=== PATIENT | female | born 1960 | race Caucasian/White ===

== ENCOUNTER 2017-12-24 15:04 | Observation (INO) ==
[2017-12-24 15:58] LABS: Basophils % 0.4 %; Eosinophils # 0.3 K/mcL (0.0-0.6); Eosinophils % 3.7 %; Hemoglobin 16.5 g/dL (11.5-15.4); Immature Granulocytes % 0.3 % (0-4); Lymphocytes # 3.8 K/mcL (0.6-4.6); Lymphocytes % 53.9 %; Mean Corpuscular HGB Conc 34.4 g/dL (31.6-35.5); Mean Corpuscular Hemoglobin 32.7 pg (28.0-33.3); Mean Corpuscular Volume 95.2 fL (83.0-100.0); Mean Platelet Volume 10.2 fL (9.4-12.4); Monocytes # 0.3 K/mcL (0.0-1.3); Monocytes % 3.9 %; Neutrophils # 2.6 K/mcL (1.6-8.9); Platelet Count 164 K/mcL (140-400); Red Blood Count 5.04 M/mcL (3.82-4.97); Red Cell Distribution Width 14.1 % (11.5-14.5); Segmented Neutrophils % 37.8 %
--- NOTE | 2017-12-24 16:01 | Emergency Department Note ---
Disposition Clinical Impression: Stable angina Disposition: Admitted As Inpatient Condition: Good Referrals: Miles Nicole MD [Primary Care Provider] - Forms: ED Satisfaction Letter Time of Disposition: 19:31 Chest Pain HPI - General Chief Complaint: ED Chest Pain Stated Complaint: chest pain Time Seen by Provider: 12/24/17 15:34 Source: patient Mode of arrival: ambulatory Limitations: no limitations Vital Signs Reviewed: Yes Nursing Notes Reviewed: Yes - History of Present Illness HPI Narrative: Patient presents to the ED the chief complaint of chest pain. Patient reports that she had an episode that lasted 25-30 minutes last night centralized sharp chest discomfort that made her diaphoretic and nauseated. She was also short of breath but has a history of COPD. States that it went away after about 30 minutes and she took a breathing treatment and her breathing got better that she woke up this morning and just felt very tired and weak. She also complains of a rather persistent chest tightness and heaviness at this time. Does have a history of DE about a year ago withstent placement and was seen at the [facility] and told she had an MRI, but she was recovering so there is nothing that they could do. She states this feels exactly the same. She came in today. No abdominal pain, vomiting or diarrhea. No pain or swelling in her legs. No history of PE. Severity scale (1-10): 4 - Related Data Home Medications Medication Instructions Recorded Confirmed Albuterol Neb [Proventil Neb] 2.5 mg IH QID PRN 10/20/15 12/27/16 Aspirin [Adult Low Dose Aspirin EC] 81 mg PO DAILY 10/20/15 12/27/16 Cyclobenzaprine [Flexeril] 10 mg PO HS PRN 10/20/15 12/27/16 Etanercept [Enbrel] 25 mg SQ WE 10/20/15 12/27/16 Fluticasone Propionate Nasal 100 mcg NS BID 10/20/15 12/27/16 [Flonase] Folic Acid 1 mg PO QAM 10/20/15 12/27/16 Furosemide [Lasix] 20 mg PO QAM 10/20/15 12/27/16 Levothyroxine Sodium [Synthroid] 400 mcg PO QAM 10/20/15 12/27/16 Lisinopril [Zestril] 10 mg PO QAM 10/20/15 12/27/16 Loratadine [Claritin] 10 mg PO QAM 10/20/15 12/27/16 Methotrexate [Otrexup] 12.5 mg PO TU 10/20/15 12/27/16 Metoprolol [Lopressor] 25 mg PO DAILY 10/20/15 12/27/16 Pantoprazole Sodium [Protonix] 20 mg PO QAM 10/20/15 12/27/16 Simvastatin [Zocor] 20 mg PO QPM 10/20/15 12/27/16 Sulfasalazine [Azulfidine] 1,500 mg PO BID 10/20/15 12/27/16 Previous Rx's Medication Instructions Recorded Clindamycin [Cleocin] 150 mg PO Q6HR #7 capsule 12/27/16 Ibuprofen [Motrin] 600 mg PO Q8HR #14 tab 12/27/16 OxyCODONE Immed Rel [Roxicodone 5 5 mg PO Q4HR PRN #24 tablet 12/27/16 MG] Allergies Allergy/AdvReac Type Severity Reaction Status Date / Time No Known Allergies Allergy Verified 03/26/16 10:14 Review of Systems: As reviewed in the HPI. All other systems reviewed are negative or normal. 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 Absent: normal lung sounds bilaterally - Cardiovascular Cardiovascular exam: Present: regular rate, normal rhythm, normal heart sounds - Abdominal Exam Abdominal exam: Present: soft, Non-Tender. Absent: tenderness, distention, guarding, rebound, rigidity - Extremities Exam Extremities exam: Present: normal inspection, full ROM. Absent: tenderness, pedal edema - Neurological Exam Neurological exam: Present: alert, oriented X3 - Psychiatric Psychiatric exam: Present: normal affect, normal mood - Skin Skin exam: Present: warm, dry, intact, normal color Course Course Narrative: Patient presenting with her anginal equivalent chest pain. We will workup and admit - Reevaluation(s) Reevaluation #1: Hospitalist is called back. Accepted for admission. Patient remained stable Vital Signs Temperature 98.4 F 12/24/17 15:09 Pulse Rate 87 12/24/17 15:09 Respiratory Rate 18 12/24/17 15:09 Blood Pressure 146/98 12/24/17 15:09 O2 Sat by Pulse Oximetry 94 12/24/17 15:09 Temperature 98.4 F 12/24/17 15:09 Pulse Rate 85 12/24/17 18:19 Respiratory Rate 18 12/24/17 18:23 Blood Pressure 116/98 12/24/17 18:19 O2 Sat by Pulse Oximetry 93 12/24/17 18:23 Oxygen Delivery Oxygen Delivery Room Air Chest Pain - Medical Records Medical records reviewed: Yes I reviewed the patient's medical records. - Lab Data Lab results reviewed: Yes I reviewed the patient's lab results. Result diagrams: 12/24/17 15:08 12/24/17 15:08 Lab Results 12/24/17 12/24/17 12/24/17 Range/Units 15:08 15:08 15:08 WBC 7.0 (4.3-11.1) K/mcL RBC 5.04 H (3.82-4.97) M/mcL Hgb 16.5 H (11.5-15.4) g/dL Hct 48.0 H (35.3-44.9) % MCV 95.2 (83.0-100.0) fL MCH 32.7 (28.0-33.3) pg MCHC 34.4 (31.6-35.5) g/dL RDW 14.1 (11.5-14.5) % Plt Count 164 (140-400) K/mcL MPV 10.2 (9.4-12.4) fL Immature Gran % 0.3 (0-4) % Seg Neutrophils % 37.8 % Lymphocytes % 53.9 % Monocytes % 3.9 % Eosinophils % 3.7 % Basophils % 0.4 % Neutrophils # 2.6 (1.6-8.9) K/mcL Lymphocytes # 3.8 (0.6-4.6) K/mcL Monocytes # 0.3 (0.0-1.3) K/mcL Eosinophils # 0.3 (0.0-0.6) K/mcL Basophils # 0.0 (0.0-0.2) K/mcL D-Dimer (0-500) ng/mLFEU Sodium 133 L (136-145) mEq/L Potassium 4.2 (3.5-5.1) mEq/L Chloride 98 (98-107) mEq/L Carbon Dioxide 28 (23-29) mEq/L BUN 10 (6-20) mg/dL Creatinine 0.74 (0.60-1.20) mg/dL Est GFR ( Amer) > 60 (> 60) Est GFR (Non-Af Amer) > 60 (> 60) BUN/Creatinine Ratio 14 (6-26) Glucose 105 (70-105) mg/dL Calculated Osmolality 275 L (280-300) Lactic Acid (0.5-2.2) mmol/L Calcium 10.3 (8.6-10.3) mg/dL Troponin I < 0.03 (< 0.04) ng/mL B-Natriuretic Peptide 37 (Less than 100) pg/mL 12/24/17 12/24/17 Range/Units 15:41 15:41 WBC (4.3-11.1) K/mcL RBC (3.82-4.97) M/mcL Hgb (11.5-15.4) g/dL Hct (35.3-44.9) % MCV (83.0-100.0) fL MCH (28.0-33.3) pg MCHC (31.6-35.5) g/dL RDW (11.5-14.5) % Plt Count (140-400) K/mcL MPV (9.4-12.4) fL Immature Gran % (0-4) % Seg Neutrophils % % Lymphocytes % % Monocytes % % Eosinophils % % Basophils % % Neutrophils # (1.6-8.9) K/mcL Lymphocytes # (0.6-4.6) K/mcL Monocytes # (0.0-1.3) K/mcL Eosinophils # (0.0-0.6) K/mcL Basophils # (0.0-0.2) K/mcL D-Dimer 729 H (0-500) ng/mLFEU Sodium (136-145) mEq/L Potassium (3.5-5.1) mEq/L Chloride (98-107) mEq/L Carbon Dioxide (23-29) mEq/L BUN (6-20) mg/dL Creatinine (0.60-1.20) mg/dL Est GFR ( Amer) (> 60) Est GFR (Non-Af Amer) (> 60) BUN/Creatinine Ratio (6-26) Glucose (70-105) mg/dL Calculated Osmolality (280-300) Lactic Acid 1.1 (0.5-2.2) mmol/L Calcium (8.6-10.3) mg/dL Troponin I (< 0.04) ng/mL B-Natriuretic Peptide (Less than 100) pg/mL - Radiology Data Radiology results reviewed: Yes I reviewed the patient's radiology results. - EKG Data EKG attestation: Yes I reviewed and interpreted this EKG. EKG results narrative: Sinus rhythm, rate 81, MO interval 205, QRS 88, QTC 373, normal axis, no acute ischemic changes Heart Score - Score History: Highly Suspicious EKG: Non Specific repolarisation Disturbance Age: 45-65 Risk Factors: Equal/Greater than 3 risk factor or history of atherosclerotic disease Troponin: Less than normal limit HEART Score Total: 6
[2017-12-24 16:15] LABS: BUN/Creatinine Ratio 14 (6-26); Blood Urea Nitrogen 10 mg/dL (6-20); Calcium 10.3 mg/dL (8.6-10.3); Carbon Dioxide 28 mEq/L (23-29); Chloride 98 mEq/L (98-107); Glucose 105 mg/dL (70-105); Osmolality,Calculated 275 (280-300); Potassium 4.2 mEq/L (3.5-5.1); Sodium 133 mEq/L (136-145); eGFR For African Americans > 60 (> 60); eGFR For Non-African Americans > 60 (> 60)
[2017-12-24 16:16] LABS: Troponin I < 0.03 ng/mL (< 0.04)
[2017-12-24] MEDS ORDERED: Isovue-370 500 ML INFUS..BTL IV ONE (16:44)
--- NOTE | 2017-12-24 16:46 | Emergency Department Note ---
START Narrative - START START: I examined this patient and my medical decision-making was reviewed with the Resident Physician. I agree with the documented findings, disposition and treatment plan as described except to the extent set forth below. 57-year-old female presents to the emergency room for chest pain and chest pressure. Workup today reveals an elevated d-dimer but a negative troponin. We will do a CTA of the chest to evaluate for any possible pulmonary embolus. She is hemodynamically stable at this time. She has no chest pain at this time. She does have a history of COPD. Some of her breathing treatments of helped with her discomfort. She feels tired and weak and feels something is not right. Her EKG was nondiagnostic.
[2017-12-24] MEDS ORDERED: Ipratropium/Albuterol Neb 3 ML IH ONE (18:20)
[2017-12-24] MEDS ORDERED: Aspirin 325 MG TABLET PO ONE (19:30)
--- NOTE | 2017-12-24 21:13 | Internal Med History&Physical ---
Date of Encounter: 12/24/17 Time of Encounter: 21:11 Internal Medicine - H&P: HPI Chief complaint: chest pain Admitted From: Emergency Dept Plans for Post Hospital Care: Home History of present illness: Ms. King is a 57 year old female Patient with history of COPD, rheumatoid arthritis, hypertension, obesity, CAD patient says she has had 5 cardiac catheter no stent placed, smoking history and high cholesterol patient has chest pain describes a sharp pain last night lasted about 30 minutes associated with with some nausea and diaphoresis resolved but she woke up this morning feeling tired and weak with persistence chest heaviness and decided to come to the emergency room EKG troponin is unremarkable patient be admitted for follow evaluation. Past Med Surg Social Fam HX - Past Medical History Medical history: asthma, COPD, hypertension, myocardial infarction, RA, thyroid disease Psychiatric history: no psych history - Past Surgical History Surgical History: herniorrhaphy - Social History Smoking Status: Current every day smoker Smokeless Tobacco Status: No Alcohol use: none Drug use: marijuana - Family History Father Adopted: No Family Member Ethnicity: Non- Living Status: Hx Family Cardiac Disorders: Yes Internal Medicine - H&P: Meds Albuterol Neb [Proventil Neb] 2.5 mg IH QID PRN 10/20/15 [History] Aspirin [Adult Low Dose Aspirin EC] 81 mg PO DAILY 10/20/15 [History] Cyclobenzaprine [Flexeril] 10 mg PO HS PRN 10/20/15 [History] Etanercept [Enbrel] 25 mg SQ WE 10/20/15 [History] Fluticasone Propionate Nasal [Flonase] 100 mcg NS BID 10/20/15 [History] Folic Acid 1 mg PO QAM 10/20/15 [History] Furosemide [Lasix] 20 mg PO QAM 10/20/15 [History] Levothyroxine Sodium [Synthroid] 400 mcg PO QAM 10/20/15 [History] Lisinopril [Zestril] 10 mg PO QAM 10/20/15 [History] Loratadine [Claritin] 10 mg PO QAM 10/20/15 [History] Methotrexate [Otrexup] 12.5 mg PO TU 10/20/15 [History] Metoprolol [Lopressor] 25 mg PO DAILY 10/20/15 [History] Pantoprazole Sodium [Protonix] 20 mg PO QAM 10/20/15 [History] Simvastatin [Zocor] 20 mg PO QPM 10/20/15 [History] Sulfasalazine [Azulfidine] 1,500 mg PO BID 10/20/15 [History] Clindamycin [Cleocin] 150 mg PO Q6HR #7 capsule 12/27/16 [Rx] Ibuprofen [Motrin] 600 mg PO Q8HR #14 tab 12/27/16 [Rx] OxyCODONE Immed Rel [Roxicodone 5 MG] 5 mg PO Q4HR PRN #24 tablet 12/27/16 [Rx] 3 Allergy/AdvReac Type Severity Reaction Status Date / Time No Known Allergies Allergy Verified 03/26/16 10:14 All Systems PM: A 10-system review of systems was performed and is negative for pertinent findings except as documented above in the HPI. - Constitutional Vitals: Temp Pulse Resp BP Pulse Ox 98.4 F 90 16 111/88 94 12/24/17 15:09 12/24/17 19:36 12/24/17 20:51 12/24/17 20:51 12/24/17 19:36 - Head Head exam: Present: atraumatic, normocephalic - Eye Eye exam: Present: PERRL, conjuntiva pink, sclera anicteric Pupils: Present: PERRL - Neck Neck exam general surgery: Present: supple, trachea midline. Absent: lymphadenopathy - Respiratory Respiratory exam: Present: CTAB. Absent: accessory muscle use, rales, rhonchi, wheezes - Cardiovascular Cardiovascular exam: Present: RRR, +S1, +S2. Absent: diastolic murmur, gallop, rubs, systolic murmur - GI/Abdominal GI/Abdominal exam: Present: normal bowel sounds, soft, no peritoneal signs. Absent: distended, tenderness - Extremities Exam Extremities exam: Present: warm, radial pulses palpable and symmetrical. Absent : calf tenderness, cyanotic, pedal edema - Neurological Exam Neurological exam: Present: CN II-XII intact, oriented X3, no focal deficits. 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 transplanted heart: [place] heart Associated angina: without angina Qualified Code(s): I25.10 - Atherosclerotic heart disease of [place] coronary artery without angina pectoris - Time Spent With Patient Total time spent is greater than 50% in coordination of care (as documented) at patient's floor/unit and/or counseling patient:
[2017-12-24] MEDS ORDERED: traMADol 50 MG TABLET PO PRN (21:17)
[2017-12-24] MEDS ORDERED: Acetaminophen 325 MG TABLET PO PRN (21:17)
[2017-12-24] MEDS ORDERED: Naloxone 0.4 MG/ML INJ IVP PRN (21:17)
[2017-12-24] MEDS ORDERED: *HR* OxyCODONE Immed Rel 5 MG TABLET PO PRN (21:18)
[2017-12-25] MEDS: Albuterol 2.5 MG/3 ML NEBULIZER IH PRN ×5 (01:13→23:33)
[2017-12-25 03:32] LABS: Basophils % 0.3 %; Eosinophils # 0.3 K/mcL (0.0-0.6); Eosinophils % 4.6 %; Hematocrit 42.7 % (35.3-44.9); Immature Granulocytes % 0.2 % (0-4); Lymphocytes # 3.3 K/mcL (0.6-4.6); Lymphocytes % 55.1 %; Mean Corpuscular HGB Conc 34.7 g/dL (31.6-35.5); Mean Corpuscular Hemoglobin 33.1 pg (28.0-33.3); Mean Corpuscular Volume 95.5 fL (83.0-100.0); Mean Platelet Volume 10.1 fL (9.4-12.4); Monocytes # 0.3 K/mcL (0.0-1.3); Monocytes % 4.3 %; Neutrophils # 2.2 K/mcL (1.6-8.9); Platelet Count 144 K/mcL (140-400); Red Blood Count 4.47 M/mcL (3.82-4.97); Segmented Neutrophils % 35.5 %
[2017-12-25 03:41] LABS: Hemoglobin 14.8 g/dL (11.5-15.4)
[2017-12-25 03:43] LABS: Alanine Aminotransferase 21 Units/L (7-52); Albumin 3.9 g/dL (3.5-5.7); Albumin/Globulin Ratio 1.6 (1.1-2.2); Alkaline Phosphatase 58 Units/L (34-104); Aspartate Amino Transferase 22 Units/L (13-39); BUN/Creatinine Ratio 14 (6-26); Bilirubin,Total 0.7 mg/dL (0.3-1.0); Blood Urea Nitrogen 12 mg/dL (6-20); Calcium 9.3 mg/dL (8.6-10.3); Carbon Dioxide 27 mEq/L (23-29); Chloride 99 mEq/L (98-107); Chol/HDL Ratio 4.4 (0-4.9); Cholesterol 177 mg/dL (< 200); Globulin 2.5 g/dL (2.4-3.5); Glucose 103 mg/dL (70-105); HDL Cholesterol 40 mg/dL (40-59); LDL Cholesterol,Calculated 120 mg/dL (0-99); Magnesium 1.8 mg/dL (1.6-2.6); Osmolality,Calculated 270 (280-300); Potassium 4.1 mEq/L (3.5-5.1); Sodium 130 mEq/L (136-145); Total Protein 6.4 g/dL (6.4-8.9); Triglycerides 87 mg/dL (< 150); eGFR For African Americans > 60 (> 60); eGFR For Non-African Americans > 60 (> 60)
[2017-12-25] MEDS ORDERED: Regadenoson 0.4 MG/5 ML SYRINGE IVP ONE (06:01)
--- NOTE | 2017-12-25 14:14 | Gastroenterology Consult Note ---
<Stephanie Carey - Last Filed: 12/25/17 14:10> Date of Encounter: 12/25/17 Time of Encounter: 11:45 - Assessment and plan (1) Chest pain Current Visit: Yes Status: Acute Assessment and plan: Stress test this am showed low risk positiv results. She denies any GERD or abdominal symptoms. Will defer EGD at this time, until cardiac workup is complete. Qualifiers: Chest pain type: precordial pain Qualified Code(s): R07.2 - Precordial pain - Time Spent With Patient Total time spent is greater than 50% in coordination of care (as documented) at patient's floor/unit and/or counseling patient: GI History of Present Illness - Data of Consult Patient: new to practice Consult date: 12/25/17 Requesting Physician: Hernan Duarte MD - Consult Narrative Reason for consult: chest pain History of present illness: Ms. King is a 57 year old female patient with history of COPD, rheumatoid arthritis, hypertension, obesity, CAD patient says she has had 5 cardiac catheter no stent placed, smoking history and high cholesterol. She presents with sharp substernal chest pain that lasted approximately 30 minutes last night. She also had nausea and diarphoresis. Pain resolved she woke up this morning feeling tired and weak with persistence chest heaviness and decided to come to the emergency room EKG troponin is unremarkable. Pt denies any GERD, epigastric pain, abdominal pain, vomiting, diarrhea, constipation, bloody or tarry stools. Colon: 06/17 diverticulosis, 6 mm polyp eGD: [place]'s esophagus no dysplasia NSAIDS: baby asa anticoagulants denies Past Med Surg Social Fam HX - Past Medical History Medical history: asthma, COPD, hypertension, myocardial infarction, RA, thyroid disease Psychiatric history: no psych history - Past Surgical History Surgical History: herniorrhaphy - Social History Smoking Status: Current every day smoker Packs per day: 0.5 Smokeless Tobacco Status: No Alcohol use: none Drug use: marijuana - Family History Mother Hx Family Cardiac Disorders: Yes (Heart disease) Hx Family Endocrine Disorder: Yes (DM) Father Adopted: No Family Member Ethnicity: Non- Living Status: Hx Family Cardiac Disorders: Yes (Heart disease, [place]) Review of Systems: GI: as per [place] GENERAL: denies fever, or chills EYES: denies yellow discoloration ENT: denies pain with swallowing or difficulty swallowing CARDIO: see hpi RESP: No Shortness of breath with exertion : denies change in color of urine NEURO: denies any weakness HEME: Denies any bruising MS: denies joint pain, joint swelling or back pain. DERM: denies rash or itching PSYCH: history of anxiety and depression - Constitutional Vitals: Temp Pulse Resp BP Pulse Ox 98.3 F 59 16 119/76 90 12/25/17 11:11 12/25/17 11:11 12/25/17 13:58 12/25/17 11:11 12/25/17 13:58 Exam: CONSTITUTIONAL:~alert, no acute distress.~HEAD:~normocephalic.~EYES:~no jaundice.~NECK:~no obvious swelling.~HEART:~regular rate and rhythm, no murmurs. ~LUNGS:~bilateral good air entry.~ABDOMEN:~non distended, soft, non tender, no masses palpable, no organomegaly.~RECTAL EXAM:~Deferred.~EXTREMITIES:~no clubbing, cyanosis or edema, obesity.~SKIN:~no stigmata of chronic liver disease.~NEUROLOGIC:~no obvious focal defect.~~~~ Results - Labs CBC & Chem 7: 12/25/17 03:09 12/25/17 03:09 Labs: Last Result Calcium 9.3 mg/dL (8.6-10.3) 12/25/17 03:09 Troponin I < 0.03 ng/mL (< 0.04) 12/25/17 03:09 Triglycerides 87 mg/dL (< 150) 12/25/17 03:09 Entire Visit Hgb 14.8 g/dL (11.5-15.4) D 12/25/17 03:09 Hct 42.7 % (35.3-44.9) 12/25/17 03:09 Total Bilirubin 0.7 mg/dL (0.3-1.0) 12/25/17 03:09 AST 22 Units/L (13-39) 12/25/17 03:09 ALT 21 Units/L (7-52) 12/25/17 03:09 - ABG ABG results: PT/INR, D-dimer D-Dimer 729 ng/mLFEU (0-500) H 12/24/17 15:41 Consult Discharge Plan - Plan Referrals: Miles Nicole MD [Primary Care Provider] - <Ashkan Summers - Last Filed: 12/25/17 18:51> Date of Encounter: 12/25/17 Time of Encounter: 15:00 - Time Spent With Patient Total time spent is greater than 50% in coordination of care (as documented) at patient's floor/unit and/or counseling patient: GI History of Present Illness - Data of Consult Requesting Physician: Hernan Duarte MD - Consult Narrative History of present illness: Ms. King is a 57 year old female - Constitutional Vitals: Temp Pulse Resp BP Pulse Ox 98.9 F 98 16 124/85 92 12/25/17 14:22 12/25/17 14:22 12/25/17 14:22 12/25/17 14:22 12/25/17 14:22 Results - Labs CBC & Chem 7: 12/25/17 03:09 12/25/17 14:28 Labs: Last Result Calcium 9.9 mg/dL (8.6-10.3) 12/25/17 14:28 Troponin I < 0.03 ng/mL (< 0.04) 12/25/17 03:09 Triglycerides 87 mg/dL (< 150) 12/25/17 03:09 Entire Visit Hgb 14.8 g/dL (11.5-15.4) D 12/25/17 03:09 Hct 42.7 % (35.3-44.9) 12/25/17 03:09 Total Bilirubin 0.7 mg/dL (0.3-1.0) 12/25/17 03:09 AST 22 Units/L (13-39) 12/25/17 03:09 ALT 21 Units/L (7-52) 12/25/17 03:09 - ABG ABG results: PT/INR, D-dimer D-Dimer 729 ng/mLFEU (0-500) H 12/24/17 15:41 - Attending Attestation I have personally performed a face to face evaluation on this patient. I have reviewed and agree with the care plan. History and Exam by me shows: Admitted with chest pain. Currently chest pain-free. On examination no epigastric tenderness. Had a stress test done which showed mild abnormality. Pt is being seen by cardiology and and we will wait for their workup. Only EGD if it was found that the stress tests abnormality is not responsible for her chest pain
[2017-12-25 14:57] LABS: BUN/Creatinine Ratio 10 (6-26); Blood Urea Nitrogen 9 mg/dL (6-20); Calcium 9.9 mg/dL (8.6-10.3); Carbon Dioxide 29 mEq/L (23-29); Chloride 100 mEq/L (98-107); Glucose 119 mg/dL (70-105); Osmolality,Calculated 278 (280-300); Potassium 3.6 mEq/L (3.5-5.1); Sodium 134 mEq/L (136-145); eGFR For African Americans > 60 (> 60); eGFR For Non-African Americans > 60 (> 60)
--- NOTE | 2017-12-25 15:49 | Cardiology Consult Note ---
<Trung Alegria - Last Filed: 12/25/17 16:42> Date of Encounter: 12/25/17 Time of Encounter: 15:50 Assessment and Plan (1) Chest pain Current Visit: Yes Status: Acute Per Cardiology: Atypical symptoms that appear epigastric in nature and occurred at rest. Symptoms reproducible today with deep inspiration and palpation. Troponins negative. Non-exercise nuclear stress test showed gated EF 56%, nuclear images showed "small size, mild intensity, reversible apex perfusion defect of equivocal significance, suspect this defect is due to artifact, a small area of ischemia cannot be excluded, clinical correlation recommended, low risk positive study". Undergoing GI eval as well for possible EGD. Reported history of "myocardial infarction and possibly effusion", patient reports events occurred in 2009, however catheterization at [facility] noted in 2011 showed mild CAD with "suspicion of myocarditis": Lesion Findings/Interventions * Left Main Coronary Artery The LMCA is angiographically free of disease. * Left Anterior Descending Coronary Artery There is a 30% stenosis in the Proximal LAD. * Circumflex Coronary Artery There is a 20% stenosis in the Proximal Circumflex. * Right Coronary Artery There is a 20% stenosis in the Proximal RCA. Will attempt to obtain medical records from [facility]. On aspirin, statin, beta sheridan, and SERGIO inhibitor. We will review and discuss with Dr. Jeovany Mercado in decide in the a.m. regarding potential further ischemic evaluation versus monitoring. Patient and currently prefer to proceed with EGD. Qualifiers: Chest pain type: precordial pain Qualified Code(s): R07.2 - Precordial pain (2) Elevated d-dimer Current Visit: Yes Status: Acute Per Cardiology: D-dimer noted to be elevated in the 700s. CT negative for PE. Discussion w patient/family: The assessment and plan as outlined above was discussed with the patient and/or family members who expressed understanding and agreement. All questions were answered. Thank you for involving us in the care of your patient. Please call with any questions. History of Present Illness Consult date: 12/25/17 Requesting physician: Mariana Portillo Consult reason: Abnormal Stress test Chief complaint: CP History of present illness: Ms. King is a 57 year old female who relevant past medical history of nicotine abuse, reported TX, rheumatoid arthritis, asthma, hypothyroidism, hypertension, COPD. Previous records reviewed with no previous cardiac evaluation at [facility]. Cardiology consult for chest pain and abnormal stress test results. Patient reports she awakened in the middle night with midsternal epigastric burning sensation that lasted about 20-30 minutes and subsided on its own accord and she "with back to sleep". She reports next day she awakened and felt "tired and weak all day". Prior to this event denies any chest pain symptoms. Reports questionable history of TX with catheterization reportedly at [facility] 2009-- patient and deny any stenting or bypass surgery. Reports transferred to [facility] at that time with concerns of possible "effusion". Does not follow with cardiology. Has not had cardiac testing since that event. He used to smoke about a half a pack per day, has averaged one pack per day for about 30 years. Reports history of GERD and takes medications at home. She does report history of COPD and utilizes oxygen at night. Denies any active bleeding or blood loss. Reports past history of colonoscopy, however currently being evaluated for possible EGD tomorrow. Past Med Surg Social Fam HX - Past Medical History Attestation: Yes The following information was validated with the patient. Source: patient, old records reviewed Medical history: asthma, COPD, hypertension, myocardial infarction, RA, thyroid disease Psychiatric history: no psych history - Past Surgical History Surgical History: herniorrhaphy - Social History Smoking Status: Current every day smoker Packs per day: 0.5 Smokeless Tobacco Status: No Alcohol use: none Drug use: marijuana - Family History Mother Hx Family Cardiac Disorders: Yes (Heart disease) Hx Family Endocrine Disorder: Yes (DM) Father Adopted: No Family Member Ethnicity: Non- Living Status: Hx Family Cardiac Disorders: Yes (Heart disease, TX) Medications and Allergies Albuterol Neb [Proventil Neb] 2.5 mg IH QID PRN 10/20/15 [History] Aspirin [Adult Low Dose Aspirin EC] 81 mg PO DAILY 10/20/15 [History] Etanercept [Enbrel] 25 mg SQ WE 10/20/15 [History] Folic Acid 1 mg PO QAM 10/20/15 [History] Furosemide [Lasix] 20 mg PO QAM 10/20/15 [History] Levothyroxine Sodium [Synthroid] 400 mcg PO QAM 10/20/15 [History] Lisinopril [Zestril] 10 mg PO QAM 10/20/15 [History] Loratadine [Claritin] 10 mg PO QAM 10/20/15 [History] Methotrexate [Otrexup] 12.5 mg PO TU 10/20/15 [History] Metoprolol [Lopressor] 25 mg PO DAILY 10/20/15 [History] Sulfasalazine [Azulfidine] 1,500 mg PO BID 10/20/15 [History] Dicyclomine [Bentyl] 20 mg PO QID 12/25/17 [History] Ipratropium [place] 1 spr NS QID 12/25/17 [History] Montelukast [Singulair] 10 mg PO DAILY 12/25/17 [History] Omeprazole [PriLOSEC] 20 mg PO DAILY@0730 #30 capsule. 12/26/17 [Rx] 3 Allergy/AdvReac Type Severity Reaction Status Date / Time No Known Allergies Allergy Verified 03/26/16 10:14 All Systems Review: The remainder of the systems were reviewed and are negative - Constitutional Constitutional: weakness - Cardiovascular Cardiovascular: as per HPI, chest pain at rest, dyspnea on exertion Physical Examination Vital Signs, Last 4 Hours Temp Pulse Resp BP Pulse Ox 12/25/17 14:22 98.9 F 98 16 124/85 92 12/25/17 13:58 16 90 General: Conversant, No Apparent Distress HEENT: Atraumatic, Normocephaly, Mucus Membranes Moist Neck: No JVD, Normal carotid pulses Cardiac: Reg Rate and Rhythm, Normal S1 and S2, No Murmur Lungs: Normal Breath Sounds, No Wheeze, Rales, Rhonchi Neuro: Alert and responsive, No focal deficits noted Abdomen: Soft, Non-Tender, Other (obese) Skin: No rashes noted on visualized skin Musculoskeletal: No Chest Wall Tenderness Extremities: No Clubbing, No Cyanosis, No Edema, Normal Pulses Results 12/25/17 03:09 12/25/17 14:28 Lab Results Laboratory Tests 12/24/17 12/24/17 12/24/17 15:08 15:08 15:41 D-Dimer 729 H Creatinine Est GFR (Non-Af Amer) Magnesium Troponin I < 0.03 B-Natriuretic Peptide 37 LDL Cholesterol, Calc 12/24/17 12/25/17 12/25/17 21:48 03:09 03:09 D-Dimer Creatinine 0.87 Est GFR (Non-Af Amer) > 60 Magnesium 1.8 Troponin I < 0.03 < 0.03 B-Natriuretic Peptide LDL Cholesterol, Calc 120 H ITS Impressions Chest X-Ray 12/24/17 15:08 IMPRESSION: 1. No acute process. 2. Findings suggestive of COPD. D/ / Eder Blankenship MD / Eder Blankenship MD Interpreting Provider: Eder Blankenship MD Chest CTA 12/24/17 16:44 IMPRESSION: 1. No pulmonary embolism. 2. Reflux of contrast into the hepatic veins suggesting right heart insufficiency. 3. Mild dilatation of ascending thoracic aorta. 4. Small to moderate size hiatal hernia. 5. Minimal fibrosis is noted in the upper right paramediastinal lung. D/ / Parth Rothman / Parth Rothman Interpreting Provider: Parth Rothman Active Medications Acetaminophen (Tylenol) 650 mg PO Q6HR PRN PRN Reason: Mild Pain/Fever Stop: 06/25/18 21:18 Albuterol Sulfate (Proventil Neb) 2.5 mg IH QID PRN; Protocol PRN Reason: Shortness Of Breath Stop: 06/25/18 21:19 Last Admin: 12/25/17 13:58 Dose: 2.5 mg Aspirin (Aspirin Ec) 81 mg PO DAILY REPLACED BY [facility] Stop: 06/26/18 09:01 Last Admin: 12/25/17 16:33 Dose: 81 mg Cyclobenzaprine HCl (Flexeril) 10 mg PO HS PRN PRN Reason: Muscle Spasm Stop: 06/25/18 21:19 Fluticasone Propionate (Flonase) 100 mcg NS BID [place] PRN Reason: Protocol Stop: 06/26/18 09:01 Last Admin: 12/25/17 15:59 Dose: Not Given Folic Acid (Folic Acid) 1 mg PO QAM REPLACED BY [facility] Stop: 06/26/18 09:01 Last Admin: 12/25/17 16:32 Dose: 1 mg Heparin Sodium (Porcine) (Heparin Lock) 500 unit IV ONCE PRN PRN Reason: Port [place]ush while in RADIOLOGY Stop: 12/26/17 16:45 Levothyroxine Sodium (Synthroid) 400 mcg PO QAM REPLACED BY [facility] Stop: 06/26/18 09:01 Last Admin: 12/25/17 16:33 Dose: 400 mcg Lisinopril (Zestril) 10 mg PO QAM REPLACED BY [facility] PRN Reason: Protocol Stop: 06/26/18 09:01 Last Admin: 12/25/17 16:32 Dose: 10 mg Loratadine (Claritin) 10 mg PO QAM REPLACED BY [facility] PRN Reason: Protocol Stop: 06/26/18 09:01 Last Admin: 12/25/17 16:32 Dose: 10 mg Metoprolol Tartrate (Lopressor) 25 mg PO DAILY REPLACED BY [facility] Stop: 06/26/18 09:01 Last Admin: 12/25/17 16:32 Dose: 25 mg Naloxone HCl (Narcan) 0.4 mg IVP Q2MIN PRN PRN Reason: SEE COMMENTS Stop: 06/25/18 21:18 Omeprazole (Prilosec) 20 mg PO DAILY@0730 REPLACED BY [facility] Stop: 06/26/18 07:31 Last Admin: 12/25/17 05:59 Dose: Not Given Oxycodone HCl (Roxicodone) 5 mg PO Q4HR PRN; Protocol PRN Reason: Severe Pain Stop: 06/25/18 21:19 Simvastatin (Zocor) 20 mg PO QPM REPLACED BY [facility] PRN Reason: Protocol Stop: 06/26/18 18:01 Last Admin: 12/25/17 16:33 Dose: 20 mg Sulfasalazine (Sulfasalazine) 1,500 mg PO BID REPLACED BY [facility] Stop: 06/26/18 09:01 Last Admin: 12/25/17 15:59 Dose: Not Given Tramadol HCl (Ultram) 50 mg PO Q6HR PRN PRN Reason: Moderate Pain Stop: 06/25/18 21:18 [facility] 2012: Impressions: Minimal atherosclerotic coronary artery disease. The left ventricle is normal and has normal contractility EF 60% Diastolic dysfunction of the left ventricle, LVEDP 21mmHg Probable myocarditis. - Imaging and Cardiology Stress Test: report reviewed - EKG Interpretation EKG results cardiology: other (No ECG available for review, will obtain) Consult Discharge Plan - Plan Instructions: Chest Pain (DC) Additional Instructions: [facility] Follow-up appointments: If there is not an appointment listed below, please call your physician and schedule a follow-up appointment. If you have congestive heart failure and your symptoms return, make an appointment with your physician. Medication List: Carry an up to date list of medications you are taking at all time. We have given you an updated medication list including any new medications that you have been prescribed. Please provide that list to your primary provider Symptoms: If your condition changes or you experience any of the following symptoms, notify your physician immediately: Unusual or worsening pain, fever, persistent nausea and vomiting, bleeding, increase in swelling (especially in your legs), sudden weight gain, extreme dizziness, chest pain, increased drainage or redness from a wound or incision. Go to the emergency department if you experience a problem with breathing. Weights: If you have a history of swelling or shortness of breath, weigh yourself daily and notify your physician if you have a weight gain of two or more pounds in one day or 5 or more pounds in a week. If you experience any of the warning signs for stroke: Sudden numbness or weakness of the face, arm or leg; especially on one side of the body, sudden confusion, trouble speaking or understanding, sudden trouble seeing in one or both eyes, sudden trouble walking, dizziness, loss of balance or coordination, sudden sever headache with no cause; Call 911 or go to the emergency room. Stroke is a medical emergency. Some risk factors for stroke: Age, cigarette smoking, diabetes, excessive alcohol consumption, family history , high blood pressure, overweight, physical inactivity, prior stroke, heart attack, diagnosis of carotid artery stenosis or other artery disease. If you smoke, STOP: Smoking or tobacco use significantly increases your risk of heart and lung disease. Your chance of disease greatly increases if you continue to smoke. For more information, call the [place] tobacco quit line for smoking cessation 6 QUIT-NOW ( ) Referrals: [facility] [Provider Group] - 01/20/18 8:00 am (With Trung Alegria CNP ) Miles Nicole MD [Primary Care Provider] - 12/30/17 2:00 pm Ashkan Summers MD [Partnered Physician] - Prescriptions: Omeprazole [PriLOSEC] 20 mg PO DAILY@729 #30 capsule.Jeovany Love - Last Filed: 12/26/17 13:54> Date of Encounter: 12/26/17 - Attending Attestation I have personally performed a face to face evaluation on this patient. I have reviewed and agree with the care plan. History and Exam by me shows: Agree with plan a detailed below, pt. was discharged prior to my evaluation. Assessment and Plan Discussion w patient/family: The assessment and plan as outlined above was discussed with the patient and/or family members who expressed understanding and agreement. All questions were answered. Thank you for involving us in the care of your patient. Please call with any questions. History of Present Illness History of present illness: Ms. King is a 57 year old female All Systems Review: The remainder of the systems were reviewed and are negative Physical Examination Vital Signs, Last 4 Hours Temp Pulse Resp BP Pulse Ox 12/26/17 12:00 68 126/82 12/26/17 11:15 80 16 120/72 12/26/17 11:00 80 120/72 12/26/17 10:54 98.7 F 73 17 110/77 97 12/26/17 10:35 71 14 110/77 12/26/17 10:20 76 16 116/84 12/26/17 10:05 16 116/82 Results 12/26/17 04:43 12/26/17 04:43 Lab Results 12/25/17 12/26/17 12/26/17 14:28 04:43 04:43 WBC 5.4 Hgb 14.7 Hct 43.5 Plt Count 129 L INR 1.1 Sodium 134 L Potassium 3.6 Chloride 100 Carbon Dioxide 29 BUN 9 Creatinine 0.87 Glucose 119 H Calcium 9.9 12/26/17 04:43 WBC Hgb Hct Plt Count INR Sodium 133 L Potassium 4.2 Chloride 102 Carbon Dioxide 25 BUN 10 Creatinine 0.77 Glucose 108 H Calcium 9.4
[2017-12-25] MEDS: sulfaSALAzine 500 MG TABLET PO SCH ×2 (15:59→20:41)
[2017-12-25] MEDS: Fluticasone Propionate Nasal 50 MCG/SPRAY BOTTLE NS SCH ×2 (15:59→20:49)
[2017-12-25] MEDS: Folic Acid 1 MG TABLET PO SCH (16:32)
[2017-12-25] MEDS: Loratadine 10 MG TABLET PO SCH (16:32)
[2017-12-25] MEDS: Aspirin Enteric Coated 81 MG Tablet PO SCH (16:33)
--- NOTE | 2017-12-25 19:46 | Internal Med Progress Note ---
Date of Encounter: 12/25/17 Time of Encounter: 12:00 - Assessment and plan (1) Chest pain Current Visit: Yes Status: Acute Assessment and plan: 1 No chest pain at this time suspect may be GI in nature, according to patient cardiac cath X5 in past with no stent placemnt, she is a smoker and has high cholesterol Troponin are negative Underwent non exercise nuclear stress test which did show gated EF 56%, nuclear images showed "small size, mild intensity, reversible apex perfusion defect of equivocal significance, suspect this defect is due to artifact, a small area of ischemia cannot be excluded, clinical correlation recommended, low risk positive study". Cardiology has been consulted- reviewing records from [facility] and will decide on possible LHC in am. She will be NPO after midnight. GI has been consulted for EGD- will defer EGD until cardiology workup completed. Qualifiers: Chest pain type: precordial pain Qualified Code(s): R07.2 - Precordial pain (2) Elevated d-dimer Current Visit: Yes Status: Acute Assessment and plan: D dimer in the 700-CTA negative for PE (3) CAD (coronary artery disease) Current Visit: No Status: Chronic Assessment and plan: Cont with ASA BB SERGIO and statin Qualifiers: Coronary Disease-Associated Artery/Lesion type: [place] artery [place] vs. 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 GI defering EGD at this time until cardiac workup is complete, patient is aware . No chest pain or SOB voiced at this time - Constitutional Vitals: Temp Pulse Resp BP Pulse Ox 98.9 F 98 20 124/85 90 12/25/17 14:22 12/25/17 14:22 12/25/17 19:21 12/25/17 14:22 12/25/17 19:21 General appearance: Present: A&O X 3 - Head Head exam: Present: atraumatic, normocephalic - Eye Eye exam: Present: PERRL, conjuntiva pink, sclera anicteric Pupils: Present: PERRL - Neck Neck exam general surgery: Present: supple, trachea midline. Absent: lymphadenopathy - Respiratory Respiratory exam: Present: CTAB. Absent: accessory muscle use, rales, rhonchi, wheezes - Cardiovascular Cardiovascular exam: Present: RRR, +S1, +S2. Absent: diastolic murmur, gallop, rubs, systolic murmur - GI/Abdominal GI/Abdominal exam: Present: normal bowel sounds, soft, no peritoneal signs. Absent: distended, tenderness - Extremities Exam Extremities exam: Present: warm, radial pulses palpable and symmetrical. Absent : calf tenderness, cyanotic, pedal edema - Neurological Exam Neurological exam: Present: CN II-XII intact, oriented X3, no focal deficits. Absent: pronater drift, facial droop, speech deficit - Skin Skin exam: Present: dry, intact Internal Medicine: Result - Labs CBC & Chem 7: 12/25/17 03:09 12/25/17 14:28 Labs: Short CBC 12/25/17 Range/Units 03:09 WBC 6.1 (4.3-11.1) K/mcL Hgb 14.8 D (11.5-15.4) g/dL Hct 42.7 (35.3-44.9) % Plt Count 144 (140-400) K/mcL Neutrophils # 2.2 (1.6-8.9) K/mcL BMP 12/25/17 12/25/17 03:09 14:28 Sodium 130 L 134 L Potassium 4.1 3.6 Chloride 99 100 Carbon Dioxide 27 29 BUN 12 9 Creatinine 0.87 0.87 Glucose 103 119 H Calcium 9.3 9.9 Cardiac Enzymes 12/24/17 12/25/17 Range/Units 21:48 03:09 Troponin I < 0.03 < 0.03 (< 0.04) ng/mL Liver Function 12/25/17 Range/Units 03:09 Total Bilirubin 0.7 (0.3-1.0) mg/dL AST 22 (13-39) Units/L ALT 21 (7-52) Units/L Alkaline Phosphatase 58 (34-104) Units/L Albumin 3.9 (3.5-5.7) g/dL - ABG Interpretation ABG results: PT/INR, D-dimer D-Dimer 729 ng/mLFEU (0-500) H 12/24/17 15:41 - Diagnostic Studies Other Images Additional comments: Chest X-Ray 12/24/17 15:08 IMPRESSION: 1. No acute process. 2. Findings suggestive of COPD. D/ / Eder Blankenship MD / Eder Blankenship MD Interpreting Provider: Eder Blankenship MD Chest CTA 12/24/17 16:44 IMPRESSION: 1. No pulmonary embolism. 2. Reflux of contrast into the hepatic veins suggesting right heart insufficiency. 3. Mild dilatation of ascending thoracic aorta. 4. Small to moderate size hiatal hernia. 5. Minimal fibrosis is noted in the upper right paramediastinal lung. D/ / Parth Rothman / Parth Rothman Interpreting Provider: Parth Rothman Consult Discharge Plan - Plan Referrals: Miles Nicole MD [Primary Care Provider] -
[2017-12-26 05:20] LABS: Basophils % 0.4 %; Eosinophils # 0.4 K/mcL (0.0-0.6); Eosinophils % 6.5 %; Hematocrit 43.5 % (35.3-44.9); Hemoglobin 14.7 g/dL (11.5-15.4); Immature Granulocytes % 0.2 % (0-4); Lymphocytes # 2.5 K/mcL (0.6-4.6); Lymphocytes % 46.5 %; Mean Corpuscular HGB Conc 33.8 g/dL (31.6-35.5); Mean Corpuscular Hemoglobin 33.1 pg (28.0-33.3); Mean Platelet Volume 10.6 fL (9.4-12.4); Monocytes # 0.3 K/mcL (0.0-1.3); Monocytes % 5.6 %; Neutrophils # 2.2 K/mcL (1.6-8.9); Platelet Count 129 K/mcL (140-400); Red Blood Count 4.44 M/mcL (3.82-4.97); Segmented Neutrophils % 40.8 %
[2017-12-26 05:31] LABS: INR 1.1; Prothrombin Time 12.2 Seconds (9.4-12.1)
[2017-12-26 05:41] LABS: BUN/Creatinine Ratio 13 (6-26); Blood Urea Nitrogen 10 mg/dL (6-20); Calcium 9.4 mg/dL (8.6-10.3); Carbon Dioxide 25 mEq/L (23-29); Chloride 102 mEq/L (98-107); Glucose 108 mg/dL (70-105); Osmolality,Calculated 276 (280-300); Potassium 4.2 mEq/L (3.5-5.1); Sodium 133 mEq/L (136-145); eGFR For African Americans > 60 (> 60); eGFR For Non-African Americans > 60 (> 60)
[2017-12-26] MEDS: Albuterol 2.5 MG/3 ML NEBULIZER IH PRN (07:26)
[2017-12-26] MEDS ORDERED: *HR* Propofol 200 MG/20 ML VIAL IVP ONE (08:12)
[2017-12-26] MEDS: Fluticasone Propionate Nasal 50 MCG/SPRAY BOTTLE NS SCH (08:12)
[2017-12-26] MEDS ORDERED: *HR* FentaNYL (PF) 100 MCG/2 ML VIAL ONE (08:34)
[2017-12-26] MEDS ORDERED: Ketamine *HR* 500 MG/10 ML MDV ONE (08:36)
--- NOTE | 2017-12-26 08:48 | Cardiology Progress Note ---
Date of Encounter: 12/26/17 Time of Encounter: 08:45 Assessment and Plan (1) Chest pain Current Visit: Yes Status: Acute Per Cardiology: Atypical symptoms that appear epigastric in nature and occurred at rest. Symptoms reproducible with deep inspiration and palpation. Troponins negative x 3. Non-exercise nuclear stress test showed gated EF 56%, nuclear images showed "small size, mild intensity, reversible apex perfusion defect of equivocal significance, suspect this defect is due to artifact, a small area of ischemia cannot be excluded, clinical correlation recommended, low risk positive study". LHC at [facility] noted in 2011 showed mild CAD with "suspicion of myocarditis": Lesion Findings/Interventions * Left Main Coronary Artery The LMCA is angiographically free of disease. * Left Anterior Descending Coronary Artery There is a 30% stenosis in the Proximal LAD. * Circumflex Coronary Artery There is a 20% stenosis in the Proximal Circumflex. * Right Coronary Artery There is a 20% stenosis in the Proximal RCA. Medical records from [facility] received and patient treated for pericarditis November 2009 with echo showing trivial pericardial effusion. Underwent EGD today and diagnosed with Samayoa's esophagus. Patient desires to follow-up in outpatient setting. No catheterization warranted at this time. Follow-up arranged. On aspirin, statin, beta sheridan, and SERGIO inhibitor. Cardiology will sign off. Discussed with primary service, anticipate discharge home today. Discussed and reviewed with Dr. Jeovany Mercado. Qualifiers: Chest pain type: precordial pain Qualified Code(s): R07.2 - Precordial pain (2) Elevated d-dimer Current Visit: Yes Status: Acute Per Cardiology: D-dimer noted to be elevated in the 700s. CT negative for PE. Discussion w patient/family: The assessment and plan as outlined above was discussed with the patient and/or family members who expressed understanding and agreement. All questions were answered. Thank you for involving us in the care of your patient. Please call with any questions. Subjective Principal diagnosis: CP, abnormal stress test Interval history: Patient denies any concerns or complaints overnight. Reports had EGD this morning and was told she has "Samayoa's esophagus ". Denies any further chest pain. Objective Vital Signs, Last 4 Hours Temp Pulse Resp BP Pulse Ox 12/26/17 07:37 97.6 F 74 17 106/66 96 12/26/17 07:26 16 92 General: Conversant, No Apparent Distress HEENT: Atraumatic, Normocephaly, Mucus Membranes Moist Neck: No JVD, Normal carotid pulses Cardiac: Reg Rate and Rhythm, Normal S1 and S2, No Murmur Lungs: Normal Breath Sounds, No Wheeze, Rales, Rhonchi Neuro: Alert and responsive, No focal deficits noted Abdomen: Soft, Non-Tender Skin: No rashes noted on visualized skin Musculoskeletal: No Chest Wall Tenderness, Other (Mid sternal epigastric discomfort remains reproducible with palpation and deep inspiration) Extremities: No Clubbing, No Cyanosis, No Edema, Normal Pulses Results 12/26/17 04:43 12/26/17 04:43 Lab Results Laboratory Tests 12/24/17 12/24/17 12/25/17 15:08 21:48 03:09 INR Creatinine Est GFR (Non-Af Amer) Troponin I < 0.03 < 0.03 < 0.03 LDL Cholesterol, Calc 12/25/17 12/26/17 12/26/17 03:09 04:43 04:43 INR 1.1 Creatinine 0.77 Est GFR (Non-Af Amer) > 60 Troponin I LDL Cholesterol, Calc 120 H ITS Impressions Chest X-Ray 12/24/17 15:08 IMPRESSION: 1. No acute process. 2. Findings suggestive of COPD. D/ / Eder Blankenship MD / Eder Blankenship MD Interpreting Provider: Eder Blankenship MD Chest CTA 12/24/17 16:44 IMPRESSION: 1. No pulmonary embolism. 2. Reflux of contrast into the hepatic veins suggesting right heart insufficiency. 3. Mild dilatation of ascending thoracic aorta. 4. Small to moderate size hiatal hernia. 5. Minimal fibrosis is noted in the upper right paramediastinal lung. D/ / Parth Rothman / Parth Rothman Interpreting Provider: Parth Rothman Active Medications Acetaminophen (Tylenol) 650 mg PO Q6HR PRN PRN Reason: Mild Pain/Fever Stop: 06/25/18 21:18 Albuterol Sulfate (Proventil Neb) 2.5 mg IH QID PRN; Protocol PRN Reason: Shortness Of Breath Stop: 06/25/18 21:19 Last Admin: 12/26/17 07:26 Dose: 2.5 mg Aspirin (Aspirin Ec) 81 mg PO DAILY [facility] Stop: 06/26/18 09:01 Last Admin: 12/25/17 16:33 Dose: 81 mg Cyclobenzaprine HCl (Flexeril) 10 mg PO HS PRN PRN Reason: Muscle Spasm Stop: 06/25/18 21:19 Fluticasone Propionate (Flonase) 100 mcg NS BID [place] PRN Reason: Protocol Stop: 06/26/18 09:01 Last Admin: 12/26/17 08:12 Dose: 100 mcg Folic Acid (Folic Acid) 1 mg PO QAM [facility] Stop: 06/26/18 09:01 Last Admin: 12/25/17 16:32 Dose: 1 mg Heparin Sodium (Porcine) (Heparin Lock) 500 unit IV ONCE PRN PRN Reason: Port Flush while in RADIOLOGY Stop: 12/26/17 16:45 Levothyroxine Sodium (Synthroid) 400 mcg PO QAM [facility] Stop: 06/26/18 09:01 Last Admin: 12/25/17 16:33 Dose: 400 mcg Lisinopril (Zestril) 10 mg PO QAM [place] PRN Reason: Protocol Stop: 06/26/18 09:01 Last Admin: 12/25/17 16:32 Dose: 10 mg Loratadine (Claritin) 10 mg PO QAM [place] PRN Reason: Protocol Stop: 06/26/18 09:01 Last Admin: 12/25/17 16:32 Dose: 10 mg Metoprolol Tartrate (Lopressor) 25 mg PO DAILY [facility] Stop: 10/26/18 09:01 Last Admin: 12/25/17 16:32 Dose: 25 mg Naloxone HCl (Narcan) 0.4 mg IVP Q2MIN PRN PRN Reason: SEE COMMENTS Stop: 06/25/18 21:18 Omeprazole (Prilosec) 20 mg PO DAILY@0730 [facility] Stop: 06/26/18 07:31 Last Admin: 12/26/17 05:40 Dose: 20 mg Oxycodone HCl (Roxicodone) 5 mg PO Q4HR PRN; Protocol PRN Reason: Severe Pain Stop: 06/25/18 21:19 Simvastatin (Zocor) 20 mg PO QPM [place] PRN Reason: Protocol Stop: 06/26/18 18:01 Last Admin: 12/25/17 16:33 Dose: 20 mg Sulfasalazine (Sulfasalazine) 1,500 mg PO BID [facility] Stop: 06/26/18 09:01 Last Admin: 12/25/17 20:41 Dose: 1,500 mg Tramadol HCl (Ultram) 50 mg PO Q6HR PRN PRN Reason: Moderate Pain Stop: 06/25/18 21:18 - Imaging and Cardiology Cardiac cath: report reviewed - EKG Interpretation EKG results cardiology: other (Sinus rhythm on telemetry) Consult Discharge Plan - Plan Instructions: Chest Pain (DC) Additional Instructions: [facility] Follow-up appointments: If there is not an appointment listed below, please call your physician and schedule a follow-up appointment. If you have congestive heart failure and your symptoms return, make an appointment with your physician. Medication List: Carry an up to date list of medications you are taking at all time. We have given you an updated medication list including any new medications that you have been prescribed. Please provide that list to your primary provider Symptoms: If your condition changes or you experience any of the following symptoms, notify your physician immediately: Unusual or worsening pain, fever, persistent nausea and vomiting, bleeding, increase in swelling (especially in your legs), sudden weight gain, extreme dizziness, chest pain, increased drainage or redness from a wound or incision. Go to the emergency department if you experience a problem with breathing. Weights: If you have a history of swelling or shortness of breath, weigh yourself daily and notify your physician if you have a weight gain of two or more pounds in one day or 5 or more pounds in a week. If you experience any of the warning signs for stroke: Sudden numbness or weakness of the face, arm or leg; especially on one side of the body, sudden confusion, trouble speaking or understanding, sudden trouble seeing in one or both eyes, sudden trouble walking, dizziness, loss of balance or coordination, sudden sever headache with no cause; Call 911 or go to the emergency room. Stroke is a medical emergency. Some risk factors for stroke: Age, cigarette smoking, diabetes, excessive alcohol consumption, family history , high blood pressure, overweight, physical inactivity, prior stroke, heart attack, diagnosis of carotid artery stenosis or other artery disease. If you smoke, STOP: Smoking or tobacco use significantly increases your risk of heart and lung disease. Your chance of disease greatly increases if you continue to smoke. For more information, call the [place] tobacco quit line for smoking cessation -NOW ( ) Referrals: Miles Nicole MD [Primary Care Provider] - 12/30/17 2:00 pm Ashkan Summers MD [Partnered Physician] - Prescriptions: Omeprazole [PriLOSEC] 20 mg PO DAILY@729 #30 capsule.
--- NOTE | 2017-12-26 09:06 | Anesthesia Evaluation PreOp ---
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: Denies Any Significant HX Other Medical History: GERD (UNCONTROLLED) Anesthesia History: No Prior Anesthetic Complications, Past Anesthesia Alcohol Use: none Drug use: marijuana Medications and Allergies Albuterol Neb [Proventil Neb] 2.5 mg IH QID PRN 10/20/15 [History] Aspirin [Adult Low Dose Aspirin EC] 81 mg PO DAILY 10/20/15 [History] Etanercept [Enbrel] 25 mg SQ WE 10/20/15 [History] Folic Acid 1 mg PO QAM 10/20/15 [History] Furosemide [Lasix] 20 mg PO QAM 10/20/15 [History] Levothyroxine Sodium [Synthroid] 400 mcg PO QAM 10/20/15 [History] Lisinopril [Zestril] 10 mg PO QAM 10/20/15 [History] Loratadine [Claritin] 10 mg PO QAM 10/20/15 [History] Methotrexate [Otrexup] 12.5 mg PO TU 10/20/15 [History] Metoprolol [Lopressor] 25 mg PO DAILY 10/20/15 [History] Sulfasalazine [Azulfidine] 1,500 mg PO BID 10/20/15 [History] Dicyclomine [Bentyl] 20 mg PO QID 12/25/17 [History] Famotidine [Pepcid] 40 mg PO DAILY 12/25/17 [History] Ipratropium [place] 1 spr NS QID 12/25/17 [History] Montelukast [Singulair] 10 mg PO DAILY 12/25/17 [History] 3 Allergy/AdvReac Type Severity Reaction Status Date / Time No Known Allergies Allergy Verified 03/26/16 10:14 - Meds/Allergy Pre-op Review Medications Reviewed: Yes Allergies Reviewed: Yes Beta Blockers on Current Med List: Yes If Beta Blockers taken, Date/Time (Last Dose taken): 12/25 1630 Anesthesia Results - Labs 12/26/17 04:43 12/26/17 04:43 - Imaging Additional studies: Stress test 12/25/17: Gated EF 56%, nuclear images showed "small size, mild intensity, reversible apex perfusion defect of equivocal significance, suspect this defect is due to artifact, a small area of ischemia cannot be excluded, clinical correlation recommended, low risk positive study Anesthesia Exam O2 Sat Weight 85.5 kg Height 1.57 m BMI 35 Vital Signs/O2 Sat/Glucose, Most Recent Temp Pulse Resp BP Pulse Ox 97.6 F 82 18 129/98 93 12/26/17 08:48 12/26/17 08:48 12/26/17 08:48 12/26/17 08:48 12/26/17 08:48 Blood Glucose* 120 - HEENT Teeth: Edentulous Denture Type: Upper: Complete - GEM CARVER LOC: Oriented - Cardiac Rhythm: Regular - Pulmonary Breath Sounds: bilateral Rhonchi (wheezing despite recent inhaler) Respiratory Effort: Symmetrical Anesthesia Assess/Plan ASA Score: 3 Modified [place] Scale for Level of Consciousness: Cooperative, oriented, and tranquil Anesthetic Plan: MAC Monitoring Plan: Standard Monitors Recovery Plan: Other Anes Supervising Prov Stmt: Patient informed and consented. Risks, benefits, and alternatives discussed. Patient wishes to proceed.
[2017-12-26] MEDS ORDERED: Albuterol 2.5 MG/3 ML NEBULIZER ONE (09:30)
[2017-12-26] MEDS ORDERED: Ipratropium/Albuterol Neb 3 ML ONE (09:34)
[2017-12-26] MEDS ORDERED: Racepinephrine Neb 0.5 ML VIAL IH ONE (09:41)
--- NOTE | 2017-12-26 09:53 | Anesthesia Evaluation Post Op ---
Date of Encounter: 12/26/17 Time of Encounter: 09:51 - Vital Signs Vital Signs: 3 Vital Signs Time 0950 BP 115/76 Pulse 79 Resp 16 O2 Sat 96 - Lungs Lungs: Wheezes (denies any SOB) - Airway Airway: Non-obstructed - Cardiovascular Regular Rate - Mental Status Mental Status: Alert & Oriented, Answers Appropriately - Nausea Vomiting Nausea Vomiting: Not Present - Hydration Hydration: NPO, Has not voided - Discharge PostOp Status: Transfer Patient to floor
[2017-12-26] MEDS: Folic Acid 1 MG TABLET PO SCH (11:08)
[2017-12-26] MEDS: Aspirin Enteric Coated 81 MG Tablet PO SCH (11:08)
[2017-12-26] MEDS: sulfaSALAzine 500 MG TABLET PO SCH (11:08)
[2017-12-26] MEDS: Loratadine 10 MG TABLET PO SCH (11:09)
--- NOTE | 2017-12-26 11:27 | Discharge Summary ---
- NOTES TO OUTPATIENT PROVIDER Notes to Outpatient Provider: EGD Barretts esophagus, Follow up with cardiology as outpatient Orders not resulted at time of discharge: Pending orders 12/24/17 21:21 NM mine perf SPECT multi [NM] Routine 12/26/17 09:47 Surgical Pathology [PTH] Routine Date of Encounter: 12/26/17 Time of Encounter: 11:25 - Discharge Diagnosis (1) Chest pain Priority: Primary Status: Acute Qualifiers: Chest pain type: precordial pain Qualified Code(s): R07.2 - Precordial pain (2) Elevated d-dimer Priority: Primary Status: Acute (3) CAD (coronary artery disease) Priority: Secondary Status: Chronic Qualifiers: Coronary Disease-Associated Artery/Lesion type: [place] artery [place] vs. 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 King is a 57 year old female past medical hx of asthma COPD HTN GA RA thyroid disease CAD with 5 caths no stents current smoker- presented to the ED sharp CP with associated Nausea diaphoresis, felt weak persistent chest heaviness. Troponi negative underwent stress test did show small size, mild intensity, reversible apex perfusion defect of equivocal significance, suspect this defect is due to artifact, a small area of ischemia cannot be excluded, clinical correlation recommended, low risk positive study"LHC at [facility] noted in 2011 showed mild CAD with "suspicion of myocarditis":- cardiology consulted susect more GI in nature than cardiac, GI consulted underwent EGD- Barretts esophagus- placed on prilosec will follow up with GI as out patient as well as with cardiology. Advise to follow up with PCP as well Patient verbalized understanding. She is hemodynamically stable and tolerated EGD procedure without complications She is ready for discharge Discharge discussed with: patient - Time Spent with Patient Total time spent providing and/or coordinating discharge services: - Discharge Medications Prescriptions: Omeprazole [PriLOSEC] 20 mg PO DAILY@0730 #30 capsule.dr Guzman Medications: Albuterol Neb [Proventil Neb] 2.5 mg IH QID PRN 10/20/15 [History] Aspirin [Adult Low Dose Aspirin EC] 81 mg PO DAILY 10/20/15 [History] Etanercept [Enbrel] 25 mg SQ WE 10/20/15 [History] Folic Acid 1 mg PO QAM 10/20/15 [History] Furosemide [Lasix] 20 mg PO QAM 10/20/15 [History] Levothyroxine Sodium [Synthroid] 400 mcg PO QAM 10/20/15 [History] Lisinopril [Zestril] 10 mg PO QAM 10/20/15 [History] Loratadine [Claritin] 10 mg PO QAM 10/20/15 [History] Methotrexate [Otrexup] 12.5 mg PO TU 10/20/15 [History] Metoprolol [Lopressor] 25 mg PO DAILY 10/20/15 [History] Sulfasalazine [Azulfidine] 1,500 mg PO BID 10/20/15 [History] Dicyclomine [Bentyl] 20 mg PO QID 12/25/17 [History] Ipratropium [place] 1 spr NS QID 12/25/17 [History] Montelukast [Singulair] 10 mg PO DAILY 12/25/17 [History] Omeprazole [PriLOSEC] 20 mg PO DAILY@0730 #30 capsule. 12/26/17 [Rx] Allergies/Adverse Reactions: 3 Allergy/AdvReac Type Severity Reaction Status Date / Time No Known Allergies Allergy Verified 03/26/16 10:14 Date of admission: 12/24/17 20:23 Primary care physician: Miles Nicole MD Consults: 12/24/17 21:21 Consult to Gastroenterology [CONS] Routine Consulting Provider: Gastroenterology [facility] Reason for Consult: non cardiac chest pain ? Call Completed: No 12/25/17 14:57 Consult to Cardiology [CONS] Routine Comment: Consulting Provider: Cardiology [facility] Reason for Consult: abnormal stress Time Notified: 14:57 Call Completed: Yes Discharging clinician: Mariana Portillo Anticipated date of discharge: 12/26/17 - Constitutional Vitals: Temp Pulse Resp BP Pulse Ox 98.7 F 80 16 120/72 97 12/26/17 10:54 12/26/17 11:15 12/26/17 11:15 12/26/17 11:15 12/26/17 10:54 General appearance: Present: A&O X 3 - Head Head exam: Present: atraumatic, normocephalic - Eye Eye exam: Present: PERRL, conjuntiva pink, sclera anicteric Pupils: Present: PERRL - Neck Neck exam general surgery: Present: supple, trachea midline. Absent: lymphadenopathy - Respiratory Respiratory exam: Present: CTAB. Absent: accessory muscle use, rales, rhonchi, wheezes - Cardiovascular Cardiovascular exam: Present: RRR, +S1, +S2. Absent: diastolic murmur, gallop, rubs, systolic murmur - GI/Abdominal GI/Abdominal exam: Present: normal bowel sounds, soft, no peritoneal signs. Absent: distended, tenderness - Extremities Exam Extremities exam: Present: warm, radial pulses palpable and symmetrical. Absent : calf tenderness, cyanotic, pedal edema - Neurological Exam Neurological exam: Present: CN II-XII intact, oriented X3, no focal deficits. Absent: pronater drift, facial droop, speech deficit - Skin Skin exam: Present: dry, intact - Patient Status Disposition: Home, Self-Care Condition: Good Overall status at discharge: patient is back to baseline - Discharge Instructions Instructions: Chest Pain (DC) Follow Up With: [facility] [Provider Group] - 01/20/18 8:00 am (With Trung Alegria CNP ) Miles Nicole MD [Primary Care Provider] - 12/30/17 2:00 pm Ashkan Summers MD [Partnered Physician] - Additional Instructions: [facility] Follow-up appointments: If there is not an appointment listed below, please call your physician and schedule a follow-up appointment. If you have congestive heart failure and your symptoms return, make an appointment with your physician. Medication List: Carry an up to date list of medications you are taking at all time. We have given you an updated medication list including any new medications that you have been prescribed. Please provide that list to your primary provider Symptoms: If your condition changes or you experience any of the following symptoms, notify your physician immediately: Unusual or worsening pain, fever, persistent nausea and vomiting, bleeding, increase in swelling (especially in your legs), sudden weight gain, extreme dizziness, chest pain, increased drainage or redness from a wound or incision. Go to the emergency department if you experience a problem with breathing. Weights: If you have a history of swelling or shortness of breath, weigh yourself daily and notify your physician if you have a weight gain of two or more pounds in one day or 5 or more pounds in a week. If you experience any of the warning signs for stroke: Sudden numbness or weakness of the face, arm or leg; especially on one side of the body, sudden confusion, trouble speaking or understanding, sudden trouble seeing in one or both eyes, sudden trouble walking, dizziness, loss of balance or coordination, sudden sever headache with no cause; Call 911 or go to the emergency room. Stroke is a medical emergency. Some risk factors for stroke: Age, cigarette smoking, diabetes, excessive alcohol consumption, family history , high blood pressure, overweight, physical inactivity, prior stroke, heart attack, diagnosis of carotid artery stenosis or other artery disease. If you smoke, STOP: Smoking or tobacco use significantly increases your risk of heart and lung disease. Your chance of disease greatly increases if you continue to smoke. For more information, call the [place] tobacco quit line for smoking cessation QUIT-NOW ( ) - Diet and Activity Activity: resume usual activities as tolerated Diet: advance to your usual diet
[2017-12-26 13:44] VITALS: BP 126/82
--- NOTE | 2017-12-26 19:24 | Electrocardiograph Report ---
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
--- NOTE | 2017-12-27 16:39 | Electrocardiograph Report ---
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
== END 2017-12-26 14:10 | disposition home or self-care (01) ==
LOC: EMEROO 15:04 → 3BNU 15:04
PROVIDERS: ADMIT Internal Medicine Cardiovascular Disease; ATTEND Internal Medicine Cardiovascular Disease
PROC: ENDOEBX (2017-12-26 10:00)

== ENCOUNTER 2019-04-12 12:40 | Inpatient (IN) ==
[2019-04-12] MEDS ORDERED: Ipratropium/Albuterol Neb 3 ML IH ONE (13:11)
[2019-04-12] MEDS ORDERED: Albuterol 2.5 MG/3 ML NEBULIZER IH ONE (13:11)
[2019-04-12] MEDS ORDERED: methylPREDNISolone 125 MG/2 ML VIAL IVP ONE (13:12)
[2019-04-12 13:31] LABS: VBG HCO3 28 mEq/L (21-27); VBG PCO2 46 mmHg (41-51); VBG PO2 110 mmHg (25-50)
--- NOTE | 2019-04-12 13:38 | Emergency Department Note ---
Disposition Clinical Impression: Acute exacerbation of chronic obstructive airways disease, Acute bronchitis with bronchospasm, Shortness of breath, Hypoxia Disposition: Admitted As Inpatient Condition: Fair Referrals: Miles Nicole MD [Primary Care Provider] - Forms: ED Satisfaction Letter Time of Disposition: 14:52 General Adult HPI - General Chief complaint: ED Shortness of Breath/Dyspnea Stated complaint: DEJON,cough Time Seen by Provider: 04/12/19 12:54 Source: patient Mode of arrival: ambulatory Limitations: no limitations, physical limitation Nursing Notes Reviewed: Yes Vital Signs Reviewed: Yes - History of Present Illness HPI Narrative: Patient presented emergency Department chief complaint of shortness of breath. She reports that the last 2 weeks she has had progressively increasing symptoms of a cough and some nausea some diarrhea objective fevers and chills just not feeling very well. She reports over the last 24 hours she had significant worsening of her shortness of breath, with increased cough sputum production wheezing. She does report that she gets very temporary relief and improvement of her breathing with her breathing treatments at home, she reports significant exertional shortness of breath to the point where she could not even walk today. She states that this does remind her of her COPD. She reports generalized diffuse chest discomfort states is just there kind of aches all over, not associated with exertion not specifically with cough. She denies headache neck pain or jaw pain. Subjective chills no documented fever no abdominal pain improving diarrhea no significant urinary changes. She does have joint pains, in different areas but states she has a long-standing history of rheumatoid arthritis and has been significant problems with her medications recently where she came off enbrel, after having had an infection in her hand, and has had difficult time getting started back on her immunologic medications, however she is on sulfasalazine as well as methotrexate. She states that she was supposed to get a prescription for prednisone for her joints but states there was also some problems with the pharmacy with this. She denies any edema of her lower extremities she denies orthopnea she did have paroxysmal nocturnal dyspnea last night. States that she does wear oxygen at night and it did help her.. Pain Scale: 6 - Related Data Home Medications Medication Instructions Recorded Confirmed Albuterol Neb [Proventil Neb] 2.5 mg IH QID PRN 10/20/15 12/25/17 Aspirin [Adult Low Dose Aspirin EC] 81 mg PO DAILY 10/20/15 12/25/17 Etanercept [Enbrel] 25 mg SQ WE 10/20/15 12/25/17 Folic Acid 1 mg PO QAM 10/20/15 12/25/17 Furosemide [Lasix] 20 mg PO QAM 10/20/15 12/25/17 Levothyroxine Sodium [Synthroid] 400 mcg PO QAM 10/20/15 12/25/17 Lisinopril [Zestril] 10 mg PO QAM 10/20/15 12/25/17 Loratadine [Claritin] 10 mg PO QAM 10/20/15 12/25/17 Methotrexate [Otrexup] 12.5 mg PO TU 10/20/15 12/25/17 Metoprolol [Lopressor] 25 mg PO DAILY 10/20/15 12/25/17 Sulfasalazine [Azulfidine] 1,500 mg PO BID 10/20/15 12/25/17 Dicyclomine [Bentyl] 20 mg PO QID 12/25/17 12/25/17 Ipratropium [place] 1 spr NS QID 12/25/17 12/25/17 Montelukast [Singulair] 10 mg PO DAILY 12/25/17 12/25/17 Previous Rx's Medication Instructions Recorded Omeprazole [PriLOSEC] 20 mg PO DAILY@0730 #30 capsule. 12/26/17 Allergies Allergy/AdvReac Type Severity Reaction Status Date / Time No Known Allergies Allergy Verified 03/26/16 10:14 All systems ED: reviewed and negative except as stated. 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 Absent: tenderness, meningismus, lymphadenopathy - Chest Chest inspection: Present: normal inspection, symmetric chest wall rise - Respiratory Respiratory exam: Present: wheezes, prolonged expiratory phase, other (Diffuse coarse wheezes auscultated throughout the lungs, noted tachypnea, no accessory muscle use. No focal adventitious sounds. Patient does appear short of breath, she has conversational dyspnea.). Absent: normal lung sounds bilaterally - Cardiovascular Cardiovascular exam: Present: regular rate, normal rhythm, normal heart sounds (Although difficult to auscultate heart sounds secondary to significant abnormal respiratory sounds.). Absent: bradycardia, tachycardia, systolic murmur - Abdominal Exam Abdominal exam: Present: soft, Non-Tender. Absent: tenderness, distention, organomegaly - Extremities Exam Extremities exam: Present: normal inspection, full ROM, normal capillary refill, other (No unilateral swelling palpable cord Tenderness Homans sign or clinical evidence of DVT). Absent: tenderness, pedal edema - Expanded Lower Extremity Exam Neurovascular/Tendon exam: Present: normal capillary refill. Absent: pulse deficit, motor deficit, sensory deficit - Back Exam Back exam: Present: normal inspection, full ROM. Absent: tenderness, CVA tenderness (R), CVA tenderness (L) - Neurological Exam Neurological exam: Present: alert, oriented X3, CN II-XII intact - Psychiatric Psychiatric exam: Present: normal affect, normal mood - Skin Skin exam: Present: warm, dry, intact, normal color. Absent: rash Course Vital Signs Temperature 98.8 F 04/12/19 12:40 Pulse Rate 93 04/12/19 12:40 Respiratory Rate 18 04/12/19 12:40 Blood Pressure 152/104 04/12/19 12:40 O2 Sat by Pulse Oximetry 93 04/12/19 12:40 Temperature 98.8 F 04/12/19 12:55 Pulse Rate 89 04/12/19 13:57 Respiratory Rate 20 04/12/19 13:57 Blood Pressure 147/92 04/12/19 13:57 O2 Sat by Pulse Oximetry 92 04/12/19 13:57 Oxygen Delivery Oxygen Delivery Room Air Medical Decision Making - [facility] Narrative Medical decision making narrative: Patient had an IV placed, she was given 3 [id number] breathing treatments, IV Solu-Medrol. EKG was normal sinus rhythm with no evidence of acute change from prior EKG as interpreted by myself with no evidence of ST elevations depression T-wave inversion, or acute ischemia or acute change from prior EKG, with normal intervals. Basic laboratory studies and chest x-ray were ordered. VBG was acceptable limits. Chest x-ray as interpreted by radiology demonstrated evidence of bronchitis, diffuse interstitial prominence, no focal area of infiltrate, no CHF. Basic laboratory studies CBC VBG renal panel cardiac enzymes within acceptable limits. Patient reports no significant improvement in her symptoms after the above management, she is resting more comfortably but still has diffuse wheezing throughout her lungs, but no persistent tachypnea, appears in much less respiratory distress however oxygen saturation on repeat examination is fluctuating between 89 and 91% on room air, she was placed on 2 L by nasal cannula and will be admitted to the hospital for further management of acute COPD exacerbation with hypoxia and acute bronchitis. She was given IV Zithromax for bronchitis for its anti-inflammatory properties, as well as coverage of atypical - Lab Data Result diagrams: 04/12/19 13:05 Lab Results 04/12/19 04/12/19 Range/Units 13:05 13:28 VBG pH 7.40 (7.32-7.42) pH Units VBG pCO2 46 (41-51) mmHg VBG pO2 110 H (25-50) mmHg VBG HCO3 28 H (21-27) mEq/L Sodium 133 L (136-145) mEq/L Potassium 4.2 (3.5-5.1) mEq/L Chloride 100 (98-107) mEq/L Carbon Dioxide 27 (23-29) mEq/L BUN 6 L (8-23) mg/dL Creatinine 0.56 L (0.60-1.20) mg/dL Est GFR ( Amer) > 60 (> 60) Est GFR (Non-Af Amer) > 60 (> 60) BUN/Creatinine Ratio 11 (6-26) Glucose 105 (70-105) mg/dL Calculated Osmolality 274 L (280-300) Calcium 9.4 (8.6-10.3) mg/dL Troponin I < 0.03 (< 0.04) ng/mL
[2019-04-12 13:55] LABS: BUN/Creatinine Ratio 11 (6-26); Blood Urea Nitrogen 6 mg/dL (8-23); Calcium 9.4 mg/dL (8.6-10.3); Carbon Dioxide 27 mEq/L (23-29); Chloride 100 mEq/L (98-107); Glucose 105 mg/dL (70-105); Osmolality,Calculated 274 (280-300); Potassium 4.2 mEq/L (3.5-5.1); Sodium 133 mEq/L (136-145); eGFR For African Americans > 60 (> 60); eGFR For Non-African Americans > 60 (> 60)
[2019-04-12 13:56] LABS: Troponin I < 0.03 ng/mL (< 0.04)
[2019-04-12] MEDS ORDERED: Azithromycin 500 MG in D5% in Water 250 ML IVPB ONE (14:13)
[2019-04-12] MEDS ORDERED: Naloxone 0.4 MG/ML INJ IVP PRN (15:08)
[2019-04-12] MEDS ORDERED: Acetaminophen 325 MG TABLET PO PRN (15:08)
--- NOTE | 2019-04-12 15:08 | Internal Med History&Physical ---
Date of Encounter: 04/12/19 Time of Encounter: 15:15 Internal Medicine - H&P: HPI Chief complaint: sob Admitted From: Home Plans for Post Hospital Care: Home History of present illness: Ms. King is a 58 year old female pmhx asthma, COPD, hypertension, myocardial infarction, RA, thyroid disease who presented to ED w sob. She notes sob, progressive over two weeks, qualified as sob with any exertion and now sometimes with conversation. She has had a productive cough with green sputum. She has had similar in past with copde. Improved sxs with neb treatment,, worse with exertion and coughing fits. She denies associated fevers ro chills but admits to malaise and all over body joint soreness w her RA hx. She does not have cp, palpitations, le edema, orthopnea, pnd or presyncope. She admits to wheezing, denies hemoptysis. No abd pain, + nausea but no emesis and some loose brown stools today. Home oxygen is 3L [place]. She is an every day 1ppd smoker but she declines need for patch or gum. She denies immobilization, calf pain or swelling. confirmed full code status Past Med Surg Social Fam HX - Past Medical History Medical history: asthma, COPD, hypertension, myocardial infarction, RA, thyroid disease Additional medical history: barrets esophagus, diverticulitis Psychiatric history: no psych history - Past Surgical History Surgical History: herniorrhaphy Additional surgical history: left shoulder repair - Social History Smoking Status: Current every day smoker Smokeless Tobacco Status: No Alcohol use: none Drug use: marijuana - Family History Mother Hx Family Cardiac Disorders: Yes (Heart disease) Hx Family Endocrine Disorder: Yes (DM) Father Adopted: No Family Member Ethnicity: Non- Living Status: Hx Family Cardiac Disorders: Yes (Heart disease, SD) Internal Medicine - H&P: Meds Albuterol Neb [Proventil Neb] 2.5 mg IH QID PRN 10/20/15 [History] Aspirin [Adult Low Dose Aspirin EC] 81 mg PO DAILY 10/20/15 [History] Etanercept [Enbrel] 25 mg SQ WE 10/20/15 [History] Folic Acid 1 mg PO QAM 10/20/15 [History] Furosemide [Lasix] 20 mg PO QAM 10/20/15 [History] Levothyroxine Sodium [Synthroid] 400 mcg PO QAM 10/20/15 [History] Lisinopril [Zestril] 10 mg PO QAM 10/20/15 [History] Loratadine [Claritin] 10 mg PO QAM 10/20/15 [History] Methotrexate [Otrexup] 12.5 mg PO TU 10/20/15 [History] Metoprolol [Lopressor] 25 mg PO DAILY 10/20/15 [History] Sulfasalazine [Azulfidine] 1,500 mg PO BID 10/20/15 [History] Dicyclomine [Bentyl] 20 mg PO QID 12/25/17 [History] Ipratropium [place] 1 spr NS QID 12/25/17 [History] Montelukast [Singulair] 10 mg PO DAILY 12/25/17 [History] Omeprazole [PriLOSEC] 20 mg PO DAILY@0730 #30 capsule. 12/26/17 [Rx] Allergy/AdvReac Type Severity Reaction Status Date / Time No Known Allergies Allergy Verified 03/26/16 10:14 All Systems PM: A 10-system review of systems was performed and is negative for pertinent findings except as documented above in the HPI. - Constitutional Vitals: Temp Pulse Resp BP Pulse Ox 98.8 F 87 22 130/88 94 04/12/19 12:55 04/12/19 15:05 04/12/19 15:05 04/12/19 15:05 04/12/19 15:05 Exam: General: awake, alert, appears stated age HEENT:EOM intact, pupils equal, round, moist mucus membranes Neck: supple, trachea midline Cardiovascular:regular rate and rhythm, normal S1 & S2, no rubs, murmurs or gallops. No JVD. no lower extremity edema Lungs:diffuse course exp wheezing, no crackles. Normal respiratory effort on o2 nc Abdomen:Soft, non-tender, non-distended, no rigidity, + bowel sounds Neurological: AAOx3, CN grossly intact Skin:Normal color, no rash, no pallor, no jaundice Internal Med - H&P Results - Labs CBC & Chem 7: 04/12/19 13:05 04/12/19 13:05 Labs: BMP 04/12/19 13:05 Sodium 133 L Potassium 4.2 Chloride 100 Carbon Dioxide 27 BUN 6 L Creatinine 0.56 L Glucose 105 Calcium 9.4 Cardiac Enzymes 04/12/19 Range/Units 13:05 Troponin I < 0.03 (< 0.04) ng/mL - ABG Interpretation ABG results: 04/12/19 13:28 VBG pH 7.40 VBG pCO2 46 VBG pO2 110 H VBG HCO3 28 H - Impressions ITS Impressions Chest X-Ray 04/12/19 13:11 IMPRESSION: Congestion and increased interstitial markings bilaterally but no definitive consolidative infiltrates. No evidence of active pleural disease. Cardiomegaly. D/ / 04/12/2019 14:16:55 Pamela Wayne MD / Sydney Weeks Interpreting Provider: Pamela Wayne MD - Assessment and Plan (1) Acute exacerbation of chronic obstructive airways disease Current Visit: Yes Status: Acute (2) Respiratory failure, [id number] Current Visit: No Status: Acute Qualifiers: Respiratory failure complication: hypoxia Qualified Code(s): J96.21 - Acute and chronic respiratory failure with hypoxia - Summary of Assessment and Plan Summary of Assessment and Plan: COPDE with increased O2 requirements and sputum production CXR without consolidation, infiltrate or effusion -cont azithromycin, IV steroid, scheduled and prn nebs -cont home meds Acute on Chronic Resp Failure (home o2 is 3L [place] HS only) 2/2 above EKG NSR non specific STT changes unchanged from prior EKG 12/25/17, trop neg symptoms not consistent with PE -O2 nc and wean as able , treatment as above Chronic Conditions HTN- cont lasix, BB, acei RA- cont sulfasalazine, hold methotrexate for now and monitor for fever/wbc changes overnight; not actively taking enbrel due to hand infection and diffic ult time resuming med, cont to hold Thyroid disease-synthroid Tobacco dependence- cessation counselling, refused nicotine patch/gum vte ppx scds and ambulate full code
[2019-04-12] MEDS ORDERED: Ipratropium Neb 0.5 MG NEBULIZER IH PRN (15:11)
[2019-04-12] MEDS: Ipratropium/Albuterol Neb 3 ML IH SCH ×2 (15:38→21:51)
[2019-04-12 16:06] LABS: Basophils % 0.4 %; Eosinophils % 0.2 %; Hematocrit 40.4 % (35.3-44.9); Hemoglobin 13.2 g/dL (11.5-15.4); Immature Granulocytes % 0.4 % (0-4); Lymphocytes # 1.4 K/mcL (0.6-4.6); Lymphocytes % 27.1 %; Mean Corpuscular HGB Conc 32.7 g/dL (31.6-35.5); Mean Corpuscular Hemoglobin 33.2 pg (28.0-33.3); Mean Corpuscular Volume 101.8 fL (83.0-100.0); Mean Platelet Volume 10.9 fL (9.4-12.4); Monocytes # 0.3 K/mcL (0.0-1.3); Monocytes % 6.6 %; Neutrophils # 3.3 K/mcL (1.6-8.9); Platelet Count 190 K/mcL (140-400); Red Blood Count 3.97 M/mcL (3.82-4.97); Red Cell Distribution Width 12.8 % (11.5-14.5); Segmented Neutrophils % 65.3 %
[2019-04-12] MEDS ORDERED: NON-FORMULARY MEDICATION 1 EACH EACH (Ipratropium Bromide 1 SPR) NS SCH (21:00)
[2019-04-12] MEDS: sulfaSALAzine 500 MG TABLET PO SCH (21:21)
[2019-04-13] MEDS: Ipratropium/Albuterol Neb 3 ML IH SCH ×4 (03:30→21:17)
[2019-04-13 05:46] LABS: Basophils % 0.2 %; Hematocrit 37.6 % (35.3-44.9); Hemoglobin 12.5 g/dL (11.5-15.4); Immature Granulocytes % 0.9 % (0-4); Lymphocytes # 1.4 K/mcL (0.6-4.6); Lymphocytes % 23.4 %; Mean Corpuscular HGB Conc 33.2 g/dL (31.6-35.5); Mean Corpuscular Hemoglobin 33.9 pg (28.0-33.3); Mean Corpuscular Volume 101.9 fL (83.0-100.0); Mean Platelet Volume 11.3 fL (9.4-12.4); Monocytes # 0.4 K/mcL (0.0-1.3); Monocytes % 6.1 %; Platelet Count 147 K/mcL (140-400); Red Blood Count 3.69 M/mcL (3.82-4.97); Red Cell Distribution Width 12.8 % (11.5-14.5); Segmented Neutrophils % 69.4 %; White Blood Count 5.8 K/mcL (4.3-11.1)
[2019-04-13 06:09] LABS: BUN/Creatinine Ratio 15 (6-26); Blood Urea Nitrogen 8 mg/dL (8-23); Calcium 10.1 mg/dL (8.6-10.3); Carbon Dioxide 27 mEq/L (23-29); Chloride 96 mEq/L (98-107); Glucose 116 mg/dL (70-105); Osmolality,Calculated 271 (280-300); Potassium 4.7 mEq/L (3.5-5.1); Sodium 131 mEq/L (136-145); eGFR For African Americans > 60 (> 60); eGFR For Non-African Americans > 60 (> 60)
[2019-04-13 06:18] LABS: Platelet Estimate Normal (Normal)
[2019-04-13] MEDS: Aspirin Enteric Coated 81 MG Tablet PO SCH (08:52)
[2019-04-13] MEDS: Loratadine 10 MG TABLET PO SCH (08:53)
[2019-04-13] MEDS: Furosemide 20 MG TABLET PO SCH (08:53)
[2019-04-13] MEDS: Folic Acid 1 MG TABLET PO SCH (08:54)
[2019-04-13] MEDS: sulfaSALAzine 500 MG TABLET PO SCH ×2 (08:54→22:00)
[2019-04-13] MEDS ORDERED: MethylPREDNISolone 40 MG/ML VIAL IVP SCH (09:00)
[2019-04-13] MEDS ORDERED: Nicotine 2 MG GUM BC PRN (11:16)
[2019-04-13] MEDS: Nicotine 14 MG PATCH.TD24 TD SCH (11:28)
[2019-04-13] MEDS ORDERED: Azithromycin 500 MG in D5% in Water 250 ML IVPB SCH (15:00)
--- NOTE | 2019-04-13 19:00 | Internal Med Progress Note ---
Hospitalist Progress Note - Encounter Date of Encounter: 04/13/19 Time of Encounter: 11:49 - Subjective Interval History: Patient sitting at bedrest on nasal cannula 2 L. Patient reported to being on home oxygen only during sleep as she gets nocturnal hypoxia. Patient otherwise feels mild improvement from yesterday. Patient denies fever, chills, nausea, vomiting, chest pain, dull pain, diarrhea. - Exam Vitals: Temp Pulse Resp BP Pulse Ox 97.6 F 77 18 121/89 93 04/13/19 14:28 04/13/19 14:28 04/13/19 15:35 04/13/19 14:28 04/13/19 15:35 Exam: General: awake, alert, in minimla acute distress HEENT:EOM intact, pupils equal, round, moist mucus membranes Neck: supple, trachea midline Cardiovascular:regular rate and rhythm, normal S1 & S2, no rubs, murmurs or gallops. No JVD. no lower extremity edema Lungs:diffuse course exp wheezing, no crackles. Normal respiratory effort on o2 nc Abdomen:Soft, non-tender, non-distended, no rigidity, + bowel sounds Neurological: AAOx3, CN grossly intact - Assessment and Plan (1) Respiratory failure, [id number] Current Visit: No Status: Acute (2) Acute exacerbation of chronic obstructive airways disease Current Visit: Yes Status: Acute DVT Prophylaxis: Heparin - Summary of Assessment and Plan Summary of Assessment and Plan: Acute hypoxic on Chronic Resp Failure (baseline home o2 is 3L [place] HS only) 2/2 above Improved dyspnea and continues to require o2 despite attempts to wean off continue to monitor Acute COPD with exacebation: increased O2 requirements and sputum production CXR without consolidation, infiltrate or effusion cont azithromycin, IV steroid, scheduled and prn nebs cont home meds macrocytosis taking methotrexate: checking b12 and folate level Hyponatremia: Etiology unclear. Urine lytes pending hyperglycemia: A1c pending. Chronic Conditions HTN- cont lasix, BB, acei RA- cont sulfasalazine, hold methotrexate for now and monitor for fever/wbc changes overnight; not actively taking enbrel due to hand infection and difficult time resuming med, cont to hold Thyroid disease-synthroid Tobacco dependence- cessation counselling, refused nicotine patch/gum vte ppx scds and ambulate full code - Time Spent with Patient Total time spent is greater than 50% in coordination of care (as documented) at patient's floor/unit and/or counseling patient: 25 - 35 minutes Plan of Care Discussed with: patient Internal Medicine: Result - Labs CBC & Chem 7: 04/13/19 05:05 04/13/19 05:05 Labs: Short CBC 04/13/19 Range/Units 05:05 WBC 5.8 (4.3-11.1) K/mcL Hgb 12.5 (11.5-15.4) g/dL Hct 37.6 (35.3-44.9) % Plt Count 147 (140-400) K/mcL Neutrophils # 4.0 (1.6-8.9) K/mcL BMP 04/13/19 05:05 Sodium 131 L Potassium 4.7 Chloride 96 L Carbon Dioxide 27 BUN 8 Creatinine 0.53 L Glucose 116 H Calcium 10.1 Consult Discharge Plan - Plan Referrals: Miles Nicole MD [Primary Care Provider] - ____ (1) Respiratory failure, [id number] Qualifiers: Respiratory failure complication: hypoxia Qualified Code(s): J96.21 - Acute and chronic respiratory failure with hypoxia
[2019-04-13] MEDS: *HR* Heparin 5,000 UNIT/ML VIAL SQ SCH (22:00)
[2019-04-14] MEDS: Ipratropium/Albuterol Neb 3 ML IH SCH ×4 (04:18→21:41)
[2019-04-14 04:54] LABS: Basophils % 0.3 %; Hematocrit 39.2 % (35.3-44.9); Hemoglobin 12.9 g/dL (11.5-15.4); Immature Granulocytes % 0.3 % (0-4); Lymphocytes # 2.4 K/mcL (0.6-4.6); Lymphocytes % 37.5 %; Mean Corpuscular HGB Conc 32.9 g/dL (31.6-35.5); Mean Corpuscular Hemoglobin 33.1 pg (28.0-33.3); Mean Corpuscular Volume 100.5 fL (83.0-100.0); Mean Platelet Volume 10.5 fL (9.4-12.4); Monocytes # 0.5 K/mcL (0.0-1.3); Monocytes % 6.9 %; Neutrophils # 3.6 K/mcL (1.6-8.9); Platelet Count 211 K/mcL (140-400); Red Cell Distribution Width 12.8 % (11.5-14.5); White Blood Count 6.5 K/mcL (4.3-11.1)
[2019-04-14 05:09] LABS: Alanine Aminotransferase 15 Units/L (7-52); Albumin 3.5 g/dL (3.5-5.7); Albumin/Globulin Ratio 1.1 (1.1-2.2); Alkaline Phosphatase 81 Units/L (34-104); Aspartate Amino Transferase 16 Units/L (13-39); BUN/Creatinine Ratio 26 (6-26); Bilirubin,Total 0.4 mg/dL (0.3-1.0); Blood Urea Nitrogen 15 mg/dL (8-23); Calcium 9.6 mg/dL (8.6-10.3); Carbon Dioxide 27 mEq/L (23-29); Chloride 94 mEq/L (98-107); Globulin 3.3 g/dL (2.4-3.5); Glucose 109 mg/dL (70-105); Osmolality,Calculated 265 (280-300); Potassium 4.3 mEq/L (3.5-5.1); Sodium 127 mEq/L (136-145); Total Protein 6.8 g/dL (6.4-8.9); eGFR For African Americans > 60 (> 60); eGFR For Non-African Americans > 60 (> 60)
[2019-04-14] MEDS: *HR* Heparin 5,000 UNIT/ML VIAL SQ SCH ×3 (05:26→21:04)
[2019-04-14] MEDS: Nicotine 14 MG PATCH.TD24 TD SCH (08:41)
[2019-04-14] MEDS: Furosemide 20 MG TABLET PO SCH (08:42)
[2019-04-14] MEDS: predniSONE 20 MG TABLET PO SCH (08:42)
[2019-04-14] MEDS: Folic Acid 1 MG TABLET PO SCH (08:42)
[2019-04-14] MEDS: Aspirin Enteric Coated 81 MG Tablet PO SCH (08:42)
[2019-04-14] MEDS: Loratadine 10 MG TABLET PO SCH (08:42)
[2019-04-14] MEDS: sulfaSALAzine 500 MG TABLET PO SCH ×2 (08:42→21:04)
[2019-04-14 08:45] LABS: Estimated Average Glucose 123 mg/dl
[2019-04-14] MEDS ORDERED: Azithromycin 250 MG TABLET PO SCH (15:00)
--- NOTE | 2019-04-14 20:22 | Internal Med Progress Note ---
Hospitalist Progress Note - Encounter Date of Encounter: 04/14/19 Time of Encounter: 10:45 - Subjective Interval History: Mrs. King reports some mild improvement in SOB she does endorse a history of home oxygen therapy on 3 L at nighttime and admits to be compliant with her medical regimen including her levothyroxine which she takes half an hour before eating in the morning but does admit to chronic caffeine intake shortly afterwards. GEN: Denies fever, chills or malaise HEENT: Denies headache blurriness, or dysphagia RESP: admits to SOB and productive cough CV: Denies chest pain or palpitations GI: Denies Nausea, vomiting, diarrhea or constipation Reviewed current in hospital medications with modifications see orders Reviewed Routine labs - Exam Vitals: Temp Pulse Resp BP Pulse Ox 99.0 F 77 18 131/83 93 04/14/19 19:15 04/14/19 19:15 04/14/19 19:15 04/14/19 19:15 04/14/19 19:15 Exam: GEN: NAD, A&O x 3, Pleasant and conversant SKIN: [place] warm acyanotic not jaundice, multiple skin excoriations noted across upper extremities and face Neck: Thyroid is palpable. Bilateral thyroid nodule is appreciated HEART: RRR, no murmurs LUNGS: CTA no wheeze or crackles, overall non labored ABDOMEN; Soft, non tender or distended, BS x 4 normactive EXT: No LE edema, Pedal pulses 1+, radial pulses 2+ PSYCH: Mood and affect is appropriate - Assessment and Plan (1) Respiratory failure, [id number] Current Visit: Yes Status: Acute Assessment and Plan: Not back at baseline although requiring 3 L during the day which is not baseline for the patient she only uses 3 L at bedtime, secondary to COPD exacerbation, may require temporary daytime oxygen use (2) Acute exacerbation of chronic obstructive airways disease Current Visit: Yes Status: Acute Assessment and Plan: Improving with transition to oral azithromycin, due to prednisone and DuoNeb treatment (3) Acute hyponatremia Current Visit: Yes Status: Acute Assessment and Plan: place on fluid restriction, trend sodium 131-127-129. Anticipate improvement as oral intake improves (4) Hypothyroidism Current Visit: Yes Status: Acute Assessment and Plan: High-dose levothyroxine 400 g we will check free T3, TSH still elevated with normal free T4. Initial suspicion for thyroid nodule on exam was not evident on ultrasound of the thyroid gland. Although patient's takes her levothyroxine on an empty stomach she does drink her coffee shortly afterwards difficult to concern for possible poor absorption from the coffee intake discussed with patient regarding within an hour after taking her levothyroxine was switched to taking levothyroxine someway between bedtime and upon awakening in the morning DVT Prophylaxis: Subcutaneous Heparin - Time Spent with Patient Total time spent is greater than 50% in coordination of care (as documented) at patient's floor/unit and/or counseling patient: Internal Medicine: Result - Labs CBC & Chem 7: 04/14/19 04:11 04/14/19 09:20 Labs: Short CBC 04/14/19 Range/Units 04:11 WBC 6.5 (4.3-11.1) K/mcL Hgb 12.9 (11.5-15.4) g/dL Hct 39.2 (35.3-44.9) % Plt Count 211 (140-400) K/mcL Neutrophils # 3.6 (1.6-8.9) K/mcL BMP 04/14/19 04/14/19 04:11 09:20 Sodium 127 L 129 L Potassium 4.3 Chloride 94 L Carbon Dioxide 27 BUN 15 Creatinine 0.57 L Glucose 109 H Calcium 9.6 Liver Function 04/14/19 Range/Units 04:11 Total Bilirubin 0.4 (0.3-1.0) mg/dL AST 16 (13-39) Units/L ALT 15 (7-52) Units/L Alkaline Phosphatase 81 (34-104) Units/L Albumin 3.5 (3.5-5.7) g/dL - Impressions Impressions Thyroid Ultrasound 04/14/19 13:30 IMPRESSION: Heterogeneous thyroid gland without evidence of focal thyroid nodule. No further follow-up is required D/ / Elie Tyler MD / Elie Tyler MD Interpreting Provider: Elie Tyler MD Consult Discharge Plan - Plan Referrals: Miles Nicole MD [Primary Care Provider] - (1) Respiratory failure, [id number] Qualifiers: Respiratory failure complication: hypoxia Qualified Code(s): J96.21 - Acute and chronic respiratory failure with hypoxia
[2019-04-15] MEDS: Ipratropium/Albuterol Neb 3 ML IH SCH ×4 (03:30→22:17)
[2019-04-15 05:31] LABS: Basophils % 0.2 %; Hematocrit 37.3 % (35.3-44.9); Hemoglobin 12.3 g/dL (11.5-15.4); Immature Granulocytes % 0.7 % (0-4); Lymphocytes # 2.2 K/mcL (0.6-4.6); Lymphocytes % 37.2 %; Mean Corpuscular Hemoglobin 32.9 pg (28.0-33.3); Mean Corpuscular Volume 99.7 fL (83.0-100.0); Mean Platelet Volume 10.4 fL (9.4-12.4); Monocytes # 0.4 K/mcL (0.0-1.3); Monocytes % 6.7 %; Neutrophils # 3.3 K/mcL (1.6-8.9); Platelet Count 181 K/mcL (140-400); Red Blood Count 3.74 M/mcL (3.82-4.97); Red Cell Distribution Width 12.9 % (11.5-14.5); Segmented Neutrophils % 55.2 %
[2019-04-15] MEDS: *HR* Heparin 5,000 UNIT/ML VIAL SQ SCH ×3 (06:15→20:15)
[2019-04-15 06:49] LABS: Alanine Aminotransferase 12 Units/L (7-52); Albumin 3.3 g/dL (3.5-5.7); Albumin/Globulin Ratio 1.1 (1.1-2.2); Alkaline Phosphatase 68 Units/L (34-104); Aspartate Amino Transferase 15 Units/L (13-39); BUN/Creatinine Ratio 22 (6-26); Bilirubin,Total 0.4 mg/dL (0.3-1.0); Blood Urea Nitrogen 14 mg/dL (8-23); Calcium 9.1 mg/dL (8.6-10.3); Carbon Dioxide 29 mEq/L (23-29); Chloride 92 mEq/L (98-107); Globulin 3.1 g/dL (2.4-3.5); Glucose 103 mg/dL (70-105); Osmolality,Calculated 265 (280-300); Potassium 4.1 mEq/L (3.5-5.1); Sodium 127 mEq/L (136-145); Total Protein 6.4 g/dL (6.4-8.9); eGFR For African Americans > 60 (> 60); eGFR For Non-African Americans > 60 (> 60)
[2019-04-15] MEDS: sulfaSALAzine 500 MG TABLET PO SCH ×2 (09:27→20:15)
[2019-04-15] MEDS: Furosemide 40 MG/4 ML VIAL IVP SCH (09:27)
[2019-04-15] MEDS: Nicotine 14 MG PATCH.TD24 TD SCH (09:27)
[2019-04-15] MEDS: predniSONE 20 MG TABLET PO SCH (09:28)
[2019-04-15] MEDS: Loratadine 10 MG TABLET PO SCH (09:28)
[2019-04-15] MEDS: Aspirin Enteric Coated 81 MG Tablet PO SCH (09:28)
[2019-04-15] MEDS: Folic Acid 1 MG TABLET PO SCH (09:28)
--- NOTE | 2019-04-15 15:08 | Electrocardiograph Report ---
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
--- NOTE | 2019-04-15 15:43 | Internal Med Progress Note ---
Hospitalist Progress Note - Encounter Date of Encounter: 04/15/19 Time of Encounter: 11:25 - Subjective Interval History: Ms King reports feeling better and thinks she is close to baseline. GEN: Denies fever, chills or malaise HEENT: Denies headache blurriness, or dysphagia RESP: Reports improved SOB and coughing spells CV: Denies chest pain or palpitations GI: Denies Nausea, vomiting, diarrhea or constipation Reviewed current in hospital medications with modifications see orders Reviewed Routine labs - Exam Vitals: Temp Pulse Resp BP Pulse Ox 98.4 F 74 16 122/79 92 04/15/19 15:28 04/15/19 15:28 04/15/19 15:28 04/15/19 15:28 04/15/19 15:28 Exam: GEN: NAD, A&O x 3, Pleasant and conversant SKIN: [place] warm acyanotic not jaundice, multiple skin excoriations noted across upper extremities and face HEART: RRR, no murmurs LUNGS: CTA no wheeze or crackles, overall non labored ABDOMEN; Soft, non tender or distended, BS x 4 normactive EXT: No LE edema, Pedal pulses 1+, radial pulses 2+ PSYCH: Mood and affect is appropriate - Assessment and Plan (1) Respiratory failure, [id number] Current Visit: Yes Status: Acute Assessment and Plan: Not back at baseline although requiring 3 L during the day which is not baseline for the patient she only uses 3 L at bedtime, secondary to COPD exacerbation, may require temporary daytime oxygen use, we will perform ambulatory pulse oximetry. She might need daytime oxygen therapy (2) Acute exacerbation of chronic obstructive airways disease Current Visit: Yes Status: Acute Assessment and Plan: Improving transition to oral azithromycin 5 days total, start tapering down prednisone, she will likely need a long prednisone taper upon discharge in the next 24 hours and continue DuoNeb treatment (3) Acute hyponatremia Current Visit: Yes Status: Acute Assessment and Plan: place on fluid restriction, trend sodium [phone] otherwise asymptomatic. We will check urine chemistry to rule out SIADH no obvious drug related courses upon review of her medications, she is euvolemic. Anticipate improvement as oral intake improves (4) Hypothyroidism Current Visit: Yes Status: Acute Assessment and Plan: High-dose levothyroxine 400 g, free T3 was normal TSH still elevated with normal free T4. Initial suspicion for thyroid nodule on exam was not evident on ultrasound of the thyroid gland. Although patient's takes her levothyroxine on an empty stomach she does drink her coffee shortly afterwards difficult to concern for possible poor absorption from the coffee intake discussed with patient regarding within an hour after taking her levothyroxine was switched to taking levothyroxine someway between bedtime and upon awakening in the morning DVT Prophylaxis: Subcutaneous Heparin - Time Spent with Patient Total time spent is greater than 50% in coordination of care (as documented) at patient's floor/unit and/or counseling patient: Internal Medicine: Result - Labs CBC & Chem 7: 04/15/19 05:07 04/15/19 05:07 Labs: Short CBC 04/15/19 Range/Units 05:07 WBC 6.0 (4.3-11.1) K/mcL Hgb 12.3 (11.5-15.4) g/dL Hct 37.3 (35.3-44.9) % Plt Count 181 (140-400) K/mcL Neutrophils # 3.3 (1.6-8.9) K/mcL BMP 04/15/19 05:07 Sodium 127 L Potassium 4.1 Chloride 92 L Carbon Dioxide 29 BUN 14 Creatinine 0.64 Glucose 103 Calcium 9.1 Liver Function 04/15/19 Range/Units 05:07 Total Bilirubin 0.4 (0.3-1.0) mg/dL AST 15 (13-39) Units/L ALT 12 (7-52) Units/L Alkaline Phosphatase 68 (34-104) Units/L Albumin 3.3 L (3.5-5.7) g/dL Consult Discharge Plan - Plan Referrals: Miles Nicole MD [Primary Care Provider] - _ (1) Respiratory failure, [id number] Qualifiers: Respiratory failure complication: hypoxia Qualified Code(s): J96.21 - Acute and chronic respiratory failure with hypoxia
[2019-04-15 20:38] LABS: Potassium,Urine 21.3 mEq/L; Protein/Creatinine Ratio,Urine 0.22 mg/mg (0.00-0.20); Sodium, Urine 37.4 mEq/L
[2019-04-16] MEDS: Ipratropium/Albuterol Neb 3 ML IH SCH ×3 (03:56→15:41)
[2019-04-16 04:34] LABS: Basophils % 0.2 %; Hemoglobin 12.8 g/dL (11.5-15.4); Lymphocytes # 2.3 K/mcL (0.6-4.6); Lymphocytes % 38.3 %; Mean Corpuscular HGB Conc 33.7 g/dL (31.6-35.5); Mean Corpuscular Hemoglobin 33.6 pg (28.0-33.3); Mean Corpuscular Volume 99.7 fL (83.0-100.0); Mean Platelet Volume 10.6 fL (9.4-12.4); Monocytes # 0.4 K/mcL (0.0-1.3); Monocytes % 6.7 %; Neutrophils # 3.2 K/mcL (1.6-8.9); Platelet Count 178 K/mcL (140-400); Red Blood Count 3.81 M/mcL (3.82-4.97); Red Cell Distribution Width 12.6 % (11.5-14.5); Segmented Neutrophils % 53.8 %
[2019-04-16 04:50] LABS: Alanine Aminotransferase 11 Units/L (7-52); Albumin 3.2 g/dL (3.5-5.7); Alkaline Phosphatase 69 Units/L (34-104); Aspartate Amino Transferase 11 Units/L (13-39); BUN/Creatinine Ratio 23 (6-26); Bilirubin,Total 0.4 mg/dL (0.3-1.0); Blood Urea Nitrogen 15 mg/dL (8-23); Carbon Dioxide 30 mEq/L (23-29); Chloride 94 mEq/L (98-107); Globulin 3.1 g/dL (2.4-3.5); Glucose 104 mg/dL (70-105); Osmolality,Calculated 267 (280-300); Potassium 4.1 mEq/L (3.5-5.1); Sodium 128 mEq/L (136-145); Total Protein 6.3 g/dL (6.4-8.9); eGFR For African Americans > 60 (> 60); eGFR For Non-African Americans > 60 (> 60)
[2019-04-16] MEDS: *HR* Heparin 5,000 UNIT/ML VIAL SQ SCH ×2 (05:34→13:22)
[2019-04-16] MEDS ORDERED: Furosemide 40 MG TABLET PO SCH (09:00)
[2019-04-16] MEDS ORDERED: predniSONE 20 MG TABLET PO SCH (09:00)
[2019-04-16] MEDS: sulfaSALAzine 500 MG TABLET PO SCH (09:21)
[2019-04-16] MEDS: Loratadine 10 MG TABLET PO SCH (09:22)
[2019-04-16] MEDS: Folic Acid 1 MG TABLET PO SCH (09:22)
[2019-04-16] MEDS: Aspirin Enteric Coated 81 MG Tablet PO SCH (09:22)
[2019-04-16] MEDS: Nicotine 14 MG PATCH.TD24 TD SCH (09:23)
[2019-04-16] MEDS: Furosemide 40 MG/4 ML VIAL IVP SCH (09:34)
[2019-04-16 14:18] VITALS: BP 108/71
--- NOTE | 2019-04-16 15:36 | Discharge Summary ---
- NOTES TO OUTPATIENT PROVIDER Notes to Outpatient Provider: Post hospital discharge for COPD exacerbation acute on chronic hypoxic respiratory failure, acute on chronic hyponatremia. Suspect malabsorption of her levothyroxine due to her concurrent intake of caffeine half an hour after her levothyroxine dose. She has been instructed to take the levothyroxine with at least an hour so she might need repeat TSH within the next 6-8 weeks he will also need to have her BMP checked within the next week or 2 Date of Encounter: 04/16/19 Time of Encounter: 15:33 - Discharge Diagnosis (1) Respiratory failure, [id number] Priority: Primary Status: Acute Assessment and Plan: Not back at baseline although requiring 3 L during the day which is not baseline for the patient she only uses 3 L at bedtime, secondary to COPD exacerbation, may require temporary daytime oxygen use, we will perform ambulatory pulse oximetry and she met criteria for chronic continuous oxygen therapy, [id number] evaluation was done yesterday Qualifiers: Respiratory failure complication: hypoxia Qualified Code(s): J96.21 - Acute and chronic respiratory failure with hypoxia (2) Acute exacerbation of chronic obstructive airways disease Priority: Primary Status: Acute Assessment and Plan: Improving transition to oral azithromycin 5 days total, start tapering down prednisone, she will likely need a long prednisone taper upon discharge in the next 24 hours and continue DuoNeb treatment (3) Acute hyponatremia Priority: Secondary Status: Acute Assessment and Plan: place on fluid restriction, trend sodium [phone] otherwise asymptomatic. We will check urine chemistry does confirm SIADH, with sodium dumping no obvious drug related courses upon review of her medications, she is euvolemic. Upon review of her prior laboratory records, her hyponatremia dates back to October 2014 with serum sodium ranging from 131-133, at discharge is 129 we will switch her back to regular diet anticipate continue to improve, only other correlation would be her uncontrolled hypothyroidism requiring high doses of levothyroxine which has been addressed see below (4) Hypothyroidism Priority: Secondary Status: Acute Assessment and Plan: High-dose levothyroxine 400 g, free T3 was normal TSH still elevated with normal free T4. Initial suspicion for thyroid nodule on exam was not evident on ultrasound of the thyroid gland. Although patient's takes her levothyroxine on an empty stomach she does drink her coffee shortly afterwards difficult to concern for possible poor absorption from the coffee intake discussed with patient regarding within an hour after taking her levothyroxine was switched to taking levothyroxine someway between bedtime and upon awakening in the morning Qualifiers: Hypothyroidism type: unspecified Qualified Code(s): E03.9 - Hypothyroidism, unspecified Hospital course: Ms. King is a 58 year old female was hospitalized for COPD exacerbation, she was treated with nebulizer treatment as well as is azithromycin. During his hospital stay she was noted to be requiring high dose of levothyroxine upon further discussion it appears the patient takes levothyroxine and only waits half an hour before drinking her usual morning coffee. He has been some publications regarding coffee inhibiting the absorption of levothyroxine this co uld be placed here with the patient workup with TSH free T3 and T4 were unyielding, with exception of her TSH is still slightly elevated. She has been instructed to wait at least an hour after taking the levothyroxine or is to start taking her levothyroxine sometime between bed time on morning awakening she does admit to at least one episode of nocturia as such she was to take the levothyroxine her then. She was also managed for his stable chronic hyponatremia, which according to her laboratory records dates back to 2014. 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 she has been euvolemic and upon review of her medication list not obvious drug causes as the only correlation will be to her uncontrolled hypothyroidism Discharge discussed with: patient, nurse - Time Spent with Patient Total time spent providing and/or coordinating discharge services: - Discharge Medications Prescriptions: New Ipratropium/Albuterol Neb [Duoneb] 3 ml IH [id number] #100 inhsol Furosemide [Lasix] 40 mg PO DAILY #30 tablet Nicotine Patch [Nicoderm] 14 mg TD DAILY #30 patch.td24 predniSONE [Prednisone] See Taper PO AD #12 tab.ds.pk Continued Metoprolol [Lopressor] 25 mg PO DAILY Lisinopril [Zestril] 10 mg PO QAM Folic Acid 1 mg PO QAM Methotrexate [Otrexup] 12.5 mg PO TU Loratadine [Claritin] 10 mg PO QAM Sulfasalazine [Azulfidine] 1,500 mg PO BID Levothyroxine Sodium [Synthroid] 400 mcg PO QAM Etanercept [Enbrel] 25 mg SQ WE Dicyclomine [Bentyl] 20 mg PO QID Montelukast [Singulair] 10 mg PO DAILY Ipratropium [ATROVENT Inhaler] 1 puff IH QID Aspirin [Lo-Dose Aspirin EC] 81 mg PO DAILY Famotidine [Pepcid] 40 mg PO DAILY Discontinued Albuterol Neb [Proventil Neb] 2.5 mg IH QID PRN PRN Reason: Shortness Of Breath Furosemide [Lasix] 20 mg PO QAM Omeprazole [PriLOSEC] 20 mg PO DAILY@0730 #30 capsule. [place] Medications: Etanercept [Enbrel] 25 mg SQ WE 10/20/15 [History] Folic Acid 1 mg PO QAM 10/20/15 [History] Levothyroxine Sodium [Synthroid] 400 mcg PO QAM 10/20/15 [History] Lisinopril [Zestril] 10 mg PO QAM 10/20/15 [History] Loratadine [Claritin] 10 mg PO QAM 10/20/15 [History] Methotrexate [Otrexup] 12.5 mg PO TU 10/20/15 [History] Metoprolol [Lopressor] 25 mg PO DAILY 10/20/15 [History] Sulfasalazine [Azulfidine] 1,500 mg PO BID 10/20/15 [History] Dicyclomine [Bentyl] 20 mg PO QID 12/25/17 [History] Montelukast [Singulair] 10 mg PO DAILY 12/25/17 [History] Ipratropium [ATROVENT Inhaler] 1 puff IH QID 04/12/19 [History] Aspirin [Lo-Dose Aspirin EC] 81 mg PO DAILY 04/13/19 [History] Famotidine [Pepcid] 40 mg PO DAILY 04/13/19 [History] Furosemide [Lasix] 40 mg PO DAILY #30 tablet 04/16/19 [Rx] Ipratropium/Albuterol Neb [Duoneb] 3 ml IH [id number] #100 inhsol 04/16/19 [Rx] Nicotine Patch [Nicoderm] 14 mg TD DAILY #30 patch.td24 04/16/19 [Rx] predniSONE [Prednisone] See Taper PO AD #12 tab.ds.pk 04/16/19 [Rx] Allergies/Adverse Reactions: Allergy/AdvReac Type Severity Reaction Status Date / Time No Known Allergies Allergy Verified 04/13/19 11:04 Date of admission: 04/15/19 11:31 Primary care physician: Miles Nicole MD Consults: 04/13/19 16:22 Consult to Nurse Navigator [CONS] Routine Comment: COPD Discharging clinician: Raquel Faust Anticipated date of discharge: 04/16/19 - Constitutional Vitals: Temp Pulse Resp BP Pulse Ox 98.3 F 70 16 108/71 95 04/16/19 14:15 04/16/19 14:15 04/16/19 14:15 04/16/19 14:15 04/16/19 14:15 Exam: GEN: NAD, A&O x 3, Pleasant and conversant SKIN: [place] warm acyanotic not jaundice, multiple skin excoriations noted across upper extremities and face appears to be healing HEART: RRR, no murmurs LUNGS: CTA no wheeze or crackles, overall non labored ABDOMEN; Soft, non tender or distended, BS x 4 normactive EXT: No LE edema, Pedal pulses 1+, radial pulses 2+ PSYCH: Mood and affect is appropriate - Patient Status Disposition: Home, Self-Care Condition: Good Functional capacity at discharge: independent ambulation Overall status at discharge: patient is back to baseline - Discharge Instructions Instructions: Chronic Obstructive Pulmonary Disease (DC), Hypothyroidism (DC) Follow Up With: Miles Nicole MD [Primary Care Provider] - 04/23/19 1:30 pm (Follow up as scheduled. ) - Diet and Activity Activity: resume usual activities as tolerated Diet: regular diet
== END 2019-04-16 19:22 | disposition home or self-care (01) | DRG 140 ==
LOC: 3ANU 12:40 → EMEROOARM 12:40 → SUATTDRO 15:51 → 3ANU 17:08
PROVIDERS: ADMIT Internal Medicine; ATTEND Pharmacist

== ENCOUNTER 2019-06-28 12:37 | Observation (INO) ==
[2019-06-28] MEDS ORDERED: Aspirin 81 MG TAB.CHEW PO ONE (12:47)
[2019-06-28] MEDS ORDERED: Nitroglycerin 0.4 MG TAB.SUBL SL PRN (12:47)
[2019-06-28 13:31] LABS: Basophils % 0.2 %; Eosinophils # 0.7 K/mcL (0.0-0.6); Eosinophils % 14.9 %; Hematocrit 44.6 % (35.3-44.9); Hemoglobin 15.6 g/dL (11.5-15.4); Immature Granulocytes % 0.2 % (0-4); Lymphocytes # 1.9 K/mcL (0.6-4.6); Lymphocytes % 39.2 %; Mean Corpuscular Hemoglobin 33.5 pg (28.0-33.3); Mean Corpuscular Volume 95.7 fL (83.0-100.0); Mean Platelet Volume 10.2 fL (9.4-12.4); Monocytes # 0.2 K/mcL (0.0-1.3); Monocytes % 3.2 %; Neutrophils # 2.1 K/mcL (1.6-8.9); Platelet Count 166 K/mcL (140-400); Red Blood Count 4.66 M/mcL (3.82-4.97); Red Cell Distribution Width 12.8 % (11.5-14.5); Segmented Neutrophils % 42.3 %
[2019-06-28 13:44] LABS: INR 1.1
[2019-06-28 13:46] LABS: Activated Partial Thrombo Time 32.3 Seconds (26.0-36.0)
[2019-06-28 13:50] LABS: BUN/Creatinine Ratio 10 (6-26); Blood Urea Nitrogen 9 mg/dL (8-23); Calcium 9.6 mg/dL (8.6-10.3); Carbon Dioxide 28 mEq/L (23-29); Chloride 99 mEq/L (98-107); Glucose 92 mg/dL (70-105); Osmolality,Calculated 272 (280-300); Potassium 4.5 mEq/L (3.5-5.1); Sodium 132 mEq/L (136-145); Troponin I < 0.03 ng/mL (< 0.04); eGFR For African Americans > 60 (> 60); eGFR For Non-African Americans > 60 (> 60)
[2019-06-28] MEDS ORDERED: Ipratropium/Albuterol Neb 3 ML IH ONE (14:06)
[2019-06-28] MEDS ORDERED: Naloxone 0.4 MG/ML INJ IVP PRN (14:56)
[2019-06-28] MEDS ORDERED: Ondansetron 4 MG/2 ML VIAL IVP PRN (15:02)
[2019-06-28] MEDS ORDERED: Loratadine 10 MG TABLET PO PRN (15:03)
[2019-06-28] MEDS ORDERED: Ipratropium/Albuterol Neb 3 ML IH PRN (15:06)
[2019-06-28] MEDS: Ipratropium/Albuterol Neb 3 ML IH SCH ×3 (15:49→23:34)
[2019-06-28] MEDS: *HR* Heparin 5,000 UNIT/ML VIAL SQ SCH (18:46)
[2019-06-28] MEDS: predniSONE 20 MG TABLET PO SCH (18:46)
[2019-06-28] MEDS: sulfaSALAzine 500 MG TABLET PO SCH (20:57)
[2019-06-29 00:54] LABS: BUN/Creatinine Ratio 16 (6-26); Blood Urea Nitrogen 15 mg/dL (8-23); Calcium 9.3 mg/dL (8.6-10.3); Carbon Dioxide 25 mEq/L (23-29); Chloride 96 mEq/L (98-107); Glucose 157 mg/dL (70-105); Osmolality,Calculated 270 (280-300); Potassium 4.8 mEq/L (3.5-5.1); Sodium 128 mEq/L (136-145); eGFR For African Americans > 60 (> 60); eGFR For Non-African Americans 59 (> 60)
[2019-06-29] MEDS: Ipratropium/Albuterol Neb 3 ML IH SCH ×5 (03:59→20:03)
[2019-06-29 05:25] LABS: Adenovirus Not Detected (Not Detect); Coronavirus 229E Not Detected (Not Detect); Coronavirus HKU1 Not Detected (Not Detect); Coronavirus NL63 Not Detected (Not Detect); Coronavirus OC43 Not Detected (Not Detect); Human Metapneumovirus Not Detected (Not Detect); Human Rhinovirus/Enterovirus Not Detected (Not Detect)
[2019-06-29] MEDS: *HR* Heparin 5,000 UNIT/ML VIAL SQ SCH ×2 (05:25→16:58)
[2019-06-29 05:26] LABS: Bordetella Pertussis Not Detected (Not Detect); Chlamydophila pneumoniae Not Detected (Not Detect); Influenza A Subtype 2009 H1 Not Detected (Not Detect); Influenza A Untypeable Not Detected (Not Detect); Influenza B Not Detected (Not Detect); Mycoplasma pneumoniae Not Detected (Not Detect); Parainfluenza Virus 1 Not Detected (Not Detect); Parainfluenza Virus 2 Not Detected (Not Detect); Parainfluenza Virus 3 Not Detected (Not Detect); Parainfluenza Virus 4 Not Detected (Not Detect); Respiratory Syncytial Virus Not Detected (Not Detect)
[2019-06-29] MEDS ORDERED: *HR* Methotrexate 2.5 MG TABLET PO SCH (09:00)
[2019-06-29] MEDS: Famotidine 20 MG TABLET PO SCH (09:06)
[2019-06-29] MEDS: predniSONE 20 MG TABLET PO SCH (09:06)
[2019-06-29] MEDS: sulfaSALAzine 500 MG TABLET PO SCH ×2 (09:06→21:24)
[2019-06-29] MEDS: Folic Acid 1 MG TABLET PO SCH (09:07)
[2019-06-29] MEDS: Azithromycin 250 MG TABLET PO SCH (16:57)
[2019-06-30] MEDS: Ipratropium/Albuterol Neb 3 ML IH SCH ×7 (00:21→23:48)
[2019-06-30 05:13] LABS: Hematocrit 39.8 % (35.3-44.9); Mean Corpuscular HGB Conc 34.9 g/dL (31.6-35.5); Mean Corpuscular Volume 94.5 fL (83.0-100.0); Mean Platelet Volume 10.9 fL (9.4-12.4); Platelet Count 145 K/mcL (140-400); Red Blood Count 4.21 M/mcL (3.82-4.97); Red Cell Distribution Width 12.9 % (11.5-14.5); White Blood Count 6.4 K/mcL (4.3-11.1)
[2019-06-30 05:19] LABS: Hemoglobin 13.9 g/dL (11.5-15.4)
[2019-06-30 05:32] LABS: BUN/Creatinine Ratio 25 (6-26); Blood Urea Nitrogen 21 mg/dL (8-23); Calcium 9.6 mg/dL (8.6-10.3); Carbon Dioxide 25 mEq/L (23-29); Chloride 95 mEq/L (98-107); Glucose 111 mg/dL (70-105); Osmolality,Calculated 268 (280-300); Potassium 4.6 mEq/L (3.5-5.1); Sodium 127 mEq/L (136-145); eGFR For African Americans > 60 (> 60); eGFR For Non-African Americans > 60 (> 60)
[2019-06-30] MEDS: *HR* Heparin 5,000 UNIT/ML VIAL SQ SCH ×2 (06:03→17:06)
[2019-06-30] MEDS: Famotidine 20 MG TABLET PO SCH (09:54)
[2019-06-30] MEDS: sulfaSALAzine 500 MG TABLET PO SCH ×2 (09:54→20:16)
[2019-06-30] MEDS: Folic Acid 1 MG TABLET PO SCH (09:55)
[2019-06-30] MEDS: predniSONE 20 MG TABLET PO SCH (09:55)
[2019-06-30] MEDS ORDERED: GI Cocktail 40 ML EACH PO PRN (12:03)
[2019-06-30] MEDS ORDERED: Acetylcysteine 10% 2 ML INHSOL IH SCH (16:00)
[2019-06-30] MEDS: Azithromycin 250 MG TABLET PO SCH (17:06)
[2019-06-30] MEDS: Acetylcysteine 10% 2 ML INHSOL IH SCH (23:48)
[2019-07-01 03:24] LABS: Hematocrit 40.7 % (35.3-44.9); Hemoglobin 13.6 g/dL (11.5-15.4); Mean Corpuscular HGB Conc 33.4 g/dL (31.6-35.5); Mean Corpuscular Hemoglobin 32.5 pg (28.0-33.3); Mean Corpuscular Volume 97.4 fL (83.0-100.0); Mean Platelet Volume 11.3 fL (9.4-12.4); Platelet Count 157 K/mcL (140-400); Red Blood Count 4.18 M/mcL (3.82-4.97); White Blood Count 5.8 K/mcL (4.3-11.1)
[2019-07-01 03:32] LABS: BUN/Creatinine Ratio 25 (6-26); Blood Urea Nitrogen 23 mg/dL (8-23); Calcium 9.2 mg/dL (8.6-10.3); Carbon Dioxide 26 mEq/L (23-29); Chloride 95 mEq/L (98-107); Glucose 112 mg/dL (70-105); Osmolality,Calculated 268 (280-300); Potassium 4.9 mEq/L (3.5-5.1); Sodium 127 mEq/L (136-145); eGFR For African Americans > 60 (> 60); eGFR For Non-African Americans > 60 (> 60)
[2019-07-01 03:33] LABS: Chol/HDL Ratio 3.4 (0-4.9); Magnesium 1.9 mg/dL (1.6-2.6)
[2019-07-01] MEDS: Ipratropium/Albuterol Neb 3 ML IH SCH ×3 (03:49→11:00)
[2019-07-01] MEDS: *HR* Heparin 5,000 UNIT/ML VIAL SQ SCH (05:52)
[2019-07-01] MEDS ORDERED: Levothyroxine Sodium 100 MCG VIAL IVP SCH ×2 (06:30→09:00)
[2019-07-01] MEDS: Acetylcysteine 10% 2 ML INHSOL IH SCH (07:55)
[2019-07-01] MEDS: sulfaSALAzine 500 MG TABLET PO SCH (08:31)
[2019-07-01] MEDS: Famotidine 20 MG TABLET PO SCH (08:32)
[2019-07-01] MEDS: Folic Acid 1 MG TABLET PO SCH (08:32)
[2019-07-01] MEDS ORDERED: predniSONE 20 MG TABLET PO SCH (09:00)
[2019-07-01] MEDS ORDERED: Acetaminophen 325 MG TABLET PO PRN (10:34)
[2019-07-01 10:35] VITALS: BP 98/74
[2019-07-02] MEDS ORDERED: Azithromycin 250 MG TABLET PO SCH (09:00)
== END 2019-07-01 14:09 | disposition home or self-care (01) ==
LOC: 3BNU 12:37 → EMEROOARM 12:37 → 3BNU 17:53
PROVIDERS: ADMIT Student in an Organized Health Care Education/Training Program; ATTEND Student in an Organized Health Care Education/Training Program

== ENCOUNTER 2019-08-11 10:17 | Inpatient (IN) ==
[2019-08-11] MEDS ORDERED: Aspirin 81 MG TAB.CHEW PO ONE (10:25)
[2019-08-11] MEDS ORDERED: Acetaminophen 325 MG TABLET PO ONE (10:27)
[2019-08-11 11:11] LABS: INR 1.3; Prothrombin Time 14.4 Seconds (9.4-12.1)
[2019-08-11 11:22] LABS: Albumin 3.9 g/dL (3.5-5.7); Albumin/Globulin Ratio 1.3 (1.1-2.2); Bilirubin,Direct 0.5 mg/dL (0.0-0.2); Bilirubin,Indirect 1.1 mg/dL (0.0-1.0); Bilirubin,Total 1.6 mg/dL (0.3-1.0); Total Protein 6.9 g/dL (6.4-8.9)
[2019-08-11 11:28] LABS: BUN/Creatinine Ratio 17 (6-26); Blood Urea Nitrogen 13 mg/dL (8-23); Calcium 9.8 mg/dL (8.6-10.3); Carbon Dioxide 27 mEq/L (23-29); Chloride 95 mEq/L (98-107); Glucose 97 mg/dL (70-105); Osmolality,Calculated 272 (280-300); Potassium 4.3 mEq/L (3.5-5.1); Sodium 131 mEq/L (136-145); Troponin I 0.05 ng/mL (< 0.04); eGFR For African Americans > 60 (> 60); eGFR For Non-African Americans > 60 (> 60)
[2019-08-11 11:41] LABS: Basophils % 0.1 %; Eosinophils # 0.1 K/mcL (0.0-0.6); Eosinophils % 0.9 %; Hematocrit 41.8 % (35.3-44.9); Hemoglobin 14.4 g/dL (11.5-15.4); Immature Granulocytes % 0.3 % (0-4); Lymphocytes # 1.2 K/mcL (0.6-4.6); Lymphocytes % 11.6 %; Mean Corpuscular HGB Conc 34.4 g/dL (31.6-35.5); Mean Corpuscular Hemoglobin 33.2 pg (28.0-33.3); Mean Corpuscular Volume 96.3 fL (83.0-100.0); Mean Platelet Volume 11.1 fL (9.4-12.4); Monocytes # 0.6 K/mcL (0.0-1.3); Monocytes % 6.2 %; Neutrophils # 8.1 K/mcL (1.6-8.9); Platelet Count 145 K/mcL (140-400); Red Blood Count 4.34 M/mcL (3.82-4.97); Segmented Neutrophils % 80.9 %
[2019-08-11] MEDS ORDERED: Ipratropium/Albuterol Neb 3 ML IH ONE ×2 (12:20→14:41)
[2019-08-11] MEDS ORDERED: Ibuprofen 600 MG TABLET PO ONE (13:53)
[2019-08-11] MEDS ORDERED: 0.9 % Sodium Chloride 1,000 ML IV ONE (13:54)
[2019-08-11] MEDS ORDERED: Famotidine 20 MG TABLET PO ONE (14:00)
[2019-08-11] MEDS ORDERED: Piperacillin/Tazobactam 3.375 GM in 0.9 % Sodium Chloride Mini Bag 100 ML IVPB ONE (14:34)
[2019-08-11] MEDS ORDERED: Ondansetron 4 MG/2 ML VIAL IVP PRN (15:38)
[2019-08-11] MEDS ORDERED: Naloxone 0.4 MG/ML INJ IVP PRN (15:38)
[2019-08-11] MEDS ORDERED: *HR* HYDROcodone/Acet 5/325 mg TABLET PO PRN (15:38)
[2019-08-11] MEDS ORDERED: Isovue-370 500 ML BOTTLE IVP ONE (15:43)
[2019-08-11] MEDS: Azithromycin 500 MG in 0.9 % Sodium Chloride 250 ML IVPB SCH (17:39)
[2019-08-11] MEDS: MethylPREDNISolone 40 MG/ML VIAL IVP SCH (17:41)
[2019-08-11] MEDS: Ipratropium/Albuterol Neb 3 ML IH SCH ×3 (18:19→23:52)
[2019-08-11 18:31] LABS: ABG Base Excess -3 mEq/L (-2 to 3); ABG HCO3 20 mEq/L (21-27); ABG Oxygen Saturation 92 % (95-98); ABG PCO2 29 mmHg (35-45); ABG PH 7.44 pH Units (7.32-7.45); ABG PO2 61 mmHg (85-104); ABG TCO2 21 mEq/L (20-26)
[2019-08-11 19:06] LABS: Adenovirus Not Detected (Not Detect); Bordetella Pertussis Not Detected (Not Detect); Chlamydophila pneumoniae Not Detected (Not Detect); Coronavirus 229E Not Detected (Not Detect); Coronavirus HKU1 Not Detected (Not Detect); Coronavirus NL63 Not Detected (Not Detect); Coronavirus OC43 Not Detected (Not Detect); Human Metapneumovirus Not Detected (Not Detect); Human Rhinovirus/Enterovirus DETECTED (Not Detect); Influenza A Subtype 2009 H1 Not Detected (Not Detect); Influenza A Untypeable Not Detected (Not Detect); Influenza B Not Detected (Not Detect); Mycoplasma pneumoniae Not Detected (Not Detect); Parainfluenza Virus 1 Not Detected (Not Detect); Parainfluenza Virus 2 Not Detected (Not Detect); Parainfluenza Virus 3 Not Detected (Not Detect); Parainfluenza Virus 4 Not Detected (Not Detect); Respiratory Syncytial Virus Not Detected (Not Detect)
[2019-08-11] MEDS: Budesonide/Formoterol 160/4.5 1 PUFF INH IH SCH (19:29)
[2019-08-11] MEDS: *HR* Heparin 5,000 UNIT/ML VIAL SQ SCH (20:05)
[2019-08-12 02:16] LABS: Basophils % 0.1 %; Hematocrit 40.2 % (35.3-44.9); Hemoglobin 13.1 g/dL (11.5-15.4); Immature Granulocytes % 0.7 % (0-4); Lymphocytes # 0.4 K/mcL (0.6-4.6); Lymphocytes % 6.6 %; Mean Corpuscular HGB Conc 32.6 g/dL (31.6-35.5); Mean Corpuscular Hemoglobin 32.4 pg (28.0-33.3); Mean Corpuscular Volume 99.5 fL (83.0-100.0); Mean Platelet Volume 11.3 fL (9.4-12.4); Monocytes # 0.1 K/mcL (0.0-1.3); Monocytes % 1.8 %; Neutrophils # 6.1 K/mcL (1.6-8.9); Platelet Count 107 K/mcL (140-400); Red Blood Count 4.04 M/mcL (3.82-4.97); Red Cell Distribution Width 14.2 % (11.5-14.5); Segmented Neutrophils % 90.8 %; White Blood Count 6.7 K/mcL (4.3-11.1)
[2019-08-12 02:44] LABS: BUN/Creatinine Ratio 21 (6-26); Blood Urea Nitrogen 16 mg/dL (8-23); Calcium 8.9 mg/dL (8.6-10.3); Carbon Dioxide 22 mEq/L (23-29); Chloride 101 mEq/L (98-107); Glucose 239 mg/dL (70-105); Magnesium 1.7 mg/dL (1.6-2.6); Osmolality,Calculated 285 (280-300); Sodium 133 mEq/L (136-145); eGFR For African Americans > 60 (> 60); eGFR For Non-African Americans > 60 (> 60)
[2019-08-12] MEDS: *HR* Heparin 5,000 UNIT/ML VIAL SQ SCH ×3 (03:38→22:16)
[2019-08-12] MEDS: Ipratropium/Albuterol Neb 3 ML IH SCH ×6 (03:56→23:04)
[2019-08-12] MEDS: MethylPREDNISolone 40 MG/ML VIAL IVP SCH ×2 (05:41→17:08)
[2019-08-12] MEDS: Budesonide/Formoterol 160/4.5 1 PUFF INH IH SCH ×2 (07:31→19:43)
[2019-08-12] MEDS: cefTRIAXone 1,000 MG in 0.9 % Sodium Chloride Mini Bag 100 ML IVPB SCH (09:09)
[2019-08-12] MEDS ORDERED: Dextrose Gel 15 GM/37.5 ML TUBE PO PRN ×2 (13:46)
[2019-08-12] MEDS ORDERED: *HR* Dextrose 50 % in Water (Syg) 50 ML SYRINGE IVP PRN (13:46)
[2019-08-12] MEDS ORDERED: D5% in Water 1,000 ML IVC PRN (13:46)
[2019-08-12] MEDS ORDERED: Acetaminophen 325 MG TABLET PO PRN (14:34)
[2019-08-12] MEDS: Azithromycin 500 MG in 0.9 % Sodium Chloride 250 ML IVPB SCH (15:52)
[2019-08-12] MEDS: Insulin LISPRO 300 UNITS/3 ML VIAL SQ SCH (17:14)
[2019-08-12] MEDS ORDERED: *HR* LORazepam 2 MG/ML VIAL IVP ONE (22:07)
[2019-08-13] MEDS: *HR* Heparin 5,000 UNIT/ML VIAL SQ SCH ×3 (04:10→21:07)
[2019-08-13] MEDS: Ipratropium/Albuterol Neb 3 ML IH SCH ×6 (04:12→23:29)
[2019-08-13] MEDS: MethylPREDNISolone 40 MG/ML VIAL IVP SCH ×2 (05:24→17:33)
[2019-08-13 05:48] LABS: Basophils % 0.1 %; Hemoglobin 13.3 g/dL (11.5-15.4); Immature Granulocytes % 1.7 % (0-4); Lymphocytes # 0.8 K/mcL (0.6-4.6); Lymphocytes % 6.7 %; Mean Corpuscular HGB Conc 34.1 g/dL (31.6-35.5); Mean Corpuscular Hemoglobin 32.9 pg (28.0-33.3); Mean Corpuscular Volume 96.5 fL (83.0-100.0); Mean Platelet Volume 11.4 fL (9.4-12.4); Monocytes # 0.4 K/mcL (0.0-1.3); Monocytes % 3.3 %; Neutrophils # 9.9 K/mcL (1.6-8.9); Platelet Count 141 K/mcL (140-400); Red Blood Count 4.04 M/mcL (3.82-4.97); Red Cell Distribution Width 14.6 % (11.5-14.5); Segmented Neutrophils % 88.2 %; White Blood Count 11.2 K/mcL (4.3-11.1)
[2019-08-13 06:09] LABS: BUN/Creatinine Ratio 37 (6-26); Blood Urea Nitrogen 29 mg/dL (8-23); Calcium 9.4 mg/dL (8.6-10.3); Carbon Dioxide 24 mEq/L (23-29); Chloride 100 mEq/L (98-107); Glucose 140 mg/dL (70-105); Osmolality,Calculated 284 (280-300); Phosphorous 3.7 mg/dL (2.7-4.5); Potassium 4.7 mEq/L (3.5-5.1); Sodium 133 mEq/L (136-145); eGFR For African Americans > 60 (> 60); eGFR For Non-African Americans > 60 (> 60)
[2019-08-13] MEDS: Budesonide/Formoterol 160/4.5 1 PUFF INH IH SCH ×2 (07:28→20:01)
[2019-08-13] MEDS ORDERED: Nitroglycerin 0.4 MG TAB.SUBL SL PRN (07:52)
[2019-08-13] MEDS: Insulin LISPRO 300 UNITS/3 ML VIAL SQ SCH ×3 (08:23→17:03)
[2019-08-13] MEDS ORDERED: sulfaSALAzine 500 MG TABLET PO SCH (09:00)
[2019-08-13] MEDS: Furosemide 40 MG TABLET PO SCH ×2 (09:48→21:07)
[2019-08-13] MEDS: Folic Acid 1 MG TABLET PO SCH (09:48)
[2019-08-13] MEDS: Metoprolol XL (24 HR) Succ 25 MG TAB.ER.24H PO SCH (09:48)
[2019-08-13] MEDS: cefTRIAXone 1,000 MG in 0.9 % Sodium Chloride Mini Bag 100 ML IVPB SCH (19:21)
[2019-08-13] MEDS ORDERED: *HR* LORazepam 2 MG/ML VIAL IVP ONE (21:09)
[2019-08-14] MEDS: Ipratropium/Albuterol Neb 3 ML IH SCH ×3 (03:49→12:13)
[2019-08-14] MEDS: *HR* Heparin 5,000 UNIT/ML VIAL SQ SCH (05:19)
[2019-08-14 07:21] VITALS: BP 106/75
[2019-08-14] MEDS: Insulin LISPRO 300 UNITS/3 ML VIAL SQ SCH (07:29)
[2019-08-14] MEDS: Budesonide/Formoterol 160/4.5 1 PUFF INH IH SCH (07:43)
[2019-08-14] MEDS ORDERED: predniSONE 20 MG TABLET PO SCH (09:00)
[2019-08-14] MEDS: Folic Acid 1 MG TABLET PO SCH (09:54)
[2019-08-14] MEDS: Furosemide 40 MG TABLET PO SCH (09:54)
[2019-08-14] MEDS: Metoprolol XL (24 HR) Succ 25 MG TAB.ER.24H PO SCH (09:54)
== END 2019-08-14 12:15 | disposition home or self-care (01) | DRG 140 ==
LOC: 3BNU 10:17 → EMEROOARM 10:17 → SUATTDRO 16:05 → 3BNU 16:31
PROVIDERS: ADMIT Internal Medicine; ATTEND Internal Medicine

== ENCOUNTER 2019-12-22 11:28 | Observation (INO) ==
[2019-12-22] MEDS ORDERED: Nitroglycerin 0.4 MG TAB.SUBL SL PRN ×2 (11:37→18:19)
[2019-12-22 12:01] LABS: Basophils % 0.9 %; Eosinophils % 0.5 %; Hemoglobin 13.1 g/dL (11.5-15.4); Monocytes % 5.9 %
[2019-12-22 12:03] LABS: Hematocrit 40.4 % (35.3-44.9); Immature Granulocytes % 0.5 % (0-4); Immature Platelets 8.7 % (1.1-6.1); Mean Corpuscular HGB Conc 32.4 g/dL (31.6-35.5); Mean Corpuscular Hemoglobin 32.7 pg (28.0-33.3); Mean Corpuscular Volume 100.7 fL (83.0-100.0); Mean Platelet Volume 11.8 fL (9.4-12.4); Monocytes # 0.1 K/mcL (0.0-1.3); Red Blood Count 4.01 M/mcL (3.82-4.97); Segmented Neutrophils % 47.2 %; White Blood Count 2.2 K/mcL (4.3-11.1)
[2019-12-22 12:11] LABS: INR 1.1; Prothrombin Time 12.9 Seconds (9.4-12.1)
[2019-12-22 12:14] LABS: Activated Partial Thrombo Time 29.8 Seconds (26.0-36.0)
[2019-12-22 12:22] LABS: BUN/Creatinine Ratio 9 (6-26); Blood Urea Nitrogen 7 mg/dL (8-23); Calcium 8.9 mg/dL (8.6-10.3); Carbon Dioxide 26 mEq/L (23-29); Chloride 100 mEq/L (98-107); Glucose 124 mg/dL (70-105); Osmolality,Calculated 273 (280-300); Potassium 4.2 mEq/L (3.5-5.1); Sodium 132 mEq/L (136-145); Troponin I < 0.03 ng/mL (< 0.04); eGFR For African Americans > 60 (> 60); eGFR For Non-African Americans > 60 (> 60)
[2019-12-22] MEDS ORDERED: Isovue-370 500 ML BOTTLE IVP ONE ×2 (12:27→17:52)
[2019-12-22 12:46] LABS: Anisocytosis 1+ (Not Present); Platelet Count 69 K/mcL (140-400); Platelet Estimate Decreased (Normal)
[2019-12-22 12:48] LABS: Large Platelets Present (Not Present)
[2019-12-22] MEDS ORDERED: *HR* Enoxaparin 100 MG/ML SYRINGE SQ STA (13:33)
[2019-12-22] MEDS ORDERED: Clindamycin 600 MG/50 ML 600 MG/50 ML IV.SOLN IVPB ONE (13:34)
[2019-12-22] MEDS ORDERED: *HR* Heparin 5,000 UNIT/ML VIAL IVP ONE (13:50)
[2019-12-22] MEDS ORDERED: *HR* Heparin 5,000 UNIT/ML VIAL IVP PRN ×2 (13:50)
[2019-12-22] MEDS ORDERED: Heparin 25,000 UNIT/250 ML D5W 25,000 UNIT/250 ML IV.SOLN IVC SCH (14:00)
[2019-12-22 14:32] LABS: Hemoglobin 12.3 g/dL (11.5-15.4); Mean Corpuscular Volume 101.9 fL (83.0-100.0)
[2019-12-22 14:33] LABS: INR 1.2; Prothrombin Time 13.4 Seconds (9.4-12.1)
[2019-12-22 14:34] LABS: Hematocrit 38.4 % (35.3-44.9); Heparin anti-factor XA UFH < 0.04 IU/mL (0.30-0.70); Mean Corpuscular Hemoglobin 32.6 pg (28.0-33.3); Mean Platelet Volume 11.7 fL (9.4-12.4); Red Blood Count 3.77 M/mcL (3.82-4.97); Red Cell Distribution Width 16.1 % (11.5-14.5); White Blood Count 2.4 K/mcL (4.3-11.1)
[2019-12-22 14:54] LABS: Platelet Count 74 K/mcL (140-400)
[2019-12-22] MEDS ORDERED: Ondansetron ODT 4 MG TAB.RAPDIS SL PRN (17:25)
[2019-12-22] MEDS ORDERED: Naloxone 0.4 MG/ML INJ IVP PRN (17:25)
[2019-12-22] MEDS ORDERED: Azithromycin 500 MG in 0.9 % Sodium Chloride 250 ML IVPB SCH (18:00)
[2019-12-22] MEDS ORDERED: 0.9 % Sodium Chloride 250 ML ONE (18:09)
[2019-12-22] MEDS ORDERED: Ipratropium/Albuterol Neb 3 ML IH ONE (18:20)
[2019-12-22] MEDS ORDERED: Furosemide 40 MG/4 ML VIAL IVP ONE (18:41)
[2019-12-22] MEDS: Ipratropium 1 PUFF INHALER IH SCH ×2 (19:59→21:11)
[2019-12-22] MEDS ORDERED: Furosemide 40 MG TABLET PO SCH (21:00)
[2019-12-22] MEDS ORDERED: Ipratropium/Albuterol Neb 3 ML IH SCH (22:00)
[2019-12-23] MEDS: MethylPREDNISolone 40 MG/ML VIAL IVP SCH ×3 (00:15→14:59)
[2019-12-23] MEDS: Piperacillin/Tazobactam 3.375 GM in 0.9 % Sodium Chloride Mini Bag 100 ML IVPB SCH ×2 (00:16→07:45)
[2019-12-23] MEDS: Ipratropium 1 PUFF INHALER IH SCH ×4 (03:14→20:33)
[2019-12-23 04:16] LABS: Mean Corpuscular Hemoglobin 32.6 pg (28.0-33.3)
[2019-12-23 04:18] LABS: Hemoglobin 12.6 g/dL (11.5-15.4); Immature Platelets 8.5 % (1.1-6.1); Mean Corpuscular HGB Conc 32.3 g/dL (31.6-35.5); Mean Platelet Volume 11.7 fL (9.4-12.4); Red Blood Count 3.86 M/mcL (3.82-4.97); Red Cell Distribution Width 16.1 % (11.5-14.5); White Blood Count 2.5 K/mcL (4.3-11.1)
[2019-12-23 04:29] LABS: Albumin 3.2 g/dL (3.5-5.7); Albumin/Globulin Ratio 0.9 (1.1-2.2); Bilirubin,Direct 0.2 mg/dL (0.0-0.2); Bilirubin,Indirect 0.4 mg/dL (0.0-1.0); Bilirubin,Total 0.6 mg/dL (0.3-1.0); Globulin 3.5 g/dL (2.4-3.5); Total Protein 6.7 g/dL (6.4-8.9)
[2019-12-23 04:34] LABS: BUN/Creatinine Ratio 11 (6-26); Blood Urea Nitrogen 8 mg/dL (8-23); Carbon Dioxide 27 mEq/L (23-29); Chloride 99 mEq/L (98-107); Glucose 101 mg/dL (70-105); Osmolality,Calculated 270 (280-300); Potassium 4.3 mEq/L (3.5-5.1); Sodium 131 mEq/L (136-145); eGFR For African Americans > 60 (> 60); eGFR For Non-African Americans > 60 (> 60)
[2019-12-23] MEDS: Folic Acid 1 MG TABLET PO SCH (07:46)
[2019-12-23] MEDS: Loratadine 10 MG TABLET PO SCH (07:46)
[2019-12-23] MEDS: Famotidine 20 MG TABLET PO SCH (07:46)
[2019-12-23] MEDS ORDERED: Furosemide 40 MG TABLET PO SCH (09:00)
[2019-12-23] MEDS ORDERED: Furosemide 40 MG/4 ML VIAL IVP ONE (14:58)
[2019-12-23] MEDS ORDERED: Acetaminophen 325 MG TABLET PO PRN (15:12)
[2019-12-23] MEDS: Azithromycin 250 MG TABLET PO SCH (18:39)
[2019-12-23] MEDS: Cefdinir 300 MG CAPSULE PO SCH (21:30)
[2019-12-24] MEDS: MethylPREDNISolone 40 MG/ML VIAL IVP SCH ×2 (00:33→09:29)
[2019-12-24 01:40] LABS: BUN/Creatinine Ratio 20 (6-26); Blood Urea Nitrogen 18 mg/dL (8-23); Calcium 9.1 mg/dL (8.6-10.3); Carbon Dioxide 27 mEq/L (23-29); Chloride 96 mEq/L (98-107); Glucose 153 mg/dL (70-105); Osmolality,Calculated 275 (280-300); Potassium 4.5 mEq/L (3.5-5.1); Sodium 130 mEq/L (136-145); eGFR For African Americans > 60 (> 60); eGFR For Non-African Americans > 60 (> 60)
[2019-12-24 01:50] LABS: Hematocrit 37.3 % (35.3-44.9); Hemoglobin 12.1 g/dL (11.5-15.4); Mean Corpuscular HGB Conc 32.4 g/dL (31.6-35.5); Mean Corpuscular Hemoglobin 32.7 pg (28.0-33.3); Mean Corpuscular Volume 100.8 fL (83.0-100.0); Mean Platelet Volume 11.8 fL (9.4-12.4); Platelet Count 126 K/mcL (140-400); Red Cell Distribution Width 16.1 % (11.5-14.5); White Blood Count 5.7 K/mcL (4.3-11.1)
[2019-12-24] MEDS: Ipratropium 1 PUFF INHALER IH SCH ×4 (04:13→20:02)
[2019-12-24] MEDS: Loratadine 10 MG TABLET PO SCH (09:29)
[2019-12-24] MEDS: Folic Acid 1 MG TABLET PO SCH (09:30)
[2019-12-24] MEDS: Famotidine 20 MG TABLET PO SCH (09:30)
[2019-12-24] MEDS: Cefdinir 300 MG CAPSULE PO SCH ×2 (09:30→22:34)
[2019-12-24] MEDS ORDERED: Furosemide 40 MG/4 ML VIAL IVP ONE (11:11)
[2019-12-24] MEDS: predniSONE 20 MG TABLET PO SCH (11:40)
[2019-12-24] MEDS: Azithromycin 250 MG TABLET PO SCH (17:56)
[2019-12-25 01:59] LABS: Hematocrit 37.5 % (35.3-44.9); Mean Corpuscular Hemoglobin 32.5 pg (28.0-33.3); Mean Corpuscular Volume 101.6 fL (83.0-100.0); Mean Platelet Volume 11.8 fL (9.4-12.4); Platelet Count 174 K/mcL (140-400); Red Blood Count 3.69 M/mcL (3.82-4.97); Red Cell Distribution Width 16.6 % (11.5-14.5); White Blood Count 7.4 K/mcL (4.3-11.1)
[2019-12-25 02:18] LABS: BUN/Creatinine Ratio 29 (6-26); Blood Urea Nitrogen 24 mg/dL (8-23); Calcium 9.2 mg/dL (8.6-10.3); Carbon Dioxide 27 mEq/L (23-29); Chloride 97 mEq/L (98-107); Glucose 115 mg/dL (70-105); Osmolality,Calculated 275 (280-300); Potassium 4.3 mEq/L (3.5-5.1); Sodium 130 mEq/L (136-145); eGFR For African Americans > 60 (> 60); eGFR For Non-African Americans > 60 (> 60)
[2019-12-25] MEDS: Ipratropium 1 PUFF INHALER IH SCH ×2 (04:02→07:28)
[2019-12-25 07:15] VITALS: BP 112/83
[2019-12-25] MEDS: predniSONE 20 MG TABLET PO SCH (07:50)
[2019-12-25] MEDS: Loratadine 10 MG TABLET PO SCH (07:50)
[2019-12-25] MEDS: Folic Acid 1 MG TABLET PO SCH (07:50)
[2019-12-25] MEDS: Cefdinir 300 MG CAPSULE PO SCH (07:50)
[2019-12-25] MEDS: Famotidine 20 MG TABLET PO SCH (07:50)
== END 2019-12-25 11:08 | disposition home or self-care (01) ==
LOC: 3BNU 11:28 → EMEROOARM 11:28 → SUATTDRO 15:15 → 3BNU 15:50 → 2NENU 17:12 → 2ANU 12-23 21:11
PROVIDERS: ADMIT Internal Medicine; ATTEND Student in an Organized Health Care Education/Training Program

== ENCOUNTER 2020-02-22 13:18 | Observation (INO) ==
[2020-02-22] MEDS ORDERED: Aspirin 81 MG TAB.CHEW PO ONE (13:25)
[2020-02-22] MEDS ORDERED: methylPREDNISolone 125 MG/2 ML VIAL IVP ONE (13:26)
[2020-02-22] MEDS ORDERED: Ipratropium/Albuterol Neb 3 ML IH ONE (13:26)
[2020-02-22] MEDS ORDERED: Ipratropium/Albuterol Neb 3 ML ONE (13:31)
[2020-02-22 13:54] LABS: Eosinophils % 0.2 %; Hematocrit 46.9 % (35.3-44.9); Hemoglobin 15.9 g/dL (11.5-15.4); Immature Granulocytes % 0.2 % (0-4); Lymphocytes % 45.8 %; Mean Corpuscular HGB Conc 33.9 g/dL (31.6-35.5); Mean Corpuscular Hemoglobin 33.2 pg (28.0-33.3); Mean Corpuscular Volume 97.9 fL (83.0-100.0); Mean Platelet Volume 9.9 fL (9.4-12.4); Monocytes # 0.3 K/mcL (0.0-1.3); Monocytes % 6.8 %; Neutrophils # 2.1 K/mcL (1.6-8.9); Platelet Count 207 K/mcL (140-400); Red Blood Count 4.79 M/mcL (3.82-4.97); Red Cell Distribution Width 13.2 % (11.5-14.5); White Blood Count 4.4 K/mcL (4.3-11.1)
[2020-02-22 13:57] LABS: Prothrombin Time 11.3 Seconds (9.4-12.1)
[2020-02-22] MEDS ORDERED: Isovue-370 500 ML BOTTLE IVP ONE (14:06)
[2020-02-22 14:11] LABS: BUN/Creatinine Ratio 12 (6-26); Blood Urea Nitrogen 8 mg/dL (8-23); Calcium 9.4 mg/dL (8.6-10.3); Carbon Dioxide 25 mEq/L (23-29); Chloride 99 mEq/L (98-107); Glucose 106 mg/dL (70-105); Magnesium 1.7 mg/dL (1.6-2.6); Osmolality,Calculated 267 (280-300); Potassium 4.2 mEq/L (3.5-5.1); Sodium 129 mEq/L (136-145); Troponin I < 0.03 ng/mL (< 0.04); eGFR For African Americans > 60 (> 60); eGFR For Non-African Americans > 60 (> 60)
[2020-02-22] MEDS ORDERED: Azithromycin 500 MG in 0.9 % Sodium Chloride 250 ML IVPB ONE (16:16)
[2020-02-22] MEDS ORDERED: Naloxone 0.4 MG/ML INJ IVP PRN (16:30)
[2020-02-22] MEDS ORDERED: Acetaminophen 325 MG TABLET PO PRN (16:30)
[2020-02-22] MEDS ORDERED: *HR* Promethazine 25 MG/ML VIAL IVP PRN (16:30)
[2020-02-22] MEDS ORDERED: Azithromycin 500 MG in 0.9 % Sodium Chloride 250 ML IVPB SCH (17:00)
[2020-02-22] MEDS ORDERED: Furosemide 40 MG/4 ML VIAL IVP ONE (18:29)
[2020-02-22] MEDS: Ipratropium/Albuterol Neb 3 ML IH SCH ×3 (18:47→23:51)
[2020-02-22] MEDS: Fluticasone Propionate Nasal 50 MCG/SPRAY BOTTLE NS SCH (18:57)
[2020-02-22] MEDS: Loratadine 10 MG TABLET PO SCH (18:57)
[2020-02-23] MEDS: methylPREDNISolone 125 MG/2 ML VIAL IVP SCH ×3 (00:12→18:15)
[2020-02-23] MEDS: Ipratropium/Albuterol Neb 3 ML IH SCH ×6 (03:15→23:55)
[2020-02-23] MEDS: *HR* Enoxaparin 40 MG/0.4 ML SYRINGE SQ SCH (05:04)
[2020-02-23 08:37] LABS: Hematocrit 45.4 % (35.3-44.9); Mean Corpuscular Hemoglobin 32.5 pg (28.0-33.3); Mean Corpuscular Volume 98.3 fL (83.0-100.0); Mean Platelet Volume 10.1 fL (9.4-12.4); Platelet Count 221 K/mcL (140-400); Red Blood Count 4.62 M/mcL (3.82-4.97); Red Cell Distribution Width 12.9 % (11.5-14.5)
[2020-02-23 08:41] LABS: White Blood Count 8.2 K/mcL (4.3-11.1)
[2020-02-23 08:58] LABS: BUN/Creatinine Ratio 15 (6-26); Blood Urea Nitrogen 12 mg/dL (8-23); Calcium 9.3 mg/dL (8.6-10.3); Carbon Dioxide 26 mEq/L (23-29); Chloride 95 mEq/L (98-107); Glucose 178 mg/dL (70-105); Osmolality,Calculated 272 (280-300); Potassium 4.4 mEq/L (3.5-5.1); Sodium 129 mEq/L (136-145); eGFR For African Americans > 60 (> 60); eGFR For Non-African Americans > 60 (> 60)
[2020-02-23] MEDS: Loratadine 10 MG TABLET PO SCH (10:35)
[2020-02-23] MEDS: Fluticasone Propionate Nasal 50 MCG/SPRAY BOTTLE NS SCH (10:35)
[2020-02-23] MEDS: Furosemide 40 MG TABLET PO SCH (16:09)
[2020-02-23] MEDS: sulfaSALAzine 500 MG TABLET PO SCH (20:26)
[2020-02-24] MEDS: Ipratropium/Albuterol Neb 3 ML IH SCH ×3 (03:51→11:17)
[2020-02-24 04:12] LABS: BUN/Creatinine Ratio 33 (6-26); Blood Urea Nitrogen 30 mg/dL (8-23); Calcium 9.8 mg/dL (8.6-10.3); Carbon Dioxide 27 mEq/L (23-29); Chloride 95 mEq/L (98-107); Glucose 148 mg/dL (70-105); Osmolality,Calculated 275 (280-300); Potassium 4.6 mEq/L (3.5-5.1); Sodium 128 mEq/L (136-145); eGFR For African Americans > 60 (> 60); eGFR For Non-African Americans > 60 (> 60)
[2020-02-24] MEDS: *HR* Enoxaparin 40 MG/0.4 ML SYRINGE SQ SCH (05:54)
[2020-02-24] MEDS: methylPREDNISolone 125 MG/2 ML VIAL IVP SCH (05:54)
[2020-02-24] MEDS ORDERED: Azithromycin 250 MG TABLET PO SCH (09:00)
[2020-02-24] MEDS ORDERED: lisinopriL 10 MG TABLET PO SCH (09:00)
[2020-02-24] MEDS ORDERED: predniSONE 20 MG TABLET PO SCH (09:00)
[2020-02-24] MEDS: Fluticasone Propionate Nasal 50 MCG/SPRAY BOTTLE NS SCH (09:27)
[2020-02-24] MEDS: Loratadine 10 MG TABLET PO SCH (09:28)
[2020-02-24] MEDS: sulfaSALAzine 500 MG TABLET PO SCH (09:28)
[2020-02-24] MEDS: Furosemide 40 MG TABLET PO SCH (09:29)
[2020-02-24 10:16] VITALS: BP 109/72
== END 2020-02-24 13:46 | disposition home or self-care (01) ==
LOC: 3ANU 13:18 → EMEROOARM 13:18 → SUATTDRO 17:36 → 3ANU 18:18
PROVIDERS: ADMIT Pharmacist; ATTEND Internal Medicine

== ENCOUNTER 2020-03-21 14:11 | Observation (INO) ==
[2020-03-21 14:48] LABS: Basophils % 0.2 %; Eosinophils % 0.6 %; Hematocrit 44.5 % (35.3-44.9); Hemoglobin 14.9 g/dL (11.5-15.4); Immature Granulocytes % 0.2 % (0-4); Lymphocytes # 2.9 K/mcL (0.6-4.6); Lymphocytes % 43.4 %; Mean Corpuscular HGB Conc 33.5 g/dL (31.6-35.5); Mean Corpuscular Hemoglobin 32.5 pg (28.0-33.3); Mean Corpuscular Volume 97.2 fL (83.0-100.0); Mean Platelet Volume 10.2 fL (9.4-12.4); Monocytes # 0.5 K/mcL (0.0-1.3); Monocytes % 8.1 %; Neutrophils # 3.2 K/mcL (1.6-8.9); Platelet Count 239 K/mcL (140-400); Red Blood Count 4.58 M/mcL (3.82-4.97); Red Cell Distribution Width 12.1 % (11.5-14.5); Segmented Neutrophils % 47.5 %; White Blood Count 6.6 K/mcL (4.3-11.1)
[2020-03-21 15:09] LABS: Alanine Aminotransferase 20 Units/L (7-52); Albumin/Globulin Ratio 1.4 (1.1-2.2); Alkaline Phosphatase 63 Units/L (34-104); Aspartate Amino Transferase 17 Units/L (13-39); BUN/Creatinine Ratio 21 (6-26); Bilirubin,Total 0.4 mg/dL (0.3-1.0); Blood Urea Nitrogen 13 mg/dL (8-23); Carbon Dioxide 31 mEq/L (23-29); Chloride 97 mEq/L (98-107); Globulin 2.9 g/dL (2.4-3.5); Glucose 111 mg/dL (70-105); Osmolality,Calculated 271 (280-300); Potassium 4.1 mEq/L (3.5-5.1); Sodium 130 mEq/L (136-145); Total Protein 6.9 g/dL (6.4-8.9); Troponin I < 0.03 ng/mL (< 0.04); eGFR For African Americans > 60 (> 60); eGFR For Non-African Americans > 60 (> 60)
[2020-03-21] MEDS ORDERED: Ipratropium/Albuterol Neb 3 ML IH ONE (16:55)
[2020-03-21] MEDS ORDERED: Naloxone 0.4 MG/ML INJ IVP PRN (17:43)
[2020-03-21] MEDS ORDERED: Acetaminophen 325 MG TABLET PO PRN (17:43)
[2020-03-21] MEDS ORDERED: Aspirin 325 MG TABLET PO ONE (18:03)
[2020-03-21] MEDS ORDERED: Nitroglycerin 0.4 MG TAB.SUBL SL PRN (18:11)
[2020-03-21] MEDS ORDERED: Pantoprazole 40 MG VIAL IVP SCH (18:45)
[2020-03-21] MEDS ORDERED: Perflutren Lipid Microsphere 1.3 ML in 0.9 % Sodium Chloride 8.7 ML IVP PRN ×2 (18:55→18:56)
[2020-03-21 19:09] LABS: Adenovirus Not Detected (Not Detect); Bordetella Pertussis Not Detected (Not Detect); Chlamydophila pneumoniae Not Detected (Not Detect); Coronavirus 229E Not Detected (Not Detect); Coronavirus HKU1 Not Detected (Not Detect); Coronavirus NL63 Not Detected (Not Detect); Coronavirus OC43 Not Detected (Not Detect); Human Metapneumovirus Not Detected (Not Detect); Human Rhinovirus/Enterovirus Not Detected (Not Detect); Influenza A Subtype 2009 H1 Not Detected (Not Detect); Influenza B Not Detected (Not Detect); Mycoplasma pneumoniae Not Detected (Not Detect); Parainfluenza Virus 1 Not Detected (Not Detect); Parainfluenza Virus 2 Not Detected (Not Detect); Parainfluenza Virus 3 Not Detected (Not Detect); Parainfluenza Virus 4 Not Detected (Not Detect); Respiratory Syncytial Virus Not Detected (Not Detect)
[2020-03-21 19:11] LABS: SARS-CoV-2 Not Detected (Not Detect)
[2020-03-21] MEDS: Azithromycin 250 MG TABLET PO SCH (20:54)
[2020-03-21] MEDS: MethylPREDNISolone 40 MG/ML VIAL IVP SCH (20:54)
[2020-03-21] MEDS: *HR* Heparin 5,000 UNIT/ML VIAL SQ SCH (20:54)
[2020-03-21] MEDS: Ipratropium/Albuterol Neb 3 ML IH SCH (22:27)
[2020-03-22] MEDS: MethylPREDNISolone 40 MG/ML VIAL IVP SCH ×2 (00:08→05:36)
[2020-03-22 03:03] LABS: BUN/Creatinine Ratio 23 (6-26); Blood Urea Nitrogen 17 mg/dL (8-23); Calcium 9.6 mg/dL (8.6-10.3); Carbon Dioxide 25 mEq/L (23-29); Chloride 99 mEq/L (98-107); Chol/HDL Ratio 2.4 (0-4.9); Cholesterol 111 mg/dL (< 200); Glucose 129 mg/dL (70-105); HDL Cholesterol 46 mg/dL (40-59); LDL Cholesterol,Calculated 56 mg/dL (< 100); Osmolality,Calculated 275 (280-300); Potassium 4.7 mEq/L (3.5-5.1); Sodium 131 mEq/L (136-145); Triglycerides 45 mg/dL (< 150); eGFR For African Americans > 60 (> 60); eGFR For Non-African Americans > 60 (> 60)
[2020-03-22 03:05] LABS: Troponin I < 0.03 ng/mL (< 0.04)
[2020-03-22 03:16] LABS: Thyroid Stimulating Hormone 0.142 mcIU/mL (0.340-5.600)
[2020-03-22] MEDS: Ipratropium/Albuterol Neb 3 ML IH SCH ×4 (04:33→22:04)
[2020-03-22] MEDS: *HR* Heparin 5,000 UNIT/ML VIAL SQ SCH ×2 (05:36→17:09)
[2020-03-22] MEDS ORDERED: Regadenoson 0.4 MG/5 ML SYRINGE IVP ONE (06:56)
[2020-03-22] MEDS: Aspirin 81 MG TAB.CHEW PO SCH (09:31)
[2020-03-22] MEDS: Furosemide 40 MG TABLET PO SCH (09:31)
[2020-03-22] MEDS: Fluticasone Propionate Nasal 50 MCG/SPRAY BOTTLE NS SCH (09:32)
[2020-03-22] MEDS: lisinopriL 10 MG TABLET PO SCH (09:32)
[2020-03-22] MEDS ORDERED: predniSONE 20 MG TABLET PO SCH (11:30)
[2020-03-22] MEDS: predniSONE 5 MG TABLET PO SCH (13:33)
[2020-03-22] MEDS ORDERED: Perflutren Lipid Microsphere 1.3 ML in 0.9 % Sodium Chloride 8.7 ML IVP PRN (15:20)
[2020-03-22] MEDS ORDERED: Furosemide 40 MG/4 ML VIAL IVP ONE (15:20)
[2020-03-22] MEDS: Azithromycin 250 MG TABLET PO SCH (17:09)
[2020-03-23] MEDS: Ipratropium/Albuterol Neb 3 ML IH SCH ×5 (03:49→19:30)
[2020-03-23] MEDS: *HR* Heparin 5,000 UNIT/ML VIAL SQ SCH ×2 (04:57→16:09)
[2020-03-23 05:15] LABS: Basophils % 0.3 %; Eosinophils % 0.3 %; Hematocrit 40.8 % (35.3-44.9); Hemoglobin 13.8 g/dL (11.5-15.4); Immature Granulocytes % 0.3 % (0-4); Lymphocytes # 3.1 K/mcL (0.6-4.6); Lymphocytes % 46.7 %; Mean Corpuscular HGB Conc 33.8 g/dL (31.6-35.5); Mean Corpuscular Hemoglobin 33.3 pg (28.0-33.3); Mean Corpuscular Volume 98.3 fL (83.0-100.0); Mean Platelet Volume 9.8 fL (9.4-12.4); Monocytes # 0.5 K/mcL (0.0-1.3); Monocytes % 7.8 %; Neutrophils # 2.9 K/mcL (1.6-8.9); Platelet Count 212 K/mcL (140-400); Red Blood Count 4.15 M/mcL (3.82-4.97); Red Cell Distribution Width 11.9 % (11.5-14.5); Segmented Neutrophils % 44.6 %; White Blood Count 6.6 K/mcL (4.3-11.1)
[2020-03-23 05:38] LABS: BUN/Creatinine Ratio 28 (6-26); Blood Urea Nitrogen 24 mg/dL (8-23); Calcium 9.1 mg/dL (8.6-10.3); Carbon Dioxide 27 mEq/L (23-29); Chloride 93 mEq/L (98-107); Glucose 106 mg/dL (70-105); Osmolality,Calculated 274 (280-300); Potassium 3.9 mEq/L (3.5-5.1); Sodium 130 mEq/L (136-145); eGFR For African Americans > 60 (> 60); eGFR For Non-African Americans > 60 (> 60)
[2020-03-23] MEDS: lisinopriL 10 MG TABLET PO SCH (07:35)
[2020-03-23] MEDS: Aspirin 81 MG TAB.CHEW PO SCH (07:35)
[2020-03-23] MEDS: predniSONE 5 MG TABLET PO SCH (07:35)
[2020-03-23] MEDS: Furosemide 40 MG TABLET PO SCH (07:35)
[2020-03-23] MEDS ORDERED: *HR* Midazolam HCl 2 MG/2 ML VIAL ONE (08:07)
[2020-03-23] MEDS ORDERED: ISOVUE-370 200 ML INFUS..BTL ONE (09:30)
[2020-03-23] MEDS ORDERED: *HR* Heparin 10,000 UNIT/10 ML VIAL ONE (09:30)
[2020-03-23] MEDS ORDERED: 0.9 % Sodium Chloride 2,000 ML ONE (09:30)
[2020-03-23] MEDS ORDERED: Heparin 1,000 UNITS/500 mL 500 ML ONE (09:30)
[2020-03-23] MEDS ORDERED: Nitroglycerin 1,000 MCG/10 ML VIAL IV ONE (09:31)
[2020-03-23] MEDS: Fluticasone Propionate Nasal 50 MCG/SPRAY BOTTLE NS SCH (10:02)
[2020-03-23] MEDS ORDERED: Albuterol 2.5 MG/3 ML NEBULIZER IH PRN ×2 (13:17→17:52)
[2020-03-23 13:31] LABS: ABG Base Excess 3 mEq/L (-2 to 3); ABG HCO3 30 mEq/L (21-27); ABG Oxygen Saturation 90 % (95-98); ABG PCO2 53 mmHg (35-45); ABG PH 7.37 pH Units (7.32-7.45); ABG PO2 63 mmHg (85-104); ABG TCO2 32 mEq/L (20-26); Blood Gas Modality CPAP/PS; Blood Gas Pressure Support 12 cm H2O
[2020-03-23] MEDS ORDERED: methylPREDNISolone 125 MG/2 ML VIAL IVP ONE (15:05)
[2020-03-23] MEDS ORDERED: clonazePAM 0.5 MG TABLET PO PRN (15:14)
[2020-03-23] MEDS: Azithromycin 250 MG TABLET PO SCH (16:09)
[2020-03-23] MEDS ORDERED: Ipratropium/Albuterol Neb 3 ML IH PRN (17:50)
[2020-03-23] MEDS: Budesonide/Formoterol 160/4.5 1 PUFF INH IH SCH (19:30)
[2020-03-24] MEDS: Ipratropium/Albuterol Neb 3 ML IH SCH ×7 (00:07→23:35)
[2020-03-24 02:41] LABS: Basophils % 0.2 %; Hematocrit 41.9 % (35.3-44.9); Hemoglobin 14.3 g/dL (11.5-15.4); Immature Granulocytes % 0.3 % (0-4); Lymphocytes # 0.9 K/mcL (0.6-4.6); Lymphocytes % 15.4 %; Mean Corpuscular HGB Conc 34.1 g/dL (31.6-35.5); Mean Corpuscular Hemoglobin 33.5 pg (28.0-33.3); Mean Corpuscular Volume 98.1 fL (83.0-100.0); Monocytes # 0.2 K/mcL (0.0-1.3); Neutrophils # 4.8 K/mcL (1.6-8.9); Platelet Count 216 K/mcL (140-400); Red Blood Count 4.27 M/mcL (3.82-4.97); Red Cell Distribution Width 11.9 % (11.5-14.5); Segmented Neutrophils % 80.1 %
[2020-03-24 03:04] LABS: BUN/Creatinine Ratio 38 (6-26); Blood Urea Nitrogen 29 mg/dL (8-23); Calcium 9.4 mg/dL (8.6-10.3); Carbon Dioxide 25 mEq/L (23-29); Chloride 97 mEq/L (98-107); Glucose 145 mg/dL (70-105); Osmolality,Calculated 278 (280-300); Potassium 4.9 mEq/L (3.5-5.1); Sodium 130 mEq/L (136-145); eGFR For African Americans > 60 (> 60); eGFR For Non-African Americans > 60 (> 60)
[2020-03-24] MEDS: *HR* Heparin 5,000 UNIT/ML VIAL SQ SCH ×2 (05:24→17:06)
[2020-03-24] MEDS: Budesonide/Formoterol 160/4.5 1 PUFF INH IH SCH ×2 (07:29→19:42)
[2020-03-24] MEDS: lisinopriL 10 MG TABLET PO SCH (07:32)
[2020-03-24] MEDS: Aspirin 81 MG TAB.CHEW PO SCH (07:35)
[2020-03-24] MEDS: Furosemide 40 MG TABLET PO SCH (07:35)
[2020-03-24] MEDS: Fluticasone Propionate Nasal 50 MCG/SPRAY BOTTLE NS SCH (07:36)
[2020-03-24] MEDS: predniSONE 20 MG TABLET PO SCH (07:36)
[2020-03-24 12:28] LABS: Triiodothyronine (T3) Free 3.51 pg/mL (2.50-3.90)
[2020-03-24] MEDS ORDERED: Isovue-370 500 ML BOTTLE IVP ONE (13:05)
[2020-03-24] MEDS ORDERED: Furosemide 20 MG/2 ML VIAL IVP ONE (14:07)
[2020-03-24] MEDS ORDERED: cefTRIAXone 1,000 MG in Water for inj. (sterile) 10 ML IVP ONE (16:17)
[2020-03-24] MEDS: Azithromycin 250 MG TABLET PO SCH (17:06)
[2020-03-25] MEDS: Ipratropium/Albuterol Neb 3 ML IH SCH ×4 (03:42→15:18)
[2020-03-25 03:55] LABS: Basophils % 0.1 %; Eosinophils % 0.3 %; Hemoglobin 13.1 g/dL (11.5-15.4); Immature Granulocytes % 0.3 % (0-4); Lymphocytes # 2.6 K/mcL (0.6-4.6); Lymphocytes % 36.6 %; Mean Corpuscular HGB Conc 33.6 g/dL (31.6-35.5); Mean Corpuscular Hemoglobin 33.2 pg (28.0-33.3); Mean Platelet Volume 10.5 fL (9.4-12.4); Monocytes # 0.5 K/mcL (0.0-1.3); Monocytes % 7.6 %; Neutrophils # 3.9 K/mcL (1.6-8.9); Platelet Count 205 K/mcL (140-400); Red Blood Count 3.94 M/mcL (3.82-4.97); Red Cell Distribution Width 11.9 % (11.5-14.5); Segmented Neutrophils % 55.1 %; White Blood Count 7.1 K/mcL (4.3-11.1)
[2020-03-25 04:11] LABS: BUN/Creatinine Ratio 38 (6-26); Blood Urea Nitrogen 38 mg/dL (8-23); Calcium 9.1 mg/dL (8.6-10.3); Carbon Dioxide 30 mEq/L (23-29); Chloride 95 mEq/L (98-107); Glucose 116 mg/dL (70-105); Osmolality,Calculated 284 (280-300); Potassium 3.9 mEq/L (3.5-5.1); Sodium 132 mEq/L (136-145); eGFR For African Americans > 60 (> 60); eGFR For Non-African Americans 56 (> 60)
[2020-03-25] MEDS: *HR* Heparin 5,000 UNIT/ML VIAL SQ SCH (05:48)
[2020-03-25] MEDS: Budesonide/Formoterol 160/4.5 1 PUFF INH IH SCH (08:00)
[2020-03-25] MEDS: predniSONE 20 MG TABLET PO SCH (08:38)
[2020-03-25] MEDS: Aspirin 81 MG TAB.CHEW PO SCH (08:38)
[2020-03-25] MEDS: Furosemide 40 MG TABLET PO SCH (08:38)
[2020-03-25] MEDS: Fluticasone Propionate Nasal 50 MCG/SPRAY BOTTLE NS SCH (08:38)
[2020-03-25] MEDS: lisinopriL 10 MG TABLET PO SCH (08:39)
[2020-03-25 11:23] VITALS: BP 103/71
[2020-03-25] MEDS: Azithromycin 250 MG TABLET PO SCH (14:48)
== END 2020-03-25 18:20 | disposition home or self-care (01) | DRG 140 ==
LOC: 3BNU 14:11 → EMEROOARM 14:11 → 3BNU 20:00 → SUATTDRO 03-23 16:19
PROVIDERS: ADMIT Internal Medicine; ATTEND Internal Medicine

== ENCOUNTER 2020-06-02 19:23 | Inpatient (IN) ==
[2020-06-02 19:56] LABS: Basophils % 0.6 %; Eosinophils # 0.2 K/mcL (0.0-0.6); Eosinophils % 4.2 %; Hematocrit 39.7 % (35.3-44.9); Hemoglobin 12.7 g/dL (11.5-15.4); Immature Granulocytes % 0.3 % (0-4); Lymphocytes # 1.4 K/mcL (0.6-4.6); Lymphocytes % 39.7 %; Mean Corpuscular Hemoglobin 32.2 pg (28.0-33.3); Mean Corpuscular Volume 100.8 fL (83.0-100.0); Mean Platelet Volume 11.3 fL (9.4-12.4); Monocytes # 0.3 K/mcL (0.0-1.3); Monocytes % 8.8 %; Neutrophils # 1.6 K/mcL (1.6-8.9); Platelet Count 171 K/mcL (140-400); Red Blood Count 3.94 M/mcL (3.82-4.97); Red Cell Distribution Width 12.8 % (11.5-14.5); Segmented Neutrophils % 46.4 %; White Blood Count 3.5 K/mcL (4.3-11.1)
[2020-06-02] MEDS ORDERED: Furosemide 40 MG/4 ML VIAL IVP ONE (20:16)
[2020-06-02 20:20] LABS: BUN/Creatinine Ratio 13 (6-26); Blood Urea Nitrogen 10 mg/dL (8-23); Calcium 9.1 mg/dL (8.6-10.3); Carbon Dioxide 24 mEq/L (23-29); Chloride 105 mEq/L (98-107); Glucose 102 mg/dL (70-105); Osmolality,Calculated 281 (280-300); Potassium 5.2 mEq/L (3.5-5.1); Sodium 136 mEq/L (136-145); Troponin I 0.03 ng/mL (< 0.04); eGFR For African Americans > 60 (> 60); eGFR For Non-African Americans > 60 (> 60)
[2020-06-02] MEDS ORDERED: Naloxone 0.4 MG/ML INJ IVP PRN (23:58)
[2020-06-02] MEDS ORDERED: Acetaminophen 325 MG TABLET PO PRN (23:58)
[2020-06-03] MEDS ORDERED: Albuterol 2.5 MG/3 ML NEBULIZER IH ONE (00:03)
[2020-06-03] MEDS ORDERED: Nitroglycerin 0.4 MG TAB.SUBL SL PRN (00:58)
[2020-06-03 01:16] LABS: Basophils % 0.4 %; Eosinophils % 0.8 %; Hematocrit 40.9 % (35.3-44.9); Hemoglobin 13.2 g/dL (11.5-15.4); Immature Granulocytes % 0.4 % (0-4); Lymphocytes # 0.5 K/mcL (0.6-4.6); Lymphocytes % 21.6 %; Mean Corpuscular HGB Conc 32.3 g/dL (31.6-35.5); Mean Corpuscular Hemoglobin 32.5 pg (28.0-33.3); Mean Corpuscular Volume 100.7 fL (83.0-100.0); Mean Platelet Volume 11.6 fL (9.4-12.4); Monocytes # 0.1 K/mcL (0.0-1.3); Neutrophils # 1.9 K/mcL (1.6-8.9); Platelet Count 164 K/mcL (140-400); Red Blood Count 4.06 M/mcL (3.82-4.97); Red Cell Distribution Width 12.8 % (11.5-14.5); Segmented Neutrophils % 74.8 %; White Blood Count 2.5 K/mcL (4.3-11.1)
[2020-06-03 01:33] LABS: BUN/Creatinine Ratio 15 (6-26); Blood Urea Nitrogen 12 mg/dL (8-23); Calcium 9.5 mg/dL (8.6-10.3); Carbon Dioxide 26 mEq/L (23-29); Chloride 101 mEq/L (98-107); Glucose 203 mg/dL (70-105); Magnesium 1.6 mg/dL (1.6-2.6); Osmolality,Calculated 290 (280-300); Phosphorous 4.5 mg/dL (2.7-4.5); Potassium 4.4 mEq/L (3.5-5.1); Sodium 137 mEq/L (136-145); eGFR For African Americans > 60 (> 60); eGFR For Non-African Americans > 60 (> 60)
[2020-06-03] MEDS: Albuterol 2.5 MG/3 ML NEBULIZER IH SCH ×4 (04:20→22:17)
[2020-06-03] MEDS: *HR* Heparin 5,000 UNIT/ML VIAL SQ SCH ×2 (05:05→18:51)
[2020-06-03] MEDS: Budesonide/Formoterol 160/4.5 1 PUFF INH IH SCH ×2 (10:45→22:18)
[2020-06-03] MEDS: Furosemide 20 MG/2 ML VIAL IVP SCH ×2 (11:19→20:14)
[2020-06-03] MEDS: Aspirin 81 MG TAB.CHEW PO SCH (11:19)
[2020-06-03] MEDS: lisinopriL 10 MG TABLET PO SCH (11:20)
[2020-06-03] MEDS: sulfaSALAzine 500 MG TABLET PO SCH ×2 (11:21→20:14)
[2020-06-03] MEDS: Fluticasone Propionate Nasal 50 MCG/SPRAY BOTTLE NS SCH (11:21)
[2020-06-04 01:19] LABS: Hematocrit 36.9 % (35.3-44.9); Hemoglobin 11.8 g/dL (11.5-15.4); Mean Corpuscular Hemoglobin 31.4 pg (28.0-33.3); Mean Corpuscular Volume 98.1 fL (83.0-100.0); Mean Platelet Volume 11.6 fL (9.4-12.4); Platelet Count 183 K/mcL (140-400); Red Blood Count 3.76 M/mcL (3.82-4.97)
[2020-06-04 01:23] LABS: White Blood Count 5.1 K/mcL (4.3-11.1)
[2020-06-04 01:41] LABS: BUN/Creatinine Ratio 27 (6-26); Blood Urea Nitrogen 25 mg/dL (8-23); Calcium 9.5 mg/dL (8.6-10.3); Carbon Dioxide 28 mEq/L (23-29); Chloride 98 mEq/L (98-107); Glucose 108 mg/dL (70-105); Osmolality,Calculated 283 (280-300); Potassium 3.5 mEq/L (3.5-5.1); Sodium 134 mEq/L (136-145); eGFR For African Americans > 60 (> 60); eGFR For Non-African Americans > 60 (> 60)
[2020-06-04] MEDS: Albuterol 2.5 MG/3 ML NEBULIZER IH SCH ×4 (03:34→21:59)
[2020-06-04] MEDS: *HR* Heparin 5,000 UNIT/ML VIAL SQ SCH ×2 (05:45→18:07)
[2020-06-04] MEDS ORDERED: ETANERCEPT 50 MG SQ SCH (09:00)
[2020-06-04] MEDS: Budesonide/Formoterol 160/4.5 1 PUFF INH IH SCH ×2 (09:42→21:59)
[2020-06-04] MEDS: Furosemide 20 MG/2 ML VIAL IVP SCH ×2 (11:40→22:07)
[2020-06-04] MEDS: sulfaSALAzine 500 MG TABLET PO SCH ×2 (11:40→22:08)
[2020-06-04] MEDS: Aspirin 81 MG TAB.CHEW PO SCH (11:41)
[2020-06-04] MEDS: Fluticasone Propionate Nasal 50 MCG/SPRAY BOTTLE NS SCH (11:41)
[2020-06-04] MEDS: lisinopriL 10 MG TABLET PO SCH (11:41)
[2020-06-05] MEDS: Albuterol 2.5 MG/3 ML NEBULIZER IH SCH ×2 (03:19→11:00)
[2020-06-05] MEDS: *HR* Heparin 5,000 UNIT/ML VIAL SQ SCH (06:16)
[2020-06-05 07:13] LABS: BUN/Creatinine Ratio 26 (6-26); Blood Urea Nitrogen 25 mg/dL (8-23); Calcium 9.7 mg/dL (8.6-10.3); Carbon Dioxide 30 mEq/L (23-29); Chloride 100 mEq/L (98-107); Glucose 111 mg/dL (70-105); Osmolality,Calculated 287 (280-300); Sodium 136 mEq/L (136-145); eGFR For African Americans > 60 (> 60); eGFR For Non-African Americans 60 (> 60)
[2020-06-05 07:40] VITALS: BP 104/68
[2020-06-05] MEDS: Furosemide 20 MG/2 ML VIAL IVP SCH (09:58)
[2020-06-05] MEDS: lisinopriL 10 MG TABLET PO SCH (09:59)
[2020-06-05] MEDS: sulfaSALAzine 500 MG TABLET PO SCH (09:59)
[2020-06-05] MEDS: Aspirin 81 MG TAB.CHEW PO SCH (10:01)
[2020-06-05] MEDS: Fluticasone Propionate Nasal 50 MCG/SPRAY BOTTLE NS SCH (10:01)
[2020-06-05] MEDS: Budesonide/Formoterol 160/4.5 1 PUFF INH IH SCH (11:00)
== END 2020-06-05 11:20 | disposition home or self-care (01) | DRG 194 ==
LOC: 3BNU 19:23 → EMEROOARM 19:23 → 3BNU 22:39
PROVIDERS: ADMIT Family Medicine; ATTEND Family Medicine

== ENCOUNTER 2020-06-22 10:02 | Observation (INO) ==
[2020-06-22] MEDS ORDERED: methylPREDNISolone 125 MG/2 ML VIAL IVP ONE (10:27)
[2020-06-22 10:56] LABS: Basophils % 0.3 %; Immature Granulocytes % 0.3 % (0-4); Mean Corpuscular Hemoglobin 31.3 pg (28.0-33.3)
[2020-06-22 10:57] LABS: Eosinophils # 1.2 K/mcL (0.0-0.6); Eosinophils % 18.8 %; Hematocrit 40.1 % (35.3-44.9); Hemoglobin 12.9 g/dL (11.5-15.4); Immature Platelets 7.1 % (1.1-6.1); Lymphocytes # 1.8 K/mcL (0.6-4.6); Lymphocytes % 28.5 %; Mean Corpuscular HGB Conc 32.2 g/dL (31.6-35.5); Mean Corpuscular Volume 97.3 fL (83.0-100.0); Mean Platelet Volume 11.3 fL (9.4-12.4); Monocytes # 0.2 K/mcL (0.0-1.3); Monocytes % 3.4 %; Platelet Count 125 K/mcL (140-400); Red Blood Count 4.12 M/mcL (3.82-4.97); Red Cell Distribution Width 12.3 % (11.5-14.5); Segmented Neutrophils % 48.7 %; White Blood Count 6.2 K/mcL (4.3-11.1)
[2020-06-22 11:11] LABS: BUN/Creatinine Ratio 21 (6-26); Blood Urea Nitrogen 15 mg/dL (8-23); Calcium 9.3 mg/dL (8.6-10.3); Carbon Dioxide 29 mEq/L (23-29); Chloride 99 mEq/L (98-107); Glucose 107 mg/dL (70-105); Osmolality,Calculated 277 (280-300); Sodium 133 mEq/L (136-145); eGFR For African Americans > 60 (> 60); eGFR For Non-African Americans > 60 (> 60)
[2020-06-22 11:12] LABS: Troponin I < 0.03 ng/mL (< 0.04)
[2020-06-22] MEDS ORDERED: Ondansetron 4 MG/2 ML VIAL IVP PRN (12:45)
[2020-06-22] MEDS ORDERED: Naloxone 0.4 MG/ML INJ IVP PRN (12:45)
[2020-06-22] MEDS ORDERED: Nitroglycerin 0.4 MG TAB.SUBL SL PRN (12:47)
[2020-06-22 14:59] LABS: Adenovirus Not Detected (Not Detect); Bordetella Pertussis Not Detected (Not Detect); Chlamydophila pneumoniae Not Detected (Not Detect); Coronavirus 229E Not Detected (Not Detect); Coronavirus HKU1 Not Detected (Not Detect); Coronavirus NL63 Not Detected (Not Detect); Coronavirus OC43 Not Detected (Not Detect); Human Metapneumovirus Not Detected (Not Detect); Human Rhinovirus/Enterovirus Not Detected (Not Detect); Influenza A Subtype 2009 H1 Not Detected (Not Detect); Influenza B Not Detected (Not Detect); Mycoplasma pneumoniae Not Detected (Not Detect); Parainfluenza Virus 1 Not Detected (Not Detect); Parainfluenza Virus 2 Not Detected (Not Detect); Parainfluenza Virus 3 Not Detected (Not Detect); Parainfluenza Virus 4 Not Detected (Not Detect); Respiratory Syncytial Virus Not Detected (Not Detect); SARS-CoV-2 Not Detected (Not Detect)
[2020-06-22] MEDS ORDERED: Ipratropium/Albuterol Neb 3 ML IH ONE (15:08)
[2020-06-22] MEDS ORDERED: Ipratropium/Albuterol Neb 3 ML ONE (15:10)
[2020-06-22] MEDS ORDERED: *HR* LORazepam 2 MG/ML VIAL IVP PRN (15:15)
[2020-06-22] MEDS ORDERED: Ipratropium/Albuterol Neb 3 ML IH SCH (16:00)
[2020-06-22] MEDS: Levalbuterol Neb 0.63 MG/3 ML IH SCH ×2 (17:16→22:30)
[2020-06-22] MEDS: MethylPREDNISolone 40 MG/ML VIAL IVP SCH (18:09)
[2020-06-22] MEDS: *HR* Heparin 5,000 UNIT/ML VIAL SQ SCH (18:09)
[2020-06-22] MEDS: sulfaSALAzine 500 MG TABLET PO SCH (21:22)
[2020-06-22] MEDS: Budesonide/Formoterol 160/4.5 1 PUFF INH IH SCH (22:30)
[2020-06-23] MEDS: Levalbuterol Neb 0.63 MG/3 ML IH SCH ×4 (03:56→21:49)
[2020-06-23] MEDS: *HR* Heparin 5,000 UNIT/ML VIAL SQ SCH ×2 (05:53→16:55)
[2020-06-23] MEDS: MethylPREDNISolone 40 MG/ML VIAL IVP SCH ×2 (05:53→16:55)
[2020-06-23 07:49] LABS: Basophils % 0.1 %; Eosinophils % 0.3 %; Hematocrit 39.1 % (35.3-44.9); Hemoglobin 13.1 g/dL (11.5-15.4); Immature Granulocytes % 0.2 % (0-4); Lymphocytes # 1.4 K/mcL (0.6-4.6); Lymphocytes % 16.3 %; Mean Corpuscular HGB Conc 33.5 g/dL (31.6-35.5); Mean Corpuscular Hemoglobin 32.4 pg (28.0-33.3); Mean Corpuscular Volume 96.8 fL (83.0-100.0); Mean Platelet Volume 11.2 fL (9.4-12.4); Monocytes # 0.3 K/mcL (0.0-1.3); Monocytes % 2.9 %; Neutrophils # 6.9 K/mcL (1.6-8.9); Platelet Count 143 K/mcL (140-400); Red Blood Count 4.04 M/mcL (3.82-4.97); Red Cell Distribution Width 12.3 % (11.5-14.5); Segmented Neutrophils % 80.2 %; White Blood Count 8.6 K/mcL (4.3-11.1)
[2020-06-23 08:04] LABS: BUN/Creatinine Ratio 26 (6-26); Blood Urea Nitrogen 18 mg/dL (8-23); Calcium 10.1 mg/dL (8.6-10.3); Carbon Dioxide 28 mEq/L (23-29); Chloride 99 mEq/L (98-107); Glucose 136 mg/dL (70-105); Magnesium 1.8 mg/dL (1.6-2.6); Osmolality,Calculated 278 (280-300); Potassium 4.3 mEq/L (3.5-5.1); Sodium 132 mEq/L (136-145); eGFR For African Americans > 60 (> 60); eGFR For Non-African Americans > 60 (> 60)
[2020-06-23] MEDS: Fluticasone Propionate Nasal 50 MCG/SPRAY BOTTLE NS SCH (09:21)
[2020-06-23] MEDS: lisinopriL 10 MG TABLET PO SCH (09:21)
[2020-06-23] MEDS: Loratadine 10 MG TABLET PO SCH (09:21)
[2020-06-23] MEDS: Aspirin 81 MG TAB.CHEW PO SCH (09:21)
[2020-06-23] MEDS: Furosemide 40 MG TABLET PO SCH (09:21)
[2020-06-23] MEDS: Budesonide/Formoterol 160/4.5 1 PUFF INH IH SCH ×2 (10:27→21:49)
[2020-06-23] MEDS: sulfaSALAzine 500 MG TABLET PO SCH ×2 (11:25→21:15)
[2020-06-24] MEDS: Levalbuterol Neb 0.63 MG/3 ML IH SCH ×4 (03:47→22:13)
[2020-06-24] MEDS: MethylPREDNISolone 40 MG/ML VIAL IVP SCH (06:10)
[2020-06-24] MEDS: *HR* Heparin 5,000 UNIT/ML VIAL SQ SCH ×2 (06:10→18:11)
[2020-06-24 07:05] LABS: Basophils % 0.1 %; Eosinophils % 0.5 %; Hematocrit 38.1 % (35.3-44.9); Hemoglobin 12.4 g/dL (11.5-15.4); Immature Granulocytes % 0.4 % (0-4); Lymphocytes # 2.4 K/mcL (0.6-4.6); Lymphocytes % 29.2 %; Mean Corpuscular HGB Conc 32.5 g/dL (31.6-35.5); Mean Corpuscular Hemoglobin 31.8 pg (28.0-33.3); Mean Corpuscular Volume 97.7 fL (83.0-100.0); Mean Platelet Volume 11.8 fL (9.4-12.4); Monocytes # 0.4 K/mcL (0.0-1.3); Monocytes % 4.4 %; Neutrophils # 5.5 K/mcL (1.6-8.9); Platelet Count 156 K/mcL (140-400); Red Cell Distribution Width 12.6 % (11.5-14.5); Segmented Neutrophils % 65.4 %; White Blood Count 8.4 K/mcL (4.3-11.1)
[2020-06-24 07:23] LABS: BUN/Creatinine Ratio 38 (6-26); Blood Urea Nitrogen 29 mg/dL (8-23); Calcium 9.8 mg/dL (8.6-10.3); Carbon Dioxide 28 mEq/L (23-29); Chloride 97 mEq/L (98-107); Glucose 121 mg/dL (70-105); Osmolality,Calculated 279 (280-300); Potassium 4.2 mEq/L (3.5-5.1); Sodium 131 mEq/L (136-145); eGFR For African Americans > 60 (> 60); eGFR For Non-African Americans > 60 (> 60)
[2020-06-24] MEDS: sulfaSALAzine 500 MG TABLET PO SCH ×2 (10:19→20:45)
[2020-06-24] MEDS: Furosemide 40 MG TABLET PO SCH (10:19)
[2020-06-24] MEDS: Aspirin 81 MG TAB.CHEW PO SCH (10:19)
[2020-06-24] MEDS: Loratadine 10 MG TABLET PO SCH (10:19)
[2020-06-24] MEDS: lisinopriL 10 MG TABLET PO SCH (10:19)
[2020-06-24] MEDS: Budesonide/Formoterol 160/4.5 1 PUFF INH IH SCH ×2 (10:28→22:15)
[2020-06-24] MEDS: Fluticasone Propionate Nasal 50 MCG/SPRAY BOTTLE NS SCH (11:27)
[2020-06-24] MEDS: predniSONE 20 MG TABLET PO SCH (14:42)
[2020-06-25] MEDS: Levalbuterol Neb 0.63 MG/3 ML IH SCH ×2 (04:14→09:47)
[2020-06-25 06:02] VITALS: BP 117/81
[2020-06-25] MEDS: *HR* Heparin 5,000 UNIT/ML VIAL SQ SCH (06:02)
[2020-06-25 07:39] LABS: Basophils % 0.1 %; Eosinophils % 0.2 %; Hematocrit 40.6 % (35.3-44.9); Hemoglobin 13.3 g/dL (11.5-15.4); Immature Granulocytes % 0.4 % (0-4); Lymphocytes # 2.9 K/mcL (0.6-4.6); Lymphocytes % 34.8 %; Mean Corpuscular HGB Conc 32.8 g/dL (31.6-35.5); Mean Corpuscular Hemoglobin 32.2 pg (28.0-33.3); Mean Corpuscular Volume 98.3 fL (83.0-100.0); Mean Platelet Volume 11.4 fL (9.4-12.4); Monocytes # 0.4 K/mcL (0.0-1.3); Platelet Count 174 K/mcL (140-400); Red Blood Count 4.13 M/mcL (3.82-4.97); Red Cell Distribution Width 12.6 % (11.5-14.5); Segmented Neutrophils % 59.5 %; White Blood Count 8.4 K/mcL (4.3-11.1)
[2020-06-25 07:59] LABS: BUN/Creatinine Ratio 36 (6-26); Blood Urea Nitrogen 32 mg/dL (8-23); Calcium 9.7 mg/dL (8.6-10.3); Carbon Dioxide 29 mEq/L (23-29); Chloride 98 mEq/L (98-107); Glucose 116 mg/dL (70-105); Osmolality,Calculated 282 (280-300); Sodium 132 mEq/L (136-145); eGFR For African Americans > 60 (> 60); eGFR For Non-African Americans > 60 (> 60)
[2020-06-25] MEDS: Budesonide/Formoterol 160/4.5 1 PUFF INH IH SCH (09:48)
[2020-06-25] MEDS: Aspirin 81 MG TAB.CHEW PO SCH (09:59)
[2020-06-25] MEDS: lisinopriL 10 MG TABLET PO SCH (09:59)
[2020-06-25] MEDS: Loratadine 10 MG TABLET PO SCH (09:59)
[2020-06-25] MEDS: Furosemide 40 MG TABLET PO SCH (09:59)
[2020-06-25] MEDS: predniSONE 20 MG TABLET PO SCH (09:59)
[2020-06-25] MEDS: Fluticasone Propionate Nasal 50 MCG/SPRAY BOTTLE NS SCH (10:00)
[2020-06-25] MEDS: sulfaSALAzine 500 MG TABLET PO SCH (11:12)
== END 2020-06-25 11:24 | disposition home or self-care (01) ==
LOC: EMEROOARM 10:02 → 3ANU 10:02 → SUATTDRO 15:37 → 3ANU 17:05
PROVIDERS: ADMIT Internal Medicine; ATTEND Internal Medicine

== ENCOUNTER 2020-09-24 12:42 | Inpatient (IN) ==
[2020-09-24] MEDS ORDERED: Ipratropium/Albuterol Neb 3 ML IH ONE (12:52)
[2020-09-24] MEDS ORDERED: methylPREDNISolone 125 MG/2 ML VIAL IVP ONE (12:54)
[2020-09-24 13:15] LABS: INR 1.1; Prothrombin Time 12.5 Seconds (9.4-12.1)
[2020-09-24 13:17] LABS: Activated Partial Thrombo Time 27.1 Seconds (26.0-36.0)
[2020-09-24 13:24] LABS: Basophils % 0.2 %; Eosinophils # 0.1 K/mcL (0.0-0.6); Eosinophils % 3.2 %; Hematocrit 40.3 % (35.3-44.9); Hemoglobin 13.2 g/dL (11.5-15.4); Immature Granulocytes % 0.2 % (0-4); Lymphocytes # 1.4 K/mcL (0.6-4.6); Lymphocytes % 33.8 %; Mean Corpuscular HGB Conc 32.8 g/dL (31.6-35.5); Mean Corpuscular Hemoglobin 30.8 pg (28.0-33.3); Mean Corpuscular Volume 94.2 fL (83.0-100.0); Mean Platelet Volume 10.9 fL (9.4-12.4); Monocytes # 0.4 K/mcL (0.0-1.3); Monocytes % 9.5 %; Neutrophils # 2.1 K/mcL (1.6-8.9); Platelet Count 199 K/mcL (140-400); Red Blood Count 4.28 M/mcL (3.82-4.97); Red Cell Distribution Width 13.3 % (11.5-14.5); Segmented Neutrophils % 53.1 %
[2020-09-24 13:28] LABS: Alanine Aminotransferase 18 Units/L (7-52); Albumin 3.5 g/dL (3.5-5.7); Albumin/Globulin Ratio 1.1 (1.1-2.2); Alkaline Phosphatase 50 Units/L (34-104); Aspartate Amino Transferase 20 Units/L (13-39); BUN/Creatinine Ratio 8 (6-26); Bilirubin,Direct 0.2 mg/dL (0.0-0.2); Bilirubin,Indirect 0.4 mg/dL (0.0-1.0); Bilirubin,Total 0.6 mg/dL (0.3-1.0); Blood Urea Nitrogen 5 mg/dL (8-23); C-Reactive Protein < 5 mg/L (Less than 10); Calcium 9.5 mg/dL (8.6-10.3); Carbon Dioxide 28 mEq/L (23-29); Chloride 95 mEq/L (98-107); Globulin 3.1 g/dL (2.4-3.5); Glucose 115 mg/dL (70-105); Lactate Dehydrogenase 157 Units/L (140-271); Magnesium 2.5 mg/dL (1.6-2.6); Osmolality,Calculated 266 (280-300); Phosphorous 3.8 mg/dL (2.7-4.5); Potassium 4.6 mEq/L (3.5-5.1); Sodium 129 mEq/L (136-145); Total Protein 6.6 g/dL (6.4-8.9); Troponin I < 0.03 ng/mL (< 0.04); eGFR For African Americans > 60 (> 60); eGFR For Non-African Americans > 60 (> 60)
[2020-09-24 13:46] LABS: Ferritin 39 ng/mL (10-120)
[2020-09-24 13:57] LABS: Adenovirus Not Detected (Not Detect); Bordetella Pertussis Not Detected (Not Detect); Chlamydophila pneumoniae Not Detected (Not Detect); Coronavirus 229E Not Detected (Not Detect); Coronavirus HKU1 Not Detected (Not Detect); Coronavirus NL63 Not Detected (Not Detect); Coronavirus OC43 Not Detected (Not Detect); Human Metapneumovirus Not Detected (Not Detect); Human Rhinovirus/Enterovirus Not Detected (Not Detect); Influenza A Subtype 2009 H1 Not Detected (Not Detect); Influenza B Not Detected (Not Detect); Mycoplasma pneumoniae Not Detected (Not Detect); Parainfluenza Virus 1 Not Detected (Not Detect); Parainfluenza Virus 2 Not Detected (Not Detect); Parainfluenza Virus 3 Not Detected (Not Detect); Parainfluenza Virus 4 Not Detected (Not Detect); Respiratory Syncytial Virus Not Detected (Not Detect); SARS-CoV-2 Not Detected (Not Detect)
[2020-09-24] MEDS ORDERED: Furosemide 20 MG/2 ML VIAL IVP ONE (14:20)
[2020-09-24] MEDS ORDERED: Nitroglycerin 0.4 MG TAB.SUBL SL PRN (15:10)
[2020-09-24] MEDS ORDERED: ETANERCEPT 50 MG SQ SCH (15:15)
[2020-09-24] MEDS ORDERED: Naloxone 0.4 MG/ML INJ IVP PRN (15:17)
[2020-09-24] MEDS ORDERED: Acetaminophen 325 MG TABLET PO PRN (15:17)
[2020-09-24] MEDS ORDERED: Ondansetron 4 MG/2 ML VIAL IVP PRN (15:17)
[2020-09-24] MEDS ORDERED: Azithromycin 500 MG in 0.9 % Sodium Chloride 250 ML IVPB SCH (16:00)
[2020-09-24] MEDS: Albuterol 2.5 MG/3 ML NEBULIZER IH SCH ×3 (16:23→23:19)
[2020-09-24] MEDS: *HR* Heparin 5,000 UNIT/ML VIAL SQ SCH (17:28)
[2020-09-24] MEDS: sulfaSALAzine 500 MG TABLET PO SCH (21:10)
[2020-09-25 03:03] LABS: Hematocrit 34.7 % (35.3-44.9); Immature Granulocytes % 0.2 % (0-4); Lymphocytes # 1.1 K/mcL (0.6-4.6); Lymphocytes % 23.7 %; Mean Corpuscular HGB Conc 33.1 g/dL (31.6-35.5); Mean Corpuscular Volume 93.5 fL (83.0-100.0); Monocytes # 0.3 K/mcL (0.0-1.3); Monocytes % 6.9 %; Neutrophils # 3.1 K/mcL (1.6-8.9); Platelet Count 164 K/mcL (140-400); Red Blood Count 3.71 M/mcL (3.82-4.97); Red Cell Distribution Width 13.2 % (11.5-14.5); Segmented Neutrophils % 69.2 %; White Blood Count 4.5 K/mcL (4.3-11.1)
[2020-09-25 03:06] LABS: Hemoglobin 11.5 g/dL (11.5-15.4)
[2020-09-25 03:25] LABS: BUN/Creatinine Ratio 17 (6-26); Blood Urea Nitrogen 10 mg/dL (8-23); Calcium 9.3 mg/dL (8.6-10.3); Carbon Dioxide 28 mEq/L (23-29); Chloride 93 mEq/L (98-107); Glucose 125 mg/dL (70-105); Osmolality,Calculated 263 (280-300); Potassium 4.5 mEq/L (3.5-5.1); Sodium 126 mEq/L (136-145); eGFR For African Americans > 60 (> 60); eGFR For Non-African Americans > 60 (> 60)
[2020-09-25] MEDS: Albuterol 2.5 MG/3 ML NEBULIZER IH SCH ×2 (03:39→07:31)
[2020-09-25] MEDS: *HR* Heparin 5,000 UNIT/ML VIAL SQ SCH ×2 (05:52→17:11)
[2020-09-25] MEDS ORDERED: Ipratropium/Albuterol Neb 3 ML IH PRN (08:44)
[2020-09-25] MEDS ORDERED: MethylPREDNISolone 40 MG/ML VIAL IVP SCH (08:45)
[2020-09-25] MEDS ORDERED: predniSONE 20 MG TABLET PO SCH (09:00)
[2020-09-25] MEDS: sulfaSALAzine 500 MG TABLET PO SCH ×2 (09:51→19:34)
[2020-09-25] MEDS: Aspirin 81 MG TAB.CHEW PO SCH (09:52)
[2020-09-25] MEDS: lisinopriL 10 MG TABLET PO SCH (09:52)
[2020-09-25] MEDS: Furosemide 40 MG TABLET PO SCH (09:52)
[2020-09-25] MEDS: Ipratropium/Albuterol Neb 3 ML IH SCH ×5 (10:32→23:04)
[2020-09-25] MEDS: Fluticasone Propionate Nasal 50 MCG/SPRAY BOTTLE NS SCH (11:01)
[2020-09-25] MEDS: MethylPREDNISolone 40 MG/ML VIAL IVP SCH (17:12)
[2020-09-26] MEDS: Ipratropium/Albuterol Neb 3 ML IH SCH ×6 (03:54→23:28)
[2020-09-26] MEDS: MethylPREDNISolone 40 MG/ML VIAL IVP SCH ×3 (06:08→23:32)
[2020-09-26] MEDS: *HR* Heparin 5,000 UNIT/ML VIAL SQ SCH ×2 (06:11→16:30)
[2020-09-26] MEDS: Fluticasone Propionate Nasal 50 MCG/SPRAY BOTTLE NS SCH (08:13)
[2020-09-26] MEDS: Furosemide 40 MG TABLET PO SCH (08:14)
[2020-09-26] MEDS: Aspirin 81 MG TAB.CHEW PO SCH (08:14)
[2020-09-26 08:24] LABS: Hematocrit 37.1 % (35.3-44.9); Hemoglobin 12.1 g/dL (11.5-15.4); Mean Corpuscular HGB Conc 32.6 g/dL (31.6-35.5); Mean Corpuscular Hemoglobin 30.9 pg (28.0-33.3); Mean Corpuscular Volume 94.6 fL (83.0-100.0); Mean Platelet Volume 10.8 fL (9.4-12.4); Platelet Count 196 K/mcL (140-400); Red Blood Count 3.92 M/mcL (3.82-4.97); Red Cell Distribution Width 13.5 % (11.5-14.5); White Blood Count 5.8 K/mcL (4.3-11.1)
[2020-09-26 08:47] LABS: BUN/Creatinine Ratio 31 (6-26); Blood Urea Nitrogen 22 mg/dL (8-23); Calcium 9.6 mg/dL (8.6-10.3); Carbon Dioxide 28 mEq/L (23-29); Chloride 96 mEq/L (98-107); Glucose 116 mg/dL (70-105); Osmolality,Calculated 274 (280-300); Potassium 4.1 mEq/L (3.5-5.1); Sodium 130 mEq/L (136-145); eGFR For African Americans > 60 (> 60); eGFR For Non-African Americans > 60 (> 60)
[2020-09-26 08:55] LABS: Troponin I < 0.03 ng/mL (< 0.04)
[2020-09-26] MEDS: sulfaSALAzine 500 MG TABLET PO SCH ×2 (10:14→20:10)
[2020-09-26] MEDS: lisinopriL 10 MG TABLET PO SCH (10:14)
[2020-09-26] MEDS ORDERED: methylPREDNISolone 125 MG/2 ML VIAL IVP ONE (10:44)
[2020-09-26] MEDS: *HR* LORazepam 0.5 MG TABLET PO PRN ×2 (12:01→20:09)
[2020-09-26] MEDS: Azithromycin 250 MG TABLET PO SCH (17:31)
[2020-09-26] MEDS ORDERED: Isovue-370 500 ML BOTTLE IVP ONE (18:11)
[2020-09-27] MEDS: Ipratropium/Albuterol Neb 3 ML IH SCH ×5 (03:43→19:55)
[2020-09-27] MEDS: *HR* Heparin 5,000 UNIT/ML VIAL SQ SCH ×2 (05:29→17:07)
[2020-09-27 06:15] LABS: Hematocrit 33.9 % (35.3-44.9); Hemoglobin 11.1 g/dL (11.5-15.4); Mean Corpuscular HGB Conc 32.7 g/dL (31.6-35.5); Mean Corpuscular Hemoglobin 30.7 pg (28.0-33.3); Mean Corpuscular Volume 93.6 fL (83.0-100.0); Mean Platelet Volume 11.3 fL (9.4-12.4); Platelet Count 192 K/mcL (140-400); Red Blood Count 3.62 M/mcL (3.82-4.97); Red Cell Distribution Width 13.6 % (11.5-14.5); White Blood Count 5.9 K/mcL (4.3-11.1)
[2020-09-27 06:42] LABS: BUN/Creatinine Ratio 32 (6-26); Blood Urea Nitrogen 23 mg/dL (8-23); Calcium 9.4 mg/dL (8.6-10.3); Carbon Dioxide 27 mEq/L (23-29); Chloride 97 mEq/L (98-107); Glucose 135 mg/dL (70-105); Magnesium 1.8 mg/dL (1.6-2.6); Osmolality,Calculated 278 (280-300); Phosphorous 4.1 mg/dL (2.7-4.5); Potassium 4.3 mEq/L (3.5-5.1); Sodium 131 mEq/L (136-145); eGFR For African Americans > 60 (> 60); eGFR For Non-African Americans > 60 (> 60)
[2020-09-27] MEDS: MethylPREDNISolone 40 MG/ML VIAL IVP SCH ×3 (08:03→23:05)
[2020-09-27] MEDS: Fluticasone Propionate Nasal 50 MCG/SPRAY BOTTLE NS SCH (08:04)
[2020-09-27] MEDS: Aspirin 81 MG TAB.CHEW PO SCH (08:04)
[2020-09-27] MEDS: sulfaSALAzine 500 MG TABLET PO SCH ×2 (08:04→20:20)
[2020-09-27] MEDS: lisinopriL 10 MG TABLET PO SCH (08:05)
[2020-09-27] MEDS: Furosemide 40 MG TABLET PO SCH (08:05)
[2020-09-27] MEDS: Budesonide/Formoterol 160/4.5 1 PUFF INH IH SCH ×2 (11:38→19:55)
[2020-09-27] MEDS: *HR* LORazepam 0.5 MG TABLET PO PRN (13:31)
[2020-09-27] MEDS: Azithromycin 250 MG TABLET PO SCH (17:08)
[2020-09-28] MEDS: Ipratropium/Albuterol Neb 3 ML IH SCH ×7 (00:06→23:44)
[2020-09-28 01:25] LABS: Hematocrit 36.7 % (35.3-44.9); Hemoglobin 11.4 g/dL (11.5-15.4); Mean Corpuscular HGB Conc 31.1 g/dL (31.6-35.5); Mean Corpuscular Hemoglobin 29.8 pg (28.0-33.3); Mean Corpuscular Volume 96.1 fL (83.0-100.0); Platelet Count 195 K/mcL (140-400); Red Blood Count 3.82 M/mcL (3.82-4.97); Red Cell Distribution Width 13.8 % (11.5-14.5); White Blood Count 4.9 K/mcL (4.3-11.1)
[2020-09-28 01:47] LABS: BUN/Creatinine Ratio 33 (6-26); Blood Urea Nitrogen 29 mg/dL (8-23); Calcium 9.2 mg/dL (8.6-10.3); Carbon Dioxide 29 mEq/L (23-29); Chloride 97 mEq/L (98-107); Glucose 147 mg/dL (70-105); Magnesium 1.9 mg/dL (1.6-2.6); Osmolality,Calculated 283 (280-300); Phosphorous 4.4 mg/dL (2.7-4.5); Potassium 4.8 mEq/L (3.5-5.1); Sodium 132 mEq/L (136-145); eGFR For African Americans > 60 (> 60); eGFR For Non-African Americans > 60 (> 60)
[2020-09-28] MEDS: *HR* Heparin 5,000 UNIT/ML VIAL SQ SCH ×2 (05:09→17:11)
[2020-09-28] MEDS: Budesonide/Formoterol 160/4.5 1 PUFF INH IH SCH ×2 (07:37→19:47)
[2020-09-28] MEDS: Aspirin 81 MG TAB.CHEW PO SCH (09:02)
[2020-09-28] MEDS: Furosemide 40 MG TABLET PO SCH (09:02)
[2020-09-28] MEDS: lisinopriL 10 MG TABLET PO SCH (09:03)
[2020-09-28] MEDS: MethylPREDNISolone 40 MG/ML VIAL IVP SCH ×2 (09:03→17:10)
[2020-09-28] MEDS: Fluticasone Propionate Nasal 50 MCG/SPRAY BOTTLE NS SCH (09:03)
[2020-09-28] MEDS: sulfaSALAzine 500 MG TABLET PO SCH ×2 (09:04→19:46)
[2020-09-28] MEDS: *HR* LORazepam 0.5 MG TABLET PO PRN (10:59)
[2020-09-28] MEDS: Azithromycin 250 MG TABLET PO SCH (17:11)
[2020-09-29] MEDS: MethylPREDNISolone 40 MG/ML VIAL IVP SCH (01:56)
[2020-09-29] MEDS: Ipratropium/Albuterol Neb 3 ML IH SCH ×3 (03:50→11:09)
[2020-09-29] MEDS: *HR* Heparin 5,000 UNIT/ML VIAL SQ SCH (05:07)
[2020-09-29 05:20] LABS: Hematocrit 36.1 % (35.3-44.9); Hemoglobin 11.6 g/dL (11.5-15.4); Mean Corpuscular HGB Conc 32.1 g/dL (31.6-35.5); Mean Corpuscular Hemoglobin 30.6 pg (28.0-33.3); Mean Corpuscular Volume 95.3 fL (83.0-100.0); Mean Platelet Volume 10.6 fL (9.4-12.4); Platelet Count 186 K/mcL (140-400); Red Blood Count 3.79 M/mcL (3.82-4.97); Red Cell Distribution Width 13.9 % (11.5-14.5); White Blood Count 4.8 K/mcL (4.3-11.1)
[2020-09-29 05:40] LABS: BUN/Creatinine Ratio 35 (6-26); Blood Urea Nitrogen 28 mg/dL (8-23); Calcium 9.3 mg/dL (8.6-10.3); Carbon Dioxide 27 mEq/L (23-29); Chloride 99 mEq/L (98-107); Glucose 128 mg/dL (70-105); Magnesium 1.8 mg/dL (1.6-2.6); Osmolality,Calculated 281 (280-300); Phosphorous 4.1 mg/dL (2.7-4.5); Potassium 4.4 mEq/L (3.5-5.1); Sodium 132 mEq/L (136-145); eGFR For African Americans > 60 (> 60); eGFR For Non-African Americans > 60 (> 60)
[2020-09-29 07:18] VITALS: BP 116/79
[2020-09-29] MEDS: Aspirin 81 MG TAB.CHEW PO SCH (09:51)
[2020-09-29] MEDS: Fluticasone Propionate Nasal 50 MCG/SPRAY BOTTLE NS SCH (09:52)
[2020-09-29] MEDS: sulfaSALAzine 500 MG TABLET PO SCH (09:53)
[2020-09-29] MEDS: lisinopriL 10 MG TABLET PO SCH (09:53)
[2020-09-29] MEDS: Furosemide 40 MG TABLET PO SCH (09:53)
[2020-09-29] MEDS: Budesonide/Formoterol 160/4.5 1 PUFF INH IH SCH (10:09)
== END 2020-09-29 12:29 | disposition home or self-care (01) | DRG 140 ==
LOC: 2ANU 12:42 → EMEROOARM 12:42 → SUATTDRO 14:43 → 2ANU 16:11 → SUATTDRO 09-26 20:53
PROVIDERS: ADMIT Internal Medicine; ATTEND Family Medicine

== ENCOUNTER 2020-10-21 12:05 | Inpatient (IN) ==
[2020-10-21] MEDS ORDERED: Ipratropium/Albuterol Neb 3 ML ONE (12:13)
[2020-10-21] MEDS ORDERED: Ipratropium/Albuterol Neb 3 ML IH ONE (12:14)
[2020-10-21] MEDS ORDERED: Azithromycin 250 MG TABLET PO ONE (12:14)
[2020-10-21] MEDS ORDERED: Furosemide 40 MG/4 ML VIAL IVP ONE (12:14)
[2020-10-21] MEDS ORDERED: methylPREDNISolone 125 MG/2 ML VIAL IVP ONE (12:14)
[2020-10-21] MEDS ORDERED: Azithromycin 500 MG in 0.9 % Sodium Chloride 250 ML IVPB ONE (12:19)
[2020-10-21 12:40] LABS: Basophils % 0.2 %; Eosinophils # 0.4 K/mcL (0.0-0.6); Eosinophils % 7.1 %; Hematocrit 38.6 % (35.3-44.9); Hemoglobin 12.6 g/dL (11.5-15.4); Immature Granulocytes % 0.3 % (0-4); Lymphocytes # 1.8 K/mcL (0.6-4.6); Mean Corpuscular HGB Conc 32.6 g/dL (31.6-35.5); Mean Corpuscular Volume 94.8 fL (83.0-100.0); Mean Platelet Volume 11.7 fL (9.4-12.4); Monocytes # 0.3 K/mcL (0.0-1.3); Monocytes % 5.6 %; Neutrophils # 3.5 K/mcL (1.6-8.9); Platelet Count 227 K/mcL (140-400); Red Blood Count 4.07 M/mcL (3.82-4.97); Red Cell Distribution Width 13.2 % (11.5-14.5); Segmented Neutrophils % 57.8 %
[2020-10-21 12:45] LABS: VBG HCO3 27 mEq/L (21-27); VBG PCO2 59 mmHg (41-51); VBG PH 7.26 pH Units (7.32-7.42); VBG PO2 78 mmHg (25-50)
[2020-10-21 13:11] LABS: Alanine Aminotransferase 16 Units/L (7-52); Albumin 3.7 g/dL (3.5-5.7); Albumin/Globulin Ratio 1.1 (1.1-2.2); Alkaline Phosphatase 59 Units/L (34-104); Aspartate Amino Transferase 18 Units/L (13-39); BUN/Creatinine Ratio 14 (6-26); Bilirubin,Direct 0.2 mg/dL (0.0-0.2); Bilirubin,Indirect 0.4 mg/dL (0.0-1.0); Bilirubin,Total 0.6 mg/dL (0.3-1.0); Blood Urea Nitrogen 9 mg/dL (8-23); Calcium 9.6 mg/dL (8.6-10.3); Carbon Dioxide 24 mEq/L (23-29); Chloride 92 mEq/L (98-107); Globulin 3.4 g/dL (2.4-3.5); Glucose 141 mg/dL (70-105); Osmolality,Calculated 259 (280-300); Potassium 4.5 mEq/L (3.5-5.1); Sodium 124 mEq/L (136-145); Total Protein 7.1 g/dL (6.4-8.9); Troponin I < 0.03 ng/mL (< 0.04); eGFR For African Americans > 60 (> 60); eGFR For Non-African Americans > 60 (> 60)
[2020-10-21 13:11] LABS: ABG Base Excess 2 mEq/L (-2 to 3); ABG HCO3 29 mEq/L (21-27); ABG Oxygen Saturation 100 % (95-98); ABG PCO2 51 mmHg (35-45); ABG PH 7.36 pH Units (7.32-7.45); ABG PO2 283 mmHg (85-104); ABG TCO2 30 mEq/L (20-26)
[2020-10-21] MEDS ORDERED: Piperacillin/Tazobactam 3.375 GM in 0.9 % Sodium Chloride Mini Bag 100 ML IVPB ONE (13:23)
[2020-10-21] MEDS ORDERED: Vancomycin 1,500 MG/265 ML IV.SOLN IVPB ONE (13:23)
[2020-10-21 14:17] LABS: Adenovirus Not Detected (Not Detect); Bordetella Pertussis Not Detected (Not Detect); Chlamydophila pneumoniae Not Detected (Not Detect); Coronavirus 229E Not Detected (Not Detect); Coronavirus HKU1 Not Detected (Not Detect); Coronavirus NL63 Not Detected (Not Detect); Coronavirus OC43 Not Detected (Not Detect); Human Metapneumovirus Not Detected (Not Detect); Human Rhinovirus/Enterovirus Not Detected (Not Detect); Influenza A Subtype 2009 H1 Not Detected (Not Detect); Influenza B Not Detected (Not Detect); Mycoplasma pneumoniae Not Detected (Not Detect); Parainfluenza Virus 1 Not Detected (Not Detect); Parainfluenza Virus 2 Not Detected (Not Detect); Parainfluenza Virus 3 Not Detected (Not Detect); Parainfluenza Virus 4 Not Detected (Not Detect); Respiratory Syncytial Virus Not Detected (Not Detect); SARS-CoV-2 Not Detected (Not Detect)
[2020-10-21] MEDS ORDERED: Ondansetron 4 MG/2 ML VIAL IVP PRN (15:22)
[2020-10-21] MEDS ORDERED: Acetaminophen 325 MG TABLET PO PRN (15:22)
[2020-10-21] MEDS ORDERED: *HR* LORazepam 0.5 MG TABLET PO PRN (15:33)
[2020-10-21 16:35] LABS: Thyroid Stimulating Hormone 0.029 mcIU/mL (0.340-5.600)
[2020-10-21] MEDS: levoFLOXacin 750 MG TABLET PO SCH (16:42)
[2020-10-21] MEDS: Furosemide 40 MG/4 ML VIAL IVP SCH (16:42)
[2020-10-21] MEDS: Ipratropium/Albuterol Neb 3 ML IH SCH ×2 (17:19→20:40)
[2020-10-22] MEDS: Budesonide/Formoterol 160/4.5 1 PUFF INH IH SCH ×3 (00:19→20:15)
[2020-10-22] MEDS: Ipratropium/Albuterol Neb 3 ML IH SCH ×7 (00:21→23:27)
[2020-10-22 02:02] LABS: Hematocrit 30.9 % (35.3-44.9); Mean Corpuscular HGB Conc 33.3 g/dL (31.6-35.5); Mean Corpuscular Hemoglobin 30.8 pg (28.0-33.3); Mean Corpuscular Volume 92.5 fL (83.0-100.0); Platelet Count 163 K/mcL (140-400); Red Blood Count 3.34 M/mcL (3.82-4.97); Red Cell Distribution Width 13.2 % (11.5-14.5); White Blood Count 5.8 K/mcL (4.3-11.1)
[2020-10-22 02:09] LABS: Hemoglobin 10.3 g/dL (11.5-15.4)
[2020-10-22 02:24] LABS: BUN/Creatinine Ratio 20 (6-26); Blood Urea Nitrogen 14 mg/dL (8-23); Calcium 9.2 mg/dL (8.6-10.3); Carbon Dioxide 26 mEq/L (23-29); Chloride 93 mEq/L (98-107); Glucose 131 mg/dL (70-105); Magnesium 1.7 mg/dL (1.6-2.6); Osmolality,Calculated 262 (280-300); Phosphorous 3.1 mg/dL (2.7-4.5); Potassium 4.8 mEq/L (3.5-5.1); Sodium 125 mEq/L (136-145); eGFR For African Americans > 60 (> 60); eGFR For Non-African Americans > 60 (> 60)
[2020-10-22] MEDS: *HR* Enoxaparin 40 MG/0.4 ML SYRINGE SQ SCH (05:44)
[2020-10-22] MEDS: levoFLOXacin 750 MG TABLET PO SCH (07:22)
[2020-10-22] MEDS: predniSONE 20 MG TABLET PO SCH (07:22)
[2020-10-22] MEDS: Aspirin 81 MG TAB.CHEW PO SCH (07:22)
[2020-10-22] MEDS: Furosemide 40 MG/4 ML VIAL IVP SCH ×3 (07:22→16:37)
[2020-10-22] MEDS ORDERED: Furosemide 20 MG/2 ML VIAL IVP ONE (08:26)
[2020-10-22] MEDS ORDERED: GI Cocktail 40 ML EACH PO ONE (11:03)
[2020-10-22] MEDS: sulfaSALAzine 500 MG TABLET PO SCH (20:08)
[2020-10-22] MEDS ORDERED: *HR* HYDROcodone/Acet 5/325 mg TABLET PO ONE (22:34)
[2020-10-23 02:15] LABS: BUN/Creatinine Ratio 26 (6-26); Blood Urea Nitrogen 22 mg/dL (8-23); Calcium 9.3 mg/dL (8.6-10.3); Carbon Dioxide 30 mEq/L (23-29); Chloride 93 mEq/L (98-107); Glucose 118 mg/dL (70-105); Magnesium 1.8 mg/dL (1.6-2.6); Osmolality,Calculated 274 (280-300); Potassium 3.9 mEq/L (3.5-5.1); Sodium 130 mEq/L (136-145); eGFR For African Americans > 60 (> 60); eGFR For Non-African Americans > 60 (> 60)
[2020-10-23] MEDS: Ipratropium/Albuterol Neb 3 ML IH SCH ×6 (03:32→23:21)
[2020-10-23] MEDS: *HR* Enoxaparin 40 MG/0.4 ML SYRINGE SQ SCH (05:42)
[2020-10-23] MEDS ORDERED: Furosemide 40 MG/4 ML VIAL IVP ONE (07:29)
[2020-10-23] MEDS: levoFLOXacin 750 MG TABLET PO SCH (08:54)
[2020-10-23] MEDS: Aspirin 81 MG TAB.CHEW PO SCH (08:55)
[2020-10-23] MEDS: sulfaSALAzine 500 MG TABLET PO SCH ×2 (08:55→16:20)
[2020-10-23] MEDS: predniSONE 20 MG TABLET PO SCH (08:55)
[2020-10-23] MEDS: Budesonide/Formoterol 160/4.5 1 PUFF INH IH SCH ×2 (11:19→19:28)
[2020-10-23] MEDS: Furosemide 40 MG TABLET PO SCH (16:20)
[2020-10-24 02:16] LABS: BUN/Creatinine Ratio 37 (6-26); Blood Urea Nitrogen 28 mg/dL (8-23); Calcium 9.3 mg/dL (8.6-10.3); Carbon Dioxide 30 mEq/L (23-29); Chloride 95 mEq/L (98-107); Glucose 139 mg/dL (70-105); Osmolality,Calculated 282 (280-300); Potassium 3.9 mEq/L (3.5-5.1); Sodium 132 mEq/L (136-145); eGFR For African Americans > 60 (> 60); eGFR For Non-African Americans > 60 (> 60)
[2020-10-24] MEDS: Ipratropium/Albuterol Neb 3 ML IH SCH ×2 (03:33→07:20)
[2020-10-24] MEDS: *HR* Enoxaparin 40 MG/0.4 ML SYRINGE SQ SCH (05:40)
[2020-10-24] MEDS: Budesonide/Formoterol 160/4.5 1 PUFF INH IH SCH (07:20)
[2020-10-24] MEDS: sulfaSALAzine 500 MG TABLET PO SCH (07:59)
[2020-10-24] MEDS: Furosemide 40 MG TABLET PO SCH (08:01)
[2020-10-24] MEDS: levoFLOXacin 750 MG TABLET PO SCH (08:01)
[2020-10-24] MEDS: Aspirin 81 MG TAB.CHEW PO SCH (08:01)
[2020-10-24] MEDS: predniSONE 20 MG TABLET PO SCH (08:01)
[2020-10-24 08:40] VITALS: BP 114/78
== END 2020-10-24 10:31 | disposition home or self-care (01) | DRG 194 ==
LOC: EMEROOARM 12:05 → 2ANU 12:05 → SUATTDRO 15:50 → 2ANU 16:25
PROVIDERS: ADMIT Internal Medicine; ATTEND Internal Medicine

== ENCOUNTER 2020-12-06 09:42 | Observation (INO) ==
[2020-12-06] MEDS ORDERED: Isovue-370 500 ML BOTTLE IVP ONE ×2 (09:53→10:53)
[2020-12-06] MEDS ORDERED: Ipratropium/Albuterol Neb 3 ML IH ONE (09:55)
[2020-12-06 10:25] LABS: Basophils % 0.2 %; Eosinophils # 0.4 K/mcL (0.0-0.6); Eosinophils % 8.6 %; Hematocrit 36.9 % (35.3-44.9); Hemoglobin 12.4 g/dL (11.5-15.4); Lymphocytes # 1.1 K/mcL (0.6-4.6); Lymphocytes % 25.4 %; Mean Corpuscular HGB Conc 33.6 g/dL (31.6-35.5); Mean Corpuscular Hemoglobin 29.7 pg (28.0-33.3); Mean Corpuscular Volume 88.5 fL (83.0-100.0); Mean Platelet Volume 11.7 fL (9.4-12.4); Monocytes # 0.3 K/mcL (0.0-1.3); Monocytes % 7.2 %; Neutrophils # 2.5 K/mcL (1.6-8.9); Platelet Count 143 K/mcL (140-400); Red Blood Count 4.17 M/mcL (3.82-4.97); Red Cell Distribution Width 13.5 % (11.5-14.5); Segmented Neutrophils % 58.6 %; White Blood Count 4.2 K/mcL (4.3-11.1)
[2020-12-06 10:48] LABS: Alanine Aminotransferase 13 Units/L (7-52); Albumin 3.5 g/dL (3.5-5.7); Albumin/Globulin Ratio 1.2 (1.1-2.2); Alkaline Phosphatase 53 Units/L (34-104); Aspartate Amino Transferase 16 Units/L (13-39); BUN/Creatinine Ratio 10 (6-26); Bilirubin,Direct 0.3 mg/dL (0.0-0.2); Bilirubin,Indirect 0.5 mg/dL (0.0-1.0); Bilirubin,Total 0.8 mg/dL (0.3-1.0); Blood Urea Nitrogen 6 mg/dL (8-23); Calcium 9.5 mg/dL (8.6-10.3); Carbon Dioxide 26 mEq/L (23-29); Chloride 96 mEq/L (98-107); Glucose 117 mg/dL (70-105); Lipase 6 Units/L (11-82); Osmolality,Calculated 267 (280-300); Potassium 4.2 mEq/L (3.5-5.1); Sodium 129 mEq/L (136-145); Total Protein 6.5 g/dL (6.4-8.9); Troponin I < 0.03 ng/mL (< 0.04); eGFR For African Americans > 60 (> 60); eGFR For Non-African Americans > 60 (> 60)
[2020-12-06] MEDS ORDERED: predniSONE 20 MG TABLET PO ONE (11:59)
[2020-12-06] MEDS ORDERED: Aspirin 81 MG TAB.CHEW PO STA (11:59)
[2020-12-06] MEDS ORDERED: Naloxone 0.4 MG/ML INJ IVP PRN (12:48)
[2020-12-06] MEDS ORDERED: 0.9 % Sodium Chloride 1,000 ML IVC SCH (13:00)
[2020-12-06] MEDS ORDERED: Budesonide/Formoterol 160/4.5 1 PUFF INH IH PRN (13:49)
[2020-12-06] MEDS ORDERED: GI Cocktail 40 ML EACH PO ONE (13:50)
[2020-12-06 14:00] LABS: ABG Base Excess 2 mEq/L (-2 to 3); ABG HCO3 28 mEq/L (21-27); ABG Oxygen Saturation 95 % (95-98); ABG PCO2 48 mmHg (35-45); ABG PH 7.38 pH Units (7.32-7.45); ABG PO2 75 mmHg (85-104); ABG TCO2 30 mEq/L (20-26)
[2020-12-06] MEDS: Ipratropium/Albuterol Neb 3 ML IH SCH ×2 (16:26→20:10)
[2020-12-06 17:46] LABS: Bilirubin,Urine Negative (Negative); Blood,Urine Trace (Negative); Clarity,Urine Clear (Clear); Color,Urine Light-Orange (Yellow); Glucose,Urine (UA) Normal (Normal); Ketones,Urine Negative (Negative); Leukocyte Esterase,Urine Negative (Negative); Nitrite,Urine Negative (Negative); PH,Urine 6.5 pH Units (5.0-8.0); Protein,Urine Trace mg/dL (Neg-Trace); RBC,Urine 0-3 per hpf (0-3); Specific Gravity,Urine > 1.030 (1.010-1.025); Squamous Epithelial Cell,Urine Few per hpf (None-Few); Urobilinogen,Urine Normal (Normal); WBC,Urine 0-3 per hpf (0-3)
[2020-12-06] MEDS: *HR* Heparin 5,000 UNIT/ML VIAL SQ SCH (18:29)
[2020-12-06 18:45] LABS: Adenovirus Not Detected (Not Detect); Bordetella Pertussis Not Detected (Not Detect); Chlamydophila pneumoniae Not Detected (Not Detect); Coronavirus 229E Not Detected (Not Detect); Coronavirus HKU1 Not Detected (Not Detect); Coronavirus NL63 Not Detected (Not Detect); Coronavirus OC43 Not Detected (Not Detect); Human Metapneumovirus Not Detected (Not Detect); Human Rhinovirus/Enterovirus Not Detected (Not Detect); Influenza A Subtype 2009 H1 Not Detected (Not Detect); Influenza B Not Detected (Not Detect); Mycoplasma pneumoniae Not Detected (Not Detect); Parainfluenza Virus 1 Not Detected (Not Detect); Parainfluenza Virus 2 Not Detected (Not Detect); Parainfluenza Virus 3 Not Detected (Not Detect); Parainfluenza Virus 4 Not Detected (Not Detect); Respiratory Syncytial Virus Not Detected (Not Detect)
[2020-12-06] MEDS ORDERED: Acetaminophen 325 MG TABLET PO ONE (19:44)
[2020-12-06] MEDS: Doxycycline 100 MG CAPSULE PO SCH (21:00)
[2020-12-06] MEDS: sulfaSALAzine 500 MG TABLET PO SCH (21:01)
[2020-12-07] MEDS: Ipratropium/Albuterol Neb 3 ML IH SCH ×7 (00:29→23:24)
[2020-12-07] MEDS: *HR* Heparin 5,000 UNIT/ML VIAL SQ SCH ×2 (05:26→18:14)
[2020-12-07] MEDS ORDERED: Albuterol 2.5 MG/3 ML NEBULIZER IH PRN (07:25)
[2020-12-07 07:26] LABS: Estimated Average Glucose 123 mg/dl; Hemoglobin A1C 5.9 %
[2020-12-07] MEDS ORDERED: predniSONE 20 MG TABLET PO SCH (09:00)
[2020-12-07 10:05] LABS: BUN/Creatinine Ratio 29 (6-26); Blood Urea Nitrogen 18 mg/dL (8-23); Calcium 9.4 mg/dL (8.6-10.3); Carbon Dioxide 28 mEq/L (23-29); Chloride 97 mEq/L (98-107); Chol/HDL Ratio 3.6 (0-4.9); Cholesterol 124 mg/dL (< 200); Glucose 93 mg/dL (70-105); HDL Cholesterol 34 mg/dL (40-59); LDL Cholesterol,Calculated 78 mg/dL (< 100); Magnesium 1.8 mg/dL (1.6-2.6); Osmolality,Calculated 272 (280-300); Phosphorous 3.6 mg/dL (2.7-4.5); Potassium 4.6 mEq/L (3.5-5.1); Sodium 130 mEq/L (136-145); Triglycerides 60 mg/dL (< 150); eGFR For African Americans > 60 (> 60); eGFR For Non-African Americans > 60 (> 60)
[2020-12-07] MEDS: Pantoprazole 40 MG VIAL IVP SCH ×2 (12:32→19:49)
[2020-12-07] MEDS: sulfaSALAzine 500 MG TABLET PO SCH ×2 (12:32→19:50)
[2020-12-07] MEDS: MethylPREDNISolone 40 MG/ML VIAL IVP SCH ×3 (12:32→23:45)
[2020-12-07] MEDS: Doxycycline 100 MG CAPSULE PO SCH ×2 (12:33→19:50)
[2020-12-07] MEDS: Loratadine 10 MG TABLET PO SCH (12:33)
[2020-12-07] MEDS: Bumetanide 1 MG TABLET PO SCH ×2 (12:33→19:50)
[2020-12-07] MEDS: Famotidine 20 MG TABLET PO SCH (12:33)
[2020-12-07] MEDS: lisinopriL 10 MG TABLET PO SCH (12:33)
[2020-12-07] MEDS: Aspirin 81 MG TAB.CHEW PO SCH (12:33)
[2020-12-07] MEDS ORDERED: GI Cocktail 40 ML EACH PO ONE (16:53)
[2020-12-07] MEDS ORDERED: Acetaminophen 325 MG TABLET PO PRN (18:27)
[2020-12-08] MEDS: Ipratropium/Albuterol Neb 3 ML IH SCH ×6 (04:06→23:04)
[2020-12-08] MEDS: *HR* Heparin 5,000 UNIT/ML VIAL SQ SCH ×2 (05:44→17:23)
[2020-12-08] MEDS: Aspirin 81 MG TAB.CHEW PO SCH (08:41)
[2020-12-08] MEDS: Doxycycline 100 MG CAPSULE PO SCH ×2 (08:41→20:53)
[2020-12-08] MEDS: sulfaSALAzine 500 MG TABLET PO SCH ×2 (08:41→20:53)
[2020-12-08] MEDS: Famotidine 20 MG TABLET PO SCH (08:41)
[2020-12-08] MEDS: Loratadine 10 MG TABLET PO SCH (08:41)
[2020-12-08] MEDS: Bumetanide 1 MG TABLET PO SCH ×2 (08:41→20:54)
[2020-12-08] MEDS: MethylPREDNISolone 40 MG/ML VIAL IVP SCH ×3 (08:42→23:57)
[2020-12-08] MEDS: Pantoprazole 40 MG VIAL IVP SCH ×2 (08:42→20:54)
[2020-12-08] MEDS: lisinopriL 10 MG TABLET PO SCH (08:42)
[2020-12-08] MEDS ORDERED: Lidocaine -MPF 2% 5 ML VIAL SQ ONE (10:04)
[2020-12-08] MEDS ORDERED: *HR* Propofol 500 MG/50 ML BOTTLE IVP ONE (10:04)
[2020-12-09] MEDS: Ipratropium/Albuterol Neb 3 ML IH SCH ×2 (03:21→07:24)
[2020-12-09] MEDS: *HR* Heparin 5,000 UNIT/ML VIAL SQ SCH (05:20)
[2020-12-09 07:40] VITALS: BP 120/86
[2020-12-09] MEDS: lisinopriL 10 MG TABLET PO SCH (08:25)
[2020-12-09] MEDS: sulfaSALAzine 500 MG TABLET PO SCH (08:25)
[2020-12-09] MEDS: Doxycycline 100 MG CAPSULE PO SCH (08:26)
[2020-12-09] MEDS: Famotidine 20 MG TABLET PO SCH (08:26)
[2020-12-09] MEDS: Bumetanide 1 MG TABLET PO SCH (08:26)
[2020-12-09] MEDS: Loratadine 10 MG TABLET PO SCH (08:26)
[2020-12-09] MEDS: Pantoprazole 40 MG VIAL IVP SCH (08:26)
[2020-12-09] MEDS: MethylPREDNISolone 40 MG/ML VIAL IVP SCH (08:26)
== END 2020-12-09 10:05 | disposition home or self-care (01) ==
LOC: EMEROOARM 09:42 → 3ANU 09:42 → SUATTDRO 12:49 → 3ANU 16:15
PROVIDERS: ADMIT Internal Medicine; ATTEND Internal Medicine
PROC: ENDOEBX (2020-12-08 12:15)

== ENCOUNTER 2021-01-30 09:47 | Observation (INO) ==
[2021-01-30 10:35] LABS: Basophils % 0.2 %; Eosinophils # 0.6 K/mcL (0.0-0.6); Eosinophils % 10.2 %; Hemoglobin 11.4 g/dL (11.5-15.4); Immature Granulocytes % 0.2 % (0-4); Lymphocytes % 16.1 %; Mean Corpuscular HGB Conc 33.5 g/dL (31.6-35.5); Mean Corpuscular Hemoglobin 29.8 pg (28.0-33.3); Mean Corpuscular Volume 88.8 fL (83.0-100.0); Mean Platelet Volume 10.8 fL (9.4-12.4); Monocytes # 0.4 K/mcL (0.0-1.3); Monocytes % 6.9 %; Neutrophils # 4.1 K/mcL (1.6-8.9); Platelet Count 212 K/mcL (140-400); Red Blood Count 3.83 M/mcL (3.82-4.97); Red Cell Distribution Width 14.6 % (11.5-14.5); Segmented Neutrophils % 66.4 %; White Blood Count 6.2 K/mcL (4.3-11.1)
[2021-01-30 10:44] LABS: INR 1.3; Prothrombin Time 14.9 Seconds (9.4-12.1)
[2021-01-30 10:46] LABS: Activated Partial Thrombo Time 28.1 Seconds (26.0-36.0)
[2021-01-30 10:58] LABS: BUN/Creatinine Ratio 9 (6-26); Blood Urea Nitrogen 6 mg/dL (8-23); Calcium 9.4 mg/dL (8.6-10.3); Carbon Dioxide 26 mEq/L (23-29); Chloride 95 mEq/L (98-107); Glucose 124 mg/dL (70-105); Osmolality,Calculated 261 (280-300); Potassium 4.7 mEq/L (3.5-5.1); Sodium 126 mEq/L (136-145); Troponin I < 0.03 ng/mL (< 0.04); eGFR For African Americans > 60 (> 60); eGFR For Non-African Americans > 60 (> 60)
[2021-01-30] MEDS ORDERED: methylPREDNISolone 125 MG/2 ML VIAL IVP ONE (11:41)
[2021-01-30] MEDS ORDERED: Morphine Sulfate 2 MG/ML SYRINGE IVP ONE (11:42)
[2021-01-30] MEDS ORDERED: Ipratropium/Albuterol Neb 3 ML ONE (12:36)
[2021-01-30] MEDS: Ipratropium/Albuterol Neb 3 ML IH ONE ×2 (12:37→13:10)
[2021-01-30 12:46] LABS: C-Reactive Protein 21 mg/L (Less than 10)
[2021-01-30] MEDS ORDERED: Isovue-370 500 ML BOTTLE IVP ONE (13:14)
[2021-01-30 14:50] LABS: Adenovirus Not Detected (Not Detect); Bordetella Pertussis Not Detected (Not Detect); Chlamydophila pneumoniae Not Detected (Not Detect); Coronavirus 229E Not Detected (Not Detect); Coronavirus HKU1 Not Detected (Not Detect); Coronavirus NL63 Not Detected (Not Detect); Coronavirus OC43 Not Detected (Not Detect); Human Metapneumovirus Not Detected (Not Detect); Human Rhinovirus/Enterovirus Not Detected (Not Detect); Influenza A Subtype 2009 H1 Not Detected (Not Detect); Influenza B Not Detected (Not Detect); Mycoplasma pneumoniae Not Detected (Not Detect); Parainfluenza Virus 1 Not Detected (Not Detect); Parainfluenza Virus 2 Not Detected (Not Detect); Parainfluenza Virus 3 Not Detected (Not Detect); Parainfluenza Virus 4 Not Detected (Not Detect); Respiratory Syncytial Virus Not Detected (Not Detect); SARS-CoV-2 Not Detected (Not Detect)
[2021-01-30] MEDS ORDERED: Naloxone 0.4 MG/ML INJ IVP PRN (16:14)
[2021-01-30] MEDS ORDERED: Ketorolac 15 MG/ML VIAL IVP ONE (17:30)
[2021-01-30] MEDS ORDERED: *HR* OxyCODONE/APAP 5/325 TABLET PO PRN (17:31)
[2021-01-30] MEDS: predniSONE 20 MG TABLET PO SCH (18:38)
[2021-01-31] MEDS: Ipratropium/Albuterol Neb 3 ML IH PRN ×5 (03:47→20:01)
[2021-01-31 04:39] LABS: Basophils % 0.1 %; Eosinophils % 0.4 %; Hematocrit 32.9 % (35.3-44.9); Hemoglobin 10.6 g/dL (11.5-15.4); Immature Granulocytes % 0.3 % (0-4); Lymphocytes # 1.3 K/mcL (0.6-4.6); Lymphocytes % 18.2 %; Mean Corpuscular HGB Conc 32.2 g/dL (31.6-35.5); Mean Corpuscular Hemoglobin 28.6 pg (28.0-33.3); Mean Corpuscular Volume 88.7 fL (83.0-100.0); Monocytes # 0.4 K/mcL (0.0-1.3); Monocytes % 5.9 %; Neutrophils # 5.5 K/mcL (1.6-8.9); Platelet Count 222 K/mcL (140-400); Red Blood Count 3.71 M/mcL (3.82-4.97); Red Cell Distribution Width 14.6 % (11.5-14.5); Segmented Neutrophils % 75.1 %; White Blood Count 7.3 K/mcL (4.3-11.1)
[2021-01-31 04:56] LABS: BUN/Creatinine Ratio 18 (6-26); Blood Urea Nitrogen 12 mg/dL (8-23); Calcium 9.4 mg/dL (8.6-10.3); Carbon Dioxide 22 mEq/L (23-29); Chloride 96 mEq/L (98-107); Glucose 105 mg/dL (70-105); Osmolality,Calculated 262 (280-300); Potassium 4.8 mEq/L (3.5-5.1); Sodium 126 mEq/L (136-145); eGFR For African Americans > 60 (> 60); eGFR For Non-African Americans > 60 (> 60)
[2021-01-31] MEDS: predniSONE 20 MG TABLET PO SCH (08:01)
[2021-01-31] MEDS ORDERED: Budesonide/Formoterol 160/4.5 1 PUFF INH IH PRN (16:58)
[2021-01-31] MEDS: lisinopriL 10 MG TABLET PO SCH (20:31)
[2021-01-31] MEDS: Bumetanide 1 MG TABLET PO SCH (20:31)
[2021-01-31] MEDS ORDERED: Famotidine 20 MG TABLET PO SCH (21:00)
[2021-01-31] MEDS: sulfaSALAzine 500 MG TABLET PO SCH (21:02)
[2021-01-31 22:04] LABS: Bilirubin,Urine Negative (Negative); Blood,Urine Negative (Negative); Clarity,Urine Clear (Clear); Color,Urine Light-Yellow (Yellow); Glucose,Urine (UA) Normal (Normal); Ketones,Urine Negative (Negative); Leukocyte Esterase,Urine Negative (Negative); Nitrite,Urine Negative (Negative); PH,Urine 6.5 pH Units (5.0-8.0); Protein,Urine Negative (Neg-Trace); Specific Gravity,Urine 1.011 (1.010-1.025); Urobilinogen,Urine Normal (Normal)
[2021-02-01] MEDS: Ipratropium/Albuterol Neb 3 ML IH PRN ×3 (00:18→10:00)
[2021-02-01 06:57] LABS: Hematocrit 34.3 % (35.3-44.9); Hemoglobin 11.1 g/dL (11.5-15.4); Mean Corpuscular HGB Conc 32.4 g/dL (31.6-35.5); Mean Corpuscular Hemoglobin 28.7 pg (28.0-33.3); Mean Corpuscular Volume 88.6 fL (83.0-100.0); Mean Platelet Volume 10.9 fL (9.4-12.4); Platelet Count 241 K/mcL (140-400); Red Blood Count 3.87 M/mcL (3.82-4.97); Red Cell Distribution Width 14.6 % (11.5-14.5); White Blood Count 5.4 K/mcL (4.3-11.1)
[2021-02-01 07:01] VITALS: BP 105/69
[2021-02-01 07:30] LABS: BUN/Creatinine Ratio 22 (6-26); Blood Urea Nitrogen 15 mg/dL (8-23); Calcium 9.3 mg/dL (8.6-10.3); Carbon Dioxide 27 mEq/L (23-29); Chloride 97 mEq/L (98-107); Glucose 108 mg/dL (70-105); Osmolality,Calculated 275 (280-300); Sodium 132 mEq/L (136-145); eGFR For African Americans > 60 (> 60); eGFR For Non-African Americans > 60 (> 60)
[2021-02-01] MEDS: lisinopriL 10 MG TABLET PO SCH (08:43)
[2021-02-01] MEDS: predniSONE 20 MG TABLET PO SCH (08:43)
[2021-02-01] MEDS: sulfaSALAzine 500 MG TABLET PO SCH (08:43)
[2021-02-01] MEDS: Bumetanide 1 MG TABLET PO SCH (08:43)
[2021-02-01] MEDS ORDERED: Loratadine 10 MG TABLET PO SCH (09:00)
[2021-02-01] MEDS ORDERED: Aspirin 81 MG TAB.CHEW PO SCH (09:00)
[2021-02-03 08:36] LABS: ANA IgG by ELISA NONE DETECTED (None Detected)
== END 2021-02-01 11:12 | disposition home or self-care (01) ==
LOC: 3BNU 09:47 → EMEROOARM 09:47 → SUATTDRO 15:55 → 3BNU 16:47
PROVIDERS: ADMIT Internal Medicine; ATTEND Internal Medicine

== ENCOUNTER 2021-03-03 10:54 | Inpatient (IN) ==
[2021-03-03] MEDS ORDERED: Ipratropium/Albuterol Neb 3 ML IH ONE (11:00)
[2021-03-03] MEDS ORDERED: methylPREDNISolone 125 MG/2 ML VIAL IVP ONE (11:00)
[2021-03-03 11:25] LABS: Basophils % 0.2 %; Eosinophils # 0.4 K/mcL (0.0-0.6); Eosinophils % 8.5 %; Hematocrit 38.3 % (35.3-44.9); Hemoglobin 12.5 g/dL (11.5-15.4); Immature Granulocytes % 0.2 % (0-4); Lymphocytes # 1.5 K/mcL (0.6-4.6); Lymphocytes % 35.3 %; Mean Corpuscular HGB Conc 32.6 g/dL (31.6-35.5); Mean Corpuscular Hemoglobin 29.6 pg (28.0-33.3); Mean Corpuscular Volume 90.8 fL (83.0-100.0); Mean Platelet Volume 10.2 fL (9.4-12.4); Monocytes # 0.3 K/mcL (0.0-1.3); Monocytes % 6.9 %; Neutrophils # 2.1 K/mcL (1.6-8.9); Platelet Count 200 K/mcL (140-400); Red Blood Count 4.22 M/mcL (3.82-4.97); Red Cell Distribution Width 14.6 % (11.5-14.5); Segmented Neutrophils % 48.9 %; White Blood Count 4.2 K/mcL (4.3-11.1)
[2021-03-03 11:43] LABS: BUN/Creatinine Ratio 11 (6-26); Blood Urea Nitrogen 7 mg/dL (8-23); Calcium 9.6 mg/dL (8.6-10.3); Carbon Dioxide 27 mEq/L (23-29); Chloride 97 mEq/L (98-107); Glucose 129 mg/dL (70-105); Osmolality,Calculated 274 (280-300); Potassium 4.9 mEq/L (3.5-5.1); Sodium 132 mEq/L (136-145); Troponin I < 0.03 ng/mL (< 0.04); eGFR For African Americans > 60 (> 60); eGFR For Non-African Americans > 60 (> 60)
[2021-03-03] MEDS ORDERED: Acetaminophen 325 MG TABLET PO PRN (13:03)
[2021-03-03] MEDS: Azithromycin 500 MG in 0.9 % Sodium Chloride 250 ML IVPB SCH (14:35)
[2021-03-03 14:46] LABS: VBG HCO3 24 mEq/L (21-27); VBG PCO2 36 mmHg (41-51); VBG PH 7.43 pH Units (7.32-7.42); VBG PO2 192 mmHg (25-50)
[2021-03-03] MEDS: Furosemide 40 MG/4 ML VIAL IVP SCH (14:47)
[2021-03-03 15:33] LABS: Adenovirus Not Detected (Not Detect); Bordetella Pertussis Not Detected (Not Detect); Chlamydophila pneumoniae Not Detected (Not Detect); Coronavirus 229E Not Detected (Not Detect); Coronavirus HKU1 Not Detected (Not Detect); Coronavirus NL63 Not Detected (Not Detect); Coronavirus OC43 Not Detected (Not Detect); Human Metapneumovirus Not Detected (Not Detect); Human Rhinovirus/Enterovirus Not Detected (Not Detect); Influenza A Subtype 2009 H1 Not Detected (Not Detect); Influenza B Not Detected (Not Detect); Mycoplasma pneumoniae Not Detected (Not Detect); Parainfluenza Virus 1 Not Detected (Not Detect); Parainfluenza Virus 2 Not Detected (Not Detect); Parainfluenza Virus 3 Not Detected (Not Detect); Parainfluenza Virus 4 Not Detected (Not Detect); Respiratory Syncytial Virus Not Detected (Not Detect); SARS-CoV-2 Not Detected (Not Detect)
[2021-03-03] MEDS: Ipratropium/Albuterol Neb 3 ML IH SCH ×3 (15:52→23:08)
[2021-03-03] MEDS: MethylPREDNISolone 40 MG/ML VIAL IVP SCH (16:55)
[2021-03-03] MEDS: Ondansetron ODT 4 MG TAB.RAPDIS SL PRN (19:28)
[2021-03-04] MEDS: Ipratropium/Albuterol Neb 3 ML IH SCH ×6 (03:39→23:10)
[2021-03-04 04:33] LABS: Mean Corpuscular HGB Conc 31.5 g/dL (31.6-35.5); Mean Corpuscular Hemoglobin 28.9 pg (28.0-33.3); Mean Corpuscular Volume 91.9 fL (83.0-100.0); Mean Platelet Volume 11.2 fL (9.4-12.4); Platelet Count 219 K/mcL (140-400); Red Cell Distribution Width 14.6 % (11.5-14.5); White Blood Count 4.3 K/mcL (4.3-11.1)
[2021-03-04 04:36] LABS: Hemoglobin 10.7 g/dL (11.5-15.4)
[2021-03-04 04:41] LABS: BUN/Creatinine Ratio 18 (6-26); Blood Urea Nitrogen 11 mg/dL (8-23); Calcium 9.3 mg/dL (8.6-10.3); Carbon Dioxide 27 mEq/L (23-29); Chloride 96 mEq/L (98-107); Glucose 125 mg/dL (70-105); Osmolality,Calculated 273 (280-300); Potassium 5.2 mEq/L (3.5-5.1); Sodium 131 mEq/L (136-145); eGFR For African Americans > 60 (> 60); eGFR For Non-African Americans > 60 (> 60)
[2021-03-04] MEDS: *HR* Enoxaparin 40 MG/0.4 ML SYRINGE SQ SCH (06:04)
[2021-03-04] MEDS: MethylPREDNISolone 40 MG/ML VIAL IVP SCH ×2 (06:04→18:10)
[2021-03-04] MEDS: Furosemide 40 MG/4 ML VIAL IVP SCH ×2 (09:45→18:10)
[2021-03-04] MEDS: *HR* Acetaminophen w/Cod 300-30 mg 1 TAB TABLET PO SCH ×2 (10:09→18:11)
[2021-03-04 14:45] LABS: BUN/Creatinine Ratio 21 (6-26); Blood Urea Nitrogen 16 mg/dL (8-23); Calcium 9.5 mg/dL (8.6-10.3); Carbon Dioxide 28 mEq/L (23-29); Chloride 95 mEq/L (98-107); Glucose 148 mg/dL (70-105); Osmolality,Calculated 274 (280-300); Potassium 4.8 mEq/L (3.5-5.1); Sodium 130 mEq/L (136-145); eGFR For African Americans > 60 (> 60); eGFR For Non-African Americans > 60 (> 60)
[2021-03-04] MEDS: Azithromycin 500 MG in 0.9 % Sodium Chloride 250 ML IVPB SCH (14:52)
[2021-03-04] MEDS: Ondansetron ODT 4 MG TAB.RAPDIS SL PRN (20:55)
[2021-03-05] MEDS ORDERED: GuaiFENesin Liq 200 MG/10 ML UDC PO PRN (00:04)
[2021-03-05] MEDS: *HR* Acetaminophen w/Cod 300-30 mg 1 TAB TABLET PO SCH ×2 (01:53→06:24)
[2021-03-05 03:02] LABS: Hematocrit 34.4 % (35.3-44.9); Hemoglobin 11.2 g/dL (11.5-15.4); Immature Granulocytes % 0.2 % (0-4); Lymphocytes % 22.6 %; Mean Corpuscular HGB Conc 32.6 g/dL (31.6-35.5); Mean Corpuscular Hemoglobin 29.7 pg (28.0-33.3); Mean Corpuscular Volume 91.2 fL (83.0-100.0); Monocytes # 0.2 K/mcL (0.0-1.3); Monocytes % 4.8 %; Neutrophils # 3.1 K/mcL (1.6-8.9); Platelet Count 226 K/mcL (140-400); Red Blood Count 3.77 M/mcL (3.82-4.97); Red Cell Distribution Width 14.7 % (11.5-14.5); Segmented Neutrophils % 72.4 %; White Blood Count 4.3 K/mcL (4.3-11.1)
[2021-03-05 03:26] LABS: BUN/Creatinine Ratio 26 (6-26); Blood Urea Nitrogen 19 mg/dL (8-23); Calcium 9.2 mg/dL (8.6-10.3); Carbon Dioxide 31 mEq/L (23-29); Chloride 96 mEq/L (98-107); Glucose 134 mg/dL (70-105); Osmolality,Calculated 280 (280-300); Potassium 5.2 mEq/L (3.5-5.1); Sodium 133 mEq/L (136-145); eGFR For African Americans > 60 (> 60); eGFR For Non-African Americans > 60 (> 60)
[2021-03-05 03:40] LABS: Thyroid Stimulating Hormone 0.115 mcIU/mL (0.340-5.600)
[2021-03-05] MEDS: Ipratropium/Albuterol Neb 3 ML IH SCH ×6 (03:44→23:50)
[2021-03-05] MEDS: *HR* Enoxaparin 40 MG/0.4 ML SYRINGE SQ SCH (06:25)
[2021-03-05] MEDS: MethylPREDNISolone 40 MG/ML VIAL IVP SCH ×2 (06:25→18:47)
[2021-03-05] MEDS ORDERED: lisinopriL 10 MG TABLET PO SCH (09:00)
[2021-03-05] MEDS: Loratadine 10 MG TABLET PO SCH (10:34)
[2021-03-05] MEDS: Furosemide 40 MG/4 ML VIAL IVP SCH ×2 (10:34→18:47)
[2021-03-05] MEDS ORDERED: Acetylcysteine 10% 2 ML INHSOL IH ONE (11:08)
[2021-03-05] MEDS: Azithromycin 500 MG in 0.9 % Sodium Chloride 250 ML IVPB SCH (14:49)
[2021-03-05 17:23] LABS: BUN/Creatinine Ratio 27 (6-26); Blood Urea Nitrogen 20 mg/dL (8-23); Calcium 9.2 mg/dL (8.6-10.3); Carbon Dioxide 32 mEq/L (23-29); Chloride 93 mEq/L (98-107); Glucose 109 mg/dL (70-105); Osmolality,Calculated 283 (280-300); Potassium 4.3 mEq/L (3.5-5.1); Sodium 135 mEq/L (136-145); eGFR For African Americans > 60 (> 60); eGFR For Non-African Americans > 60 (> 60)
[2021-03-05] MEDS: *HR* Acetaminophen w/Cod 300-30 mg 1 TAB TABLET PO PRN (20:46)
[2021-03-05] MEDS ORDERED: Acetylcysteine 10% 2 ML INHSOL IH PRN (21:19)
[2021-03-06] MEDS: Ipratropium/Albuterol Neb 3 ML IH SCH ×6 (03:53→23:47)
[2021-03-06] MEDS: *HR* Acetaminophen w/Cod 300-30 mg 1 TAB TABLET PO PRN ×2 (05:55→22:04)
[2021-03-06 05:56] LABS: Basophils % 0.2 %; Hematocrit 34.8 % (35.3-44.9); Hemoglobin 11.2 g/dL (11.5-15.4); Immature Granulocytes % 0.2 % (0-4); Lymphocytes # 1.3 K/mcL (0.6-4.6); Lymphocytes % 25.3 %; Mean Corpuscular HGB Conc 32.2 g/dL (31.6-35.5); Mean Corpuscular Hemoglobin 29.2 pg (28.0-33.3); Mean Corpuscular Volume 90.6 fL (83.0-100.0); Mean Platelet Volume 10.7 fL (9.4-12.4); Monocytes # 0.3 K/mcL (0.0-1.3); Neutrophils # 3.6 K/mcL (1.6-8.9); Platelet Count 266 K/mcL (140-400); Red Blood Count 3.84 M/mcL (3.82-4.97); Red Cell Distribution Width 14.6 % (11.5-14.5); Segmented Neutrophils % 69.3 %; White Blood Count 5.3 K/mcL (4.3-11.1)
[2021-03-06] MEDS: MethylPREDNISolone 40 MG/ML VIAL IVP SCH (05:56)
[2021-03-06] MEDS: *HR* Enoxaparin 40 MG/0.4 ML SYRINGE SQ SCH (05:56)
[2021-03-06 06:17] LABS: BUN/Creatinine Ratio 31 (6-26); Blood Urea Nitrogen 23 mg/dL (8-23); Calcium 9.5 mg/dL (8.6-10.3); Carbon Dioxide 32 mEq/L (23-29); Chloride 95 mEq/L (98-107); Glucose 125 mg/dL (70-105); Osmolality,Calculated 281 (280-300); Potassium 4.3 mEq/L (3.5-5.1); Sodium 133 mEq/L (136-145); eGFR For African Americans > 60 (> 60); eGFR For Non-African Americans > 60 (> 60)
[2021-03-06] MEDS: Furosemide 40 MG/4 ML VIAL IVP SCH ×2 (08:35→16:16)
[2021-03-06] MEDS: Loratadine 10 MG TABLET PO SCH (08:35)
[2021-03-06] MEDS: Azithromycin 250 MG TABLET PO SCH (08:35)
[2021-03-06] MEDS ORDERED: Isovue-370 500 ML BOTTLE IVP ONE (17:31)
[2021-03-06] MEDS: Acetylcysteine 10% 2 ML INHSOL IH SCH (23:47)
[2021-03-07 03:24] LABS: Basophils % 0.2 %; Eosinophils % 0.3 %; Hematocrit 36.9 % (35.3-44.9); Hemoglobin 11.6 g/dL (11.5-15.4); Immature Granulocytes % 0.2 % (0-4); Lymphocytes # 2.5 K/mcL (0.6-4.6); Lymphocytes % 41.9 %; Mean Corpuscular HGB Conc 31.4 g/dL (31.6-35.5); Mean Corpuscular Hemoglobin 28.9 pg (28.0-33.3); Mean Platelet Volume 10.8 fL (9.4-12.4); Monocytes # 0.5 K/mcL (0.0-1.3); Monocytes % 8.1 %; Platelet Count 261 K/mcL (140-400); Red Blood Count 4.01 M/mcL (3.82-4.97); Red Cell Distribution Width 14.7 % (11.5-14.5); Segmented Neutrophils % 49.3 %
[2021-03-07 03:42] LABS: BUN/Creatinine Ratio 32 (6-26); Blood Urea Nitrogen 26 mg/dL (8-23); Calcium 9.1 mg/dL (8.6-10.3); Carbon Dioxide 33 mEq/L (23-29); Chloride 94 mEq/L (98-107); Glucose 112 mg/dL (70-105); Osmolality,Calculated 282 (280-300); Potassium 3.6 mEq/L (3.5-5.1); Sodium 133 mEq/L (136-145); eGFR For African Americans > 60 (> 60); eGFR For Non-African Americans > 60 (> 60)
[2021-03-07] MEDS: Ipratropium/Albuterol Neb 3 ML IH SCH ×6 (03:47→23:07)
[2021-03-07] MEDS: *HR* Enoxaparin 40 MG/0.4 ML SYRINGE SQ SCH (05:43)
[2021-03-07] MEDS: Acetylcysteine 10% 2 ML INHSOL IH SCH (07:23)
[2021-03-07] MEDS: Azithromycin 250 MG TABLET PO SCH (07:38)
[2021-03-07] MEDS: Loratadine 10 MG TABLET PO SCH (07:38)
[2021-03-07] MEDS: Furosemide 40 MG/4 ML VIAL IVP SCH ×2 (07:39→16:52)
[2021-03-07] MEDS: predniSONE 20 MG TABLET PO SCH (07:41)
[2021-03-08] MEDS: Ipratropium/Albuterol Neb 3 ML IH SCH ×3 (03:23→11:21)
[2021-03-08] MEDS: *HR* Enoxaparin 40 MG/0.4 ML SYRINGE SQ SCH (06:12)
[2021-03-08 06:21] LABS: Basophils % 0.2 %; Eosinophils # 0.1 K/mcL (0.0-0.6); Hematocrit 38.5 % (35.3-44.9); Hemoglobin 12.2 g/dL (11.5-15.4); Immature Granulocytes % 0.3 % (0-4); Lymphocytes # 2.4 K/mcL (0.6-4.6); Lymphocytes % 38.7 %; Mean Corpuscular HGB Conc 31.7 g/dL (31.6-35.5); Mean Corpuscular Hemoglobin 28.8 pg (28.0-33.3); Mean Corpuscular Volume 90.8 fL (83.0-100.0); Mean Platelet Volume 10.4 fL (9.4-12.4); Monocytes # 0.6 K/mcL (0.0-1.3); Monocytes % 8.7 %; Neutrophils # 3.2 K/mcL (1.6-8.9); Platelet Count 266 K/mcL (140-400); Red Blood Count 4.24 M/mcL (3.82-4.97); Red Cell Distribution Width 14.5 % (11.5-14.5); Segmented Neutrophils % 51.1 %; White Blood Count 6.3 K/mcL (4.3-11.1)
[2021-03-08 06:43] LABS: BUN/Creatinine Ratio 34 (6-26); Blood Urea Nitrogen 22 mg/dL (8-23); Calcium 9.1 mg/dL (8.6-10.3); Carbon Dioxide 35 mEq/L (23-29); Chloride 94 mEq/L (98-107); Glucose 101 mg/dL (70-105); Osmolality,Calculated 281 (280-300); Potassium 3.5 mEq/L (3.5-5.1); Sodium 134 mEq/L (136-145); eGFR For African Americans > 60 (> 60); eGFR For Non-African Americans > 60 (> 60)
[2021-03-08] MEDS ORDERED: Azithromycin 250 MG TABLET PO SCH (09:00)
[2021-03-08] MEDS: Furosemide 40 MG/4 ML VIAL IVP SCH (10:05)
[2021-03-08] MEDS: Loratadine 10 MG TABLET PO SCH (10:05)
[2021-03-08] MEDS: predniSONE 20 MG TABLET PO SCH (10:06)
[2021-03-08 10:54] VITALS: BP 128/83
== END 2021-03-08 14:25 | disposition home or self-care (01) | DRG 140 ==
LOC: EMEROOARM 10:54 → 2NENU 10:54 → SUATTDRO 13:23 → 2NENU 13:53
PROVIDERS: ADMIT Internal Medicine; ATTEND Student in an Organized Health Care Education/Training Program

== ENCOUNTER 2021-04-22 12:00 | Observation (INO) ==
[2021-04-22] MEDS ORDERED: Ondansetron 4 MG/2 ML VIAL IVP ONE (12:19)
[2021-04-22] MEDS ORDERED: *HR* FentaNYL (PF) 100 MCG/2 ML VIAL IVP ONE (12:19)
[2021-04-22] MEDS ORDERED: 0.9 % Sodium Chloride 1,000 ML IVC ONE (12:19)
[2021-04-22] MEDS ORDERED: Ipratropium/Albuterol Neb 3 ML IH ONE (12:20)
[2021-04-22 12:42] LABS: Hematocrit 39.4 % (35.3-44.9); Hemoglobin 13.3 g/dL (11.5-15.4); Mean Corpuscular HGB Conc 33.8 g/dL (31.6-35.5); Mean Corpuscular Hemoglobin 29.4 pg (28.0-33.3); Mean Corpuscular Volume 87.2 fL (83.0-100.0); Mean Platelet Volume 11.3 fL (9.4-12.4); Platelet Count 168 K/mcL (140-400); Red Blood Count 4.52 M/mcL (3.82-4.97); Red Cell Distribution Width 14.5 % (11.5-14.5)
[2021-04-22 12:59] LABS: Alanine Aminotransferase 20 Units/L (7-52); Albumin 3.1 g/dL (3.5-5.7); Albumin/Globulin Ratio 0.9 (1.1-2.2); Alkaline Phosphatase 56 Units/L (34-104); Aspartate Amino Transferase 34 Units/L (13-39); BUN/Creatinine Ratio 9 (6-26); Bilirubin,Direct 0.2 mg/dL (0.0-0.2); Bilirubin,Indirect 0.4 mg/dL (0.0-1.0); Bilirubin,Total 0.6 mg/dL (0.3-1.0); Blood Urea Nitrogen 5 mg/dL (8-23); Carbon Dioxide 27 mEq/L (23-29); Chloride 93 mEq/L (98-107); Globulin 3.3 g/dL (2.4-3.5); Glucose 93 mg/dL (70-105); INR 1.2; Magnesium 1.4 mg/dL (1.6-2.6); Osmolality,Calculated 261 (280-300); Phosphorous 3.7 mg/dL (2.7-4.5); Potassium 4.3 mEq/L (3.5-5.1); Prothrombin Time 14.1 Seconds (9.4-12.1); Sodium 127 mEq/L (136-145); Total Protein 6.4 g/dL (6.4-8.9); eGFR For African Americans > 60 (> 60); eGFR For Non-African Americans > 60 (> 60)
[2021-04-22 13:01] LABS: Activated Partial Thrombo Time 31.8 Seconds (26.0-36.0)
[2021-04-22 13:08] LABS: Eosinophils # 3.1 K/mcL (0.0-0.6); Lymphocytes # 1.1 K/mcL (0.6-4.6); Neutrophils # 4.9 K/mcL (1.6-8.9)
[2021-04-22 13:10] LABS: Platelet Estimate Normal (Normal)
[2021-04-22 13:11] LABS: C-Reactive Protein 10 mg/L (Less than 10); Troponin I 1.25 ng/mL (< 0.04)
[2021-04-22] MEDS ORDERED: Aspirin 81 MG TAB.CHEW PO STA (13:21)
[2021-04-22 13:44] LABS: Adenovirus Not Detected (Not Detect); Bordetella Pertussis Not Detected (Not Detect); Chlamydophila pneumoniae Not Detected (Not Detect); Coronavirus 229E Not Detected (Not Detect); Coronavirus HKU1 Not Detected (Not Detect); Coronavirus NL63 Not Detected (Not Detect); Coronavirus OC43 Not Detected (Not Detect); Human Metapneumovirus Not Detected (Not Detect); Human Rhinovirus/Enterovirus Not Detected (Not Detect); Influenza A Subtype 2009 H1 Not Detected (Not Detect); Influenza B Not Detected (Not Detect); Mycoplasma pneumoniae Not Detected (Not Detect); Parainfluenza Virus 1 Not Detected (Not Detect); Parainfluenza Virus 2 Not Detected (Not Detect); Parainfluenza Virus 3 Not Detected (Not Detect); Parainfluenza Virus 4 Not Detected (Not Detect); Respiratory Syncytial Virus Not Detected (Not Detect); SARS-CoV-2 Not Detected (Not Detect)
[2021-04-22] MEDS ORDERED: Ondansetron 4 MG/2 ML VIAL IVP PRN (16:01)
[2021-04-22] MEDS ORDERED: *HR* OxyCODONE Immed Rel 5 MG TABLET PO PRN (16:01)
[2021-04-22] MEDS ORDERED: Naloxone 0.4 MG/ML INJ IVP PRN (16:01)
[2021-04-22] MEDS ORDERED: Acetaminophen 325 MG TABLET PO PRN (16:01)
[2021-04-22] MEDS ORDERED: *HR* Heparin 5,000 UNIT/ML VIAL IVP PRN ×2 (16:03)
[2021-04-22] MEDS ORDERED: 0.9 % Sodium Chloride 1,000 ML IVC SCH (16:15)
[2021-04-22] MEDS: Azithromycin 250 MG TABLET PO SCH (17:22)
[2021-04-22] MEDS: Heparin 25,000UNIT/250ML 1/2NS 25,000 UNIT/250 ML IV.SOLN IVC SCH (18:19)
[2021-04-22] MEDS: Albuterol 2.5 MG/3 ML NEBULIZER IH SCH ×2 (20:30→23:44)
[2021-04-22] MEDS: MethylPREDNISolone 40 MG/ML VIAL IVP SCH (21:21)
[2021-04-23 00:55] LABS: Basophils % 0.3 %; Eosinophils % 37.5 %; Hematocrit 39.9 % (35.3-44.9); Hemoglobin 12.8 g/dL (11.5-15.4); Immature Granulocytes % 0.4 % (0-4); Lymphocytes # 0.9 K/mcL (0.6-4.6); Lymphocytes % 11.2 %; Mean Corpuscular HGB Conc 32.1 g/dL (31.6-35.5); Mean Corpuscular Hemoglobin 28.2 pg (28.0-33.3); Mean Corpuscular Volume 87.9 fL (83.0-100.0); Mean Platelet Volume 11.3 fL (9.4-12.4); Monocytes # 0.1 K/mcL (0.0-1.3); Monocytes % 1.6 %; Neutrophils # 3.9 K/mcL (1.6-8.9); Platelet Count 156 K/mcL (140-400); Red Blood Count 4.54 M/mcL (3.82-4.97); Red Cell Distribution Width 14.6 % (11.5-14.5); White Blood Count 7.9 K/mcL (4.3-11.1)
[2021-04-23 01:21] LABS: BUN/Creatinine Ratio 13 (6-26); Blood Urea Nitrogen 7 mg/dL (8-23); Calcium 8.8 mg/dL (8.6-10.3); Carbon Dioxide 24 mEq/L (23-29); Chloride 97 mEq/L (98-107); Glucose 103 mg/dL (70-105); Magnesium 1.4 mg/dL (1.6-2.6); Osmolality,Calculated 262 (280-300); Phosphorous 4.4 mg/dL (2.7-4.5); Potassium 4.9 mEq/L (3.5-5.1); Sodium 127 mEq/L (136-145); eGFR For African Americans > 60 (> 60); eGFR For Non-African Americans > 60 (> 60)
[2021-04-23 01:30] LABS: Thyroid Stimulating Hormone 10.255 mcIU/mL (0.340-5.600)
[2021-04-23 01:32] LABS: Triiodothyronine (T3) Free 2.2 pg/mL (2.50-3.90)
[2021-04-23] MEDS: Albuterol 2.5 MG/3 ML NEBULIZER IH SCH ×6 (03:58→23:09)
[2021-04-23] MEDS: Loratadine 10 MG TABLET PO SCH (08:20)
[2021-04-23] MEDS: MethylPREDNISolone 40 MG/ML VIAL IVP SCH ×2 (08:20→21:32)
[2021-04-23] MEDS: lisinopriL 10 MG TABLET PO SCH (08:20)
[2021-04-23] MEDS: Aspirin Enteric Coated 81 MG Tablet PO SCH (08:20)
[2021-04-23] MEDS: Azithromycin 250 MG TABLET PO SCH (08:20)
[2021-04-23] MEDS ORDERED: Perflutren Lipid Microsphere 1.3 ML in 0.9 % Sodium Chloride 8.7 ML IVP PRN (09:13)
[2021-04-23 10:31] LABS: Bilirubin,Urine Negative (Negative); Blood,Urine Negative (Negative); Clarity,Urine Clear (Clear); Color,Urine Yellow (Yellow); Glucose,Urine (UA) Normal (Normal); Ketones,Urine Negative (Negative); Leukocyte Esterase,Urine Negative (Negative); Mucus,Urine Few per lpf (None-Few); Nitrite,Urine Negative (Negative); Protein,Urine 30 mg/dL (Neg-Trace); RBC,Urine 0-3 per hpf (0-3); Squamous Epithelial Cell,Urine Few per hpf (None-Few); Urobilinogen,Urine Normal (Normal); WBC,Urine 0-3 per hpf (0-3)
[2021-04-23] MEDS: Magnesium Oxide 400 MG TABLET PO SCH ×2 (16:45→18:19)
[2021-04-23] MEDS: Heparin 25,000UNIT/250ML 1/2NS 25,000 UNIT/250 ML IV.SOLN IVC SCH (16:45)
[2021-04-24] MEDS: Albuterol 2.5 MG/3 ML NEBULIZER IH SCH ×6 (03:53→23:18)
[2021-04-24 07:06] LABS: Hematocrit 35.7 % (35.3-44.9); Hemoglobin 11.5 g/dL (11.5-15.4); Mean Corpuscular HGB Conc 32.2 g/dL (31.6-35.5); Mean Corpuscular Hemoglobin 28.3 pg (28.0-33.3); Mean Corpuscular Volume 87.7 fL (83.0-100.0); Mean Platelet Volume 10.7 fL (9.4-12.4); Platelet Count 162 K/mcL (140-400); Red Blood Count 4.07 M/mcL (3.82-4.97); Red Cell Distribution Width 14.7 % (11.5-14.5); White Blood Count 6.2 K/mcL (4.3-11.1)
[2021-04-24 07:50] LABS: BUN/Creatinine Ratio 22 (6-26); Blood Urea Nitrogen 14 mg/dL (8-23); Carbon Dioxide 27 mEq/L (23-29); Chloride 96 mEq/L (98-107); Glucose 128 mg/dL (70-105); Osmolality,Calculated 266 (280-300); Potassium 5.3 mEq/L (3.5-5.1); Sodium 127 mEq/L (136-145); eGFR For African Americans > 60 (> 60); eGFR For Non-African Americans > 60 (> 60)
[2021-04-24] MEDS: Azithromycin 250 MG TABLET PO SCH (08:09)
[2021-04-24] MEDS: Aspirin Enteric Coated 81 MG Tablet PO SCH (08:10)
[2021-04-24] MEDS: lisinopriL 10 MG TABLET PO SCH (08:10)
[2021-04-24] MEDS: Loratadine 10 MG TABLET PO SCH (08:10)
[2021-04-24] MEDS: MethylPREDNISolone 40 MG/ML VIAL IVP SCH ×2 (08:11→21:15)
[2021-04-24] MEDS: *HR* Heparin 5,000 UNIT/ML VIAL SQ SCH (18:00)
[2021-04-24] MEDS: Bumetanide 1 MG TABLET PO SCH (18:24)
[2021-04-24] MEDS: sulfaSALAzine 500 MG TABLET PO SCH (21:15)
[2021-04-25] MEDS: Albuterol 2.5 MG/3 ML NEBULIZER IH SCH ×5 (03:46→20:04)
[2021-04-25] MEDS: *HR* Heparin 5,000 UNIT/ML VIAL SQ SCH ×2 (05:29→17:51)
[2021-04-25 07:51] LABS: Hematocrit 36.3 % (35.3-44.9); Hemoglobin 11.8 g/dL (11.5-15.4); Mean Corpuscular HGB Conc 32.5 g/dL (31.6-35.5); Mean Corpuscular Hemoglobin 28.4 pg (28.0-33.3); Mean Corpuscular Volume 87.3 fL (83.0-100.0); Mean Platelet Volume 11.2 fL (9.4-12.4); Platelet Count 195 K/mcL (140-400); Red Blood Count 4.16 M/mcL (3.82-4.97); White Blood Count 5.6 K/mcL (4.3-11.1)
[2021-04-25 08:00] LABS: BUN/Creatinine Ratio 29 (6-26); Blood Urea Nitrogen 23 mg/dL (8-23); Calcium 9.1 mg/dL (8.6-10.3); Carbon Dioxide 29 mEq/L (23-29); Chloride 95 mEq/L (98-107); Glucose 135 mg/dL (70-105); Magnesium 1.5 mg/dL (1.6-2.6); Osmolality,Calculated 272 (280-300); Potassium 5.4 mEq/L (3.5-5.1); Sodium 128 mEq/L (136-145); eGFR For African Americans > 60 (> 60); eGFR For Non-African Americans > 60 (> 60)
[2021-04-25] MEDS: Azithromycin 250 MG TABLET PO SCH (09:18)
[2021-04-25] MEDS: predniSONE 20 MG TABLET PO SCH (09:18)
[2021-04-25] MEDS: Aspirin Enteric Coated 81 MG Tablet PO SCH (09:18)
[2021-04-25] MEDS: Loratadine 10 MG TABLET PO SCH (09:18)
[2021-04-25] MEDS: Bumetanide 1 MG TABLET PO SCH ×2 (09:18→16:45)
[2021-04-25] MEDS: sulfaSALAzine 500 MG TABLET PO SCH ×2 (09:18→19:27)
[2021-04-26] MEDS: Albuterol 2.5 MG/3 ML NEBULIZER IH SCH ×4 (00:42→11:12)
[2021-04-26] MEDS: *HR* Heparin 5,000 UNIT/ML VIAL SQ SCH (05:37)
[2021-04-26] MEDS: Bumetanide 1 MG TABLET PO SCH (08:07)
[2021-04-26] MEDS: predniSONE 20 MG TABLET PO SCH (08:07)
[2021-04-26] MEDS: Azithromycin 250 MG TABLET PO SCH (08:07)
[2021-04-26] MEDS: Loratadine 10 MG TABLET PO SCH (08:07)
[2021-04-26] MEDS: Aspirin Enteric Coated 81 MG Tablet PO SCH (08:07)
[2021-04-26] MEDS: sulfaSALAzine 500 MG TABLET PO SCH (08:07)
[2021-04-26 10:27] VITALS: BP 111/77; PULSE 86; TEMP 98.7
[2021-04-26 11:18] LABS: BUN/Creatinine Ratio 33 (6-26); Blood Urea Nitrogen 26 mg/dL (8-23); Calcium 8.9 mg/dL (8.6-10.3); Carbon Dioxide 33 mEq/L (23-29); Chloride 89 mEq/L (98-107); Glucose 166 mg/dL (70-105); Osmolality,Calculated 277 (280-300); Potassium 3.7 mEq/L (3.5-5.1); Sodium 129 mEq/L (136-145); eGFR For African Americans > 60 (> 60); eGFR For Non-African Americans > 60 (> 60)
[2021-04-26 11:27] VITALS: O2SAT 94
== END 2021-04-26 14:25 | disposition home or self-care (01) ==
LOC: 3ANU 12:00 → EMEROOARM 12:00 → SUATTDRO 15:39 → 3ANU 16:44
PROVIDERS: ADMIT General Practice; ATTEND Internal Medicine

== ENCOUNTER 2021-05-24 18:00 | Observation (INO) ==
[2021-05-24] MEDS ORDERED: methylPREDNISolone 125 MG/2 ML VIAL IVP ONE (18:12)
[2021-05-24] MEDS ORDERED: cefTRIAXone 1,000 MG in Water for inj. (sterile) 10 ML IVP ONE (18:12)
[2021-05-24] MEDS ORDERED: Azithromycin 500 MG in 0.9 % Sodium Chloride 250 ML IVPB ONE (18:12)
[2021-05-24] MEDS ORDERED: Ipratropium/Albuterol Neb 3 ML IH ONE (18:13)
[2021-05-24 18:47] LABS: Basophils % 0.5 %; Eosinophils # 0.5 K/mcL (0.0-0.6); Eosinophils % 11.2 %; Hemoglobin 11.9 g/dL (11.5-15.4); Lymphocytes # 1.5 K/mcL (0.6-4.6); Lymphocytes % 37.4 %; Mean Corpuscular HGB Conc 33.1 g/dL (31.6-35.5); Mean Corpuscular Hemoglobin 29.8 pg (28.0-33.3); Mean Corpuscular Volume 90.2 fL (83.0-100.0); Mean Platelet Volume 11.4 fL (9.4-12.4); Monocytes # 0.3 K/mcL (0.0-1.3); Monocytes % 7.6 %; Neutrophils # 1.8 K/mcL (1.6-8.9); Platelet Count 192 K/mcL (140-400); Red Blood Count 3.99 M/mcL (3.82-4.97); Red Cell Distribution Width 17.1 % (11.5-14.5); Segmented Neutrophils % 43.3 %; White Blood Count 4.1 K/mcL (4.3-11.1)
[2021-05-24 19:31] LABS: Alanine Aminotransferase 14 Units/L (7-52); Albumin 3.5 g/dL (3.5-5.7); Albumin/Globulin Ratio 1.1 (1.1-2.2); Alkaline Phosphatase 66 Units/L (34-104); Aspartate Amino Transferase 17 Units/L (13-39); BUN/Creatinine Ratio 9 (6-26); Bilirubin,Direct 0.1 mg/dL (0.0-0.2); Bilirubin,Indirect 0.4 mg/dL (0.0-1.0); Bilirubin,Total 0.5 mg/dL (0.3-1.0); Blood Urea Nitrogen 7 mg/dL (8-23); Calcium 9.2 mg/dL (8.6-10.3); Carbon Dioxide 31 mEq/L (23-29); Chloride 99 mEq/L (98-107); Globulin 3.1 g/dL (2.4-3.5); Glucose 87 mg/dL (70-105); Osmolality,Calculated 277 (280-300); Sodium 135 mEq/L (136-145); Total Protein 6.6 g/dL (6.4-8.9); Troponin I 0.03 ng/mL (< 0.04); eGFR For African Americans > 60 (> 60); eGFR For Non-African Americans > 60 (> 60)
[2021-05-24 21:07] LABS: Adenovirus Not Detected (Not Detect); Bordetella Pertussis Not Detected (Not Detect); Chlamydophila pneumoniae Not Detected (Not Detect); Coronavirus 229E Not Detected (Not Detect); Coronavirus HKU1 Not Detected (Not Detect); Coronavirus NL63 Not Detected (Not Detect); Coronavirus OC43 Not Detected (Not Detect); Human Metapneumovirus Not Detected (Not Detect); Human Rhinovirus/Enterovirus Not Detected (Not Detect); Influenza A Subtype 2009 H1 Not Detected (Not Detect); Influenza B Not Detected (Not Detect); Mycoplasma pneumoniae Not Detected (Not Detect); Parainfluenza Virus 1 Not Detected (Not Detect); Parainfluenza Virus 2 Not Detected (Not Detect); Parainfluenza Virus 3 Not Detected (Not Detect); Parainfluenza Virus 4 Not Detected (Not Detect); Respiratory Syncytial Virus Not Detected (Not Detect); SARS-CoV-2 Not Detected (Not Detect)
[2021-05-25] MEDS ORDERED: Naloxone 0.4 MG/ML INJ IVP PRN (03:04)
[2021-05-25] MEDS ORDERED: Melatonin 3 MG TABLET PO PRN (03:04)
[2021-05-25] MEDS ORDERED: Ondansetron 4 MG/2 ML VIAL IVP PRN (03:04)
[2021-05-25] MEDS ORDERED: Acetaminophen 325 MG TABLET PO PRN (03:04)
[2021-05-25] MEDS: Ipratropium/Albuterol Neb 3 ML IH SCH ×6 (04:31→23:17)
[2021-05-25] MEDS: Azithromycin 500 MG in 0.9 % Sodium Chloride 250 ML IVPB SCH (04:43)
[2021-05-25] MEDS: *HR* Heparin 5,000 UNIT/ML VIAL SQ SCH ×3 (04:44→20:07)
[2021-05-25 05:56] LABS: Hematocrit 34.9 % (35.3-44.9); Mean Corpuscular HGB Conc 31.5 g/dL (31.6-35.5); Mean Corpuscular Hemoglobin 28.6 pg (28.0-33.3); Mean Corpuscular Volume 90.9 fL (83.0-100.0); Mean Platelet Volume 11.6 fL (9.4-12.4); Platelet Count 198 K/mcL (140-400); Red Blood Count 3.84 M/mcL (3.82-4.97); Red Cell Distribution Width 17.2 % (11.5-14.5)
[2021-05-25] MEDS ORDERED: MethylPREDNISolone 40 MG/ML VIAL IVP SCH (06:00)
[2021-05-25 07:08] LABS: BUN/Creatinine Ratio 15 (6-26); Blood Urea Nitrogen 9 mg/dL (8-23); Calcium 8.9 mg/dL (8.6-10.3); Carbon Dioxide 23 mEq/L (23-29); Chloride 100 mEq/L (98-107); Glucose 134 mg/dL (70-105); Osmolality,Calculated 275 (280-300); Potassium 4.4 mEq/L (3.5-5.1); Sodium 132 mEq/L (136-145); Troponin I < 0.03 ng/mL (< 0.04); eGFR For African Americans > 60 (> 60); eGFR For Non-African Americans > 60 (> 60)
[2021-05-25] MEDS: sulfaSALAzine 500 MG TABLET PO SCH ×2 (08:26→20:06)
[2021-05-25] MEDS: lisinopriL 10 MG TABLET PO SCH (08:27)
[2021-05-25] MEDS: Aspirin Enteric Coated 81 MG Tablet PO SCH (08:27)
[2021-05-25] MEDS: Bumetanide 1 MG TABLET PO SCH ×2 (08:27→20:06)
[2021-05-25] MEDS: Loratadine 10 MG TABLET PO SCH (11:48)
[2021-05-25] MEDS ORDERED: Furosemide 20 MG/2 ML VIAL IVP ONE (12:59)
[2021-05-25] MEDS: MethylPREDNISolone 40 MG/ML VIAL IVP SCH ×2 (15:06→20:07)
[2021-05-26 01:53] LABS: Hematocrit 33.6 % (35.3-44.9); Hemoglobin 10.7 g/dL (11.5-15.4); Immature Granulocytes % 0.2 % (0-4); Lymphocytes # 0.5 K/mcL (0.6-4.6); Lymphocytes % 12.4 %; Mean Corpuscular HGB Conc 31.8 g/dL (31.6-35.5); Mean Corpuscular Hemoglobin 28.8 pg (28.0-33.3); Mean Corpuscular Volume 90.3 fL (83.0-100.0); Mean Platelet Volume 11.7 fL (9.4-12.4); Monocytes # 0.1 K/mcL (0.0-1.3); Monocytes % 2.6 %; Neutrophils # 3.6 K/mcL (1.6-8.9); Platelet Count 210 K/mcL (140-400); Red Blood Count 3.72 M/mcL (3.82-4.97); Red Cell Distribution Width 17.2 % (11.5-14.5); Segmented Neutrophils % 84.8 %; White Blood Count 4.3 K/mcL (4.3-11.1)
[2021-05-26 02:01] LABS: BUN/Creatinine Ratio 30 (6-26); Blood Urea Nitrogen 21 mg/dL (8-23); Carbon Dioxide 27 mEq/L (23-29); Chloride 97 mEq/L (98-107); Glucose 161 mg/dL (70-105); Magnesium 1.6 mg/dL (1.6-2.6); Osmolality,Calculated 278 (280-300); Phosphorous 4.1 mg/dL (2.7-4.5); Potassium 4.4 mEq/L (3.5-5.1); Sodium 131 mEq/L (136-145); eGFR For African Americans > 60 (> 60); eGFR For Non-African Americans > 60 (> 60)
[2021-05-26] MEDS: Ipratropium/Albuterol Neb 3 ML IH SCH ×6 (04:34→23:43)
[2021-05-26] MEDS: Azithromycin 500 MG in 0.9 % Sodium Chloride 250 ML IVPB SCH (04:41)
[2021-05-26] MEDS: *HR* Heparin 5,000 UNIT/ML VIAL SQ SCH ×3 (04:41→21:08)
[2021-05-26] MEDS: sulfaSALAzine 500 MG TABLET PO SCH ×2 (08:50→21:07)
[2021-05-26] MEDS: Bumetanide 1 MG TABLET PO SCH ×2 (08:50→21:07)
[2021-05-26] MEDS: MethylPREDNISolone 40 MG/ML VIAL IVP SCH ×2 (08:50→18:28)
[2021-05-26] MEDS: Loratadine 10 MG TABLET PO SCH (08:51)
[2021-05-26] MEDS: Aspirin Enteric Coated 81 MG Tablet PO SCH (08:51)
[2021-05-26] MEDS: lisinopriL 10 MG TABLET PO SCH (08:55)
[2021-05-26] MEDS: Budesonide/Formoterol 160/4.5 1 PUFF INH IH SCH ×2 (10:58→20:07)
[2021-05-27] MEDS: Ipratropium/Albuterol Neb 3 ML IH SCH ×6 (03:30→23:31)
[2021-05-27] MEDS: Azithromycin 500 MG in 0.9 % Sodium Chloride 250 ML IVPB SCH (05:07)
[2021-05-27] MEDS: MethylPREDNISolone 40 MG/ML VIAL IVP SCH ×3 (05:08→17:34)
[2021-05-27] MEDS: *HR* Heparin 5,000 UNIT/ML VIAL SQ SCH ×3 (05:08→20:51)
[2021-05-27] MEDS: Loratadine 10 MG TABLET PO SCH (07:37)
[2021-05-27] MEDS: Aspirin Enteric Coated 81 MG Tablet PO SCH (07:37)
[2021-05-27] MEDS: Bumetanide 1 MG TABLET PO SCH ×2 (07:38→20:50)
[2021-05-27] MEDS: lisinopriL 10 MG TABLET PO SCH (07:38)
[2021-05-27] MEDS: sulfaSALAzine 500 MG TABLET PO SCH ×2 (07:38→20:50)
[2021-05-27] MEDS: Budesonide/Formoterol 160/4.5 1 PUFF INH IH SCH ×2 (07:49→20:17)
[2021-05-27] MEDS ORDERED: Acetylcysteine 10% 2 ML INHSOL IH SCH (12:30)
[2021-05-27] MEDS: Acetylcysteine 10% 2 ML INHSOL IH SCH ×2 (15:33→23:31)
[2021-05-27 16:57] LABS: Basophils % 0.2 %; Hematocrit 34.6 % (35.3-44.9); Hemoglobin 11.2 g/dL (11.5-15.4); Immature Granulocytes % 0.2 % (0-4); Lymphocytes # 0.9 K/mcL (0.6-4.6); Mean Corpuscular HGB Conc 32.4 g/dL (31.6-35.5); Mean Corpuscular Hemoglobin 29.2 pg (28.0-33.3); Mean Corpuscular Volume 90.1 fL (83.0-100.0); Mean Platelet Volume 11.4 fL (9.4-12.4); Monocytes # 0.3 K/mcL (0.0-1.3); Monocytes % 6.7 %; Neutrophils # 3.7 K/mcL (1.6-8.9); Platelet Count 268 K/mcL (140-400); Red Blood Count 3.84 M/mcL (3.82-4.97); Red Cell Distribution Width 17.2 % (11.5-14.5); Segmented Neutrophils % 73.9 %
[2021-05-27 17:16] LABS: BUN/Creatinine Ratio 33 (6-26); Blood Urea Nitrogen 31 mg/dL (8-23); Carbon Dioxide 29 mEq/L (23-29); Chloride 93 mEq/L (98-107); Glucose 143 mg/dL (70-105); Magnesium 1.4 mg/dL (1.6-2.6); Osmolality,Calculated 279 (280-300); Phosphorous 3.9 mg/dL (2.7-4.5); Potassium 4.3 mEq/L (3.5-5.1); Sodium 130 mEq/L (136-145); eGFR For African Americans > 60 (> 60); eGFR For Non-African Americans > 60 (> 60)
[2021-05-28] MEDS: MethylPREDNISolone 40 MG/ML VIAL IVP SCH ×3 (00:43→12:23)
[2021-05-28] MEDS: Ipratropium/Albuterol Neb 3 ML IH SCH ×3 (03:16→11:40)
[2021-05-28] MEDS: Azithromycin 500 MG in 0.9 % Sodium Chloride 250 ML IVPB SCH (05:31)
[2021-05-28] MEDS: *HR* Heparin 5,000 UNIT/ML VIAL SQ SCH ×2 (05:32→12:23)
[2021-05-28] MEDS: Budesonide/Formoterol 160/4.5 1 PUFF INH IH SCH (08:03)
[2021-05-28] MEDS: Loratadine 10 MG TABLET PO SCH (08:48)
[2021-05-28] MEDS: lisinopriL 10 MG TABLET PO SCH (08:48)
[2021-05-28] MEDS: Aspirin Enteric Coated 81 MG Tablet PO SCH (08:48)
[2021-05-28] MEDS: sulfaSALAzine 500 MG TABLET PO SCH (08:48)
[2021-05-28] MEDS: Bumetanide 1 MG TABLET PO SCH (08:48)
[2021-05-28 12:03] VITALS: BP 105/71; PULSE 84; TEMP 97.7; O2SAT 98
[2021-05-31] MEDS ORDERED: ETANERCEPT 50 MG/ML SQ SCH (12:00)
== END 2021-05-28 14:02 | disposition home or self-care (01) ==
LOC: EMEROOARM 18:00 → 3BNU 18:00 → SUATTDRO 23:57 → 3BNU 05-25 01:10
PROVIDERS: ADMIT Student in an Organized Health Care Education/Training Program; ATTEND Internal Medicine

== ENCOUNTER 2021-06-24 19:25 | Inpatient (IN) ==
[2021-06-24] MEDS ORDERED: 0.9 % Sodium Chloride 500 ML IVC ONE (20:20)
[2021-06-24] MEDS ORDERED: Aspirin 81 MG TAB.CHEW PO ONE (20:20)
[2021-06-24 20:38] LABS: Basophils % 0.2 %; Eosinophils # 1.1 K/mcL (0.0-0.6); Eosinophils % 23.8 %; Hematocrit 33.2 % (35.3-44.9); Hemoglobin 10.9 g/dL (11.5-15.4); Immature Granulocytes % 0.2 % (0-4); Lymphocytes # 1.4 K/mcL (0.6-4.6); Lymphocytes % 32.2 %; Mean Corpuscular HGB Conc 32.8 g/dL (31.6-35.5); Mean Corpuscular Hemoglobin 28.7 pg (28.0-33.3); Mean Corpuscular Volume 87.4 fL (83.0-100.0); Mean Platelet Volume 10.7 fL (9.4-12.4); Monocytes # 0.3 K/mcL (0.0-1.3); Monocytes % 7.5 %; Neutrophils # 1.6 K/mcL (1.6-8.9); Platelet Count 272 K/mcL (140-400); Red Cell Distribution Width 15.6 % (11.5-14.5); Segmented Neutrophils % 36.1 %; White Blood Count 4.4 K/mcL (4.3-11.1)
[2021-06-24 20:47] LABS: INR 1.3
[2021-06-24 20:49] LABS: Activated Partial Thrombo Time 30.3 Seconds (26.0-36.0)
[2021-06-24 21:02] LABS: ABG Base Excess 4 mEq/L (-2 to 3); ABG HCO3 30 mEq/L (21-27); ABG Oxygen Saturation 86 % (95-98); ABG PCO2 47 mmHg (35-45); ABG PH 7.41 pH Units (7.32-7.45); ABG PO2 52 mmHg (85-104); ABG TCO2 31 mEq/L (20-26)
[2021-06-24 21:06] LABS: Alanine Aminotransferase 11 Units/L (7-52); Albumin 3.2 g/dL (3.5-5.7); Alkaline Phosphatase 55 Units/L (34-104); Aspartate Amino Transferase 18 Units/L (13-39); BUN/Creatinine Ratio 18 (6-26); Bilirubin,Direct 0.1 mg/dL (0.0-0.2); Bilirubin,Indirect 0.3 mg/dL (0.0-1.0); Bilirubin,Total 0.4 mg/dL (0.3-1.0); Blood Urea Nitrogen 10 mg/dL (8-23); Calcium 9.3 mg/dL (8.6-10.3); Carbon Dioxide 30 mEq/L (23-29); Chloride 91 mEq/L (98-107); Globulin 3.1 g/dL (2.4-3.5); Glucose 112 mg/dL (70-105); Lipase 8 Units/L (11-82); Osmolality,Calculated 260 (280-300); Potassium 4.4 mEq/L (3.5-5.1); Sodium 125 mEq/L (136-145); Total Protein 6.3 g/dL (6.4-8.9); eGFR For African Americans > 60 (> 60); eGFR For Non-African Americans > 60 (> 60)
[2021-06-24 21:14] LABS: Platelet Estimate Normal (Normal)
[2021-06-24 21:23] LABS: Troponin I < 0.03 ng/mL (< 0.04)
[2021-06-24 21:48] LABS: Bilirubin,Urine Negative (Negative); Blood,Urine Negative (Negative); Clarity,Urine Clear (Clear); Color,Urine Yellow (Yellow); Glucose,Urine (UA) Normal (Normal); Ketones,Urine Negative (Negative); Leukocyte Esterase,Urine Negative (Negative); Nitrite,Urine Negative (Negative); PH,Urine 6.5 pH Units (5.0-8.0); Protein,Urine Negative (Neg-Trace); Specific Gravity,Urine 1.015 (1.010-1.025); Urobilinogen,Urine Normal (Normal)
[2021-06-24] MEDS ORDERED: Isovue-370 500 ML BOTTLE IVP ONE (22:58)
[2021-06-25] MEDS ORDERED: Furosemide 40 MG/4 ML VIAL IVP ONE (00:29)
[2021-06-25] MEDS ORDERED: Melatonin 3 MG TABLET PO PRN (01:14)
[2021-06-25] MEDS ORDERED: Naloxone 0.4 MG/ML INJ IVP PRN (01:14)
[2021-06-25 01:34] LABS: Influenza A PCR Negative (Negative); Influenza B PCR Negative (Negative); Resp. Syncytial Virus PCR Negative (Negative)
[2021-06-25 01:37] LABS: SARS-CoV-2 by PCR (In House) Negative (Negative)
[2021-06-25] MEDS: MethylPREDNISolone 40 MG/ML VIAL IVP SCH ×3 (02:47→17:24)
[2021-06-25] MEDS: GuaiFENesin Liq 200 MG/10 ML UDC PO PRN (02:51)
[2021-06-25 03:25] LABS: Hematocrit 38.1 % (35.3-44.9); Hemoglobin 12.2 g/dL (11.5-15.4); Mean Corpuscular Hemoglobin 28.2 pg (28.0-33.3); Mean Corpuscular Volume 88.2 fL (83.0-100.0); Mean Platelet Volume 10.7 fL (9.4-12.4); Platelet Count 320 K/mcL (140-400); Red Blood Count 4.32 M/mcL (3.82-4.97); Red Cell Distribution Width 15.8 % (11.5-14.5); White Blood Count 4.5 K/mcL (4.3-11.1)
[2021-06-25 03:43] LABS: BUN/Creatinine Ratio 14 (6-26); Blood Urea Nitrogen 9 mg/dL (8-23); Calcium 9.5 mg/dL (8.6-10.3); Carbon Dioxide 32 mEq/L (23-29); Chloride 90 mEq/L (98-107); Glucose 124 mg/dL (70-105); Osmolality,Calculated 262 (280-300); Potassium 4.4 mEq/L (3.5-5.1); Sodium 126 mEq/L (136-145); eGFR For African Americans > 60 (> 60); eGFR For Non-African Americans > 60 (> 60)
[2021-06-25 03:58] LABS: Adenovirus Not Detected (Not Detect); Bordetella Pertussis Not Detected (Not Detect); Chlamydophila pneumoniae Not Detected (Not Detect); Coronavirus 229E Not Detected (Not Detect); Coronavirus HKU1 Not Detected (Not Detect); Coronavirus NL63 Not Detected (Not Detect); Coronavirus OC43 Not Detected (Not Detect); Human Metapneumovirus Not Detected (Not Detect); Human Rhinovirus/Enterovirus Not Detected (Not Detect); Influenza A Subtype 2009 H1 Not Detected (Not Detect); Influenza B Not Detected (Not Detect); Mycoplasma pneumoniae Not Detected (Not Detect); Parainfluenza Virus 1 Not Detected (Not Detect); Parainfluenza Virus 2 Not Detected (Not Detect); Parainfluenza Virus 3 Not Detected (Not Detect); Parainfluenza Virus 4 Not Detected (Not Detect); Respiratory Syncytial Virus Not Detected (Not Detect); SARS-CoV-2 Not Detected (Not Detect)
[2021-06-25 04:04] LABS: Ferritin 24 ng/mL (10-120); Iron 27 mcg/dL (50-170)
[2021-06-25 04:09] LABS: % Iron Saturation 7 % (15-50); Transferrin 271 mg/dL (203-362)
[2021-06-25] MEDS: *HR* Heparin 5,000 UNIT/ML VIAL SQ SCH ×2 (05:18→17:24)
[2021-06-25] MEDS: Budesonide/Formoterol 160/4.5 1 PUFF INH IH SCH ×2 (07:59→19:51)
[2021-06-25] MEDS: Ipratropium/Albuterol Neb 3 ML IH SCH ×5 (07:59→22:57)
[2021-06-25] MEDS: Sucralfate 1 GM TABLET PO SCH ×3 (12:46→20:52)
[2021-06-25] MEDS ORDERED: Bumetanide 1 MG TABLET PO SCH (17:00)
[2021-06-25] MEDS: Bumetanide 1 MG/4 ML VIAL IVP SCH (17:36)
[2021-06-25] MEDS: sulfaSALAzine 500 MG TABLET PO SCH (20:52)
[2021-06-25] MEDS ORDERED: NON-FORMULARY MEDICATION 1 EACH EACH (Omeprazole [Prilosec] 40 MG Capsule.Dr) PO SCH (21:00)
[2021-06-26 02:21] LABS: BUN/Creatinine Ratio 29 (6-26); Blood Urea Nitrogen 18 mg/dL (8-23); Calcium 9.1 mg/dL (8.6-10.3); Carbon Dioxide 28 mEq/L (23-29); Chloride 90 mEq/L (98-107); Glucose 149 mg/dL (70-105); Magnesium 1.6 mg/dL (1.6-2.6); Osmolality,Calculated 265 (280-300); Potassium 4.8 mEq/L (3.5-5.1); Sodium 125 mEq/L (136-145); eGFR For African Americans > 60 (> 60); eGFR For Non-African Americans > 60 (> 60)
[2021-06-26] MEDS: MethylPREDNISolone 40 MG/ML VIAL IVP SCH ×3 (02:29→18:13)
[2021-06-26] MEDS: Ipratropium/Albuterol Neb 3 ML IH SCH ×6 (04:28→23:17)
[2021-06-26] MEDS: *HR* Heparin 5,000 UNIT/ML VIAL SQ SCH ×2 (05:01→18:14)
[2021-06-26] MEDS: Budesonide/Formoterol 160/4.5 1 PUFF INH IH SCH ×2 (07:58→19:43)
[2021-06-26] MEDS: sulfaSALAzine 500 MG TABLET PO SCH ×2 (09:31→20:42)
[2021-06-26] MEDS: Aspirin Enteric Coated 81 MG Tablet PO SCH (09:31)
[2021-06-26] MEDS: lisinopriL 10 MG TABLET PO SCH (09:31)
[2021-06-26] MEDS: Sucralfate 1 GM TABLET PO SCH ×4 (09:31→20:42)
[2021-06-26] MEDS: Bumetanide 1 MG/4 ML VIAL IVP SCH ×2 (09:32→18:13)
[2021-06-26] MEDS: GuaiFENesin Liq 200 MG/10 ML UDC PO PRN (10:32)
[2021-06-26] MEDS ORDERED: Acetaminophen 325 MG TABLET PO PRN (18:15)
[2021-06-27 02:06] LABS: BUN/Creatinine Ratio 38 (6-26); Blood Urea Nitrogen 28 mg/dL (8-23); Calcium 8.9 mg/dL (8.6-10.3); Carbon Dioxide 31 mEq/L (23-29); Chloride 90 mEq/L (98-107); Glucose 125 mg/dL (70-105); Osmolality,Calculated 271 (280-300); Potassium 4.5 mEq/L (3.5-5.1); Sodium 127 mEq/L (136-145); eGFR For African Americans > 60 (> 60); eGFR For Non-African Americans > 60 (> 60)
[2021-06-27] MEDS: MethylPREDNISolone 40 MG/ML VIAL IVP SCH (02:20)
[2021-06-27] MEDS: Ipratropium/Albuterol Neb 3 ML IH SCH ×6 (03:56→23:37)
[2021-06-27] MEDS: *HR* Heparin 5,000 UNIT/ML VIAL SQ SCH ×2 (05:30→16:44)
[2021-06-27] MEDS: Budesonide/Formoterol 160/4.5 1 PUFF INH IH SCH ×2 (07:45→19:48)
[2021-06-27] MEDS: Aspirin Enteric Coated 81 MG Tablet PO SCH (08:50)
[2021-06-27] MEDS: Sucralfate 1 GM TABLET PO SCH ×4 (08:50→20:55)
[2021-06-27] MEDS: sulfaSALAzine 500 MG TABLET PO SCH ×2 (09:02→20:55)
[2021-06-27] MEDS: Bumetanide 1 MG/4 ML VIAL IVP SCH (09:26)
[2021-06-27] MEDS: lisinopriL 10 MG TABLET PO SCH (09:27)
[2021-06-27] MEDS: Bumetanide 1 MG TABLET PO SCH ×2 (09:54→16:44)
[2021-06-27] MEDS: predniSONE 20 MG TABLET PO SCH (09:54)
[2021-06-27] MEDS: Magnesium Oxide 400 MG TABLET PO SCH (17:09)
[2021-06-28 01:32] LABS: Hematocrit 31.7 % (35.3-44.9); Mean Corpuscular HGB Conc 32.8 g/dL (31.6-35.5); Mean Corpuscular Hemoglobin 29.1 pg (28.0-33.3); Mean Corpuscular Volume 88.5 fL (83.0-100.0); Mean Platelet Volume 10.5 fL (9.4-12.4); Platelet Count 306 K/mcL (140-400); Red Blood Count 3.58 M/mcL (3.82-4.97); Red Cell Distribution Width 15.9 % (11.5-14.5); White Blood Count 6.1 K/mcL (4.3-11.1)
[2021-06-28 01:33] LABS: Hemoglobin 10.4 g/dL (11.5-15.4)
[2021-06-28 01:52] LABS: Calcium 8.5 mg/dL (8.6-10.3); Carbon Dioxide 30 mEq/L (23-29); Chloride 91 mEq/L (98-107); Glucose 105 mg/dL (70-105); Magnesium 1.6 mg/dL (1.6-2.6); Potassium 4.2 mEq/L (3.5-5.1); Sodium 128 mEq/L (136-145); eGFR For African Americans > 60 (> 60); eGFR For Non-African Americans > 60 (> 60)
[2021-06-28] MEDS: Ipratropium/Albuterol Neb 3 ML IH SCH ×6 (04:12→23:29)
[2021-06-28 05:06] LABS: BUN/Creatinine Ratio 44 (6-26); Blood Urea Nitrogen 31 mg/dL (8-23); Osmolality,Calculated 273 (280-300)
[2021-06-28] MEDS: *HR* Heparin 5,000 UNIT/ML VIAL SQ SCH ×2 (06:25→17:56)
[2021-06-28] MEDS: Budesonide/Formoterol 160/4.5 1 PUFF INH IH SCH ×2 (07:26→19:46)
[2021-06-28] MEDS: predniSONE 20 MG TABLET PO SCH (07:57)
[2021-06-28] MEDS: Magnesium Oxide 400 MG TABLET PO SCH (07:58)
[2021-06-28] MEDS: Sucralfate 1 GM TABLET PO SCH ×4 (07:58→20:08)
[2021-06-28] MEDS: Aspirin Enteric Coated 81 MG Tablet PO SCH (07:58)
[2021-06-28] MEDS: Bumetanide 1 MG TABLET PO SCH ×2 (07:58→17:55)
[2021-06-28] MEDS: sulfaSALAzine 500 MG TABLET PO SCH ×2 (07:59→20:08)
[2021-06-28] MEDS: lisinopriL 10 MG TABLET PO SCH (08:10)
[2021-06-28] MEDS: GuaiFENesin Liq 200 MG/10 ML UDC PO PRN (20:08)
[2021-06-29 02:03] LABS: BUN/Creatinine Ratio 41 (6-26); Blood Urea Nitrogen 30 mg/dL (8-23); Calcium 8.5 mg/dL (8.6-10.3); Carbon Dioxide 36 mEq/L (23-29); Chloride 89 mEq/L (98-107); Glucose 108 mg/dL (70-105); Osmolality,Calculated 275 (280-300); Sodium 129 mEq/L (136-145); eGFR For African Americans > 60 (> 60); eGFR For Non-African Americans > 60 (> 60)
[2021-06-29] MEDS: Ipratropium/Albuterol Neb 3 ML IH SCH ×3 (03:39→10:48)
[2021-06-29] MEDS: *HR* Heparin 5,000 UNIT/ML VIAL SQ SCH (05:24)
[2021-06-29] MEDS: Budesonide/Formoterol 160/4.5 1 PUFF INH IH SCH (07:41)
[2021-06-29 08:10] VITALS: BP 110/79; PULSE 119; TEMP 98.7
[2021-06-29] MEDS: sulfaSALAzine 500 MG TABLET PO SCH (08:25)
[2021-06-29] MEDS: Sucralfate 1 GM TABLET PO SCH (08:26)
[2021-06-29] MEDS: Bumetanide 1 MG TABLET PO SCH (08:26)
[2021-06-29] MEDS: predniSONE 20 MG TABLET PO SCH (08:26)
[2021-06-29] MEDS: Aspirin Enteric Coated 81 MG Tablet PO SCH (08:26)
[2021-06-29] MEDS: Magnesium Oxide 400 MG TABLET PO SCH (08:27)
[2021-06-29] MEDS: lisinopriL 10 MG TABLET PO SCH (08:27)
[2021-06-29 10:58] VITALS: O2SAT 96
== END 2021-06-29 17:15 | disposition home or self-care (01) | DRG 140 ==
LOC: 2ANU 19:25 → EMEROOARM 19:25 → SUATTDRO 06-25 01:38 → OBSVTOIN 06-25 01:38 → 2ANU 06-25 02:13
PROVIDERS: ADMIT Internal Medicine; ATTEND Internal Medicine

== ENCOUNTER 2021-07-15 13:28 | Observation (INO) ==
[2021-07-15] MEDS ORDERED: 0.9 % Sodium Chloride 1,000 ML IVC ONE (13:45)
[2021-07-15 14:02] LABS: Basophils % 0.2 %; Eosinophils # 0.5 K/mcL (0.0-0.6); Eosinophils % 9.5 %; Hematocrit 38.1 % (35.3-44.9); Hemoglobin 12.3 g/dL (11.5-15.4); Immature Granulocytes % 0.2 % (0-4); Lymphocytes # 1.7 K/mcL (0.6-4.6); Lymphocytes % 29.2 %; Mean Corpuscular HGB Conc 32.3 g/dL (31.6-35.5); Mean Corpuscular Hemoglobin 27.9 pg (28.0-33.3); Mean Corpuscular Volume 86.4 fL (83.0-100.0); Mean Platelet Volume 10.7 fL (9.4-12.4); Monocytes # 0.4 K/mcL (0.0-1.3); Monocytes % 6.3 %; Neutrophils # 3.1 K/mcL (1.6-8.9); Platelet Count 171 K/mcL (140-400); Red Blood Count 4.41 M/mcL (3.82-4.97); Red Cell Distribution Width 15.8 % (11.5-14.5); Segmented Neutrophils % 54.6 %; White Blood Count 5.7 K/mcL (4.3-11.1)
[2021-07-15 14:07] LABS: INR 1.2; Prothrombin Time 13.3 Seconds (9.4-12.1)
[2021-07-15 14:19] LABS: BUN/Creatinine Ratio 10 (6-26); Blood Urea Nitrogen 6 mg/dL (8-23); Calcium 9.5 mg/dL (8.6-10.3); Carbon Dioxide 26 mEq/L (23-29); Chloride 96 mEq/L (98-107); Glucose 99 mg/dL (70-105); Osmolality,Calculated 266 (280-300); Potassium 4.1 mEq/L (3.5-5.1); Sodium 129 mEq/L (136-145); eGFR For African Americans > 60 (> 60); eGFR For Non-African Americans > 60 (> 60)
[2021-07-15 14:29] LABS: Troponin I 0.05 ng/mL (< 0.04)
[2021-07-15 14:46] LABS: Influenza A PCR Negative (Negative); Influenza B PCR Negative (Negative); Resp. Syncytial Virus PCR Negative (Negative); SARS-CoV-2 by PCR (In House) Negative (Negative)
[2021-07-15] MEDS ORDERED: Aspirin 325 MG TABLET PO ONE (14:51)
[2021-07-15] MEDS ORDERED: Naloxone 0.4 MG/ML INJ IVP PRN (14:53)
[2021-07-15] MEDS ORDERED: Ondansetron 4 MG/2 ML VIAL IVP PRN (14:53)
[2021-07-15] MEDS ORDERED: Albuterol 2.5 MG/3 ML NEBULIZER IH PRN (14:55)
[2021-07-15] MEDS: Bumetanide 1 MG TABLET PO SCH (17:39)
[2021-07-15] MEDS: Sucralfate 1 GM TABLET PO SCH ×2 (17:39→20:50)
[2021-07-15] MEDS: Budesonide/Formoterol 80/4.5 1 PUFF INH IH SCH (20:21)
[2021-07-15] MEDS: sulfaSALAzine 500 MG TABLET PO SCH (20:50)
[2021-07-15] MEDS: *HR* Heparin 5,000 UNIT/ML VIAL SQ SCH (20:51)
[2021-07-15] MEDS: Albuterol 2.5 MG/3 ML NEBULIZER IH SCH (23:27)
[2021-07-16 02:27] LABS: Basophils % 0.2 %; Eosinophils # 0.6 K/mcL (0.0-0.6); Eosinophils % 13.2 %; Hemoglobin 10.6 g/dL (11.5-15.4); Immature Granulocytes % 0.2 % (0-4); Lymphocytes # 1.6 K/mcL (0.6-4.6); Lymphocytes % 39.1 %; Mean Corpuscular HGB Conc 32.1 g/dL (31.6-35.5); Mean Corpuscular Volume 87.1 fL (83.0-100.0); Mean Platelet Volume 11.5 fL (9.4-12.4); Monocytes # 0.3 K/mcL (0.0-1.3); Monocytes % 7.7 %; Neutrophils # 1.7 K/mcL (1.6-8.9); Platelet Count 152 K/mcL (140-400); Red Blood Count 3.79 M/mcL (3.82-4.97); Red Cell Distribution Width 15.8 % (11.5-14.5); Segmented Neutrophils % 39.6 %; White Blood Count 4.2 K/mcL (4.3-11.1)
[2021-07-16 02:40] LABS: BUN/Creatinine Ratio 7 (6-26); Blood Urea Nitrogen 5 mg/dL (8-23); Calcium 8.7 mg/dL (8.6-10.3); Carbon Dioxide 25 mEq/L (23-29); Chloride 99 mEq/L (98-107); Glucose 113 mg/dL (70-105); Magnesium 1.4 mg/dL (1.6-2.6); Osmolality,Calculated 268 (280-300); Potassium 4.2 mEq/L (3.5-5.1); Sodium 130 mEq/L (136-145); eGFR For African Americans > 60 (> 60); eGFR For Non-African Americans > 60 (> 60)
[2021-07-16] MEDS: Albuterol 2.5 MG/3 ML NEBULIZER IH SCH ×6 (03:54→23:29)
[2021-07-16] MEDS: *HR* Heparin 5,000 UNIT/ML VIAL SQ SCH ×3 (04:45→20:03)
[2021-07-16] MEDS: Budesonide/Formoterol 80/4.5 1 PUFF INH IH SCH ×2 (07:19→19:52)
[2021-07-16] MEDS ORDERED: Magnesium Sulfate 1 GM/102 ML PIGGYBACK IVPB ONE (10:29)
[2021-07-16] MEDS ORDERED: Regadenoson 0.4 MG/5 ML SYRINGE IVP ONE (11:18)
[2021-07-16] MEDS: Loratadine 10 MG TABLET PO SCH (13:47)
[2021-07-16] MEDS: Sucralfate 1 GM TABLET PO SCH ×4 (13:47→19:59)
[2021-07-16] MEDS: Aspirin Enteric Coated 81 MG Tablet PO SCH (13:47)
[2021-07-16] MEDS: lisinopriL 10 MG TABLET PO SCH (13:47)
[2021-07-16] MEDS: sulfaSALAzine 500 MG TABLET PO SCH ×2 (13:56→19:59)
[2021-07-16] MEDS: Bumetanide 1 MG TABLET PO SCH ×2 (13:57→16:09)
[2021-07-17] MEDS: Albuterol 2.5 MG/3 ML NEBULIZER IH SCH ×2 (03:18→07:55)
[2021-07-17 05:19] LABS: BUN/Creatinine Ratio 11 (6-26); Blood Urea Nitrogen 8 mg/dL (8-23); Calcium 8.9 mg/dL (8.6-10.3); Carbon Dioxide 29 mEq/L (23-29); Chloride 95 mEq/L (98-107); Glucose 107 mg/dL (70-105); Osmolality,Calculated 265 (280-300); Potassium 3.9 mEq/L (3.5-5.1); Sodium 128 mEq/L (136-145); eGFR For African Americans > 60 (> 60); eGFR For Non-African Americans > 60 (> 60)
[2021-07-17 05:20] LABS: Basophils % 0.2 %; Eosinophils # 0.5 K/mcL (0.0-0.6); Eosinophils % 12.2 %; Hematocrit 31.9 % (35.3-44.9); Immature Granulocytes % 0.2 % (0-4); Lymphocytes # 1.4 K/mcL (0.6-4.6); Lymphocytes % 34.7 %; Mean Corpuscular HGB Conc 31.3 g/dL (31.6-35.5); Mean Corpuscular Hemoglobin 27.2 pg (28.0-33.3); Mean Corpuscular Volume 86.9 fL (83.0-100.0); Mean Platelet Volume 11.6 fL (9.4-12.4); Monocytes # 0.3 K/mcL (0.0-1.3); Monocytes % 7.7 %; Neutrophils # 1.8 K/mcL (1.6-8.9); Platelet Count 137 K/mcL (140-400); Red Blood Count 3.67 M/mcL (3.82-4.97); Red Cell Distribution Width 15.6 % (11.5-14.5)
[2021-07-17] MEDS: *HR* Heparin 5,000 UNIT/ML VIAL SQ SCH (05:26)
[2021-07-17 06:47] VITALS: BP 95/57; PULSE 78; TEMP 98.3
[2021-07-17] MEDS: Budesonide/Formoterol 80/4.5 1 PUFF INH IH SCH (07:55)
[2021-07-17 07:58] VITALS: O2SAT 96
[2021-07-17] MEDS: Loratadine 10 MG TABLET PO SCH (08:01)
[2021-07-17] MEDS: Bumetanide 1 MG TABLET PO SCH (08:01)
[2021-07-17] MEDS: Sucralfate 1 GM TABLET PO SCH (08:01)
[2021-07-17] MEDS: Aspirin Enteric Coated 81 MG Tablet PO SCH (08:01)
[2021-07-17] MEDS: sulfaSALAzine 500 MG TABLET PO SCH (08:01)
[2021-07-17] MEDS: lisinopriL 10 MG TABLET PO SCH (08:04)
== END 2021-07-17 10:36 | disposition home or self-care (01) ==
LOC: 3BNU 13:28 → EMEROOARM 13:28 → SUATTDRO 15:18 → 3BNU 16:04
PROVIDERS: ADMIT Family Medicine; ATTEND Internal Medicine

== ENCOUNTER 2021-07-24 23:08 | Inpatient (IN) ==
[2021-07-24] MEDS ORDERED: 0.9 % Sodium Chloride 500 ML IV ONE (23:36)
[2021-07-24] MEDS ORDERED: Ipratropium/Albuterol Neb 3 ML IH ONE (23:46)
[2021-07-25 00:19] LABS: ABG Base Excess -2 mEq/L (-2 to 3); ABG HCO3 23 mEq/L (21-27); ABG Oxygen Saturation 96 % (95-98); ABG PCO2 38 mmHg (35-45); ABG PH 7.38 pH Units (7.32-7.45); ABG PO2 86 mmHg (85-104); ABG TCO2 24 mEq/L (20-26)
[2021-07-25 00:28] LABS: Basophils % 0.3 %; Eosinophils # 0.2 K/mcL (0.0-0.6); Eosinophils % 6.1 %; Hematocrit 32.2 % (35.3-44.9); Hemoglobin 10.6 g/dL (11.5-15.4); Immature Granulocytes % 0.6 % (0-4); Lymphocytes # 0.9 K/mcL (0.6-4.6); Lymphocytes % 23.6 %; Mean Corpuscular HGB Conc 32.9 g/dL (31.6-35.5); Mean Corpuscular Hemoglobin 28.4 pg (28.0-33.3); Mean Corpuscular Volume 86.3 fL (83.0-100.0); Mean Platelet Volume 11.8 fL (9.4-12.4); Monocytes # 0.3 K/mcL (0.0-1.3); Monocytes % 8.3 %; Neutrophils # 2.2 K/mcL (1.6-8.9); Platelet Count 195 K/mcL (140-400); Red Blood Count 3.73 M/mcL (3.82-4.97); Red Cell Distribution Width 15.2 % (11.5-14.5); Segmented Neutrophils % 61.1 %; White Blood Count 3.6 K/mcL (4.3-11.1)
[2021-07-25 00:38] LABS: Alanine Aminotransferase 17 Units/L (7-52); Albumin 3.3 g/dL (3.5-5.7); Alkaline Phosphatase 58 Units/L (34-104); Aspartate Amino Transferase 18 Units/L (13-39); BUN/Creatinine Ratio 18 (6-26); Bilirubin,Direct 0.2 mg/dL (0.0-0.2); Bilirubin,Indirect 0.4 mg/dL (0.0-1.0); Bilirubin,Total 0.6 mg/dL (0.3-1.0); Blood Urea Nitrogen 9 mg/dL (8-23); Calcium 8.9 mg/dL (8.6-10.3); Carbon Dioxide 25 mEq/L (23-29); Chloride 92 mEq/L (98-107); Globulin 3.2 g/dL (2.4-3.5); Glucose 119 mg/dL (70-105); Osmolality,Calculated 256 (280-300); Potassium 4.7 mEq/L (3.5-5.1); Sodium 123 mEq/L (136-145); Total Protein 6.5 g/dL (6.4-8.9); Troponin I 0.03 ng/mL (< 0.04); eGFR For African Americans > 60 (> 60); eGFR For Non-African Americans > 60 (> 60)
[2021-07-25] MEDS ORDERED: Isovue-370 500 ML BOTTLE IVP ONE (00:39)
[2021-07-25 01:03] LABS: Adenovirus Not Detected (Not Detect); Bordetella Pertussis Not Detected (Not Detect); Chlamydophila pneumoniae Not Detected (Not Detect); Coronavirus 229E Not Detected (Not Detect); Coronavirus HKU1 Not Detected (Not Detect); Coronavirus NL63 Not Detected (Not Detect); Coronavirus OC43 Not Detected (Not Detect); Human Metapneumovirus Not Detected (Not Detect); Human Rhinovirus/Enterovirus Not Detected (Not Detect); Influenza A Subtype 2009 H1 Not Detected (Not Detect); Influenza B Not Detected (Not Detect); Mycoplasma pneumoniae Not Detected (Not Detect); Parainfluenza Virus 1 Not Detected (Not Detect); Parainfluenza Virus 2 Not Detected (Not Detect); Parainfluenza Virus 3 Not Detected (Not Detect); Parainfluenza Virus 4 Not Detected (Not Detect); Respiratory Syncytial Virus Not Detected (Not Detect); SARS-CoV-2 Not Detected (Not Detect)
[2021-07-25] MEDS ORDERED: Acetaminophen 325 MG TABLET PO PRN (02:30)
[2021-07-25] MEDS ORDERED: Naloxone 0.4 MG/ML INJ IVP PRN (02:30)
[2021-07-25] MEDS ORDERED: Ondansetron 4 MG/2 ML VIAL IVP PRN (02:30)
[2021-07-25] MEDS: Azithromycin 500 MG in 0.9 % Sodium Chloride 250 ML IVPB SCH (03:03)
[2021-07-25 03:37] LABS: BUN/Creatinine Ratio 17 (6-26); Blood Urea Nitrogen 9 mg/dL (8-23); Calcium 8.8 mg/dL (8.6-10.3); Carbon Dioxide 25 mEq/L (23-29); Chloride 92 mEq/L (98-107); Glucose 143 mg/dL (70-105); Magnesium 1.6 mg/dL (1.6-2.6); Osmolality,Calculated 257 (280-300); Phosphorous 3.8 mg/dL (2.7-4.5); Potassium 4.7 mEq/L (3.5-5.1); Sodium 123 mEq/L (136-145); eGFR For African Americans > 60 (> 60); eGFR For Non-African Americans > 60 (> 60)
[2021-07-25] MEDS ORDERED: 0.9 % Sodium Chloride 1,000 ML IVC ONE ×2 (04:13→10:57)
[2021-07-25] MEDS: Ipratropium/Albuterol Neb 3 ML IH SCH ×4 (04:13→23:10)
[2021-07-25] MEDS: *HR* Heparin 5,000 UNIT/ML VIAL SQ SCH ×2 (05:08→18:47)
[2021-07-25 06:49] LABS: BUN/Creatinine Ratio 17 (6-26); Blood Urea Nitrogen 9 mg/dL (8-23); Calcium 9.1 mg/dL (8.6-10.3); Carbon Dioxide 23 mEq/L (23-29); Chloride 94 mEq/L (98-107); Glucose 159 mg/dL (70-105); Osmolality,Calculated 260 (280-300); Potassium 4.9 mEq/L (3.5-5.1); Sodium 124 mEq/L (136-145); Troponin I < 0.03 ng/mL (< 0.04); eGFR For African Americans > 60 (> 60); eGFR For Non-African Americans > 60 (> 60)
[2021-07-25 07:01] LABS: Thyroid Stimulating Hormone 0.331 mcIU/mL (0.340-5.600)
[2021-07-25] MEDS: predniSONE 20 MG TABLET PO SCH (09:19)
[2021-07-25 10:46] LABS: BUN/Creatinine Ratio 15 (6-26); Blood Urea Nitrogen 8 mg/dL (8-23); Carbon Dioxide 25 mEq/L (23-29); Chloride 95 mEq/L (98-107); Glucose 150 mg/dL (70-105); Osmolality,Calculated 261 (280-300); Sodium 125 mEq/L (136-145); eGFR For African Americans > 60 (> 60); eGFR For Non-African Americans > 60 (> 60)
[2021-07-25] MEDS: Albuterol 2.5 MG/3 ML NEBULIZER IH PRN ×2 (11:09→19:44)
[2021-07-25 16:51] LABS: BUN/Creatinine Ratio 25 (6-26); Blood Urea Nitrogen 14 mg/dL (8-23); Calcium 8.9 mg/dL (8.6-10.3); Carbon Dioxide 24 mEq/L (23-29); Chloride 93 mEq/L (98-107); Glucose 114 mg/dL (70-105); Osmolality,Calculated 255 (280-300); Potassium 5.5 mEq/L (3.5-5.1); Sodium 122 mEq/L (136-145); eGFR For African Americans > 60 (> 60); eGFR For Non-African Americans > 60 (> 60)
[2021-07-25] MEDS: Benzonatate 100 MG CAPSULE PO PRN (18:47)
[2021-07-25] MEDS: 0.9 % Sodium Chloride 1,000 ML IVC SCH (19:10)
[2021-07-25] MEDS: sulfaSALAzine 500 MG TABLET PO SCH (20:24)
[2021-07-25 20:34] LABS: BUN/Creatinine Ratio 25 (6-26); Blood Urea Nitrogen 16 mg/dL (8-23); Carbon Dioxide 23 mEq/L (23-29); Chloride 94 mEq/L (98-107); Glucose 125 mg/dL (70-105); Osmolality,Calculated 261 (280-300); Potassium 5.1 mEq/L (3.5-5.1); Sodium 124 mEq/L (136-145); eGFR For African Americans > 60 (> 60); eGFR For Non-African Americans > 60 (> 60)
[2021-07-26 00:20] LABS: Bilirubin,Urine Negative (Negative); Blood,Urine Negative (Negative); Clarity,Urine Clear (Clear); Color,Urine Light-Yellow (Yellow); Glucose,Urine (UA) Normal (Normal); Ketones,Urine Negative (Negative); Leukocyte Esterase,Urine Negative (Negative); Nitrite,Urine Negative (Negative); PH,Urine 6.5 pH Units (5.0-8.0); Protein,Urine Negative (Neg-Trace); Specific Gravity,Urine 1.009 (1.010-1.025); Urobilinogen,Urine Normal (Normal)
[2021-07-26 01:31] LABS: BUN/Creatinine Ratio 28 (6-26); Blood Urea Nitrogen 17 mg/dL (8-23); Calcium 9.1 mg/dL (8.6-10.3); Carbon Dioxide 26 mEq/L (23-29); Chloride 94 mEq/L (98-107); Glucose 104 mg/dL (70-105); Osmolality,Calculated 262 (280-300); Potassium 4.7 mEq/L (3.5-5.1); Sodium 125 mEq/L (136-145); eGFR For African Americans > 60 (> 60); eGFR For Non-African Americans > 60 (> 60)
[2021-07-26] MEDS: Azithromycin 500 MG in 0.9 % Sodium Chloride 250 ML IVPB SCH (02:29)
[2021-07-26] MEDS: Ipratropium/Albuterol Neb 3 ML IH SCH ×4 (04:34→15:45)
[2021-07-26 04:56] LABS: Basophils % 0.3 %; Eosinophils # 0.1 K/mcL (0.0-0.6); Eosinophils % 1.7 %; Hematocrit 31.5 % (35.3-44.9); Hemoglobin 9.7 g/dL (11.5-15.4); Immature Granulocytes % 0.3 % (0-4); Lymphocytes # 1.3 K/mcL (0.6-4.6); Mean Corpuscular HGB Conc 30.8 g/dL (31.6-35.5); Mean Corpuscular Volume 87.7 fL (83.0-100.0); Mean Platelet Volume 11.8 fL (9.4-12.4); Monocytes # 0.4 K/mcL (0.0-1.3); Monocytes % 9.7 %; Neutrophils # 1.9 K/mcL (1.6-8.9); Platelet Count 205 K/mcL (140-400); Red Blood Count 3.59 M/mcL (3.82-4.97); Red Cell Distribution Width 15.5 % (11.5-14.5); White Blood Count 3.6 K/mcL (4.3-11.1)
[2021-07-26 05:10] LABS: BUN/Creatinine Ratio 26 (6-26); Blood Urea Nitrogen 16 mg/dL (8-23); Calcium 9.1 mg/dL (8.6-10.3); Carbon Dioxide 24 mEq/L (23-29); Chloride 95 mEq/L (98-107); Glucose 111 mg/dL (70-105); Osmolality,Calculated 264 (280-300); Potassium 4.7 mEq/L (3.5-5.1); Sodium 126 mEq/L (136-145); eGFR For African Americans > 60 (> 60); eGFR For Non-African Americans > 60 (> 60)
[2021-07-26] MEDS: *HR* Heparin 5,000 UNIT/ML VIAL SQ SCH ×2 (05:10→18:16)
[2021-07-26] MEDS: Loratadine 10 MG TABLET PO SCH (10:24)
[2021-07-26] MEDS: Aspirin Enteric Coated 81 MG Tablet PO SCH (10:25)
[2021-07-26] MEDS: Benzonatate 100 MG CAPSULE PO PRN ×2 (10:25→21:40)
[2021-07-26] MEDS: predniSONE 20 MG TABLET PO SCH (10:25)
[2021-07-26] MEDS: lisinopriL 10 MG TABLET PO SCH (10:25)
[2021-07-26] MEDS: Famotidine 20 MG TABLET PO SCH (10:26)
[2021-07-26] MEDS: sulfaSALAzine 500 MG TABLET PO SCH ×2 (10:28→21:33)
[2021-07-26] MEDS ORDERED: Chloraseptic Spray 177 ML BOTTLE MM PRN (10:42)
[2021-07-26] MEDS: MethylPREDNISolone 40 MG/ML VIAL IVP SCH (12:03)
[2021-07-26 12:10] LABS: BUN/Creatinine Ratio 22 (6-26); Blood Urea Nitrogen 13 mg/dL (8-23); Calcium 9.3 mg/dL (8.6-10.3); Carbon Dioxide 26 mEq/L (23-29); Chloride 95 mEq/L (98-107); Glucose 112 mg/dL (70-105); Osmolality,Calculated 263 (280-300); Potassium 4.3 mEq/L (3.5-5.1); Sodium 126 mEq/L (136-145); eGFR For African Americans > 60 (> 60); eGFR For Non-African Americans > 60 (> 60)
[2021-07-26 16:41] LABS: BUN/Creatinine Ratio 18 (6-26); Blood Urea Nitrogen 14 mg/dL (8-23); Calcium 9.2 mg/dL (8.6-10.3); Carbon Dioxide 24 mEq/L (23-29); Chloride 96 mEq/L (98-107); Glucose 131 mg/dL (70-105); Osmolality,Calculated 264 (280-300); Potassium 5.3 mEq/L (3.5-5.1); Sodium 126 mEq/L (136-145); eGFR For African Americans > 60 (> 60); eGFR For Non-African Americans > 60 (> 60)
[2021-07-26] MEDS ORDERED: Calcium Gluconate 1gm/50mL 1 GM/50 ML BAG IVPB ONE (17:21)
[2021-07-26] MEDS ORDERED: *HR* Metoprolol 5 MG/5 ML VIAL IVP ONE (17:46)
[2021-07-26] MEDS: 0.9 % Sodium Chloride 1,000 ML IVC SCH (18:29)
[2021-07-26 20:03] LABS: BUN/Creatinine Ratio 22 (6-26); Blood Urea Nitrogen 16 mg/dL (8-23); Calcium 9.6 mg/dL (8.6-10.3); Carbon Dioxide 22 mEq/L (23-29); Chloride 95 mEq/L (98-107); Glucose 208 mg/dL (70-105); Osmolality,Calculated 267 (280-300); Potassium 5.3 mEq/L (3.5-5.1); Sodium 125 mEq/L (136-145); eGFR For African Americans > 60 (> 60); eGFR For Non-African Americans > 60 (> 60)
[2021-07-26] MEDS: Levalbuterol Neb 0.63 MG/3 ML IH SCH (20:03)
[2021-07-26] MEDS: Melatonin 3 MG TABLET PO PRN (21:40)
[2021-07-27] MEDS: 0.9 % Sodium Chloride 1,000 ML IVC SCH ×2 (00:56→02:45)
[2021-07-27 01:19] LABS: Basophils % 0.3 %; Hematocrit 31.6 % (35.3-44.9); Hemoglobin 10.3 g/dL (11.5-15.4); Immature Granulocytes % 0.3 % (0-4); Lymphocytes % 24.7 %; Mean Corpuscular HGB Conc 32.6 g/dL (31.6-35.5); Mean Corpuscular Hemoglobin 28.5 pg (28.0-33.3); Mean Corpuscular Volume 87.5 fL (83.0-100.0); Mean Platelet Volume 11.4 fL (9.4-12.4); Monocytes # 0.2 K/mcL (0.0-1.3); Monocytes % 6.1 %; Neutrophils # 2.7 K/mcL (1.6-8.9); Platelet Count 268 K/mcL (140-400); Red Blood Count 3.61 M/mcL (3.82-4.97); Red Cell Distribution Width 15.6 % (11.5-14.5); Segmented Neutrophils % 68.6 %
[2021-07-27 01:36] LABS: BUN/Creatinine Ratio 25 (6-26); Blood Urea Nitrogen 15 mg/dL (8-23); Calcium 9.1 mg/dL (8.6-10.3); Carbon Dioxide 26 mEq/L (23-29); Chloride 97 mEq/L (98-107); Glucose 113 mg/dL (70-105); Osmolality,Calculated 268 (280-300); Potassium 5.2 mEq/L (3.5-5.1); Sodium 128 mEq/L (136-145); eGFR For African Americans > 60 (> 60); eGFR For Non-African Americans > 60 (> 60)
[2021-07-27] MEDS: Azithromycin 500 MG in 0.9 % Sodium Chloride 250 ML IVPB SCH (02:45)
[2021-07-27] MEDS: Levalbuterol Neb 0.63 MG/3 ML IH SCH ×2 (03:12→07:45)
[2021-07-27] MEDS: *HR* Heparin 5,000 UNIT/ML VIAL SQ SCH ×2 (05:17→17:07)
[2021-07-27 06:05] LABS: BUN/Creatinine Ratio 25 (6-26); Blood Urea Nitrogen 15 mg/dL (8-23); Calcium 9.1 mg/dL (8.6-10.3); Carbon Dioxide 26 mEq/L (23-29); Chloride 97 mEq/L (98-107); Glucose 105 mg/dL (70-105); Osmolality,Calculated 267 (280-300); Potassium 4.6 mEq/L (3.5-5.1); Sodium 128 mEq/L (136-145); eGFR For African Americans > 60 (> 60); eGFR For Non-African Americans > 60 (> 60)
[2021-07-27] MEDS ORDERED: *HR* LORazepam 2 MG/ML VIAL IVP ONE (08:35)
[2021-07-27] MEDS ORDERED: *HR* Metoprolol 5 MG/5 ML VIAL IVP ONE (08:51)
[2021-07-27 09:01] LABS: ABG Base Excess 0 mEq/L (-2 to 3); ABG HCO3 29 mEq/L (21-27); ABG Oxygen Saturation 94 % (95-98); ABG PCO2 73 mmHg (35-45); ABG PH 7.21 pH Units (7.32-7.45); ABG PO2 87 mmHg (85-104); ABG TCO2 32 mEq/L (20-26); Blood Gas Modality CPAP/PS
[2021-07-27] MEDS: sulfaSALAzine 500 MG TABLET PO SCH ×2 (09:04→19:47)
[2021-07-27] MEDS: Famotidine 20 MG TABLET PO SCH (09:04)
[2021-07-27] MEDS: Aspirin Enteric Coated 81 MG Tablet PO SCH (09:04)
[2021-07-27] MEDS: Loratadine 10 MG TABLET PO SCH (09:04)
[2021-07-27] MEDS: lisinopriL 10 MG TABLET PO SCH (09:05)
[2021-07-27] MEDS: MethylPREDNISolone 40 MG/ML VIAL IVP SCH ×3 (09:06→23:55)
[2021-07-27] MEDS ORDERED: Furosemide 40 MG/4 ML VIAL IVP ONE (09:09)
[2021-07-27 11:26] LABS: ABG Base Excess 2 mEq/L (-2 to 3); ABG HCO3 29 mEq/L (21-27); ABG Oxygen Saturation 97 % (95-98); ABG PCO2 53 mmHg (35-45); ABG PH 7.35 pH Units (7.32-7.45); ABG PO2 92 mmHg (85-104); ABG TCO2 30 mEq/L (20-26)
[2021-07-27] MEDS: Nystatin POWDER 30 GM BOTTLE TP SCH ×2 (17:49→19:47)
[2021-07-27] MEDS: Benzonatate 100 MG CAPSULE PO PRN (19:45)
[2021-07-27] MEDS: Melatonin 3 MG TABLET PO PRN (19:46)
[2021-07-28] MEDS: Azithromycin 500 MG in 0.9 % Sodium Chloride 250 ML IVPB SCH (03:22)
[2021-07-28 03:47] LABS: Hematocrit 31.1 % (35.3-44.9); Hemoglobin 10.2 g/dL (11.5-15.4); Immature Granulocytes % 0.3 % (0-4); Lymphocytes # 0.8 K/mcL (0.6-4.6); Lymphocytes % 25.3 %; Mean Corpuscular HGB Conc 32.8 g/dL (31.6-35.5); Mean Corpuscular Hemoglobin 28.8 pg (28.0-33.3); Mean Corpuscular Volume 87.9 fL (83.0-100.0); Mean Platelet Volume 11.4 fL (9.4-12.4); Monocytes # 0.1 K/mcL (0.0-1.3); Monocytes % 3.7 %; Neutrophils # 2.1 K/mcL (1.6-8.9); Platelet Count 276 K/mcL (140-400); Red Blood Count 3.54 M/mcL (3.82-4.97); Red Cell Distribution Width 15.5 % (11.5-14.5); Segmented Neutrophils % 70.7 %
[2021-07-28 04:04] LABS: BUN/Creatinine Ratio 28 (6-26); Blood Urea Nitrogen 17 mg/dL (8-23); Carbon Dioxide 28 mEq/L (23-29); Chloride 97 mEq/L (98-107); Glucose 138 mg/dL (70-105); Osmolality,Calculated 272 (280-300); Potassium 4.8 mEq/L (3.5-5.1); Sodium 129 mEq/L (136-145); eGFR For African Americans > 60 (> 60); eGFR For Non-African Americans > 60 (> 60)
[2021-07-28] MEDS: *HR* Heparin 5,000 UNIT/ML VIAL SQ SCH ×2 (04:42→16:49)
[2021-07-28] MEDS: lisinopriL 10 MG TABLET PO SCH (08:14)
[2021-07-28] MEDS: Nystatin POWDER 30 GM BOTTLE TP SCH ×2 (08:14→20:05)
[2021-07-28] MEDS: Loratadine 10 MG TABLET PO SCH (08:14)
[2021-07-28] MEDS: Famotidine 20 MG TABLET PO SCH (08:14)
[2021-07-28] MEDS: sulfaSALAzine 500 MG TABLET PO SCH ×2 (08:14→20:03)
[2021-07-28] MEDS: MethylPREDNISolone 40 MG/ML VIAL IVP SCH ×3 (08:14→23:24)
[2021-07-28] MEDS: Aspirin Enteric Coated 81 MG Tablet PO SCH (08:14)
[2021-07-28] MEDS: Ipratropium Neb 0.5 MG NEBULIZER IH PRN ×2 (08:23→16:58)
[2021-07-28] MEDS: Bumetanide 1 MG TABLET PO SCH (17:09)
[2021-07-28] MEDS: Melatonin 3 MG TABLET PO PRN (20:04)
[2021-07-28] MEDS: Benzonatate 100 MG CAPSULE PO PRN (20:04)
[2021-07-29] MEDS: *HR* Heparin 5,000 UNIT/ML VIAL SQ SCH ×2 (04:57→16:48)
[2021-07-29] MEDS: Azithromycin 500 MG in 0.9 % Sodium Chloride 250 ML IVPB SCH (04:57)
[2021-07-29 05:43] LABS: Hematocrit 31.4 % (35.3-44.9); Hemoglobin 9.8 g/dL (11.5-15.4); Immature Granulocytes % 0.3 % (0-4); Lymphocytes # 1.2 K/mcL (0.6-4.6); Lymphocytes % 36.3 %; Mean Corpuscular HGB Conc 31.2 g/dL (31.6-35.5); Mean Corpuscular Hemoglobin 27.3 pg (28.0-33.3); Mean Corpuscular Volume 87.5 fL (83.0-100.0); Mean Platelet Volume 10.8 fL (9.4-12.4); Monocytes # 0.2 K/mcL (0.0-1.3); Monocytes % 5.9 %; Neutrophils # 1.9 K/mcL (1.6-8.9); Platelet Count 275 K/mcL (140-400); Red Blood Count 3.59 M/mcL (3.82-4.97); Red Cell Distribution Width 15.2 % (11.5-14.5); Segmented Neutrophils % 57.5 %; White Blood Count 3.2 K/mcL (4.3-11.1)
[2021-07-29 05:47] LABS: VBG HCO3 28 mEq/L (21-27); VBG PCO2 41 mmHg (41-51); VBG PH 7.44 pH Units (7.32-7.42); VBG PO2 136 mmHg (25-50)
[2021-07-29 06:05] LABS: BUN/Creatinine Ratio 31 (6-26); Blood Urea Nitrogen 20 mg/dL (8-23); Carbon Dioxide 30 mEq/L (23-29); Chloride 95 mEq/L (98-107); Glucose 127 mg/dL (70-105); Osmolality,Calculated 272 (280-300); Potassium 4.5 mEq/L (3.5-5.1); Sodium 129 mEq/L (136-145); eGFR For African Americans > 60 (> 60); eGFR For Non-African Americans > 60 (> 60)
[2021-07-29] MEDS: Famotidine 20 MG TABLET PO SCH (07:35)
[2021-07-29] MEDS: Bumetanide 1 MG TABLET PO SCH ×2 (07:35→16:48)
[2021-07-29] MEDS: lisinopriL 10 MG TABLET PO SCH (07:35)
[2021-07-29] MEDS: Aspirin Enteric Coated 81 MG Tablet PO SCH (07:35)
[2021-07-29] MEDS: Loratadine 10 MG TABLET PO SCH (07:35)
[2021-07-29] MEDS: sulfaSALAzine 500 MG TABLET PO SCH ×2 (07:35→21:06)
[2021-07-29] MEDS: Nystatin POWDER 30 GM BOTTLE TP SCH ×2 (07:36→21:07)
[2021-07-29] MEDS: MethylPREDNISolone 40 MG/ML VIAL IVP SCH ×2 (07:36→21:06)
[2021-07-29] MEDS: Ipratropium Neb 0.5 MG NEBULIZER IH PRN ×2 (07:47→19:48)
[2021-07-29 10:44] LABS: Chol/HDL Ratio 2.5 (0-4.9); Cholesterol 98 mg/dL (< 200); Ferritin 15 ng/mL (10-120); HDL Cholesterol 39 mg/dL (40-59); Iron < 10 mcg/dL (50-170); LDL Cholesterol,Calculated 49 mg/dL (< 100); Thyroid Stimulating Hormone 0.967 mcIU/mL (0.340-5.600); Triglycerides 50 mg/dL (< 150); Triiodothyronine (T3) Total 45 ng/dL (87-178)
[2021-07-29] MEDS ORDERED: Tolvaptan 15 MG TABLET PO ONE (12:14)
[2021-07-29] MEDS: Melatonin 3 MG TABLET PO PRN (21:07)
[2021-07-30 03:29] LABS: BUN/Creatinine Ratio 31 (6-26); Blood Urea Nitrogen 24 mg/dL (8-23); Calcium 8.7 mg/dL (8.6-10.3); Carbon Dioxide 30 mEq/L (23-29); Chloride 95 mEq/L (98-107); Glucose 128 mg/dL (70-105); Osmolality,Calculated 284 (280-300); Potassium 4.5 mEq/L (3.5-5.1); Sodium 134 mEq/L (136-145); eGFR For African Americans > 60 (> 60); eGFR For Non-African Americans > 60 (> 60)
[2021-07-30] MEDS: *HR* Heparin 5,000 UNIT/ML VIAL SQ SCH (05:16)
[2021-07-30] MEDS: Azithromycin 500 MG in 0.9 % Sodium Chloride 250 ML IVPB SCH (05:16)
[2021-07-30 07:54] VITALS: BP 118/83; PULSE 81; TEMP 98.6
[2021-07-30] MEDS: lisinopriL 10 MG TABLET PO SCH (08:41)
[2021-07-30] MEDS: Famotidine 20 MG TABLET PO SCH (08:41)
[2021-07-30] MEDS: Aspirin Enteric Coated 81 MG Tablet PO SCH (08:41)
[2021-07-30] MEDS: Bumetanide 1 MG TABLET PO SCH (08:42)
[2021-07-30] MEDS: MethylPREDNISolone 40 MG/ML VIAL IVP SCH (08:42)
[2021-07-30] MEDS: Nystatin POWDER 30 GM BOTTLE TP SCH (08:42)
[2021-07-30] MEDS: sulfaSALAzine 500 MG TABLET PO SCH (08:42)
[2021-07-30] MEDS: Loratadine 10 MG TABLET PO SCH (08:42)
[2021-07-30] MEDS: Ipratropium Neb 0.5 MG NEBULIZER IH PRN ×2 (09:13→15:15)
[2021-07-30 11:48] VITALS: O2SAT 94
[2021-07-31] MEDS ORDERED: predniSONE 20 MG TABLET PO SCH (09:00)
[2021-07-31 10:28] LABS: Transferrin 253 mg/dL (200-400)
[2021-08-02 03:00] LABS: Alpha 2 Globulin (PEP) 0.67 g/dL (0.48-1.05); Beta Globulin (PEP) 0.77 g/dL (0.48-1.10)
[2021-08-02 12:02] LABS: Immunoglobulin A 368 mg/dL (68-408); Immunoglobulin G 1203 mg/dL (768-1632); Immunoglobulin M 69 mg/dL (35-263)
[2021-08-02 13:04] LABS: IFE Reflexed IFE Done
== END 2021-07-30 16:01 | disposition home or self-care (01) | DRG 140 ==
LOC: 2ANU 23:08 → EMEROOARM 23:08 → SUATTDRO 07-25 01:49 → 2ANU 07-25 02:13
PROVIDERS: ADMIT Internal Medicine; ATTEND Internal Medicine

== ENCOUNTER 2021-08-30 10:49 | Inpatient (IN) ==
[2021-08-30] MEDS ORDERED: ETANERCEPT 50 MG/ML SQ SCH (12:00)
[2021-08-30 13:34] LABS: Hematocrit 35.2 % (35.3-44.9); Hemoglobin 11.1 g/dL (11.5-15.4); Mean Corpuscular HGB Conc 31.5 g/dL (31.6-35.5); Mean Corpuscular Hemoglobin 26.4 pg (28.0-33.3); Mean Corpuscular Volume 83.8 fL (83.0-100.0); Mean Platelet Volume 10.8 fL (9.4-12.4); Platelet Count 323 K/mcL (140-400); Red Cell Distribution Width 16.3 % (11.5-14.5); White Blood Count 4.9 K/mcL (4.3-11.1)
[2021-08-30 13:54] LABS: BUN/Creatinine Ratio 9 (6-26); Blood Urea Nitrogen 5 mg/dL (8-23); Calcium 8.7 mg/dL (8.6-10.3); Carbon Dioxide 24 mEq/L (23-29); Chloride 97 mEq/L (98-107); Glucose 84 mg/dL (70-105); Osmolality,Calculated 260 (280-300); Potassium 4.2 mEq/L (3.5-5.1); Sodium 127 mEq/L (136-145); Troponin I < 0.03 ng/mL (< 0.04); eGFR For African Americans > 60 (> 60); eGFR For Non-African Americans > 60 (> 60)
[2021-08-30 14:51] LABS: Alanine Aminotransferase 13 Units/L (7-52); Albumin 2.8 g/dL (3.5-5.7); Albumin/Globulin Ratio 0.8 (1.1-2.2); Alkaline Phosphatase 51 Units/L (34-104); Aspartate Amino Transferase 26 Units/L (13-39); Bilirubin,Direct 0.1 mg/dL (0.0-0.2); Bilirubin,Indirect 0.4 mg/dL (0.0-1.0); Bilirubin,Total 0.5 mg/dL (0.3-1.0); Globulin 3.4 g/dL (2.4-3.5); Total Protein 6.2 g/dL (6.4-8.9)
[2021-08-30 15:02] LABS: Eosinophils # 0.9 K/mcL (0.0-0.6); Monocytes # 0.3 K/mcL (0.0-1.3); Neutrophils # 2.7 K/mcL (1.6-8.9)
[2021-08-30 15:03] LABS: Platelet Estimate Normal (Normal)
[2021-08-30 15:04] LABS: INR 1.3; Prothrombin Time 14.8 Seconds (9.4-12.1)
[2021-08-30 15:04] LABS: Anisocytosis 1+ (Not Present); Poikilocytosis 1+ (Not Present)
[2021-08-30 15:07] LABS: Activated Partial Thrombo Time 32.7 Seconds (26.0-36.0)
[2021-08-30] MEDS ORDERED: Bumetanide 1 MG/4 ML VIAL IVP ONE (16:39)
[2021-08-30] MEDS ORDERED: Vancomycin 1,250 MG/262.5 ML IV.SOLN IVPB ONE (17:24)
[2021-08-30 17:57] LABS: Troponin I < 0.03 ng/mL (< 0.04)
[2021-08-30] MEDS ORDERED: Ipratropium/Albuterol Neb 3 ML IH ONE (18:23)
[2021-08-30 18:49] LABS: Thyroid Stimulating Hormone 6.855 mcIU/mL (0.340-5.600)
[2021-08-30] MEDS ORDERED: Naloxone 0.4 MG/ML INJ IVP PRN (19:19)
[2021-08-30 19:33] LABS: Influenza A PCR Negative (Negative); Influenza B PCR Negative (Negative); Resp. Syncytial Virus PCR Negative (Negative)
[2021-08-30 19:34] LABS: SARS-CoV-2 by PCR (In House) Negative (Negative)
[2021-08-30 19:40] LABS: C-Reactive Protein 6 mg/L (Less than 10)
[2021-08-30] MEDS: Albuterol 2.5 MG/3 ML NEBULIZER IH SCH ×3 (21:16→23:50)
[2021-08-30] MEDS ORDERED: Albuterol 2.5 MG/3 ML NEBULIZER ONE (22:03)
[2021-08-31] MEDS: Albuterol 2.5 MG/3 ML NEBULIZER IH SCH ×6 (03:47→23:51)
[2021-08-31] MEDS: *HR* Heparin 5,000 UNIT/ML VIAL SQ SCH ×2 (05:35→18:02)
[2021-08-31] MEDS ORDERED: Ampicillin/Sulbactam 1,500 MG in 0.9 % Sodium Chloride Mini Bag 100 ML IVPB SCH (09:00)
[2021-08-31] MEDS: Bumetanide 1 MG/4 ML VIAL IVP SCH ×3 (09:36→19:53)
[2021-08-31] MEDS: Famotidine 20 MG TABLET PO SCH (09:42)
[2021-08-31] MEDS: Aspirin Enteric Coated 81 MG Tablet PO SCH (09:42)
[2021-08-31] MEDS: Loratadine 10 MG TABLET PO SCH (09:42)
[2021-08-31] MEDS ORDERED: Albumin 25% 12.5gm/50mL 12.5 GM/50 ML IV.SOLN IVPB SCH (10:29)
[2021-08-31] MEDS: Albumin 25% 12.5gm/50mL 12.5 GM/50 ML IV.SOLN IVPB SCH ×3 (11:55→23:48)
[2021-08-31] MEDS: cefTRIAXone 1,000 MG in Water for inj. (sterile) 10 ML IVP SCH (12:42)
[2021-08-31] MEDS: Vancomycin 1,250 MG/262.5 ML IV.SOLN IVPB SCH (14:33)
[2021-09-01] MEDS: Vancomycin 1,250 MG/262.5 ML IV.SOLN IVPB SCH ×2 (00:43→15:07)
[2021-09-01] MEDS: Albuterol 2.5 MG/3 ML NEBULIZER IH SCH ×6 (04:34→23:12)
[2021-09-01] MEDS: *HR* Heparin 5,000 UNIT/ML VIAL SQ SCH ×2 (05:13→17:23)
[2021-09-01 07:26] LABS: Basophils % 0.3 %; Eosinophils # 0.9 K/mcL (0.0-0.6); Eosinophils % 23.5 %; Hematocrit 31.7 % (35.3-44.9); Hemoglobin 10.2 g/dL (11.5-15.4); Immature Granulocytes % 0.3 % (0-4); Lymphocytes # 1.1 K/mcL (0.6-4.6); Lymphocytes % 28.9 %; Mean Corpuscular HGB Conc 32.2 g/dL (31.6-35.5); Mean Corpuscular Hemoglobin 26.9 pg (28.0-33.3); Mean Corpuscular Volume 83.6 fL (83.0-100.0); Mean Platelet Volume 10.6 fL (9.4-12.4); Monocytes # 0.2 K/mcL (0.0-1.3); Monocytes % 4.1 %; Neutrophils # 1.6 K/mcL (1.6-8.9); Platelet Count 305 K/mcL (140-400); Red Blood Count 3.79 M/mcL (3.82-4.97); Red Cell Distribution Width 16.1 % (11.5-14.5); Segmented Neutrophils % 42.9 %; White Blood Count 3.7 K/mcL (4.3-11.1)
[2021-09-01 07:43] LABS: BUN/Creatinine Ratio 11 (6-26); Blood Urea Nitrogen 7 mg/dL (8-23); Calcium 8.3 mg/dL (8.6-10.3); Carbon Dioxide 28 mEq/L (23-29); Chloride 96 mEq/L (98-107); Glucose 96 mg/dL (70-105); Magnesium 1.2 mg/dL (1.6-2.6); Osmolality,Calculated 264 (280-300); Potassium 3.8 mEq/L (3.5-5.1); Sodium 128 mEq/L (136-145); eGFR For African Americans > 60 (> 60); eGFR For Non-African Americans > 60 (> 60)
[2021-09-01] MEDS: Ondansetron ODT 4 MG TAB.RAPDIS PO PRN (09:12)
[2021-09-01] MEDS: Bumetanide 1 MG/4 ML VIAL IVP SCH ×2 (09:14→16:06)
[2021-09-01] MEDS: cefTRIAXone 1,000 MG in Water for inj. (sterile) 10 ML IVP SCH (09:17)
[2021-09-01] MEDS: Aspirin Enteric Coated 81 MG Tablet PO SCH (09:24)
[2021-09-01] MEDS: Loratadine 10 MG TABLET PO SCH (09:25)
[2021-09-01] MEDS: Famotidine 20 MG TABLET PO SCH (09:26)
[2021-09-01 10:23] LABS: Anisocytosis 1+ (Not Present); Platelet Estimate Normal (Normal); Poikilocytosis 1+ (Not Present)
[2021-09-01] MEDS: Albumin 25% 12.5gm/50mL 12.5 GM/50 ML IV.SOLN IVPB SCH ×3 (16:09→20:29)
[2021-09-02] MEDS: Albumin 25% 12.5gm/50mL 12.5 GM/50 ML IV.SOLN IVPB SCH ×3 (01:30→17:58)
[2021-09-02] MEDS: Vancomycin 1,250 MG/262.5 ML IV.SOLN IVPB SCH ×2 (02:44→13:19)
[2021-09-02] MEDS: Albuterol 2.5 MG/3 ML NEBULIZER IH SCH ×6 (03:52→23:57)
[2021-09-02] MEDS: *HR* Heparin 5,000 UNIT/ML VIAL SQ SCH ×2 (05:13→17:58)
[2021-09-02 06:27] LABS: Basophils % 0.3 %; Eosinophils # 0.9 K/mcL (0.0-0.6); Eosinophils % 22.4 %; Hematocrit 31.2 % (35.3-44.9); Hemoglobin 9.9 g/dL (11.5-15.4); Immature Granulocytes % 0.3 % (0-4); Lymphocytes % 26.8 %; Mean Corpuscular HGB Conc 31.7 g/dL (31.6-35.5); Mean Corpuscular Hemoglobin 26.6 pg (28.0-33.3); Mean Corpuscular Volume 83.9 fL (83.0-100.0); Mean Platelet Volume 10.9 fL (9.4-12.4); Monocytes # 0.2 K/mcL (0.0-1.3); Monocytes % 3.9 %; Neutrophils # 1.8 K/mcL (1.6-8.9); Platelet Count 281 K/mcL (140-400); Red Blood Count 3.72 M/mcL (3.82-4.97); Red Cell Distribution Width 16.1 % (11.5-14.5); Segmented Neutrophils % 46.3 %; White Blood Count 3.9 K/mcL (4.3-11.1)
[2021-09-02 06:49] LABS: BUN/Creatinine Ratio 13 (6-26); Blood Urea Nitrogen 9 mg/dL (8-23); Calcium 8.6 mg/dL (8.6-10.3); Carbon Dioxide 30 mEq/L (23-29); Chloride 98 mEq/L (98-107); Glucose 102 mg/dL (70-105); Lymphocytes # 1.1 K/mcL (0.6-4.6); Magnesium 1.4 mg/dL (1.6-2.6); Osmolality,Calculated 261 (280-300); Potassium 3.9 mEq/L (3.5-5.1); Sodium 126 mEq/L (136-145); eGFR For African Americans > 60 (> 60); eGFR For Non-African Americans > 60 (> 60)
[2021-09-02 08:00] LABS: Anisocytosis 1+ (Not Present); Platelet Estimate Normal (Normal)
[2021-09-02 08:01] LABS: Hypochromasia Present (Not Present); Poikilocytosis 1+ (Not Present)
[2021-09-02] MEDS: Loratadine 10 MG TABLET PO SCH (09:06)
[2021-09-02] MEDS: Famotidine 20 MG TABLET PO SCH (09:06)
[2021-09-02] MEDS: Aspirin Enteric Coated 81 MG Tablet PO SCH (09:06)
[2021-09-02] MEDS: Bumetanide 1 MG/4 ML VIAL IVP SCH (09:07)
[2021-09-02] MEDS: cefTRIAXone 1,000 MG in Water for inj. (sterile) 10 ML IVP SCH (09:07)
[2021-09-02] MEDS: sulfaSALAzine 500 MG TABLET PO SCH ×2 (11:59→20:25)
[2021-09-02] MEDS: metOLazone 5 MG TABLET PO SCH (11:59)
[2021-09-02] MEDS: Furosemide 40 MG/4 ML VIAL IVP SCH ×2 (11:59→20:34)
[2021-09-03] MEDS: Vancomycin 1,250 MG/262.5 ML IV.SOLN IVPB SCH (00:19)
[2021-09-03] MEDS: Albumin 25% 12.5gm/50mL 12.5 GM/50 ML IV.SOLN IVPB SCH ×3 (01:21→17:24)
[2021-09-03 03:30] LABS: Basophils % 0.5 %; Eosinophils # 1.2 K/mcL (0.0-0.6); Eosinophils % 30.3 %; Hematocrit 31.3 % (35.3-44.9); Immature Granulocytes % 0.5 % (0-4); Lymphocytes % 25.4 %; Mean Corpuscular HGB Conc 31.9 g/dL (31.6-35.5); Mean Corpuscular Hemoglobin 26.4 pg (28.0-33.3); Mean Corpuscular Volume 82.6 fL (83.0-100.0); Mean Platelet Volume 10.8 fL (9.4-12.4); Monocytes # 0.1 K/mcL (0.0-1.3); Monocytes % 3.4 %; Neutrophils # 1.6 K/mcL (1.6-8.9); Platelet Count 291 K/mcL (140-400); Red Blood Count 3.79 M/mcL (3.82-4.97); Red Cell Distribution Width 16.3 % (11.5-14.5); Segmented Neutrophils % 39.9 %; White Blood Count 4.1 K/mcL (4.3-11.1)
[2021-09-03 03:49] LABS: BUN/Creatinine Ratio 14 (6-26); Blood Urea Nitrogen 10 mg/dL (8-23); Calcium 8.7 mg/dL (8.6-10.3); Carbon Dioxide 32 mEq/L (23-29); Chloride 90 mEq/L (98-107); Glucose 101 mg/dL (70-105); Magnesium 1.3 mg/dL (1.6-2.6); Osmolality,Calculated 267 (280-300); Phosphorous 4.4 mg/dL (2.7-4.5); Potassium 3.6 mEq/L (3.5-5.1); Sodium 129 mEq/L (136-145); eGFR For African Americans > 60 (> 60); eGFR For Non-African Americans > 60 (> 60)
[2021-09-03] MEDS: Albuterol 2.5 MG/3 ML NEBULIZER IH SCH ×5 (04:05→19:42)
[2021-09-03] MEDS: *HR* Heparin 5,000 UNIT/ML VIAL SQ SCH ×2 (05:48→17:24)
[2021-09-03] MEDS: Ondansetron ODT 4 MG TAB.RAPDIS PO PRN (07:39)
[2021-09-03] MEDS: Loratadine 10 MG TABLET PO SCH (07:40)
[2021-09-03] MEDS: metOLazone 5 MG TABLET PO SCH (07:40)
[2021-09-03] MEDS: Furosemide 40 MG/4 ML VIAL IVP SCH ×2 (07:40→21:00)
[2021-09-03] MEDS: Famotidine 20 MG TABLET PO SCH (07:41)
[2021-09-03] MEDS: cefTRIAXone 1,000 MG in Water for inj. (sterile) 10 ML IVP SCH (07:41)
[2021-09-03] MEDS: sulfaSALAzine 500 MG TABLET PO SCH ×2 (07:41→21:00)
[2021-09-03] MEDS: Aspirin Enteric Coated 81 MG Tablet PO SCH (07:42)
[2021-09-03] MEDS: Doxycycline 100 MG CAPSULE PO SCH ×2 (10:13→21:00)
[2021-09-03] MEDS ORDERED: Metoclopramide 10 MG/2 ML VIAL IVP ONE (13:25)
[2021-09-03] MEDS: Acetaminophen 325 MG TABLET PO PRN (13:40)
[2021-09-04] MEDS: Albuterol 2.5 MG/3 ML NEBULIZER IH SCH ×7 (00:02→23:57)
[2021-09-04 01:05] LABS: Basophils % 0.2 %; Eosinophils # 1.7 K/mcL (0.0-0.6); Eosinophils % 36.2 %; Hematocrit 32.7 % (35.3-44.9); Hemoglobin 10.4 g/dL (11.5-15.4); Immature Granulocytes % 0.2 % (0-4); Lymphocytes # 1.2 K/mcL (0.6-4.6); Lymphocytes % 26.5 %; Mean Corpuscular HGB Conc 31.8 g/dL (31.6-35.5); Mean Corpuscular Hemoglobin 25.9 pg (28.0-33.3); Mean Corpuscular Volume 81.3 fL (83.0-100.0); Mean Platelet Volume 11.3 fL (9.4-12.4); Monocytes # 0.2 K/mcL (0.0-1.3); Monocytes % 3.9 %; Neutrophils # 1.5 K/mcL (1.6-8.9); Platelet Count 296 K/mcL (140-400); Red Blood Count 4.02 M/mcL (3.82-4.97); White Blood Count 4.6 K/mcL (4.3-11.1)
[2021-09-04 01:21] LABS: BUN/Creatinine Ratio 20 (6-26); Blood Urea Nitrogen 16 mg/dL (8-23); Calcium 9.4 mg/dL (8.6-10.3); Carbon Dioxide 35 mEq/L (23-29); Chloride 87 mEq/L (98-107); Glucose 109 mg/dL (70-105); Magnesium 1.5 mg/dL (1.6-2.6); Osmolality,Calculated 266 (280-300); Phosphorous 4.8 mg/dL (2.7-4.5); Potassium 3.7 mEq/L (3.5-5.1); Sodium 127 mEq/L (136-145); eGFR For African Americans > 60 (> 60); eGFR For Non-African Americans > 60 (> 60)
[2021-09-04] MEDS: Albumin 25% 12.5gm/50mL 12.5 GM/50 ML IV.SOLN IVPB SCH ×2 (02:27→10:06)
[2021-09-04] MEDS: *HR* Heparin 5,000 UNIT/ML VIAL SQ SCH ×2 (05:27→21:40)
[2021-09-04] MEDS: Famotidine 20 MG TABLET PO SCH (09:27)
[2021-09-04] MEDS: Aspirin Enteric Coated 81 MG Tablet PO SCH (09:27)
[2021-09-04] MEDS: sulfaSALAzine 500 MG TABLET PO SCH ×2 (09:27→20:06)
[2021-09-04] MEDS: Doxycycline 100 MG CAPSULE PO SCH ×2 (09:27→20:05)
[2021-09-04] MEDS: Loratadine 10 MG TABLET PO SCH (09:27)
[2021-09-04] MEDS: Furosemide 40 MG/4 ML VIAL IVP SCH (09:47)
[2021-09-04] MEDS ORDERED: Isovue-370 500 ML BOTTLE IVP ONE (09:57)
[2021-09-04] MEDS ORDERED: 0.9 % Sodium Chloride 1,000 ML IVC ONE (09:59)
[2021-09-04 20:03] LABS: Adenovirus Not Detected (Not Detect); Bordetella Pertussis Not Detected (Not Detect); Chlamydophila pneumoniae Not Detected (Not Detect); Coronavirus 229E Not Detected (Not Detect); Coronavirus HKU1 Not Detected (Not Detect); Coronavirus NL63 Not Detected (Not Detect); Coronavirus OC43 Not Detected (Not Detect); Human Metapneumovirus Not Detected (Not Detect); Human Rhinovirus/Enterovirus Not Detected (Not Detect); Influenza A Subtype 2009 H1 Not Detected (Not Detect); Influenza B Not Detected (Not Detect); Mycoplasma pneumoniae Not Detected (Not Detect); Parainfluenza Virus 1 Not Detected (Not Detect); Parainfluenza Virus 2 Not Detected (Not Detect); Parainfluenza Virus 3 Not Detected (Not Detect); Parainfluenza Virus 4 Not Detected (Not Detect); Respiratory Syncytial Virus Not Detected (Not Detect); SARS-CoV-2 Not Detected (Not Detect)
[2021-09-04] MEDS: Melatonin 3 MG TABLET PO PRN (21:46)
[2021-09-04] MEDS: Acetaminophen 325 MG TABLET PO PRN (21:46)
[2021-09-05] MEDS: Albuterol 2.5 MG/3 ML NEBULIZER IH SCH ×5 (04:02→20:19)
[2021-09-05 05:35] LABS: Basophils % 0.2 %; Eosinophils # 2.4 K/mcL (0.0-0.6); Eosinophils % 43.4 %; Hematocrit 31.4 % (35.3-44.9); Hemoglobin 10.1 g/dL (11.5-15.4); Immature Granulocytes % 0.2 % (0-4); Lymphocytes # 1.3 K/mcL (0.6-4.6); Lymphocytes % 22.4 %; Mean Corpuscular HGB Conc 32.2 g/dL (31.6-35.5); Mean Corpuscular Hemoglobin 26.2 pg (28.0-33.3); Mean Corpuscular Volume 81.6 fL (83.0-100.0); Mean Platelet Volume 11.4 fL (9.4-12.4); Monocytes # 0.2 K/mcL (0.0-1.3); Monocytes % 3.2 %; Neutrophils # 1.7 K/mcL (1.6-8.9); Platelet Count 250 K/mcL (140-400); Red Blood Count 3.85 M/mcL (3.82-4.97); Red Cell Distribution Width 16.1 % (11.5-14.5); Segmented Neutrophils % 30.6 %; White Blood Count 5.6 K/mcL (4.3-11.1)
[2021-09-05] MEDS: *HR* Heparin 5,000 UNIT/ML VIAL SQ SCH ×3 (05:36→20:20)
[2021-09-05 05:50] LABS: BUN/Creatinine Ratio 20 (6-26); Blood Urea Nitrogen 14 mg/dL (8-23); Carbon Dioxide 36 mEq/L (23-29); Chloride 89 mEq/L (98-107); Glucose 99 mg/dL (70-105); Magnesium 1.7 mg/dL (1.6-2.6); Osmolality,Calculated 255 (280-300); Phosphorous 3.7 mg/dL (2.7-4.5); Potassium 3.6 mEq/L (3.5-5.1); Sodium 122 mEq/L (136-145); eGFR For African Americans > 60 (> 60); eGFR For Non-African Americans > 60 (> 60)
[2021-09-05] MEDS: sulfaSALAzine 500 MG TABLET PO SCH ×2 (10:20→20:21)
[2021-09-05] MEDS: Aspirin Enteric Coated 81 MG Tablet PO SCH (10:20)
[2021-09-05] MEDS: Famotidine 20 MG TABLET PO SCH (10:21)
[2021-09-05] MEDS: Loratadine 10 MG TABLET PO SCH (10:21)
[2021-09-05] MEDS: Doxycycline 100 MG CAPSULE PO SCH ×2 (10:21→20:21)
[2021-09-05] MEDS: Bumetanide 1 MG TABLET PO SCH (10:23)
[2021-09-06] MEDS: Albuterol 2.5 MG/3 ML NEBULIZER IH SCH ×6 (00:32→20:10)
[2021-09-06] MEDS: *HR* Heparin 5,000 UNIT/ML VIAL SQ SCH ×3 (05:18→20:14)
[2021-09-06 05:55] LABS: Basophils % 0.2 %; Eosinophils # 2.5 K/mcL (0.0-0.6); Eosinophils % 45.5 %; Hematocrit 28.7 % (35.3-44.9); Hemoglobin 9.6 g/dL (11.5-15.4); Immature Granulocytes % 0.4 % (0-4); Lymphocytes # 1.2 K/mcL (0.6-4.6); Mean Corpuscular HGB Conc 33.4 g/dL (31.6-35.5); Mean Corpuscular Hemoglobin 26.8 pg (28.0-33.3); Mean Corpuscular Volume 80.2 fL (83.0-100.0); Mean Platelet Volume 12.1 fL (9.4-12.4); Monocytes # 0.2 K/mcL (0.0-1.3); Monocytes % 3.5 %; Neutrophils # 1.5 K/mcL (1.6-8.9); Platelet Count 204 K/mcL (140-400); Red Blood Count 3.58 M/mcL (3.82-4.97); Red Cell Distribution Width 15.9 % (11.5-14.5); Segmented Neutrophils % 27.4 %; White Blood Count 5.4 K/mcL (4.3-11.1)
[2021-09-06 06:00] LABS: BUN/Creatinine Ratio 20 (6-26); Blood Urea Nitrogen 12 mg/dL (8-23); Calcium 8.9 mg/dL (8.6-10.3); Carbon Dioxide 33 mEq/L (23-29); Chloride 88 mEq/L (98-107); Glucose 97 mg/dL (70-105); Magnesium 1.4 mg/dL (1.6-2.6); Osmolality,Calculated 256 (280-300); Phosphorous 3.9 mg/dL (2.7-4.5); Potassium 3.6 mEq/L (3.5-5.1); Sodium 123 mEq/L (136-145); eGFR For African Americans > 60 (> 60); eGFR For Non-African Americans > 60 (> 60)
[2021-09-06] MEDS ORDERED: 0.9 % Sodium Chloride 1,000 ML IVC SCH (07:45)
[2021-09-06] MEDS: Doxycycline 100 MG CAPSULE PO SCH ×2 (07:54→19:57)
[2021-09-06] MEDS: Loratadine 10 MG TABLET PO SCH (07:54)
[2021-09-06] MEDS: sulfaSALAzine 500 MG TABLET PO SCH ×2 (07:54→19:57)
[2021-09-06] MEDS: Famotidine 20 MG TABLET PO SCH (07:54)
[2021-09-06] MEDS: Aspirin Enteric Coated 81 MG Tablet PO SCH (07:54)
[2021-09-06] MEDS: Bumetanide 1 MG TABLET PO SCH (16:35)
[2021-09-06] MEDS: Melatonin 3 MG TABLET PO PRN (22:36)
[2021-09-07] MEDS: Albuterol 2.5 MG/3 ML NEBULIZER IH SCH ×7 (00:09→23:36)
[2021-09-07] MEDS: *HR* Heparin 5,000 UNIT/ML VIAL SQ SCH ×3 (05:16→20:49)
[2021-09-07] MEDS: Loratadine 10 MG TABLET PO SCH (07:20)
[2021-09-07] MEDS: Bumetanide 1 MG TABLET PO SCH (07:20)
[2021-09-07] MEDS: sulfaSALAzine 500 MG TABLET PO SCH ×2 (07:20→20:50)
[2021-09-07] MEDS: Famotidine 20 MG TABLET PO SCH (07:20)
[2021-09-07] MEDS: Aspirin Enteric Coated 81 MG Tablet PO SCH (07:20)
[2021-09-07] MEDS: Ondansetron ODT 4 MG TAB.RAPDIS PO PRN (07:27)
[2021-09-07 08:07] LABS: Hematocrit 29.5 % (35.3-44.9); Hemoglobin 9.7 g/dL (11.5-15.4); Mean Corpuscular HGB Conc 32.9 g/dL (31.6-35.5); Mean Corpuscular Hemoglobin 26.4 pg (28.0-33.3); Mean Corpuscular Volume 80.2 fL (83.0-100.0); Mean Platelet Volume 11.1 fL (9.4-12.4); Monocytes # 0.2 K/mcL (0.0-1.3); Platelet Count 196 K/mcL (140-400); Red Blood Count 3.68 M/mcL (3.82-4.97); Red Cell Distribution Width 16.1 % (11.5-14.5)
[2021-09-07 08:21] LABS: Iron 26 mcg/dL (50-170)
[2021-09-07 08:34] LABS: Thyroid Stimulating Hormone 8.089 mcIU/mL (0.340-5.600)
[2021-09-07 08:45] LABS: BUN/Creatinine Ratio 18 (6-26); Blood Urea Nitrogen 11 mg/dL (8-23); Calcium 8.9 mg/dL (8.6-10.3); Carbon Dioxide 29 mEq/L (23-29); Chloride 88 mEq/L (98-107); Glucose 87 mg/dL (70-105); Osmolality,Calculated 247 (280-300); Potassium 3.5 mEq/L (3.5-5.1); Sodium 119 mEq/L (136-145); eGFR For African Americans > 60 (> 60); eGFR For Non-African Americans > 60 (> 60)
[2021-09-07 10:54] LABS: Bilirubin,Urine Negative (Negative); Blood,Urine Negative (Negative); Clarity,Urine Clear (Clear); Color,Urine Yellow (Yellow); Glucose,Urine (UA) Normal (Normal); Ketones,Urine Negative (Negative); Leukocyte Esterase,Urine Moderate (Negative); Nitrite,Urine Negative (Negative); PH,Urine 6.5 pH Units (5.0-8.0); Protein,Urine Trace mg/dL (Neg-Trace); Specific Gravity,Urine 1.013 (1.010-1.025); Squamous Epithelial Cell,Urine Moderate per hpf (None-Few); Urobilinogen,Urine Normal (Normal)
[2021-09-07] MEDS ORDERED: 0.9 % Sodium Chloride 1,000 ML IVC SCH (12:45)
[2021-09-07 14:19] LABS: Eosinophils # 2.4 K/mcL (0.0-0.6); Lymphocytes # 1.4 K/mcL (0.6-4.6); Platelet Estimate Normal (Normal)
[2021-09-07 14:20] LABS: Anisocytosis 1+ (Not Present)
[2021-09-07] MEDS: Nitroglycerin 0.4 MG TAB.SUBL SL PRN (15:18)
[2021-09-07 16:11] LABS: Sodium 122 mEq/L (136-145)
[2021-09-07 16:18] LABS: Troponin I < 0.03 ng/mL (< 0.04)
[2021-09-08 01:41] LABS: Basophils % 0.2 %; Eosinophils # 2.7 K/mcL (0.0-0.6); Eosinophils % 49.5 %; Hematocrit 29.1 % (35.3-44.9); Hemoglobin 9.4 g/dL (11.5-15.4); Immature Granulocytes % 0.2 % (0-4); Mean Corpuscular HGB Conc 32.3 g/dL (31.6-35.5); Mean Corpuscular Hemoglobin 26.2 pg (28.0-33.3); Mean Corpuscular Volume 81.1 fL (83.0-100.0); Mean Platelet Volume 11.5 fL (9.4-12.4); Monocytes # 0.2 K/mcL (0.0-1.3); Monocytes % 3.7 %; Neutrophils # 1.5 K/mcL (1.6-8.9); Platelet Count 183 K/mcL (140-400); Red Blood Count 3.59 M/mcL (3.82-4.97); Red Cell Distribution Width 16.1 % (11.5-14.5); Segmented Neutrophils % 28.4 %; White Blood Count 5.4 K/mcL (4.3-11.1)
[2021-09-08 02:00] LABS: BUN/Creatinine Ratio 17 (6-26); Blood Urea Nitrogen 12 mg/dL (8-23); Calcium 8.7 mg/dL (8.6-10.3); Carbon Dioxide 31 mEq/L (23-29); Chloride 89 mEq/L (98-107); Glucose 98 mg/dL (70-105); Osmolality,Calculated 260 (280-300); Potassium 3.6 mEq/L (3.5-5.1); Sodium 125 mEq/L (136-145); eGFR For African Americans > 60 (> 60); eGFR For Non-African Americans > 60 (> 60)
[2021-09-08 02:09] LABS: Platelet Estimate Normal (Normal)
[2021-09-08] MEDS: Albuterol 2.5 MG/3 ML NEBULIZER IH SCH ×6 (03:58→23:25)
[2021-09-08] MEDS: *HR* Heparin 5,000 UNIT/ML VIAL SQ SCH ×3 (05:24→20:29)
[2021-09-08] MEDS: Acetaminophen 325 MG TABLET PO PRN (08:13)
[2021-09-08] MEDS: Loratadine 10 MG TABLET PO SCH (08:14)
[2021-09-08] MEDS: Famotidine 20 MG TABLET PO SCH (08:14)
[2021-09-08] MEDS: Aspirin Enteric Coated 81 MG Tablet PO SCH (08:14)
[2021-09-08] MEDS: sulfaSALAzine 500 MG TABLET PO SCH ×2 (08:14→20:29)
[2021-09-08] MEDS: Nitroglycerin 0.4 MG TAB.SUBL SL PRN (09:26)
[2021-09-08] MEDS ORDERED: ALPRAZolam 0.5 MG TABLET PO ONE (10:20)
[2021-09-08] MEDS ORDERED: *HR* LORazepam 2 MG/ML VIAL IVP ONE (23:23)
[2021-09-09] MEDS: *HR* Heparin 5,000 UNIT/ML VIAL SQ SCH (03:42)
[2021-09-09] MEDS: Albuterol 2.5 MG/3 ML NEBULIZER IH SCH ×3 (03:47→11:58)
[2021-09-09 05:16] LABS: Basophils % 0.2 %; Eosinophils # 2.8 K/mcL (0.0-0.6); Eosinophils % 50.8 %; Hematocrit 30.6 % (35.3-44.9); Hemoglobin 9.8 g/dL (11.5-15.4); Immature Granulocytes % 0.2 % (0-4); Lymphocytes % 18.7 %; Mean Corpuscular Hemoglobin 25.9 pg (28.0-33.3); Mean Platelet Volume 12.3 fL (9.4-12.4); Monocytes # 0.2 K/mcL (0.0-1.3); Monocytes % 3.6 %; Neutrophils # 1.5 K/mcL (1.6-8.9); Platelet Count 169 K/mcL (140-400); Red Blood Count 3.78 M/mcL (3.82-4.97); Red Cell Distribution Width 16.2 % (11.5-14.5); Segmented Neutrophils % 26.5 %; White Blood Count 5.5 K/mcL (4.3-11.1)
[2021-09-09 05:19] LABS: Platelet Estimate Normal (Normal)
[2021-09-09 05:33] LABS: Alanine Aminotransferase 16 Units/L (7-52); Albumin 2.9 g/dL (3.5-5.7); Albumin/Globulin Ratio 0.9 (1.1-2.2); Alkaline Phosphatase 40 Units/L (34-104); Aspartate Amino Transferase 27 Units/L (13-39); BUN/Creatinine Ratio 20 (6-26); Bilirubin,Total 0.5 mg/dL (0.3-1.0); Blood Urea Nitrogen 13 mg/dL (8-23); Calcium 8.7 mg/dL (8.6-10.3); Carbon Dioxide 29 mEq/L (23-29); Chloride 91 mEq/L (98-107); Globulin 3.3 g/dL (2.4-3.5); Glucose 98 mg/dL (70-105); Osmolality,Calculated 264 (280-300); Potassium 3.7 mEq/L (3.5-5.1); Sodium 127 mEq/L (136-145); Total Protein 6.2 g/dL (6.4-8.9); eGFR For African Americans > 60 (> 60); eGFR For Non-African Americans > 60 (> 60)
[2021-09-09 07:13] VITALS: BP 102/78; PULSE 84; TEMP 98.4; O2SAT 96
[2021-09-09] MEDS: Famotidine 20 MG TABLET PO SCH (08:15)
[2021-09-09] MEDS: Aspirin Enteric Coated 81 MG Tablet PO SCH (08:15)
[2021-09-09] MEDS: Loratadine 10 MG TABLET PO SCH (08:15)
[2021-09-09] MEDS: sulfaSALAzine 500 MG TABLET PO SCH (08:16)
[2021-09-10 07:56] LABS: % Iron Saturation 9 % (15-50); Transferrin 214 mg/dL (200-400)
== END 2021-09-09 13:29 | disposition home or self-care (01) | DRG 383 ==
LOC: EMEROOARM 10:49 → 2ANU 10:49 → SUATTDRO 09-02 17:48
PROVIDERS: ADMIT Family Medicine; ATTEND Hospitalist

== ENCOUNTER 2021-09-11 10:56 | Observation (INO) ==
[2021-09-11] MEDS ORDERED: Aspirin 81 MG TAB.CHEW PO ONE (11:15)
[2021-09-11 11:55] LABS: Basophils % 0.4 %; Eosinophils # 0.8 K/mcL (0.0-0.6); Eosinophils % 16.9 %; Hemoglobin 9.8 g/dL (11.5-15.4); Immature Granulocytes % 0.4 % (0-4); Lymphocytes # 1.3 K/mcL (0.6-4.6); Lymphocytes % 27.3 %; Mean Corpuscular HGB Conc 31.6 g/dL (31.6-35.5); Mean Corpuscular Hemoglobin 25.5 pg (28.0-33.3); Mean Corpuscular Volume 80.5 fL (83.0-100.0); Mean Platelet Volume 12.6 fL (9.4-12.4); Monocytes # 0.4 K/mcL (0.0-1.3); Monocytes % 7.4 %; Neutrophils # 2.3 K/mcL (1.6-8.9); Platelet Count 161 K/mcL (140-400); Red Blood Count 3.85 M/mcL (3.82-4.97); Segmented Neutrophils % 47.6 %; White Blood Count 4.7 K/mcL (4.3-11.1)
[2021-09-11 12:02] LABS: INR 2.1; Prothrombin Time 23.1 Seconds (9.4-12.1)
[2021-09-11 13:19] LABS: Blood Urea Nitrogen 20 mg/dL (8-23); Carbon Dioxide 24 mEq/L (23-29); Chloride 91 mEq/L (98-107); Glucose 77 mg/dL (70-105); Osmolality,Calculated 263 (280-300); Potassium 4.6 mEq/L (3.5-5.1); Sodium 126 mEq/L (136-145); Troponin I 0.04 ng/mL (< 0.04)
[2021-09-11] MEDS ORDERED: Acetaminophen 325 MG TABLET PO ONE (13:37)
[2021-09-11] MEDS ORDERED: Ondansetron 4 MG/2 ML VIAL IVP PRN (13:37)
[2021-09-11 13:38] LABS: BUN/Creatinine Ratio 22 (6-26); eGFR For African Americans > 60 (> 60); eGFR For Non-African Americans > 60 (> 60)
[2021-09-11] MEDS ORDERED: Naloxone 0.4 MG/ML INJ IVP PRN (14:05)
[2021-09-11] MEDS ORDERED: *HR* HYDROcodone/Acet 5/325 mg TABLET PO PRN (14:05)
[2021-09-11] MEDS ORDERED: Acetaminophen 325 MG TABLET PO PRN (14:05)
[2021-09-11] MEDS ORDERED: Perflutren Lipid Microsphere 1.3 ML in 0.9 % Sodium Chloride 8.7 ML IVP PRN (14:10)
[2021-09-11] MEDS: Bumetanide 1 MG/4 ML VIAL IVP SCH ×2 (16:52→17:05)
[2021-09-11] MEDS ORDERED: methylPREDNISolone 125 MG/2 ML VIAL IVP ONE (17:17)
[2021-09-11] MEDS ORDERED: Isovue-370 500 ML BOTTLE IVP ONE (17:22)
[2021-09-11] MEDS: Azithromycin 500 MG in 0.9 % Sodium Chloride 250 ML IVPB SCH (17:43)
[2021-09-11] MEDS: cefTRIAXone 1,000 MG in 0.9 % Sodium Chloride Mini Bag 100 ML IVPB SCH (17:43)
[2021-09-11] MEDS: Ipratropium/Albuterol Neb 3 ML IH PRN (17:49)
[2021-09-11] MEDS ORDERED: *HR* Heparin 5,000 UNIT/ML VIAL SQ SCH (18:00)
[2021-09-11 18:06] LABS: Adenovirus Not Detected (Not Detect); Coronavirus 229E Not Detected (Not Detect); Coronavirus HKU1 Not Detected (Not Detect); Coronavirus NL63 Not Detected (Not Detect)
[2021-09-11 18:07] LABS: Bordetella Pertussis Not Detected (Not Detect); Chlamydophila pneumoniae Not Detected (Not Detect); Coronavirus OC43 Not Detected (Not Detect); Human Metapneumovirus Not Detected (Not Detect); Human Rhinovirus/Enterovirus Not Detected (Not Detect); Influenza A Subtype 2009 H1 Not Detected (Not Detect); Influenza B Not Detected (Not Detect); Mycoplasma pneumoniae Not Detected (Not Detect); Parainfluenza Virus 1 Not Detected (Not Detect); Parainfluenza Virus 2 Not Detected (Not Detect); Parainfluenza Virus 3 Not Detected (Not Detect); Parainfluenza Virus 4 Not Detected (Not Detect); Respiratory Syncytial Virus Not Detected (Not Detect); SARS-CoV-2 Not Detected (Not Detect)
[2021-09-11] MEDS ORDERED: *HR* Heparin 5,000 UNIT/ML VIAL IVP PRN ×2 (19:46)
[2021-09-11] MEDS: *HR* LORazepam 1 MG TABLET PO PRN (19:51)
[2021-09-11] MEDS: Heparin 25,000UNIT/250ML 1/2NS 25,000 UNIT/250 ML IV.SOLN IVC SCH (20:35)
[2021-09-11 20:41] LABS: Immature Platelets 14.8 % (1.1-6.1)
[2021-09-11 20:50] LABS: Heparin anti-factor XA UFH < 0.04 IU/mL (0.30-0.70)
[2021-09-11 20:51] LABS: INR 2.3; Prothrombin Time 25.6 Seconds (9.4-12.1)
[2021-09-11 20:53] LABS: Hematocrit 32.1 % (35.3-44.9); Hemoglobin 10.5 g/dL (11.5-15.4); Mean Corpuscular HGB Conc 32.7 g/dL (31.6-35.5); Mean Corpuscular Hemoglobin 26.1 pg (28.0-33.3); Mean Corpuscular Volume 79.7 fL (83.0-100.0); Red Blood Count 4.03 M/mcL (3.82-4.97); Red Cell Distribution Width 17.2 % (11.5-14.5); White Blood Count 5.8 K/mcL (4.3-11.1)
[2021-09-11 21:09] LABS: Activated Partial Thrombo Time 33.1 Seconds (26.0-36.0)
[2021-09-12 02:44] LABS: Basophils % 0.2 %; Eosinophils # 0.1 K/mcL (0.0-0.6); Eosinophils % 1.2 %; Hematocrit 33.2 % (35.3-44.9); Hemoglobin 10.3 g/dL (11.5-15.4); Immature Granulocytes % 1.4 % (0-4); Lymphocytes # 1.1 K/mcL (0.6-4.6); Lymphocytes % 21.3 %; Mean Corpuscular Hemoglobin 25.3 pg (28.0-33.3); Mean Corpuscular Volume 81.6 fL (83.0-100.0); Mean Platelet Volume 12.6 fL (9.4-12.4); Monocytes # 0.2 K/mcL (0.0-1.3); Monocytes % 4.1 %; Neutrophils # 3.7 K/mcL (1.6-8.9); Platelet Count 180 K/mcL (140-400); Red Blood Count 4.07 M/mcL (3.82-4.97); Red Cell Distribution Width 17.5 % (11.5-14.5); Segmented Neutrophils % 71.8 %; White Blood Count 5.2 K/mcL (4.3-11.1)
[2021-09-12] MEDS: Ipratropium/Albuterol Neb 3 ML IH PRN ×2 (03:25→07:38)
[2021-09-12 03:31] LABS: Calcium 8.7 mg/dL (8.6-10.3); Chol/HDL Ratio 3.2 (0-4.9); Magnesium 1.7 mg/dL (1.6-2.6); Potassium 6.2 mEq/L (3.5-5.1); Troponin I 0.03 ng/mL (< 0.04)
[2021-09-12] MEDS: *HR* LORazepam 1 MG TABLET PO PRN (03:57)
[2021-09-12] MEDS: Ondansetron 4 MG/2 ML VIAL IVP PRN (03:59)
[2021-09-12] MEDS: predniSONE 20 MG TABLET PO SCH (07:53)
[2021-09-12] MEDS: Bumetanide 1 MG/4 ML VIAL IVP SCH (07:53)
[2021-09-12] MEDS ORDERED: Perflutren Lipid Microsphere 1.3 ML in 0.9 % Sodium Chloride 8.7 ML IVP PRN (09:38)
[2021-09-12] MEDS: *HR* OxyCODONE Immed Rel 5 MG TABLET PO PRN ×2 (10:10→20:08)
[2021-09-12] MEDS: Ipratropium/Albuterol Neb 3 ML IH SCH ×2 (15:33→20:13)
[2021-09-12 15:37] LABS: Calcium 8.6 mg/dL (8.6-10.3); Potassium 5.5 mEq/L (3.5-5.1)
[2021-09-12] MEDS: Heparin 25,000UNIT/250ML 1/2NS 25,000 UNIT/250 ML IV.SOLN IVC SCH (15:54)
[2021-09-12] MEDS ORDERED: Tolvaptan 15 MG TABLET PO ONE (17:05)
[2021-09-12] MEDS: cefTRIAXone 1,000 MG in 0.9 % Sodium Chloride Mini Bag 100 ML IVPB SCH (17:37)
[2021-09-12] MEDS: Azithromycin 500 MG in 0.9 % Sodium Chloride 250 ML IVPB SCH (18:32)
[2021-09-13] MEDS: Ipratropium/Albuterol Neb 3 ML IH SCH ×4 (03:41→21:08)
[2021-09-13 06:59] LABS: Basophils % 0.2 %; Eosinophils % 0.6 %
[2021-09-13 07:00] LABS: Hematocrit 30.9 % (35.3-44.9); Hemoglobin 9.8 g/dL (11.5-15.4); Immature Granulocytes % 0.8 % (0-4); Immature Platelets 14.5 % (1.1-6.1); Lymphocytes # 1.5 K/mcL (0.6-4.6); Lymphocytes % 24.6 %; Mean Corpuscular HGB Conc 31.7 g/dL (31.6-35.5); Mean Corpuscular Hemoglobin 25.7 pg (28.0-33.3); Mean Corpuscular Volume 81.1 fL (83.0-100.0); Mean Platelet Volume 13.4 fL (9.4-12.4); Monocytes # 0.5 K/mcL (0.0-1.3); Monocytes % 8.2 %; Neutrophils # 4.1 K/mcL (1.6-8.9); Platelet Count 167 K/mcL (140-400); Red Blood Count 3.81 M/mcL (3.82-4.97); Red Cell Distribution Width 17.2 % (11.5-14.5); Segmented Neutrophils % 65.6 %; White Blood Count 6.2 K/mcL (4.3-11.1)
[2021-09-13 07:24] LABS: Albumin 3.1 g/dL (3.5-5.7); Albumin/Globulin Ratio 0.8 (1.1-2.2); Bilirubin,Direct 0.3 mg/dL (0.0-0.2); Bilirubin,Indirect 0.4 mg/dL (0.0-1.0); Bilirubin,Total 0.7 mg/dL (0.3-1.0); Calcium 8.2 mg/dL (8.6-10.3); Globulin 3.8 g/dL (2.4-3.5); Magnesium 1.9 mg/dL (1.6-2.6); Phosphorous 5.6 mg/dL (2.7-4.5); Potassium 4.3 mEq/L (3.5-5.1); Total Protein 6.9 g/dL (6.4-8.9)
[2021-09-13] MEDS ORDERED: Aspirin Enteric Coated 81 MG Tablet PO SCH (09:00)
[2021-09-13] MEDS ORDERED: Loratadine 10 MG TABLET PO SCH (09:00)
[2021-09-13] MEDS ORDERED: Famotidine 20 MG TABLET PO SCH (09:00)
[2021-09-13] MEDS: predniSONE 20 MG TABLET PO SCH (09:19)
[2021-09-13] MEDS: Heparin 25,000UNIT/250ML 1/2NS 25,000 UNIT/250 ML IV.SOLN IVC SCH (12:17)
[2021-09-13] MEDS: Ondansetron 4 MG/2 ML VIAL IVP PRN (12:26)
[2021-09-13] MEDS ORDERED: Isovue-370 500 ML BOTTLE IVP ONE (13:17)
[2021-09-13 13:43] LABS: ABG Base Excess -3 mEq/L (-2 to 3); ABG HCO3 21 mEq/L (21-27); ABG Oxygen Saturation 84 % (95-98); ABG PCO2 34 mmHg (35-45); ABG PH 7.41 pH Units (7.32-7.45); ABG PO2 48 mmHg (85-104); ABG TCO2 22 mEq/L (20-26); Blood Gas VT 450 cc
[2021-09-13] MEDS ORDERED: Perflutren Lipid Microsphere 1.3 ML in 0.9 % Sodium Chloride 8.7 ML IVP PRN (15:50)
[2021-09-13] MEDS: Azithromycin 500 MG in 0.9 % Sodium Chloride 250 ML IVPB SCH (17:50)
[2021-09-13] MEDS: cefTRIAXone 1,000 MG in 0.9 % Sodium Chloride Mini Bag 100 ML IVPB SCH (17:51)
[2021-09-13] MEDS ORDERED: Ondansetron 4 MG/2 ML VIAL IVP ONE (18:27)
[2021-09-13 19:32] LABS: ABG Base Excess -5 mEq/L (-2 to 3); ABG HCO3 19 mEq/L (21-27); ABG Oxygen Saturation 82 % (95-98); ABG PCO2 32 mmHg (35-45); ABG PO2 46 mmHg (85-104); ABG TCO2 20 mEq/L (20-26); Blood Gas Modality AVAPS; Blood Gas VT 450 cc
[2021-09-13 20:38] LABS: Sodium, Urine 10.4 mEq/L
[2021-09-14 00:07] VITALS: TEMP 96.5
[2021-09-14 00:31] VITALS: BP 116/85; PULSE 71; O2SAT 86
== END 2021-09-14 02:30 | disposition short-term general hospital (02) ==
LOC: EMEROOARM 10:56 → 3BNU 10:56 → SUATTDRO 13:41 → 3BNU 14:27 → ICNU 09-13 17:42
PROVIDERS: ADMIT Internal Medicine; ATTEND Internal Medicine

== ENCOUNTER 2021-10-23 13:04 | Inpatient (IN) ==
[2021-10-23] MEDS ORDERED: Aspirin 81 MG TAB.CHEW PO ONE (13:21)
[2021-10-23 13:48] LABS: Basophils % 0.3 %; Eosinophils # 0.1 K/mcL (0.0-0.6); Eosinophils % 1.4 %; Hematocrit 29.2 % (35.3-44.9); Hemoglobin 8.8 g/dL (11.5-15.4); Immature Granulocytes % 0.3 % (0-4); Lymphocytes # 1.1 K/mcL (0.6-4.6); Lymphocytes % 28.9 %; Mean Corpuscular HGB Conc 30.1 g/dL (31.6-35.5); Mean Corpuscular Hemoglobin 23.7 pg (28.0-33.3); Mean Corpuscular Volume 78.5 fL (83.0-100.0); Mean Platelet Volume 11.5 fL (9.4-12.4); Monocytes # 0.3 K/mcL (0.0-1.3); Monocytes % 7.8 %; Neutrophils # 2.3 K/mcL (1.6-8.9); Platelet Count 173 K/mcL (140-400); Red Blood Count 3.72 M/mcL (3.82-4.97); Segmented Neutrophils % 61.3 %; White Blood Count 3.7 K/mcL (4.3-11.1)
[2021-10-23 13:58] LABS: Activated Partial Thrombo Time 34.6 Seconds (26.0-36.0)
[2021-10-23 14:09] LABS: BUN/Creatinine Ratio 17 (6-26); Blood Urea Nitrogen 12 mg/dL (8-23); Carbon Dioxide 24 mEq/L (23-29); Chloride 97 mEq/L (98-107); Glucose 85 mg/dL (70-105); Osmolality,Calculated 265 (280-300); Potassium 3.7 mEq/L (3.5-5.1); Sodium 128 mEq/L (136-145); eGFR For African Americans > 60 (> 60); eGFR For Non-African Americans > 60 (> 60)
[2021-10-23 14:10] LABS: Troponin I < 0.03 ng/mL (< 0.04)
[2021-10-23] MEDS: Nitroglycerin 0.4 MG TAB.SUBL SL SCH ×2 (14:15→15:07)
[2021-10-23] MEDS ORDERED: MOM Conc 10 ML UD.LIQ PO PRN (14:47)
[2021-10-23] MEDS ORDERED: Ondansetron ODT 4 MG TAB.RAPDIS SL PRN (14:47)
[2021-10-23] MEDS ORDERED: Melatonin 3 MG TABLET PO PRN (14:47)
[2021-10-23] MEDS ORDERED: Naloxone 0.4 MG/ML INJ IVP PRN (14:47)
[2021-10-23] MEDS: Ipratropium/Albuterol Neb 3 ML IH SCH ×4 (15:26→23:40)
[2021-10-23] MEDS: predniSONE 20 MG TABLET PO SCH (16:15)
[2021-10-23] MEDS: *HR* Rivaroxaban 10 MG TABLET PO SCH (16:15)
[2021-10-23] MEDS: Bumetanide 1 MG/4 ML VIAL IVP SCH (17:01)
[2021-10-24] MEDS: Ipratropium/Albuterol Neb 3 ML IH SCH ×6 (04:08→23:08)
[2021-10-24 04:48] LABS: Eosinophils % 0.4 %; Hematocrit 27.9 % (35.3-44.9); Hemoglobin 8.6 g/dL (11.5-15.4); Immature Granulocytes % 0.4 % (0-4); Lymphocytes # 0.7 K/mcL (0.6-4.6); Lymphocytes % 27.9 %; Mean Corpuscular HGB Conc 30.8 g/dL (31.6-35.5); Mean Corpuscular Volume 77.9 fL (83.0-100.0); Mean Platelet Volume 11.6 fL (9.4-12.4); Monocytes # 0.1 K/mcL (0.0-1.3); Monocytes % 5.3 %; Neutrophils # 1.8 K/mcL (1.6-8.9); Platelet Count 175 K/mcL (140-400); Red Blood Count 3.58 M/mcL (3.82-4.97); Red Cell Distribution Width 19.2 % (11.5-14.5); White Blood Count 2.7 K/mcL (4.3-11.1)
[2021-10-24 05:06] LABS: Alanine Aminotransferase 16 Units/L (7-52); Albumin 2.6 g/dL (3.5-5.7); Albumin/Globulin Ratio 0.7 (1.1-2.2); Alkaline Phosphatase 70 Units/L (34-104); Aspartate Amino Transferase 21 Units/L (13-39); BUN/Creatinine Ratio 20 (6-26); Bilirubin,Total 0.6 mg/dL (0.3-1.0); Blood Urea Nitrogen 14 mg/dL (8-23); Calcium 8.1 mg/dL (8.6-10.3); Carbon Dioxide 26 mEq/L (23-29); Chloride 99 mEq/L (98-107); Globulin 3.5 g/dL (2.4-3.5); Glucose 129 mg/dL (70-105); Osmolality,Calculated 272 (280-300); Potassium 4.1 mEq/L (3.5-5.1); Sodium 130 mEq/L (136-145); Total Protein 6.1 g/dL (6.4-8.9); eGFR For African Americans > 60 (> 60); eGFR For Non-African Americans > 60 (> 60)
[2021-10-24] MEDS: Tiotropium 10 INH DOSE IH SCH (07:39)
[2021-10-24] MEDS ORDERED: Metoprolol XL (24 HR) Succ 25 MG TAB.ER.24H PO SCH (09:00)
[2021-10-24] MEDS: Bumetanide 1 MG/4 ML VIAL IVP SCH ×2 (09:20→15:53)
[2021-10-24] MEDS: sulfaSALAzine 500 MG TABLET PO SCH ×2 (09:21→20:31)
[2021-10-24] MEDS: Loratadine 10 MG TABLET PO SCH (09:22)
[2021-10-24] MEDS: predniSONE 20 MG TABLET PO SCH (09:22)
[2021-10-24] MEDS: Mirtazapine 15 MG TABLET PO SCH ×2 (09:22→20:31)
[2021-10-24] MEDS: Famotidine 20 MG TABLET PO SCH (09:22)
[2021-10-24] MEDS: Metoprolol XL (24 HR) Succ 25 MG TAB.ER.24H PO SCH (09:22)
[2021-10-24] MEDS: *HR* Rivaroxaban 10 MG TABLET PO SCH (16:31)
[2021-10-25] MEDS: Ipratropium/Albuterol Neb 3 ML IH SCH ×6 (03:48→23:20)
[2021-10-25 04:44] LABS: Eosinophils % 0.7 %; Hematocrit 28.3 % (35.3-44.9); Hemoglobin 8.6 g/dL (11.5-15.4); Immature Granulocytes % 0.5 % (0-4); Lymphocytes # 1.4 K/mcL (0.6-4.6); Lymphocytes % 33.3 %; Mean Corpuscular HGB Conc 30.4 g/dL (31.6-35.5); Mean Corpuscular Hemoglobin 23.8 pg (28.0-33.3); Mean Corpuscular Volume 78.2 fL (83.0-100.0); Mean Platelet Volume 11.4 fL (9.4-12.4); Monocytes # 0.3 K/mcL (0.0-1.3); Monocytes % 7.3 %; Neutrophils # 2.5 K/mcL (1.6-8.9); Platelet Count 195 K/mcL (140-400); Red Blood Count 3.62 M/mcL (3.82-4.97); Red Cell Distribution Width 20.1 % (11.5-14.5); Segmented Neutrophils % 58.2 %
[2021-10-25] MEDS ORDERED: Morphine Sulfate 2 MG/ML SYRINGE IVP ONE (05:00)
[2021-10-25 05:05] LABS: % Iron Saturation 4 % (15-50); BUN/Creatinine Ratio 18 (6-26); Blood Urea Nitrogen 14 mg/dL (8-23); Calcium 8.4 mg/dL (8.6-10.3); Carbon Dioxide 26 mEq/L (23-29); Chloride 100 mEq/L (98-107); Glucose 97 mg/dL (70-105); Iron 11 mcg/dL (50-170); Magnesium 1.5 mg/dL (1.6-2.6); Osmolality,Calculated 276 (280-300); Phosphorous 3.5 mg/dL (2.7-4.5); Potassium 3.5 mEq/L (3.5-5.1); Sodium 133 mEq/L (136-145); Transferrin 214 mg/dL (203-362); eGFR For African Americans > 60 (> 60); eGFR For Non-African Americans > 60 (> 60)
[2021-10-25 05:16] LABS: Troponin I < 0.03 ng/mL (< 0.04)
[2021-10-25 05:22] LABS: Ferritin 19 ng/mL (10-120)
[2021-10-25 05:27] LABS: Folate 8.1 ng/mL (3.0-16.0)
[2021-10-25 06:36] LABS: White Blood Count 4.3 K/mcL (4.3-11.1)
[2021-10-25] MEDS ORDERED: Iron Sucrose Complex 400 MG in 0.9 % Sodium Chloride 250 ML IVPB ONE (07:26)
[2021-10-25] MEDS: Tiotropium 10 INH DOSE IH SCH (07:43)
[2021-10-25] MEDS: Famotidine 20 MG TABLET PO SCH (08:13)
[2021-10-25] MEDS: sulfaSALAzine 500 MG TABLET PO SCH ×2 (08:13→20:07)
[2021-10-25] MEDS: Bumetanide 1 MG TABLET PO SCH ×2 (08:13→16:30)
[2021-10-25] MEDS: Metoprolol XL (24 HR) Succ 25 MG TAB.ER.24H PO SCH (08:13)
[2021-10-25] MEDS: Loratadine 10 MG TABLET PO SCH (08:13)
[2021-10-25] MEDS: predniSONE 20 MG TABLET PO SCH (08:14)
[2021-10-25] MEDS ORDERED: Bumetanide 1 MG/4 ML VIAL IVP ONE (11:08)
[2021-10-25] MEDS: *HR* Rivaroxaban 10 MG TABLET PO SCH (16:30)
[2021-10-25] MEDS: Mirtazapine 15 MG TABLET PO SCH (20:07)
[2021-10-26 00:56] LABS: Basophils % 0.2 %; Eosinophils % 0.2 %; Hematocrit 27.3 % (35.3-44.9); Hemoglobin 8.4 g/dL (11.5-15.4); Immature Granulocytes % 0.7 % (0-4); Lymphocytes # 1.4 K/mcL (0.6-4.6); Lymphocytes % 34.3 %; Mean Corpuscular HGB Conc 30.8 g/dL (31.6-35.5); Mean Corpuscular Hemoglobin 24.3 pg (28.0-33.3); Mean Corpuscular Volume 78.9 fL (83.0-100.0); Mean Platelet Volume 11.8 fL (9.4-12.4); Monocytes # 0.3 K/mcL (0.0-1.3); Monocytes % 6.4 %; Neutrophils # 2.4 K/mcL (1.6-8.9); Platelet Count 210 K/mcL (140-400); Red Blood Count 3.46 M/mcL (3.82-4.97); Red Cell Distribution Width 20.3 % (11.5-14.5); Segmented Neutrophils % 58.2 %; White Blood Count 4.1 K/mcL (4.3-11.1)
[2021-10-26 01:15] LABS: BUN/Creatinine Ratio 18 (6-26); Blood Urea Nitrogen 13 mg/dL (8-23); Calcium 7.9 mg/dL (8.6-10.3); Carbon Dioxide 24 mEq/L (23-29); Chloride 99 mEq/L (98-107); Glucose 123 mg/dL (70-105); Magnesium 1.5 mg/dL (1.6-2.6); Osmolality,Calculated 273 (280-300); Phosphorous 3.3 mg/dL (2.7-4.5); Potassium 3.2 mEq/L (3.5-5.1); Sodium 131 mEq/L (136-145); eGFR For African Americans > 60 (> 60); eGFR For Non-African Americans > 60 (> 60)
[2021-10-26] MEDS: Ipratropium/Albuterol Neb 3 ML IH SCH ×4 (03:50→15:32)
[2021-10-26] MEDS: Tiotropium 10 INH DOSE IH SCH (07:24)
[2021-10-26] MEDS: Bumetanide 1 MG TABLET PO SCH (07:45)
[2021-10-26] MEDS: Metoprolol XL (24 HR) Succ 25 MG TAB.ER.24H PO SCH (07:46)
[2021-10-26] MEDS: Famotidine 20 MG TABLET PO SCH (07:51)
[2021-10-26] MEDS: predniSONE 20 MG TABLET PO SCH (07:51)
[2021-10-26] MEDS: Loratadine 10 MG TABLET PO SCH (07:52)
[2021-10-26] MEDS: sulfaSALAzine 500 MG TABLET PO SCH (07:52)
[2021-10-26] MEDS ORDERED: 0.9 % Sodium Chloride 500 ML IVC ONE (10:25)
[2021-10-26] MEDS ORDERED: Lidocaine Viscous Oral Soln 15 ML SOLUTION MM PRN (10:25)
[2021-10-26] MEDS: *HR* FentaNYL (PF) 100 MCG/2 ML VIAL IVP PRN ×2 (11:00→11:05)
[2021-10-26] MEDS: *HR* Midazolam HCl 5 MG/5 ML VIAL IVP PRN ×2 (11:00→11:05)
[2021-10-26 14:42] VITALS: BP 107/72; PULSE 84; TEMP 98.2
[2021-10-26 15:37] VITALS: O2SAT 96
== END 2021-10-26 16:16 | disposition home or self-care (01) | DRG 140 ==
LOC: EMEROOARM 13:04 → 3BNU 13:04 → SUATTDRO 14:31 → 3BNU 15:25
PROVIDERS: ADMIT Internal Medicine; ATTEND Internal Medicine

== ENCOUNTER 2021-11-16 14:40 | Inpatient (IN) ==
[2021-11-16] MEDS ORDERED: Ipratropium/Albuterol Neb 3 ML IH ONE (15:05)
[2021-11-16 15:33] LABS: Eosinophils # 0.1 K/mcL (0.0-0.6); Eosinophils % 2.4 %; White Blood Count 2.1 K/mcL (4.3-11.1)
[2021-11-16 15:35] LABS: Hematocrit 33.2 % (35.3-44.9); Hemoglobin 10.1 g/dL (11.5-15.4); Immature Platelets 7.4 % (1.1-6.1); Lymphocytes # 0.7 K/mcL (0.6-4.6); Lymphocytes % 33.5 %; Mean Corpuscular HGB Conc 30.4 g/dL (31.6-35.5); Mean Corpuscular Volume 85.3 fL (83.0-100.0); Mean Platelet Volume 11.2 fL (9.4-12.4); Monocytes # 0.1 K/mcL (0.0-1.3); Monocytes % 6.6 %; Neutrophils # 1.2 K/mcL (1.6-8.9); Platelet Count 164 K/mcL (140-400); Red Blood Count 3.89 M/mcL (3.82-4.97); Red Cell Distribution Width 27.8 % (11.5-14.5); Segmented Neutrophils % 57.5 %
[2021-11-16 15:42] LABS: INR 1.8; Prothrombin Time 20.1 Seconds (9.4-12.1)
[2021-11-16 15:54] LABS: Anisocytosis 3+ (Not Present); Hypochromasia Present (Not Present)
[2021-11-16 15:55] LABS: Alanine Aminotransferase 14 Units/L (7-52); Albumin 2.7 g/dL (3.5-5.7); Albumin/Globulin Ratio 0.7 (1.1-2.2); Alkaline Phosphatase 75 Units/L (34-104); Aspartate Amino Transferase 25 Units/L (13-39); BUN/Creatinine Ratio 9 (6-26); Bilirubin,Direct 0.4 mg/dL (0.0-0.2); Bilirubin,Indirect 0.3 mg/dL (0.0-1.0); Bilirubin,Total 0.7 mg/dL (0.3-1.0); Blood Urea Nitrogen 9 mg/dL (8-23); Calcium 8.3 mg/dL (8.6-10.3); Carbon Dioxide 31 mEq/L (23-29); Chloride 99 mEq/L (98-107); Globulin 3.8 g/dL (2.4-3.5); Glucose 96 mg/dL (70-105); Lipase 12 Units/L (11-82); Microcytosis Present (Not Present); Osmolality,Calculated 279 (280-300); Platelet Estimate Normal (Normal); Potassium 3.6 mEq/L (3.5-5.1); Sodium 135 mEq/L (136-145); Target Cells 1+ (Not Present); Total Protein 6.5 g/dL (6.4-8.9); Troponin I < 0.03 ng/mL (< 0.04); eGFR For African Americans > 60 (> 60); eGFR For Non-African Americans 57 (> 60)
[2021-11-16] MEDS ORDERED: Isovue-370 500 ML BOTTLE IVP ONE (16:19)
[2021-11-16 16:24] LABS: Influenza A PCR Negative (Negative); Influenza B PCR Negative (Negative); Resp. Syncytial Virus PCR Negative (Negative)
[2021-11-16 16:25] LABS: SARS-CoV-2 by PCR (In House) Negative (Negative)
[2021-11-16] MEDS ORDERED: Furosemide 40 MG/4 ML VIAL IVP ONE (16:41)
[2021-11-16] MEDS ORDERED: methylPREDNISolone 125 MG/2 ML VIAL IVP ONE (16:41)
[2021-11-16] MEDS ORDERED: Naloxone 0.4 MG/ML INJ IVP PRN (17:26)
[2021-11-16] MEDS: Ipratropium/Albuterol Neb 3 ML IH PRN (21:01)
[2021-11-16] MEDS: Metoprolol XL (24 HR) Succ 25 MG TAB.ER.24H PO SCH (21:12)
[2021-11-16] MEDS: *HR* HYDROcodone/Acet 5/325 mg TABLET PO PRN (21:12)
[2021-11-16] MEDS: Mirtazapine 15 MG TABLET PO SCH (21:12)
[2021-11-16] MEDS: sulfaSALAzine 500 MG TABLET PO SCH (21:13)
[2021-11-16] MEDS: Bumetanide 1 MG/4 ML VIAL IVP SCH (21:13)
[2021-11-17 02:40] LABS: Immature Granulocytes % 0.4 % (0-4); Segmented Neutrophils % 73.7 %
[2021-11-17 02:42] LABS: Basophils % 0.4 %; Hematocrit 36.2 % (35.3-44.9); Hemoglobin 10.7 g/dL (11.5-15.4); Immature Platelets 7.5 % (1.1-6.1); Lymphocytes # 0.6 K/mcL (0.6-4.6); Lymphocytes % 21.5 %; Mean Corpuscular HGB Conc 29.6 g/dL (31.6-35.5); Mean Corpuscular Hemoglobin 25.4 pg (28.0-33.3); Mean Platelet Volume 10.9 fL (9.4-12.4); Monocytes # 0.1 K/mcL (0.0-1.3); Platelet Count 197 K/mcL (140-400); Red Blood Count 4.21 M/mcL (3.82-4.97); Red Cell Distribution Width 27.7 % (11.5-14.5); White Blood Count 2.8 K/mcL (4.3-11.1)
[2021-11-17 02:50] LABS: Calcium 8.5 mg/dL (8.6-10.3); Magnesium 1.7 mg/dL (1.6-2.6); Phosphorous 4.8 mg/dL (2.7-4.5); Potassium 4.6 mEq/L (3.5-5.1)
[2021-11-17] MEDS: Ipratropium/Albuterol Neb 3 ML IH PRN ×2 (02:56→07:38)
[2021-11-17 03:01] LABS: Neutrophils # 2.1 K/mcL (1.6-8.9)
[2021-11-17 03:22] LABS: Anisocytosis 2+ (Not Present); Poikilocytosis 1+ (Not Present)
[2021-11-17 03:23] LABS: Hypochromasia Present (Not Present); Platelet Estimate Normal (Normal); Target Cells 1+ (Not Present)
[2021-11-17] MEDS: Famotidine 20 MG TABLET PO SCH (07:33)
[2021-11-17] MEDS: Metoprolol XL (24 HR) Succ 25 MG TAB.ER.24H PO SCH (07:33)
[2021-11-17] MEDS: Bumetanide 1 MG/4 ML VIAL IVP SCH ×2 (07:34→16:24)
[2021-11-17] MEDS: Budesonide/Formoterol 160/4.5 1 PUFF INH IH SCH ×2 (07:40→19:59)
[2021-11-17] MEDS ORDERED: Metoprolol XL (24 HR) Succ 25 MG TAB.ER.24H PO SCH (09:00)
[2021-11-17] MEDS: MethylPREDNISolone 40 MG/ML VIAL IVP SCH ×3 (09:24→23:22)
[2021-11-17] MEDS: sulfaSALAzine 500 MG TABLET PO SCH ×2 (09:24→20:00)
[2021-11-17] MEDS: Loratadine 10 MG TABLET PO SCH (09:24)
[2021-11-17] MEDS: Ipratropium/Albuterol Neb 3 ML IH SCH ×3 (11:07→19:57)
[2021-11-17] MEDS: Ondansetron 4 MG/2 ML VIAL IVP PRN (13:45)
[2021-11-17] MEDS: *HR* HYDROcodone/Acet 5/325 mg TABLET PO PRN (13:45)
[2021-11-17] MEDS: *HR* Rivaroxaban 10 MG TABLET PO SCH (16:24)
[2021-11-17] MEDS: Mirtazapine 15 MG TABLET PO SCH (20:00)
[2021-11-18] MEDS: Ipratropium/Albuterol Neb 3 ML IH SCH ×7 (00:01→23:20)
[2021-11-18 03:29] LABS: BUN/Creatinine Ratio 17 (6-26); Blood Urea Nitrogen 17 mg/dL (8-23); Calcium 8.2 mg/dL (8.6-10.3); Carbon Dioxide 26 mEq/L (23-29); Chloride 98 mEq/L (98-107); Glucose 143 mg/dL (70-105); Magnesium 1.6 mg/dL (1.6-2.6); Osmolality,Calculated 276 (280-300); Potassium 4.7 mEq/L (3.5-5.1); Sodium 131 mEq/L (136-145); eGFR For African Americans > 60 (> 60); eGFR For Non-African Americans 54 (> 60)
[2021-11-18] MEDS: Budesonide/Formoterol 160/4.5 1 PUFF INH IH SCH ×2 (07:33→20:48)
[2021-11-18] MEDS: Bumetanide 1 MG/4 ML VIAL IVP SCH ×2 (09:36→16:23)
[2021-11-18] MEDS: Ondansetron 4 MG/2 ML VIAL IVP PRN (09:37)
[2021-11-18] MEDS: sulfaSALAzine 500 MG TABLET PO SCH ×2 (09:42→20:25)
[2021-11-18] MEDS: MethylPREDNISolone 40 MG/ML VIAL IVP SCH ×2 (09:42→17:34)
[2021-11-18] MEDS: Metoprolol XL (24 HR) Succ 25 MG TAB.ER.24H PO SCH (09:43)
[2021-11-18] MEDS: Loratadine 10 MG TABLET PO SCH (09:43)
[2021-11-18] MEDS: Famotidine 20 MG TABLET PO SCH (09:43)
[2021-11-18] MEDS: Albumin 25% 12.5gm/50mL 12.5 GM/50 ML IV.SOLN IVPB SCH ×3 (09:53→23:48)
[2021-11-18] MEDS: *HR* HYDROcodone/Acet 5/325 mg TABLET PO PRN (15:32)
[2021-11-18] MEDS: *HR* Rivaroxaban 10 MG TABLET PO SCH (16:25)
[2021-11-18] MEDS: Nitroglycerin 0.4 MG TAB.SUBL SL PRN ×2 (17:18→17:25)
[2021-11-18] MEDS: Mirtazapine 15 MG TABLET PO SCH (20:25)
[2021-11-19 03:01] LABS: Calcium 8.4 mg/dL (8.6-10.3); Magnesium 1.5 mg/dL (1.6-2.6); Phosphorous 4.6 mg/dL (2.7-4.5); Potassium 4.1 mEq/L (3.5-5.1)
[2021-11-19] MEDS: Ipratropium/Albuterol Neb 3 ML IH SCH ×6 (04:09→23:46)
[2021-11-19] MEDS: MethylPREDNISolone 40 MG/ML VIAL IVP SCH (05:57)
[2021-11-19] MEDS: Budesonide/Formoterol 160/4.5 1 PUFF INH IH SCH ×2 (07:49→20:05)
[2021-11-19] MEDS: sulfaSALAzine 500 MG TABLET PO SCH ×2 (08:38→21:29)
[2021-11-19] MEDS: Metoprolol XL (24 HR) Succ 25 MG TAB.ER.24H PO SCH (08:39)
[2021-11-19] MEDS: Loratadine 10 MG TABLET PO SCH (08:39)
[2021-11-19] MEDS: Famotidine 20 MG TABLET PO SCH (08:39)
[2021-11-19] MEDS: Bumetanide 1 MG/4 ML VIAL IVP SCH ×2 (08:41→16:26)
[2021-11-19] MEDS: Albumin 25% 12.5gm/50mL 12.5 GM/50 ML IV.SOLN IVPB SCH (10:23)
[2021-11-19] MEDS ORDERED: Albumin 25% 12.5gm/50mL 12.5 GM/50 ML IV.SOLN IVPB SCH (16:00)
[2021-11-19] MEDS: *HR* Rivaroxaban 10 MG TABLET PO SCH (16:26)
[2021-11-19] MEDS: Nitroglycerin 0.4 MG TAB.SUBL SL PRN ×2 (16:28→16:36)
[2021-11-19] MEDS: Mirtazapine 15 MG TABLET PO SCH (21:28)
[2021-11-20] MEDS: Albumin 25% 12.5gm/50mL 12.5 GM/50 ML IV.SOLN IVPB SCH ×3 (00:18→19:58)
[2021-11-20] MEDS: Ipratropium/Albuterol Neb 3 ML IH SCH ×6 (03:56→23:42)
[2021-11-20 03:58] LABS: Calcium 8.2 mg/dL (8.6-10.3); Magnesium 1.7 mg/dL (1.6-2.6); Phosphorous 3.4 mg/dL (2.7-4.5); Potassium 3.3 mEq/L (3.5-5.1)
[2021-11-20] MEDS: Budesonide/Formoterol 160/4.5 1 PUFF INH IH SCH ×2 (07:28→20:13)
[2021-11-20] MEDS: Famotidine 20 MG TABLET PO SCH (10:20)
[2021-11-20] MEDS: Metoprolol XL (24 HR) Succ 25 MG TAB.ER.24H PO SCH (10:20)
[2021-11-20] MEDS: sulfaSALAzine 500 MG TABLET PO SCH ×2 (10:20→21:08)
[2021-11-20] MEDS: predniSONE 20 MG TABLET PO SCH (10:20)
[2021-11-20] MEDS: Bumetanide 1 MG/4 ML VIAL IVP SCH ×2 (10:21→19:55)
[2021-11-20] MEDS: Loratadine 10 MG TABLET PO SCH (10:21)
[2021-11-20] MEDS ORDERED: Bumetanide 1 MG/4 ML VIAL IVP ONE (13:40)
[2021-11-20 16:01] LABS: BUN/Creatinine Ratio 25 (6-26); Blood Urea Nitrogen 26 mg/dL (8-23); Calcium 8.2 mg/dL (8.6-10.3); Carbon Dioxide 25 mEq/L (23-29); Chloride 97 mEq/L (98-107); Glucose 202 mg/dL (70-105); Osmolality,Calculated 283 (280-300); Potassium 4.1 mEq/L (3.5-5.1); Sodium 131 mEq/L (136-145); eGFR For African Americans > 60 (> 60); eGFR For Non-African Americans 52 (> 60)
[2021-11-20] MEDS: *HR* Rivaroxaban 10 MG TABLET PO SCH (19:44)
[2021-11-20] MEDS: *HR* HYDROcodone/Acet 5/325 mg TABLET PO PRN (21:08)
[2021-11-20] MEDS: Mirtazapine 15 MG TABLET PO SCH (21:08)
[2021-11-21] MEDS: Ipratropium/Albuterol Neb 3 ML IH SCH ×5 (04:27→20:16)
[2021-11-21 04:57] LABS: BUN/Creatinine Ratio 24 (6-26); Blood Urea Nitrogen 23 mg/dL (8-23); Calcium 8.4 mg/dL (8.6-10.3); Carbon Dioxide 29 mEq/L (23-29); Chloride 95 mEq/L (98-107); Glucose 106 mg/dL (70-105); Magnesium 1.7 mg/dL (1.6-2.6); Osmolality,Calculated 278 (280-300); Phosphorous 2.6 mg/dL (2.7-4.5); Potassium 3.4 mEq/L (3.5-5.1); Sodium 132 mEq/L (136-145); eGFR For African Americans > 60 (> 60); eGFR For Non-African Americans > 60 (> 60)
[2021-11-21] MEDS: Budesonide/Formoterol 160/4.5 1 PUFF INH IH SCH ×2 (07:25→20:16)
[2021-11-21] MEDS ORDERED: Potassium Phosphate 44 MEQ in 0.9 % Sodium Chloride 250 ML IVPB ONE (07:30)
[2021-11-21] MEDS: Bumetanide 1 MG/4 ML VIAL IVP SCH ×2 (08:37→17:21)
[2021-11-21] MEDS: sulfaSALAzine 500 MG TABLET PO SCH ×2 (08:38→20:05)
[2021-11-21] MEDS: Loratadine 10 MG TABLET PO SCH (08:38)
[2021-11-21] MEDS: Famotidine 20 MG TABLET PO SCH (08:38)
[2021-11-21] MEDS: predniSONE 20 MG TABLET PO SCH (08:38)
[2021-11-21] MEDS: Metoprolol XL (24 HR) Succ 25 MG TAB.ER.24H PO SCH (08:41)
[2021-11-21] MEDS: Nitroglycerin 0.4 MG TAB.SUBL SL PRN (11:27)
[2021-11-21] MEDS: *HR* Rivaroxaban 10 MG TABLET PO SCH (17:21)
[2021-11-21] MEDS: ALPRAZolam 0.25 MG TABLET PO PRN (18:50)
[2021-11-21] MEDS: Mirtazapine 15 MG TABLET PO SCH (20:05)
[2021-11-22] MEDS: Ipratropium/Albuterol Neb 3 ML IH SCH ×6 (00:15→20:59)
[2021-11-22 03:27] LABS: BUN/Creatinine Ratio 23 (6-26); Blood Urea Nitrogen 19 mg/dL (8-23); Calcium 8.3 mg/dL (8.6-10.3); Carbon Dioxide 31 mEq/L (23-29); Chloride 94 mEq/L (98-107); Glucose 102 mg/dL (70-105); Magnesium 1.5 mg/dL (1.6-2.6); Osmolality,Calculated 278 (280-300); Phosphorous 2.9 mg/dL (2.7-4.5); Potassium 3.5 mEq/L (3.5-5.1); Sodium 133 mEq/L (136-145); eGFR For African Americans > 60 (> 60); eGFR For Non-African Americans > 60 (> 60)
[2021-11-22] MEDS: Budesonide/Formoterol 160/4.5 1 PUFF INH IH SCH ×2 (07:48→20:59)
[2021-11-22] MEDS: sulfaSALAzine 500 MG TABLET PO SCH ×2 (09:03→20:15)
[2021-11-22] MEDS: predniSONE 20 MG TABLET PO SCH (09:04)
[2021-11-22] MEDS: Metoprolol XL (24 HR) Succ 25 MG TAB.ER.24H PO SCH (09:07)
[2021-11-22] MEDS: Loratadine 10 MG TABLET PO SCH (09:07)
[2021-11-22] MEDS: Famotidine 20 MG TABLET PO SCH (09:07)
[2021-11-22] MEDS: Bumetanide 1 MG/4 ML VIAL IVP SCH ×2 (09:08→20:48)
[2021-11-22] MEDS: Calcium Gluconate 1gm/50mL 1 GM/50 ML BAG IVPB SCH ×2 (10:07→11:19)
[2021-11-22] MEDS ORDERED: Bumetanide 1 MG/4 ML VIAL IVP ONE (14:12)
[2021-11-22] MEDS: *HR* Rivaroxaban 10 MG TABLET PO SCH (16:53)
[2021-11-22] MEDS ORDERED: Bumetanide 1 MG/4 ML VIAL IVP SCH (17:00)
[2021-11-22] MEDS: Mirtazapine 15 MG TABLET PO SCH (20:15)
[2021-11-22] MEDS: Chlorhexidine Rinse 15 ML MOUTHWASH MM SCH (20:15)
[2021-11-23] MEDS: Ipratropium/Albuterol Neb 3 ML IH SCH ×7 (00:26→23:48)
[2021-11-23 02:36] LABS: Hematocrit 30.3 % (35.3-44.9); Hemoglobin 9.6 g/dL (11.5-15.4); Mean Corpuscular HGB Conc 31.7 g/dL (31.6-35.5); Mean Corpuscular Hemoglobin 26.4 pg (28.0-33.3); Mean Corpuscular Volume 83.5 fL (83.0-100.0); Mean Platelet Volume 11.3 fL (9.4-12.4); Platelet Count 203 K/mcL (140-400); Red Blood Count 3.63 M/mcL (3.82-4.97); Red Cell Distribution Width 26.6 % (11.5-14.5)
[2021-11-23 02:37] LABS: White Blood Count 4.5 K/mcL (4.3-11.1)
[2021-11-23 02:52] LABS: BUN/Creatinine Ratio 22 (6-26); Blood Urea Nitrogen 16 mg/dL (8-23); Calcium 8.3 mg/dL (8.6-10.3); Carbon Dioxide 33 mEq/L (23-29); Chloride 94 mEq/L (98-107); Glucose 103 mg/dL (70-105); Magnesium 1.7 mg/dL (1.6-2.6); Osmolality,Calculated 275 (280-300); Potassium 3.2 mEq/L (3.5-5.1); Sodium 132 mEq/L (136-145); eGFR For African Americans > 60 (> 60); eGFR For Non-African Americans > 60 (> 60)
[2021-11-23] MEDS: Budesonide/Formoterol 160/4.5 1 PUFF INH IH SCH ×2 (07:39→19:53)
[2021-11-23] MEDS: Calcium Gluconate 1gm/50mL 1 GM/50 ML BAG IVPB SCH ×2 (08:23→09:29)
[2021-11-23] MEDS: sulfaSALAzine 500 MG TABLET PO SCH ×2 (08:24→21:00)
[2021-11-23] MEDS: Multivit/Ca/Min/Fe/FA 1 TAB TABLET PO SCH (08:24)
[2021-11-23] MEDS: Metoprolol XL (24 HR) Succ 25 MG TAB.ER.24H PO SCH (08:24)
[2021-11-23] MEDS: predniSONE 20 MG TABLET PO SCH (08:24)
[2021-11-23] MEDS: Chlorhexidine Rinse 15 ML MOUTHWASH MM SCH ×2 (08:25→21:00)
[2021-11-23] MEDS: Bumetanide 1 MG/4 ML VIAL IVP SCH ×2 (08:25→17:43)
[2021-11-23] MEDS: Famotidine 20 MG TABLET PO SCH (08:25)
[2021-11-23] MEDS: *HR* Rivaroxaban 10 MG TABLET PO SCH (17:44)
[2021-11-23] MEDS: Mirtazapine 15 MG TABLET PO SCH (20:59)
[2021-11-24] MEDS: Ipratropium/Albuterol Neb 3 ML IH SCH ×5 (04:00→20:18)
[2021-11-24 06:00] LABS: BUN/Creatinine Ratio 24 (6-26); Blood Urea Nitrogen 19 mg/dL (8-23); Calcium 8.6 mg/dL (8.6-10.3); Carbon Dioxide 33 mEq/L (23-29); Chloride 94 mEq/L (98-107); Glucose 104 mg/dL (70-105); Magnesium 1.9 mg/dL (1.6-2.6); Osmolality,Calculated 277 (280-300); Potassium 3.3 mEq/L (3.5-5.1); Sodium 132 mEq/L (136-145); eGFR For African Americans > 60 (> 60); eGFR For Non-African Americans > 60 (> 60)
[2021-11-24 06:21] LABS: % Iron Saturation 7 % (15-50); Ferritin 27 ng/mL (10-120); Iron 21 mcg/dL (50-170); Transferrin 223 mg/dL (203-362)
[2021-11-24 06:27] LABS: Folate 8.3 ng/mL (3.0-16.0)
[2021-11-24] MEDS: Budesonide/Formoterol 160/4.5 1 PUFF INH IH SCH ×2 (07:56→20:18)
[2021-11-24] MEDS: Multivit/Ca/Min/Fe/FA 1 TAB TABLET PO SCH (09:27)
[2021-11-24] MEDS: sulfaSALAzine 500 MG TABLET PO SCH ×2 (09:27→21:03)
[2021-11-24] MEDS: predniSONE 20 MG TABLET PO SCH (09:27)
[2021-11-24] MEDS: Chlorhexidine Rinse 15 ML MOUTHWASH MM SCH ×2 (09:27→21:04)
[2021-11-24] MEDS: Metoprolol XL (24 HR) Succ 25 MG TAB.ER.24H PO SCH (09:28)
[2021-11-24] MEDS: Famotidine 20 MG TABLET PO SCH (09:28)
[2021-11-24] MEDS: Bumetanide 1 MG/4 ML VIAL IVP SCH (10:31)
[2021-11-24] MEDS: Bumetanide 1 MG TABLET PO SCH ×2 (10:31→16:27)
[2021-11-24] MEDS: *HR* Rivaroxaban 10 MG TABLET PO SCH (16:26)
[2021-11-24] MEDS ORDERED: Bumetanide 1 MG TABLET PO SCH (17:00)
[2021-11-24] MEDS: Mirtazapine 15 MG TABLET PO SCH (21:04)
[2021-11-25] MEDS: Ipratropium/Albuterol Neb 3 ML IH SCH ×7 (00:23→23:26)
[2021-11-25 04:24] LABS: BUN/Creatinine Ratio 23 (6-26); Blood Urea Nitrogen 19 mg/dL (8-23); Calcium 8.3 mg/dL (8.6-10.3); Carbon Dioxide 29 mEq/L (23-29); Chloride 94 mEq/L (98-107); Glucose 112 mg/dL (70-105); Magnesium 1.7 mg/dL (1.6-2.6); Osmolality,Calculated 275 (280-300); Phosphorous 3.7 mg/dL (2.7-4.5); Potassium 4.1 mEq/L (3.5-5.1); Sodium 131 mEq/L (136-145); eGFR For African Americans > 60 (> 60); eGFR For Non-African Americans > 60 (> 60)
[2021-11-25] MEDS: Budesonide/Formoterol 160/4.5 1 PUFF INH IH SCH ×2 (07:48→20:17)
[2021-11-25] MEDS: Multivit/Ca/Min/Fe/FA 1 TAB TABLET PO SCH (08:14)
[2021-11-25] MEDS: Chlorhexidine Rinse 15 ML MOUTHWASH MM SCH ×2 (08:14→20:10)
[2021-11-25] MEDS: Bumetanide 1 MG TABLET PO SCH ×2 (08:15→18:49)
[2021-11-25] MEDS: Metoprolol XL (24 HR) Succ 25 MG TAB.ER.24H PO SCH (08:15)
[2021-11-25] MEDS: Famotidine 20 MG TABLET PO SCH (08:15)
[2021-11-25] MEDS: predniSONE 20 MG TABLET PO SCH (08:15)
[2021-11-25] MEDS: sulfaSALAzine 500 MG TABLET PO SCH ×2 (08:16→20:10)
[2021-11-25] MEDS: *HR* Rivaroxaban 10 MG TABLET PO SCH (18:49)
[2021-11-25] MEDS: Melatonin 3 MG TABLET PO PRN (20:10)
[2021-11-25] MEDS: Mirtazapine 15 MG TABLET PO SCH (20:10)
[2021-11-26 02:03] LABS: BUN/Creatinine Ratio 24 (6-26); Blood Urea Nitrogen 18 mg/dL (8-23); Calcium 8.4 mg/dL (8.6-10.3); Carbon Dioxide 31 mEq/L (23-29); Chloride 94 mEq/L (98-107); Glucose 106 mg/dL (70-105); Osmolality,Calculated 274 (280-300); Potassium 3.5 mEq/L (3.5-5.1); Sodium 131 mEq/L (136-145); eGFR For African Americans > 60 (> 60); eGFR For Non-African Americans > 60 (> 60)
[2021-11-26 02:33] LABS: Basophils % 0.4 %; Eosinophils % 0.6 %; Hematocrit 30.6 % (35.3-44.9); Hemoglobin 9.3 g/dL (11.5-15.4); Immature Granulocytes % 0.6 % (0-4); Immature Platelets 10.7 % (1.1-6.1); Lymphocytes # 1.6 K/mcL (0.6-4.6); Lymphocytes % 30.2 %; Mean Corpuscular HGB Conc 30.4 g/dL (31.6-35.5); Mean Corpuscular Hemoglobin 25.3 pg (28.0-33.3); Mean Corpuscular Volume 83.4 fL (83.0-100.0); Mean Platelet Volume 11.2 fL (9.4-12.4); Monocytes # 0.5 K/mcL (0.0-1.3); Monocytes % 8.6 %; Neutrophils # 3.2 K/mcL (1.6-8.9); Platelet Count 136 K/mcL (140-400); Red Blood Count 3.67 M/mcL (3.82-4.97); Red Cell Distribution Width 26.5 % (11.5-14.5); Segmented Neutrophils % 59.6 %; White Blood Count 5.4 K/mcL (4.3-11.1)
[2021-11-26 02:51] LABS: Anisocytosis 1+ (Not Present); Macrocytosis Present (Not Present)
[2021-11-26 02:52] LABS: Hypochromasia Present (Not Present); Platelet Estimate Normal (Normal)
[2021-11-26 02:53] LABS: Target Cells 1+ (Not Present)
[2021-11-26] MEDS: Ipratropium/Albuterol Neb 3 ML IH SCH ×6 (03:42→23:13)
[2021-11-26] MEDS: Budesonide/Formoterol 160/4.5 1 PUFF INH IH SCH ×2 (07:41→20:05)
[2021-11-26] MEDS: Metoprolol XL (24 HR) Succ 25 MG TAB.ER.24H PO SCH (07:58)
[2021-11-26] MEDS: Multivit/Ca/Min/Fe/FA 1 TAB TABLET PO SCH (07:59)
[2021-11-26] MEDS: Famotidine 20 MG TABLET PO SCH (07:59)
[2021-11-26] MEDS: sulfaSALAzine 500 MG TABLET PO SCH ×2 (07:59→21:06)
[2021-11-26] MEDS: Chlorhexidine Rinse 15 ML MOUTHWASH MM SCH ×2 (07:59→21:06)
[2021-11-26] MEDS: ALPRAZolam 0.25 MG TABLET PO PRN ×2 (08:04→21:05)
[2021-11-26] MEDS: Bumetanide 1 MG TABLET PO SCH ×2 (08:05→16:43)
[2021-11-26] MEDS: *HR* Rivaroxaban 10 MG TABLET PO SCH (16:43)
[2021-11-26] MEDS: *HR* HYDROcodone/Acet 5/325 mg TABLET PO PRN (21:05)
[2021-11-26] MEDS: Mirtazapine 15 MG TABLET PO SCH (21:06)
[2021-11-26] MEDS: Melatonin 3 MG TABLET PO PRN (21:06)
[2021-11-26] MEDS: Nitroglycerin 0.4 MG TAB.SUBL SL PRN (21:16)
[2021-11-27] MEDS: Ipratropium/Albuterol Neb 3 ML IH SCH ×5 (04:01→20:14)
[2021-11-27] MEDS: Budesonide/Formoterol 160/4.5 1 PUFF INH IH SCH ×2 (07:33→20:14)
[2021-11-27] MEDS: sulfaSALAzine 500 MG TABLET PO SCH ×2 (08:14→20:25)
[2021-11-27] MEDS: Chlorhexidine Rinse 15 ML MOUTHWASH MM SCH ×2 (08:14→20:29)
[2021-11-27] MEDS: Bumetanide 1 MG TABLET PO SCH ×2 (08:14→16:39)
[2021-11-27] MEDS: Multivit/Ca/Min/Fe/FA 1 TAB TABLET PO SCH (08:15)
[2021-11-27] MEDS: Famotidine 20 MG TABLET PO SCH (08:15)
[2021-11-27] MEDS: Metoprolol XL (24 HR) Succ 25 MG TAB.ER.24H PO SCH (08:15)
[2021-11-27] MEDS: Ondansetron 4 MG/2 ML VIAL IVP PRN (11:32)
[2021-11-27] MEDS: *HR* Rivaroxaban 10 MG TABLET PO SCH (16:39)
[2021-11-27] MEDS: Nitroglycerin 0.4 MG TAB.SUBL SL PRN (20:25)
[2021-11-27] MEDS: ALPRAZolam 0.25 MG TABLET PO PRN (20:25)
[2021-11-27] MEDS: Melatonin 3 MG TABLET PO PRN (20:26)
[2021-11-27] MEDS: *HR* HYDROcodone/Acet 5/325 mg TABLET PO PRN (20:26)
[2021-11-27] MEDS: Mirtazapine 15 MG TABLET PO SCH (20:26)
[2021-11-28] MEDS: Ipratropium/Albuterol Neb 3 ML IH SCH ×7 (00:11→23:47)
[2021-11-28] MEDS: Budesonide/Formoterol 160/4.5 1 PUFF INH IH SCH ×2 (07:42→23:47)
[2021-11-28 10:38] LABS: Influenza A PCR Negative (Negative); Influenza B PCR Negative (Negative); Resp. Syncytial Virus PCR Negative (Negative)
[2021-11-28] MEDS: sulfaSALAzine 500 MG TABLET PO SCH ×2 (10:39→21:13)
[2021-11-28] MEDS: Chlorhexidine Rinse 15 ML MOUTHWASH MM SCH ×2 (10:40→21:13)
[2021-11-28] MEDS: Metoprolol XL (24 HR) Succ 25 MG TAB.ER.24H PO SCH (10:41)
[2021-11-28] MEDS: Famotidine 20 MG TABLET PO SCH (10:41)
[2021-11-28] MEDS: Multivit/Ca/Min/Fe/FA 1 TAB TABLET PO SCH (10:41)
[2021-11-28 10:58] LABS: SARS-CoV-2 by PCR (In House) Negative (Negative)
[2021-11-28] MEDS: ALPRAZolam 0.25 MG TABLET PO PRN (11:04)
[2021-11-28 15:58] LABS: ABG Base Excess 2 mEq/L (-2 to 3); ABG HCO3 26 mEq/L (21-27); ABG Oxygen Saturation 93 % (95-98); ABG PCO2 36 mmHg (35-45); ABG PH 7.46 pH Units (7.32-7.45); ABG PO2 61 mmHg (85-104); ABG TCO2 27 mEq/L (20-26)
[2021-11-28] MEDS: Bumetanide 1 MG TABLET PO SCH ×2 (17:40→17:41)
[2021-11-28] MEDS: *HR* Rivaroxaban 10 MG TABLET PO SCH (18:00)
[2021-11-28] MEDS: Piperacillin/Tazobactam 3.375 GM in 0.9 % Sodium Chloride Mini Bag 100 ML IVPB SCH (18:00)
[2021-11-28] MEDS ORDERED: Isovue-370 500 ML BOTTLE IVP ONE (18:50)
[2021-11-28] MEDS ORDERED: Furosemide 20 MG/2 ML VIAL IVP ONE (19:16)
[2021-11-28] MEDS: Mirtazapine 15 MG TABLET PO SCH (21:13)
[2021-11-29] MEDS: Piperacillin/Tazobactam 3.375 GM in 0.9 % Sodium Chloride Mini Bag 100 ML IVPB SCH (00:45)
[2021-11-29] MEDS: Ipratropium/Albuterol Neb 3 ML IH SCH ×6 (03:45→23:56)
[2021-11-29 03:53] LABS: ABG Base Excess 4 mEq/L (-2 to 3); ABG HCO3 28 mEq/L (21-27); ABG Oxygen Saturation 94 % (95-98); ABG PCO2 40 mmHg (35-45); ABG PH 7.46 pH Units (7.32-7.45); ABG PO2 67 mmHg (85-104); ABG TCO2 29 mEq/L (20-26)
[2021-11-29 05:29] LABS: Basophils % 0.4 %; Eosinophils % 0.6 %; Hematocrit 32.6 % (35.3-44.9); Hemoglobin 9.9 g/dL (11.5-15.4); Lymphocytes # 1.3 K/mcL (0.6-4.6); Lymphocytes % 25.7 %; Mean Corpuscular HGB Conc 30.4 g/dL (31.6-35.5); Mean Corpuscular Hemoglobin 25.8 pg (28.0-33.3); Mean Corpuscular Volume 85.1 fL (83.0-100.0); Mean Platelet Volume 11.9 fL (9.4-12.4); Monocytes # 0.6 K/mcL (0.0-1.3); Monocytes % 11.2 %; Neutrophils # 3.1 K/mcL (1.6-8.9); Platelet Count 188 K/mcL (140-400); Red Blood Count 3.83 M/mcL (3.82-4.97); Red Cell Distribution Width 25.9 % (11.5-14.5); Segmented Neutrophils % 61.1 %; White Blood Count 5.1 K/mcL (4.3-11.1)
[2021-11-29 05:37] LABS: BUN/Creatinine Ratio 21 (6-26); Blood Urea Nitrogen 20 mg/dL (8-23); Calcium 8.7 mg/dL (8.6-10.3); Carbon Dioxide 31 mEq/L (23-29); Chloride 94 mEq/L (98-107); Glucose 97 mg/dL (70-105); Magnesium 1.6 mg/dL (1.6-2.6); Osmolality,Calculated 275 (280-300); Potassium 4.3 mEq/L (3.5-5.1); Sodium 131 mEq/L (136-145); eGFR For African Americans > 60 (> 60); eGFR For Non-African Americans 59 (> 60)
[2021-11-29] MEDS: Budesonide/Formoterol 160/4.5 1 PUFF INH IH SCH ×2 (07:43→21:11)
[2021-11-29] MEDS: sulfaSALAzine 500 MG TABLET PO SCH ×2 (10:57→20:36)
[2021-11-29] MEDS: Metoprolol XL (24 HR) Succ 25 MG TAB.ER.24H PO SCH (10:58)
[2021-11-29] MEDS: Famotidine 20 MG TABLET PO SCH (10:58)
[2021-11-29] MEDS: Chlorhexidine Rinse 15 ML MOUTHWASH MM SCH ×2 (10:58→20:36)
[2021-11-29] MEDS: Multivit/Ca/Min/Fe/FA 1 TAB TABLET PO SCH (10:58)
[2021-11-29] MEDS: Ondansetron 4 MG/2 ML VIAL IVP PRN (10:58)
[2021-11-29] MEDS: Magnesium Oxide 400 MG TABLET PO SCH (11:54)
[2021-11-29] MEDS: Bumetanide 1 MG TABLET PO SCH ×2 (11:54→18:42)
[2021-11-29] MEDS: *HR* Rivaroxaban 10 MG TABLET PO SCH (18:42)
[2021-11-29] MEDS: Mirtazapine 15 MG TABLET PO SCH (20:36)
[2021-11-29] MEDS: Benzonatate 100 MG CAPSULE PO PRN (21:31)
[2021-11-30] MEDS: Ipratropium/Albuterol Neb 3 ML IH SCH ×6 (04:42→23:19)
[2021-11-30] MEDS: sulfaSALAzine 500 MG TABLET PO SCH ×2 (07:57→20:32)
[2021-11-30] MEDS: Chlorhexidine Rinse 15 ML MOUTHWASH MM SCH ×2 (07:57→20:32)
[2021-11-30] MEDS: Bumetanide 1 MG TABLET PO SCH ×2 (07:57→16:13)
[2021-11-30] MEDS: Multivit/Ca/Min/Fe/FA 1 TAB TABLET PO SCH (07:58)
[2021-11-30] MEDS: Magnesium Oxide 400 MG TABLET PO SCH (07:58)
[2021-11-30] MEDS: Famotidine 20 MG TABLET PO SCH (07:59)
[2021-11-30] MEDS: Budesonide/Formoterol 160/4.5 1 PUFF INH IH SCH ×2 (11:44→19:48)
[2021-11-30] MEDS: *HR* Rivaroxaban 10 MG TABLET PO SCH (16:13)
[2021-11-30] MEDS: Mirtazapine 15 MG TABLET PO SCH (20:33)
[2021-12-01] MEDS: Ipratropium/Albuterol Neb 3 ML IH SCH ×6 (03:31→23:56)
[2021-12-01] MEDS: *HR* HYDROcodone/Acet 5/325 mg TABLET PO PRN ×2 (06:53→12:41)
[2021-12-01] MEDS: Budesonide/Formoterol 160/4.5 1 PUFF INH IH SCH ×2 (07:37→20:14)
[2021-12-01] MEDS: Magnesium Oxide 400 MG TABLET PO SCH (08:13)
[2021-12-01] MEDS: Famotidine 20 MG TABLET PO SCH (08:13)
[2021-12-01] MEDS: Multivit/Ca/Min/Fe/FA 1 TAB TABLET PO SCH (08:13)
[2021-12-01] MEDS: Bumetanide 1 MG TABLET PO SCH ×2 (08:13→17:09)
[2021-12-01] MEDS: Chlorhexidine Rinse 15 ML MOUTHWASH MM SCH ×2 (08:16→19:43)
[2021-12-01] MEDS: sulfaSALAzine 500 MG TABLET PO SCH ×2 (10:37→17:07)
[2021-12-01] MEDS: Metoprolol XL (24 HR) Succ 25 MG TAB.ER.24H PO SCH (12:47)
[2021-12-01] MEDS: *HR* Rivaroxaban 10 MG TABLET PO SCH (17:07)
[2021-12-01] MEDS: Mirtazapine 15 MG TABLET PO SCH (19:43)
[2021-12-02] MEDS: Ipratropium/Albuterol Neb 3 ML IH SCH ×5 (03:50→20:50)
[2021-12-02] MEDS: Budesonide/Formoterol 160/4.5 1 PUFF INH IH SCH ×2 (07:36→20:54)
[2021-12-02] MEDS: Bumetanide 1 MG TABLET PO SCH ×2 (08:38→15:54)
[2021-12-02] MEDS: Multivit/Ca/Min/Fe/FA 1 TAB TABLET PO SCH (08:38)
[2021-12-02] MEDS: Magnesium Oxide 400 MG TABLET PO SCH (08:38)
[2021-12-02] MEDS: sulfaSALAzine 500 MG TABLET PO SCH ×2 (08:39→15:54)
[2021-12-02] MEDS: Metoprolol XL (24 HR) Succ 25 MG TAB.ER.24H PO SCH (08:39)
[2021-12-02] MEDS: Famotidine 20 MG TABLET PO SCH (08:39)
[2021-12-02] MEDS: Chlorhexidine Rinse 15 ML MOUTHWASH MM SCH ×2 (08:39→21:07)
[2021-12-02] MEDS: Benzonatate 100 MG CAPSULE PO PRN (13:38)
[2021-12-02] MEDS: *HR* Rivaroxaban 10 MG TABLET PO SCH (15:54)
[2021-12-02] MEDS: Ondansetron 4 MG/2 ML VIAL IVP PRN (16:31)
[2021-12-02] MEDS: Mirtazapine 15 MG TABLET PO SCH (21:07)
[2021-12-03] MEDS: Ipratropium/Albuterol Neb 3 ML IH SCH ×5 (00:37→16:16)
[2021-12-03] MEDS: Budesonide/Formoterol 160/4.5 1 PUFF INH IH SCH (07:52)
[2021-12-03] MEDS ORDERED: Metoprolol XL (24 HR) Succ 25 MG TAB.ER.24H PO SCH (09:00)
[2021-12-03] MEDS: Bumetanide 1 MG TABLET PO SCH (09:34)
[2021-12-03] MEDS: Famotidine 20 MG TABLET PO SCH (09:35)
[2021-12-03] MEDS: Multivit/Ca/Min/Fe/FA 1 TAB TABLET PO SCH (09:35)
[2021-12-03] MEDS: Magnesium Oxide 400 MG TABLET PO SCH (09:35)
[2021-12-03] MEDS: Chlorhexidine Rinse 15 ML MOUTHWASH MM SCH (09:36)
[2021-12-03] MEDS: sulfaSALAzine 500 MG TABLET PO SCH (09:36)
[2021-12-03 11:40] VITALS: BP 103/79; PULSE 88; TEMP 98.2; O2SAT 94
[2021-12-03 12:47] LABS: Influenza A PCR Negative (Negative); Influenza B PCR Negative (Negative); Resp. Syncytial Virus PCR Negative (Negative)
[2021-12-03 13:22] LABS: SARS-CoV-2 by PCR (In House) Negative (Negative)
== END 2021-12-03 15:05 | DRG 194 ==
LOC: 3NENU 14:40 → EMEROOARM 14:40 → SUATTDRO 17:56 → 3NENU 18:36 → SUATTDRO 11-19 15:37
PROVIDERS: ADMIT Internal Medicine; ATTEND Internal Medicine

== ENCOUNTER 2021-12-19 10:51 | Inpatient (IN) ==
[2021-12-19] MEDS ORDERED: Isovue-370 500 ML BOTTLE IVP ONE (11:44)
[2021-12-19 11:51] LABS: Hematocrit 35.1 % (35.3-44.9); Hemoglobin 11.1 g/dL (11.5-15.4); Immature Platelets 14.6 % (1.1-6.1); Mean Corpuscular HGB Conc 31.6 g/dL (31.6-35.5); Mean Corpuscular Hemoglobin 25.6 pg (28.0-33.3); Mean Corpuscular Volume 81.1 fL (83.0-100.0); Platelet Count 169 K/mcL (140-400); Red Blood Count 4.33 M/mcL (3.82-4.97); Red Cell Distribution Width 24.2 % (11.5-14.5); White Blood Count 6.1 K/mcL (4.3-11.1)
[2021-12-19 12:12] LABS: Calcium 8.8 mg/dL (8.6-10.3); Potassium 4.2 mEq/L (3.5-5.1)
[2021-12-19 12:14] LABS: Lymphocytes # 1.5 K/mcL (0.6-4.6); Neutrophils # 4.6 K/mcL (1.6-8.9)
[2021-12-19 12:15] LABS: Anisocytosis 2+ (Not Present); Platelet Estimate Normal (Normal); Poikilocytosis 1+ (Not Present); Polychromasia 1+ (Not Present); Reactive Lymphocytes Present (Not Present)
[2021-12-19 12:18] LABS: Burr Cells 1+ (Not Present)
[2021-12-19 12:19] LABS: Troponin I 0.04 ng/mL (< 0.04)
[2021-12-19] MEDS ORDERED: Ipratropium/Albuterol Neb 3 ML IH ONE (12:49)
[2021-12-19] MEDS ORDERED: Aspirin Enteric Coated 81 MG Tablet PO ONE (12:49)
[2021-12-19] MEDS ORDERED: 0.9 % Sodium Chloride 500 ML IVC ONE (12:50)
[2021-12-19] MEDS ORDERED: Furosemide 40 MG/4 ML VIAL IVP ONE (13:35)
[2021-12-19] MEDS ORDERED: Albumin 25% 12.5gm/50mL 12.5 GM/50 ML IV.SOLN IVPB ONE (13:35)
[2021-12-19] MEDS ORDERED: Mag Hydrox/Al Hydrox/Simeth 30 ML UDC PO PRN (14:32)
[2021-12-19] MEDS ORDERED: *HR* OxyCODONE Immed Rel 5 MG TABLET PO PRN (14:32)
[2021-12-19] MEDS ORDERED: Acetaminophen 325 MG TABLET PO PRN (14:32)
[2021-12-19] MEDS ORDERED: Ondansetron ODT 4 MG TAB.RAPDIS SL PRN (14:32)
[2021-12-19] MEDS ORDERED: Melatonin 3 MG TABLET PO PRN (14:32)
[2021-12-19] MEDS ORDERED: Naloxone 0.4 MG/ML INJ IVP PRN (14:32)
[2021-12-19 14:48] LABS: VBG HCO3 21 mEq/L (21-27); VBG PCO2 39 mmHg (41-51); VBG PH 7.33 pH Units (7.32-7.42); VBG PO2 57 mmHg (25-50)
[2021-12-19 15:09] LABS: Bacteria,Urine Few per hpf (None-Few); Bilirubin,Urine Small (Negative); Blood,Urine Negative (Negative); Clarity,Urine Turbid (Clear); Color,Urine Dark-Yellow (Yellow); Glucose,Urine (UA) Normal (Normal); Hyaline Casts,Urine Many per lpf (None Seen); Ketones,Urine Negative (Negative); Leukocyte Esterase,Urine Trace (Negative); Mucus,Urine Few per lpf (None-Few); Nitrite,Urine Negative (Negative); PH,Urine 5.5 pH Units (5.0-8.0); Protein,Urine 50 mg/dL (Neg-Trace); RBC,Urine 0-3 per hpf (0-3); Specific Gravity,Urine 1.019 (1.010-1.025); Squamous Epithelial Cell,Urine Moderate per hpf (None-Few); Transitional Epi Cells,Urine Few per hpf (None-Few); Urobilinogen,Urine Normal (Normal)
[2021-12-19] MEDS ORDERED: *HR* Rivaroxaban 10 MG TABLET PO SCH (17:00)
[2021-12-19] MEDS: Ipratropium 1 PUFF INHALER IH SCH ×3 (17:02→23:25)
[2021-12-19 17:58] LABS: Fibrinogen 154 mg/dL (169-393)
[2021-12-19 17:59] LABS: D-Dimer 1640 ng/mLFEU (0-500)
[2021-12-19 18:48] LABS: Albumin 3.5 g/dL (3.5-5.7); Bilirubin,Direct 1.9 mg/dL (0.0-0.2); Bilirubin,Indirect 1.2 mg/dL (0.0-1.0); Bilirubin,Total 3.1 mg/dL (0.3-1.0); Globulin 3.5 g/dL (2.4-3.5)
[2021-12-19 19:25] LABS: Influenza A PCR Negative (Negative); Influenza B PCR Negative (Negative); Resp. Syncytial Virus PCR Negative (Negative)
[2021-12-19 19:35] LABS: SARS-CoV-2 by PCR (In House) Positive (Negative)
[2021-12-19] MEDS ORDERED: 0.9 % Sodium Chloride 1,000 ML IVC ONE (19:39)
[2021-12-19] MEDS ORDERED: Budesonide/Formoterol 160/4.5 1 PUFF INH IH ONE (19:51)
[2021-12-19] MEDS: Mirtazapine 15 MG TABLET PO SCH (20:03)
[2021-12-19] MEDS: Budesonide/Formoterol 160/4.5 1 PUFF INH IH SCH (20:10)
[2021-12-19] MEDS ORDERED: sulfaSALAzine 500 MG TABLET PO SCH (21:00)
[2021-12-19] MEDS ORDERED: 0.9 % Sodium Chloride 1,000 ML IVC SCH (21:30)
[2021-12-19] MEDS: 0.9 % Sodium Chloride 500 ML IVC PRN (21:36)
[2021-12-19] MEDS: Dexmedetomidine HCl 400 MCG/100 ML MLS IVC SCH (22:54)
[2021-12-20] MEDS ORDERED: Albumin 25% 25gram/100mL 25 GM/100 ML IV.SOLN IVPB ONE (00:23)
[2021-12-20] MEDS: 0.9 % Sodium Chloride 500 ML IVC PRN (01:15)
[2021-12-20] MEDS ORDERED: Norepinephrine 4 MG/254 ML IV.SOLN IVC SCH (01:45)
[2021-12-20] MEDS: Phenylephrine 20 MG in 0.9 % Sodium Chloride 250 ML IVC SCH ×3 (01:59→06:00)
[2021-12-20 03:04] LABS: Basophils % 0.2 %; Hemoglobin 10.3 g/dL (11.5-15.4); Nucleated Red Blood Cells 0.4 /100 WBC (0)
[2021-12-20 03:06] LABS: Hematocrit 35.5 % (35.3-44.9); Immature Platelets 9.9 % (1.1-6.1); Lymphocytes # 0.8 K/mcL (0.6-4.6); Lymphocytes % 15.9 %; Mean Corpuscular Hemoglobin 25.3 pg (28.0-33.3); Mean Corpuscular Volume 87.2 fL (83.0-100.0); Mean Platelet Volume 11.6 fL (9.4-12.4); Monocytes # 0.2 K/mcL (0.0-1.3); Monocytes % 3.3 %; Neutrophils # 3.9 K/mcL (1.6-8.9); Platelet Count 137 K/mcL (140-400); Red Blood Count 4.07 M/mcL (3.82-4.97); Red Cell Distribution Width 24.6 % (11.5-14.5); Segmented Neutrophils % 79.6 %; White Blood Count 4.9 K/mcL (4.3-11.1)
[2021-12-20 03:07] LABS: Fibrinogen 120 mg/dL (169-393)
[2021-12-20 03:09] LABS: Activated Partial Thrombo Time 44.3 Seconds (26.0-36.0)
[2021-12-20 03:26] LABS: D-Dimer 2158 ng/mLFEU (0-500); INR 12.7; Prothrombin Time 138.4 Seconds (9.4-12.1)
[2021-12-20 03:42] LABS: ABG Base Excess -12 mEq/L (-2 to 3); ABG HCO3 14 mEq/L (21-27); ABG Oxygen Saturation 91 % (95-98); ABG PCO2 34 mmHg (35-45); ABG PH 7.23 pH Units (7.32-7.45); ABG PO2 71 mmHg (85-104); ABG TCO2 15 mEq/L (20-26)
[2021-12-20 03:42] LABS: Albumin 3.7 g/dL (3.5-5.7); Bilirubin,Total 3.5 mg/dL (0.3-1.0); Calcium 8.9 mg/dL (8.6-10.3); Globulin 3.7 g/dL (2.4-3.5); Potassium 4.8 mEq/L (3.5-5.1); Total Protein 7.4 g/dL (6.4-8.9)
[2021-12-20] MEDS ORDERED: 0.9 % Sodium Chloride 250 ML IVC SCH (03:45)
[2021-12-20] MEDS: Ipratropium 1 PUFF INHALER IH SCH ×4 (03:45→15:08)
[2021-12-20] MEDS ORDERED: D5% in Water 1,000 ML IVC PRN (03:53)
[2021-12-20] MEDS ORDERED: Dextrose 4 GM Chewable Tablets PO PRN ×2 (03:53)
[2021-12-20] MEDS ORDERED: *HR* Dextrose 50 % in Water (Syg) 50 ML SYRINGE IVP ONE (03:54)
[2021-12-20 03:57] LABS: Anisocytosis 2+ (Not Present); Hypochromasia Present (Not Present); Platelet Estimate Normal (Normal); Poikilocytosis 1+ (Not Present); Polychromasia 1+ (Not Present)
[2021-12-20] MEDS ORDERED: cefTRIAXone 1,000 MG in 0.9 % Sodium Chloride Mini Bag 100 ML IVPB SCH (04:00)
[2021-12-20] MEDS ORDERED: Azithromycin 500 MG in 0.9 % Sodium Chloride 250 ML IVPB SCH (04:00)
[2021-12-20] MEDS: Dexmedetomidine HCl 400 MCG/100 ML MLS IVC SCH (04:12)
[2021-12-20] MEDS ORDERED: CefTRIAXone 2,000 MG VIAL ONE (05:40)
[2021-12-20] MEDS ORDERED: Morphine Sulfate 2 MG/ML SYRINGE IVP ONE ×2 (06:06→20:03)
[2021-12-20] MEDS ORDERED: *HR* LORazepam 2 MG/ML VIAL IVP PRN (06:36)
[2021-12-20] MEDS ORDERED: Morphine Sulfate 2 MG/ML SYRINGE IVP PRN (06:53)
[2021-12-20] MEDS: Budesonide/Formoterol 160/4.5 1 PUFF INH IH SCH (07:35)
[2021-12-20 08:12] LABS: mecA/C & MREJ (MRSA) Gene DETECTED (Not Detect)
[2021-12-20 08:13] LABS: A.calcoaceticus-baumannii cplx Not Detected (Not Detect); Bacteroides fragilis by PCR Not Detected (Not Detect); Candida albicans by PCR Not Detected (Not Detect); Candida auris by PCR Not Detected (Not Detect); Candida glabrata by PCR Not Detected (Not Detect); Candida krusei by PCR Not Detected (Not Detect); Candida parapsilosis by PCR Not Detected (Not Detect); Candida tropicalis by PCR Not Detected (Not Detect); Crypto. neoformans/gattii PCR Not Detected (Not Detect); Enterobacter cloacae Cmplx PCR Not Detected (Not Detect); Enterobacterales by PCR Not Detected (Not Detect); Enterococcus faecalis by PCR Not Detected (Not Detect); Enterococcus faecium by PCR Not Detected (Not Detect); Escherichia coli by PCR Not Detected (Not Detect); Klebs. pneumoniae group by PCR Not Detected (Not Detect); Klebsiella aerogenes by PCR Not Detected (Not Detect); Klebsiella oxytoca by PCR Not Detected (Not Detect); Proteus by PCR Not Detected (Not Detect); Pseudomonas aeruginosa by PCR Not Detected (Not Detect); Salmonella species by PCR Not Detected (Not Detect); Serratia marcescens by PCR Not Detected (Not Detect); Staph epidermidis by PCR Not Detected (Not Detect); Staph lugdunensis by PCR Not Detected (Not Detect); Staphylococcus aureus by PCR DETECTED (Not Detect); Stenotrophomonas maltophilia Not Detected (Not Detect); Streptococcus agalactiae(B)PCR Not Detected (Not Detect); Streptococcus by PCR Not Detected (Not Detect); Streptococcus pneumoniae PCR Not Detected (Not Detect); Streptococcus pyogenes (A) PCR Not Detected (Not Detect)
[2021-12-20] MEDS: Morphine Sulfate 2 MG/ML SYRINGE IVP PRN ×10 (08:43→22:43)
[2021-12-20] MEDS ORDERED: Magnesium Oxide 400 MG TABLET PO SCH (09:00)
[2021-12-20] MEDS ORDERED: Pantoprazole 40 MG VIAL IVP SCH (09:00)
[2021-12-20] MEDS ORDERED: Famotidine 20 MG TABLET PO SCH (09:00)
[2021-12-20] MEDS ORDERED: Loratadine 10 MG TABLET PO SCH (09:00)
[2021-12-20] MEDS: *HR* LORazepam 2 MG/ML VIAL IVP PRN ×6 (09:15→22:43)
[2021-12-20] MEDS: Metoprolol XL (24 HR) Succ 25 MG TAB.ER.24H PO SCH (10:26)
[2021-12-20 11:30] LABS: Troponin I 0.04 ng/mL (< 0.04)
[2021-12-20] MEDS: Mirtazapine 15 MG TABLET PO SCH (20:06)
[2021-12-20] MEDS ORDERED: Atropine Sulfate 1% 40 DROP/2 ML BOTTLE SL PRN (23:14)
[2021-12-21 08:09] VITALS: BP 73/55; PULSE 66; TEMP 97; O2SAT 68
[2021-12-21] MEDS: Morphine Sulfate 2 MG/ML SYRINGE IVP PRN ×2 (08:48→11:35)
[2021-12-21] MEDS: Metoprolol XL (24 HR) Succ 25 MG TAB.ER.24H PO SCH (10:53)
== END 2021-12-21 13:56 | disposition expired | DRG 720 ==
LOC: EMEROOARM 10:51 → 2NNU 10:51 → OBSVTOIN 16:27 → SUATTDRO 16:27 → 2NNU 16:42 → 2ANU 12-21 05:03
PROVIDERS: ADMIT Internal Medicine; ATTEND Family Medicine